=== PATIENT | female | born 1980 | race Hispanic/Latino ===

== ENCOUNTER 2018-10-07 22:45 | Emergency (ER) | payer SELFPAY ==
[2018-10-08 00:10] LABS: Urine Blood NEGATIVE (NEG); Urine Glucose NEGATIVE (NEG); Urine Protein NEGATIVE (NEG); Urine Specific Gravity 1.025 (1.005-1.030)
[2018-10-08 00:15] LABS: Urine Bacteria <20 /HPF (<20); Urine Culture Reflex Order NOT NEEDED; Urine RBC NONE SEEN /HPF (NONE SEEN)
[2018-10-08 01:29] LABS: Absolute Lymphocytes (CBC) 3.2 K/uL (0.7-4.9); Basophils % 0.8 % (0-1.3); Hematocrit 37.6 % (36.0-45.0); Lymphocytes % 32.9 % (15.3-44.8); MPV 8.9 fL (7.6-11.3); RBC Red Blood Cell Count 4.17 M/uL (3.86-4.86)
--- NOTE | 2018-10-08 04:03 | EDPHYS ---
Physician Documentation [facility] Name: Jenae Vazquez Age: 38 yrs Sex: Female : 1980 Arrival Date: 10/07/2018 Time: 22:50 Bed 18 Private MD: ED Physician Sean Lopez HPI: 10/08 03:56 This 38 yrs old Female presents to ER via Ambulatory with complaints of gs Abdominal Pain. 03:56 The patient presents with abdominal pain in the lower abdomen, in the left lower gs quadrant. Onset: The symptoms/episode began/occurred 4 day(s) ago. Associated signs and symptoms: Pertinent negatives: nausea and vomiting, chest pain. The symptoms are described as crampy, sharp. Modifying factors: The symptoms are alleviated by nothing, the symptoms are aggravated by nothing. Severity of pain: At its worst the pain was moderate in the emergency department the pain is unchanged. The patient has experienced a previous episode. 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 - Social history:: Smoking status: Patient/guardian denies using tobacco, never smoked. - Ebola Screening: : No symptoms or risks identified at this time. ROS: 10/08 03:56 All other systems are negative. gs Exam: 03:56 Head/Face: Normocephalic, atraumatic. Eyes: Pupils equal round and reactive to light, gs extra-ocular motions intact. Lids and lashes normal. Conjunctiva and sclera are non-icteric and not injected. Cornea within normal limits. Periorbital areas with no swelling, redness, or edema. ENT: Nares patent. No nasal discharge, no septal abnormalities noted. Tympanic membranes are normal and external auditory canals are clear. Oropharynx with no redness, swelling, or masses, exudates, or evidence of obstruction, uvula midline. Mucous membranes moist. Neck: Trachea midline, no thyromegaly or masses palpated, and no cervical lymphadenopathy. Supple, full range of motion without nuchal rigidity, or vertebral point tenderness. No Meningismus. Chest/axilla: Normal chest wall appearance and motion. Nontender with no deformity. No lesions are appreciated. Cardiovascular: Regular rate and rhythm with a normal S1 and S2. No gallops, murmurs, or rubs. Normal PMI, no JVD. No pulse deficits. Respiratory: Lungs have equal breath sounds bilaterally, clear to auscultation and percussion. No rales, rhonchi or wheezes noted. No increased work of breathing, no retractions or nasal flaring. Back: No spinal tenderness. No costovertebral tenderness. Full range of motion. Skin: Warm, dry with normal turgor. Normal color with no rashes, no lesions, and no evidence of cellulitis. MS/ Extremity: Pulses equal, no cyanosis. Neurovascular intact. Full, normal range of motion. Neuro: Awake and alert, GCS 15, oriented to person, place, time, and situation. Cranial nerves II-XII grossly intact. Motor strength 5/5 in all extremities. Sensory grossly intact. Cerebellar exam normal. Normal gait. 03:56 Constitutional: The patient appears alert, awake, uncomfortable. 03:56 Abdomen/GI: Palpation: moderate abdominal tenderness, in the left lower quadrant, rebound tenderness, is not appreciated. Vital Signs: 10/07 23:20 BP 138 / 95; Pulse 98; Resp 16; Temp 97.4; Pulse Ox 100% on R/A; Pain 4/10; aa1 10/08 01:30 BP 128 / 80; Pulse 88; Resp 12; Pulse Ox 100% on R/A; tr5 02:30 BP 131 / 76; Pulse 89; Resp 16; Pulse Ox 97% on R/A; aa1 03:45 BP 108 / 57; Pulse 88; Resp 16; Temp 97.8; Pulse Ox 95% on R/A; Pain 2/10; aa1 MDM: 10/07 23:27 Patient medically screened. gs 10/08 03:56 Differential diagnosis: bowel obstruction, diverticulitis, non-specific abd pain. Data gs reviewed: vital signs, nurses notes, lab test result(s), radiologic studies. Counseling: I had a detailed discussion with the patient and/or guardian regarding: the historical points, exam findings, and any diagnostic results supporting the discharge/admit diagnosis, lab results, radiology results, the need for outpatient follow up. Response to treatment: the patient's symptoms have mildly improved after treatment, and as a result, I will discharge patient. 10/07 23:27 Order name: Urine Microscopic Only; Complete Time: 00:59 10/07 23:50 Order name: Urine Dipstick--Ancillary (enter results); Complete Time: 00:59 id 08 00:59 Order name: CBC with Diff; Complete Time: 01:57 10/08 00:59 Order name: Basic Metabolic Panel; Complete Time: 01:57 10/08 00:59 Order name: CT Abd/Pelvis - IV Contrast Only 10/07 23:27 Order name: Urine Test (obtain specimen); Complete Time: 23:44 10/07 23:27 Order name: Urine Dipstick-Ancillary (obtain specimen); Complete Time: 23:44 Administered Medications: 04:10 Drug: cefOXitin 1 grams Route: IVPB; Infused Over: 30 mins; Site: right antecubital; tr5 Disposition: 10/08/18 04:02 Discharged to Home. Impression: Diverticulitis of large intestine without perforation or abscess without bleeding. - Condition is Stable. - Discharge Instructions: High-Fiber Diet, Diverticulitis. - Prescriptions for Flagyl 500 mg Oral Tablet - take 1 tablet by ORAL route every 6 hours for 7 days; 28 tablet. Keflex 500 mg Oral Capsule - take 2 capsule by ORAL route every 12 hours for 7 days; 28 capsule. - Medication Reconciliation Form, Thank You Letter, Antibiotic Education, Prescription Opioid Use form. - Follow up: Private Physician; When: 2 - 3 days; Reason: Re-evaluation by your physician. Signatures: Dispatcher [facility] Sean Lopez MD MD Viktor Fuentes RN RN tr5 Corrections: (The following items were deleted from the chart) 04:32 04:02 10/08/2018 04:02 Discharged to Home. Impression: Diverticulitis of large tr5 intestine without perforation or abscess without bleeding. Condition is Stable. Forms are Medication Reconciliation Form, Thank You Letter, Antibiotic Education, Prescription Opioid Use. Follow up: Private Physician; When: 2 - 3 days; Reason: Re-evaluation by your physician.
--- NOTE | 2018-10-08 04:03 | ER ---
Nurse's Notes [facility] Name: Jenae Vazquez Age: 38 yrs Sex: Female : 1980 Arrival Date: 10/07/2018 Time: 22:50 Bed 18 Private MD: Diagnosis: Diverticulitis of large intestine without perforation or abscess without bleeding Presentation: 10/07 23:17 Presenting complaint: Patient states: She has been having abdominal cramps that have tr5 been getting worse. She has been constipated and has pain while having a bowel movement. The last bm was about 2 hours ago. Transition of care: patient was not received from another setting of care. Onset of symptoms was October 07, 2018. Risk Assessment: Do you want to hurt yourself or someone else? Patient reports no desire to harm self or others. Initial Sepsis Screen: Does the patient meet any 2 criteria? No. Patient's initial sepsis screen is negative. Does the patient have a suspected source of infection? No. Patient's initial sepsis screen is negative. Care prior to arrival: None. 23:17 Method Of Arrival: Ambulatory tr5 23:17 Acuity: SEA 3 tr5 Triage Assessment: 23:20 General: Appears uncomfortable, Behavior is calm, cooperative. Pain: Complains of pain tr5 in abdomen. EENT: No deficits noted. 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 Cardiovascular: Heart tones present Bruits absent Capillary refill < 3 seconds. Respiratory: Airway is patent Trachea midline Respiratory effort is even, unlabored, Respiratory pattern is regular, symmetrical, Breath sounds are clear bilaterally. GI: Abdomen is round Bowel sounds present X 4 quads. Bruits are absent. Abd is soft X 4 quads Reports lower abdominal pain, constipation. : No signs and/or symptoms were reported regarding the genitourinary system. Derm: No signs and/or symptoms reported regarding the dermatologic system. Skin is intact, Skin is dry. Musculoskeletal: Capillary refill < 3 seconds. 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 - Social history:: Smoking status: Patient/guardian denies using tobacco, never smoked. - Ebola Screening: : No symptoms or risks identified at this time. Screenin:00 Abuse screen: Denies threats or abuse. Nutritional screening: No deficits noted. tr5 Tuberculosis screening: No symptoms or risk factors identified. Fall Risk None identified. Assessment: 10/08 00:30 Reassessment: No changes from previously documented assessment. Patient and/or family tr5 updated on plan of care and expected duration. Pain level reassessed. Patient is alert, oriented x 3, equal unlabored respirations, skin warm/dry/pink. 01:00 Reassessment: No changes from previously documented assessment. Patient and/or family tr5 updated on plan of care and expected duration. Pain level reassessed. Patient is alert, oriented x 3, equal unlabored respirations, skin warm/dry/pink. 01:01 Reassessment: See triage. tr5 02:00 Reassessment: Patient and/or family updated on plan of care and expected duration. Pain tr5 level reassessed. Patient is alert, oriented x 3, equal unlabored respirations, skin warm/dry/pink. 03:00 Reassessment: Patient and/or family updated on plan of care and expected duration. Pain tr5 level reassessed. Patient is alert, oriented x 3, equal unlabored respirations, skin warm/dry/pink. Vital Signs: 10/07 23:20 BP 138 / 95; Pulse 98; Resp 16; Temp 97.4; Pulse Ox 100% on R/A; Pain 4/10; aa1 10/08 01:30 BP 128 / 80; Pulse 88; Resp 12; Pulse Ox 100% on R/A; tr5 02:30 BP 131 / 76; Pulse 89; Resp 16; Pulse Ox 97% on R/A; aa1 03:45 BP 108 / 57; Pulse 88; Resp 16; Temp 97.8; Pulse Ox 95% on R/A; Pain 2/10; aa1 ED Course: 10/07 22:50 Patient arrived in ED. ds1 23:00 Sean Lopez MD is Attending Physician. gs 23:00 Placed in gown. Bed in low position. Call light in reach. tr5 23:01 Viktor Fuentes, RN is Primary Nurse. tr5 23:15 Urine collected:. tr5 23:20 Triage completed. tr5 23:20 Arm band placed on. tr5 23:40 Awaiting lab results. tr5 08 01:03 Awaiting re-evaluation by ER provider. tr5 01:10 Radiology exam delayed due to lab results not completed at this time. (HCG) (BUN/Creatinine). 01:13 Initial lab(s) drawn, by ms, sent to lab. Inserted saline lock: 20 gauge in right aa1 forearm, using aseptic technique. Blood collected. 02:26 CT Abd/Pelvis - IV Contrast Only In Process Unspecified. EDMS 04:31 No provider procedures requiring assistance completed. IV discontinued. tr5 Administered Medications: 04:10 Drug: cefOXitin 1 grams Route: IVPB; Infused Over: 30 mins; Site: right antecubital; tr5 Outcome: 04:02 Discharge ordered by . 04:31 Discharged to home ambulatory. tr5 04:31 Condition: stable 04:31 Discharge instructions given to patient. 04:32 Patient left the ED. tr5 Signatures: Dispatcher [employer] EDPR Carline Marinelli RN RN aa1 Subhash Doty Beata Coulter ds1 Sean Lopez MD MD Viktor Fuentes, RN RN tr5 Corrections: (The following items were deleted from the chart) 04:03 08/ 23:20 BP 138 / 95; Pulse 98bpm; Resp 16bpm; Pulse Ox 100% RA; tr5 aa1
[2018-10-08] MEDS ORDERED: CEFOXITIN/SWI 1gm 1 GM/10 ML SYR ONE (04:07)
[2018-10-08 04:43] VITALS: BP 108/57; TEMP 97.8; O2SAT 95
--- NOTE | 2018-10-08 10:22 | RAD REPORT ---
EXAM DESCRIPTION: CT Abdomen and Pelvis With Intravenous Contrast CLINICAL HISTORY: The patient is 38 years old and is Female; ABD PAIN TECHNIQUE: Axial computed tomography images of the abdomen and pelvis with intravenous contrast. S agittal and coronal reformatted images were created and reviewed. This CT exam was performed using one or more of the following dose reduction techniques: automated exposure control, adjustment of t he mA and/or kV according to patient size, and/or use of iterative reconstruction technique. COMPARISON: CT abdomen and pelvis with IV contrast dated 03/16/2016. FINDINGS: LUNG BASES: Unremarkable. No mass. No consolidation. ABDOMEN: LIVER: Unremarkable. No mass. GALLBLADDER AND BILE DUCTS: Innumerable gallstones in the gallbladder lumen. No pericholecystic fl uid. No ductal dilation. PANCREAS: Unremarkable. No mass. No ductal dilation. SPLEEN: Unremarkable. No splenomegaly. ADRENALS: Unremarkable. No mass. KIDNEYS AND URETERS: Heterogenous enhancing right renal mass measuring 3.5 x 2.8 x 4 cm (TR by AP by CC), relatively from prior exam. Finding demonstrates central scar. No hydronephrosis or hydroureter. STOMACH AND BOWEL: Sigmoid colon diverticulosis with circumferential wall thickening and peridiver ticular stranding. Small amount of fluid in the left paracolic gutter. No pneumoperitoneum or organiz ed fluid collection. No obstruction. PELVIS: APPENDIX: The appendix is seen and is within normal limits. BLADDER: Unremarkable. No mass. REPRODUCTIVE: 1.8 cm right corpus luteal cyst. ABDOMEN and PELVIS: INTRAPERITONEAL SPACE: See above. BONES/JOINTS: Mild multilevel degenerative changes. No acute fracture. No dislocation. SOFT TISSUES: Small fat-containing umbilical hernia. VASCULATURE: Unremarkable. No abdominal aortic aneurysm. LYMPH NODES: Unremarkable. No enlarged lymph nodes. IMPRESSION: 1. Findings suggestive of acute descending/sigmoid colon diverticulitis. No perforatio n or abscess formation at this time. 2. Relatively unchanged heterogenous enhancing right renal mass measuring up to 4 cm. Finding highl y concerning for renal cell carcinoma. 3. Advanced cholelithiasis without CT evidence of acute cholecystitis. 4. 1.8 cm right ovarian corpus luteal cyst. No follow-up imaging is recommended. Reference: US sue mmendations based on Radiology 2010 Sep;256(3):943-54; CT/MR recommendations based on J Am Tom Radio l 2013;10:675-681. Electronically signed by: Mario De Luna DO 10/08/2018 3:03 AM CDT Due to temporary technical issues with the PACS/Fluency reporting system, reports are being signed by the in house radiologist as a courtesy to ensure prompt reporting. The interpreting radiologist is f ully responsible for the content of the report.
== END 2018-10-08 04:32 | disposition home or self-care (01) ==
LOC: ER 22:45
DX: K57.32 Diverticulitis of large intestine without perforation or abscess without bleeding (principal)
CPT/HCPCS: 36415; 74177; 80048; 81003; 81015; 85025; 96374; 99284; Q9967

== ENCOUNTER 2019-09-30 20:14 | Emergency (ER) | payer SELFPAY ==
--- OUTSIDE RECORDS SUMMARY | 2019-09-30 20:17 | XMS REPORT | Continuity of Care Document ---
:1980 Author Organization [facility] t Address [address] [place] [address] Care Team Providers Name Role Phone Unavailable Unavailable Unavailable Problems This patient has no known problems. Allergies, Adverse Reactions, Alerts This patient has no known allergies or adverse reactions. Medications This patient has no known medications. Procedures This patient has no known procedures. Results This patient has no known results.
--- NOTE | 2019-09-30 21:51 | ER ---
Nurse's Notes [facility] Name: Jenae Vazquez Age: 39 yrs Sex: Female : 1980 Arrival Date: 09/30/2019 Time: 20:15 Bed 23 Private MD: Diagnosis: Dental caries Presentation: 09/29 20:54 Chief complaint: Chief complaint: Patient states: Toothache x 4 days R upper molars ca1 causing headaches and discomfort and inability to sleep. SP high at 170 at home. 20:55 Coronavirus screen: Client denies travel out of the [place] in the last 14 days. At this ca1 time, the client does not indicate any symptoms associated with coronavirus-19. Ebola Screen: Patient negative for fever greater than or equal to 101.5 degrees Fahrenheit, and additional compatible Ebola Virus Disease symptoms Patient denies exposure to infectious person. Patient denies travel to an Ebola-affected area in the 21 days before illness onset. No symptoms or risks identified at this time. Initial Sepsis Screen: Does the patient meet any 2 criteria? No. Patient's initial sepsis screen is negative. Does the patient have a suspected source of infection? No. Patient's initial sepsis screen is negative. Risk Assessment: Do you want to hurt yourself or someone else? Patient reports no desire to harm self or others. Onset of symptoms was September 30, 2019. 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 - Social history:: Smoking status: Patient denies any tobacco usage or history of. - Family history:: not pertinent. - Hospitalizations: : No recent hospitalization is reported. Screenin:39 Abuse screen: Denies threats or abuse. Nutritional screening: No deficits noted. jb4 Tuberculosis screening: No symptoms or risk factors identified. Fall Risk None identified. Assessment: 21:39 General: Appears in no apparent distress. uncomfortable, Behavior is calm, cooperative, jb4 appropriate for age. Pain: Complains of pain in mouth Pain does not radiate. Pain currently is 9 out of 10 on a pain scale. Quality of pain is described as throbbing. Neuro: Level of Consciousness is awake, alert, obeys commands, Oriented to person, place, time, situation. Cardiovascular: Patient's skin is warm and dry. Respiratory: Airway is patent Respiratory effort is even, unlabored, Respiratory pattern is regular, symmetrical. GI: No signs and/or symptoms were reported involving the gastrointestinal system. : No signs and/or symptoms were reported regarding the genitourinary system. EENT: Oral mucosa is moist. Throat is clear is pink. Derm: Skin is intact, Skin is pink, warm \T\ dry. Musculoskeletal: Circulation, motion, and sensation intact. Range of motion: intact in all extremities. 22:04 Reassessment: PT is on 15 minute shot time. jb4 22:25 Reassessment: Patient and/or family updated on plan of care and expected duration. Pain jb4 level reassessed. Patient is alert, oriented x 3, equal unlabored respirations, skin warm/dry/pink. PT reports pain has decreased to 4/10. verbalized understanding of D/c and follow up instructions. Denies questions or concerns. Ambulated out of ED with steady gait. Vital Signs: 20:55 BP 152 / 93; Pulse 66; Resp 15 S; Temp 98.5(O); Pulse Ox 100% on R/A; Weight 72.57 kg ca1 (R); Height 5 ft. 4 in. (162.56 cm) (R); 22:25 BP 155 / 95; Pulse 76; Resp 16; Pulse Ox 100% on R/A; Pain 4/10; jb4 20:55 Body Mass Index 27.46 (72.57 kg, 162.56 cm) ca1 ED Course: 20:15 Patient arrived in ED. cf2 20:57 Triage completed. ca1 20:57 Arm band placed on right wrist. ca1 21:39 Mahendra Beach, RN is Primary Nurse. jb4 21:39 Patient has correct armband on for positive identification. Bed in low position. Call jb4 light in reach. Side rails up X 1. Pulse ox on. NIBP on. 21:44 Reynold Pulido MD is Attending Physician. rn 22:25 No provider procedures requiring assistance completed. Patient did not have IV access jb4 during this emergency room visit. Administered Medications: 22:02 Drug: [place] 5 mg-325 mg 1 tabs Route: PO; jb4 22:27 Follow up: Response: No adverse reaction; Pain is decreased; RASS: Alert and Calm (0) jb4 22:03 Drug: TORadol 30 mg Route: IM; Site: left deltoid; jb4 22:26 Follow up: Response: No adverse reaction; Pain is decreased; RASS: Alert and Calm (0) [facility] Outcome: 21:50 Discharge ordered by . rn 22:25 Discharged to home ambulatory. jb4 22:25 Condition: stable 22:25 Discharge instructions given to patient, Instructed on discharge instructions, follow up and referral plans. medication usage, Demonstrated understanding of instructions, follow-up care, medications, Prescriptions given X 2. 22:27 Patient left the ED. [facility] Signatures: Reynold Pulido MD MD rn Bryson, James RN RN jb4 Marilyn Espinoza RN RN ca1 Gen Tabares cf2 Corrections: (The following items were deleted from the chart) 20:57 20:54 Chief complaint: ca1 ca1
--- NOTE | 2019-09-30 21:51 | EDPHYS ---
Physician Documentation [facility] Name: Jenae Vazquez Age: 39 yrs Sex: Female : 1980 Arrival Date: 09/30/2019 Time: 20:15 Bed 23 Private MD: ED Physician Reynold Pulido HPI: 09/29 21:47 This 39 yrs old Female presents to ER via Ambulatory with complaints of rn Toothache, High Blood Pressure. 21:47 The patient presents with pain, swelling. The problem is located in the left upper rn molars. Onset: The symptoms/episode began/occurred 3 day(s) ago. Modifying factors: The symptoms are alleviated by nothing, the symptoms are aggravated by chewing. Severity of symptoms: At their worst the symptoms were moderate, in the emergency department the symptoms are unchanged. The patient has experienced similar episodes in the past. Reports 3 days of dental pain, + mild swelling, not able to get into dentist yet, no fever. . 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 - Social history:: Smoking status: Patient denies any tobacco usage or history of. - Family history:: not pertinent. - Hospitalizations: : No recent hospitalization is reported. ROS: 21:47 Constitutional: Negative for fever, chills, and weight loss, ENT: + left upper dental rn pain Exam: 21:47 Constitutional: This is a well developed, well nourished patient who is awake, alert, rn and in no acute distress. ENT: + poor dentition with left upper molar cavities, + mild gingival erythema without fluctuance or abscess Vital Signs: 20:55 BP 152 / 93; Pulse 66; Resp 15 S; Temp 98.5(O); Pulse Ox 100% on R/A; Weight 72.57 kg ca1 (R); Height 5 ft. 4 in. (162.56 cm) (R); 22:25 BP 155 / 95; Pulse 76; Resp 16; Pulse Ox 100% on R/A; Pain 4/10; jb4 20:55 Body Mass Index 27.46 (72.57 kg, 162.56 cm) ca1 MDM: 21:44 Patient medically screened. rn 21:47 Differential diagnosis: dental caries, dental abscess. Data reviewed: vital signs, rn nurses notes, and as a result, I will discharge patient. Counseling: I had a detailed discussion with the patient and/or guardian regarding: the historical points, exam findings, and any diagnostic results supporting the discharge/admit diagnosis, the need for outpatient follow up, to return to the emergency department if symptoms worsen or persist or if there are any questions or concerns that arise at home. Special discussion: I discussed with the patient/guardian in detail that at this point there is no indication for admission to the hospital. It is understood, however, that if the symptoms persist or worsen the patient needs to return immediately for re-evaluation. Administered Medications: 22:02 Drug: [place] 5 mg-325 mg 1 tabs Route: PO; jb4 22:27 Follow up: Response: No adverse reaction; Pain is decreased; RASS: Alert and Calm (0) [facility] 22:03 Drug: TORadol 30 mg Route: IM; Site: left deltoid; jb4 22:26 Follow up: Response: No adverse reaction; Pain is decreased; RASS: Alert and Calm (0) jb4 Disposition: 09/30/19 21:50 Discharged to Home. Impression: Dental caries. - Condition is Stable. - Discharge Instructions: Dental Pain. - Prescriptions for Clindamycin HCl 300 mg Oral Capsule - take 1 capsule by ORAL route every 6 hours for 10 days; 40 capsule. Ultram 50 mg Oral Tablet - take 1 tablet by ORAL route every 6 hours As needed; 12 tablet. - Medication Reconciliation Form, Thank You Letter, Antibiotic Education, Prescription Opioid Use, Work release form form. - Follow up: Private Physician; When: As needed; Reason: Recheck today's complaints, Re-evaluation by your physician. - Problem is new. - Symptoms have improved. Signatures: Reynold Pulido MD MD rn Bryson, James, RN RN jb4 Marilyn Espinoza RN RN ca1 Corrections: (The following items were deleted from the chart) : 21:50 09/30/2019 21:50 Discharged to Home. Impression: Dental caries. Condition is jb4 Stable. Forms are Medication Reconciliation Form, Thank You Letter, Antibiotic Education, Prescription Opioid Use. Follow up: Private Physician; When: As needed; Reason: Recheck today's complaints, Re-evaluation by your physician. Problem is new. Symptoms have improved. rn
[2019-09-30] MEDS ORDERED: KETOROLAC 30 MG/ML INJ ONE (22:07)
[2019-09-30] MEDS ORDERED: HYDROCODONE/APAP 5/325 MG TAB ONE (22:07)
[2019-09-30 22:43] VITALS: BP 152/93; TEMP 98.5; O2SAT 100
== END 2019-09-30 22:27 | disposition home or self-care (01) ==
LOC: ER 20:14
DX: K02.9 Dental caries, unspecified (principal)
CPT/HCPCS: 96372; 99283

== ENCOUNTER 2020-01-19 19:02 | Emergency (ER) | payer SELFPAY ==
--- OUTSIDE RECORDS SUMMARY | 2020-01-19 19:04 | XMS REPORT | Continuity of Care Document ---
:1980 Author Organization [facility] t Address [address] [place] [address] Care Team Providers Name Role Phone Alvertomarissa ELINOR Nicolasa Lock Attending Clinician Doctor Unassigned, Name Attending Clinician Unavailable Problems This patient has no known problems. Allergies, Adverse Reactions, Alerts This patient has no known allergies or adverse reactions. Medications This patient has no known medications. Procedures This patient has no known procedures. Encounters Start End Encounter Admission Attending Care Care Encounter Source Date/Time Date/Time Type Type Clinicians Facility Department ID 2019-12-27 2019-12-27 Emergency AlvertoscarletttomasenocSARIAH [id number] 16:40:00 18:00:00 Nicolasa Jones [id number] [place] [id number] [place] [id number] 2019-12-27 2019-12-27 Orders Doctor ABERNATHY [id number] 00:00:00 00:00:00 Only UnassignedSISSY [id number] [place] [facility] [id number] Results This patient has no known results.
--- OUTSIDE RECORDS SUMMARY | 2020-01-19 19:04 | XMS REPORT | Summary of Care ---
:1980 Author Organization [facility] - Health Address [address] [place] [address] Care Team Providers Name Role Phone Pcp, Patient Does Not Have A Primary Care Provider +1-000-00 0-0000 Encounter Details Date Type Department Care Team Description 12/27/2019 Orders Only [facility] Doctor Unassigned, No [address] [facility] [place] [address] [address] [place] [address] Allergies No Known Allergiesdocumented as of this encounter (statuses as of 12/27/2019) Medications Medication Sig Dispensed Refills Start Date End Date Status proMETHazine Take 0.5 Tabs by 12 Tab 0 04/27/2015 Active (PHENERGAN) 25 mg mouth every 6 tablet (six) hours as needed for Nausea and Vomiting (N/V). cyclobenzaprine 5 mg Take 1 tablet by 30 tablet 0 07/31/2016 Active tablet mouth 3 (three) times daily. acetaminophen-codeine Take 1 tablet by 15 tablet 0 07/07/2018 Active (TYLENOL-CODEINE #3) mouth every 6 300-30 mg (six) hours as tabletIndications: needed for Pain Cutaneous abscess of (scale 4-6). neck, Cyst, dermoid, scalp and neck ondansetron (ZOFRAN Take 1 tablet by 6 tablet 0 09/14/2018 Active ODT) 4 mg mouth every 8 disintegrating (eight) hours as tabletIndications: needed for Nausea Plantar fasciitis of and Vomiting right foot, Fever, (N/V). unspecified fever cause, Generalized body aches, Nausea ranitidine (ZANTAC) 150 Take 1 tablet by 30 tablet 1 9 Active mg tabletIndications: mouth 2 (two) Plantar fasciitis of times daily. right foot, Fever, Follow up with unspecified fever your MD for cause, Generalized body further aches, Nausea evaluation and treatment. traMADol (ULTRAM) 50 mg Take 1 tablet by 9 tablet 0 9 Active tabletIndications: mouth every 8 Plantar fasciitis of (eight) hours as right foot, Fever, needed for Pain unspecified fever (scale 4-6). cause, Generalized body aches, Nausea documented as of this encounter (statuses as of 12/27/2019) Active Problems No known active problemsdocumented as of this encounter (statuses as of 12/27/2019) Social History Tobacco Use Types Packs/Day Years Used Date Never Assessed Alcohol Use Drinks/Week oz/Week Comments No Sex Assigned at Date Recorded Not on file documented as of this encounter Last Filed Vital Signs Not on filedocumented in this encounter Plan of Treatment Health Maintenance Due Date Last Done Comments VARICELLA VACCINES (1 of 2 - 1982 2-dose childhood series) Depression Screening 1993 DTaP,Tdap,and Td Vaccines (1 2000 - Tdap) PAP SMEAR 05/20/2011 05/19/2008, 03/22/2007, 12/15/2006 INFLUENZA VACCINE (#1) 2019 PNEUMOCOCCAL 0-64 YEARS Aged Out No longe r eligible based COMBINED SERIES on patient's age to complete this to [facility] documented as of this encounter Procedures Procedure Name Priority Date/Time Associated Diagnosis Comme nts CONSENT/REFUSAL FOR Routine 12/27/2019 4:30 PM CDT DIAGNOSIS AND TREATMENT documented in this encounter Results Not on filedocumented in this encounter
--- OUTSIDE RECORDS SUMMARY | 2020-01-19 19:04 | XMS REPORT | Summary of Care ---
:1980 Author Organization [facility] - [facility] Address [address] [place] [id number] Care Team Providers Name Role Phone Pcp, Patient Does Not Have A Primary Care Provider +[id number] 0-0000 Reason for Referral (JOSE DANIEL) Status Reason Specialty Diagnoses / Referred By Referred To Procedures Contact Contact New Request ORT-ORTHOPAEDIC Diagnoses Acute right ankle pain Strain of right ankle, initial encounter [place], SURGERY Procedures Discharge Follow-Up: Specialty Service ORT-ORTHOPAEDIC SURGERY; 3-5 Days [place] F, [employer]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 [address] [facility] [address] [place] [phone] Radiology Services (STAT) Status Reason Specialty Diagnoses / Referred By Referred To Procedures Contact Contact New Request Diagnostic Diagnoses Acute right ankle pain [place], Radiology Procedures XR ANKLE 3+ VW RIGHT [place] F, [employer]EL[employer] HELPER [address] [facility] [address] [place] [phone] Reason for Visit Reason Comments Ankle Pain right Auth/Cert Status Reason Specialty Diagnoses / Referred By Referred To Procedures Contact Contact Emergency Medicine Diagnoses ANKLE PAIN [facility] [address] [place] [address] Fax: Encounter Details Date Type Department Care Team Description 12/27/2019 Emergency [facility]-Emergency [place], [place] Acute rig ht ankle pain (Primary Dx); Department F, [employer] HEL[employer] Strain of right ankle, initial encounter [address] [facility] [address] [facility] [address] [place] [address] [place], [place] [phone] Allergies No Known Allergiesdocumented as of this [...] (scale 4-6). cause, Generalized body aches, Nausea traMADoL 50 mg Take 1 tablet by 10 tablet 0 12/27/2019 Active tabletIndications: mouth every 6 acute pain (six) hours as needed for Pain (scale 7-10). Indications: acute pain documented as of this encounter (statuses as of 12/27/2019) Active Problems No known active problemsdocumented as of this encounter (statuses as of 12/27/2019) Social History Tobacco Use Types Packs/Day Years Used Date Never Assessed Alcohol Use Drinks/Week oz/Week Comments No Sex Assigned at Date Recorded Not on file COVID-19 Exposure Response Date Recorded In the last month, have you been in contact with No / Unsure 12/27/2019 4:31 PM CDT someone who was confirmed or suspected to have Coronavirus / COVID-19? documented as of this encounter Last Filed Vital Signs Vital Sign Reading Time Taken Comments Blood Pressure 155/90 12/27/2019 4:37 PM CDT Pulse 84 12/27/2019 4:37 PM CDT Temperature 37.2 C (98.9 F) 12/27/2019 4:37 PM CDT Respiratory Rate 18 12/27/2019 4:37 PM CDT Oxygen Saturation 97% 12/27/2019 4:37 PM CDT Inhaled Oxygen Concentration - - Weight 122.5 kg (270 lb) 12/27/2019 4:37 PM CDT Height - - Body Mass Index 46.35 09/06/2018 3:32 PM CDT documented in this encounter Discharge Instructions Nicolasa Atkinson FNP - 12/27/2019 You were seen today for Chief Complaint Patient presents with Ankle Pain right Your ER diagnosis was ICD-10-CM ICD-9-CM 1. Acute right ankle pain M25.571 719.47 338.19 2. Strain of right ankle, initial encounter S96.911A 845.00 NO LIFE-THREATENING FINDINGS ON TODAY'S EXAM. YOUR PRESCRIPTIONS : Medication List CONTINUE taking these medications traMADoL 50 mg tablet Commonly known as: Ultram Take 1 tablet by mouth every 8 (eight) hours as needed for Pain (scale 4-6). ASK your doctor about these medications acetaminophen-codeine 300-30 mg tablet Commonly known as: Tylenol-Codeine #3 Take 1 tablet by mouth every 6 (six) hours as needed for Pain (scale 4-6). cyclobenzaprine 5 mg tablet Commonly known as: FLEXERIL Take 1 tablet by mouth 3 (three) times daily. ondansetron 4 mg disintegrating tablet Commonly known as: Zofran ODT Take 1 tablet by mouth every 8 (eight) hours as needed for Nausea and Vomiting (N/V). proMETHazine 25 mg tablet Commonly known as: PHENERGAN Take 0.5 Tabs by mouth every 6 (six) hours as needed for Nausea and Vomiting (N/V). ranitidine 150 mg tablet Commonly known as: Zantac Take 1 tablet by mouth 2 (two) times daily. Follow up with your MD for further evaluation and treatment. ER precautions and follow up : 1. Return to ER if your symptoms should worsen or fail to improve within 72 hours. 2. The care provided in the emergency room was for acute problems only. 3. You should follow up with Orthopedic provider within 72 hours. 4. Fill and take all your medications as prescribed. 5. Make sure you are staying adequately hydrated. Busque attencion immediatamente si usted tiene los sitomas sigue, vuelve peor o si hay sitomas nuevas o para cualquiera preoccupacion incluyendo dolor del pecho, falta aire, se siente debile, mas fievre, mas dolor, nausea, vomitando, sangrando que no es normal, confusion, baja or pierdas conciencia. FOLLOW-UP RECOMMENDATIONS: RECOMMEND FOLLOW-UP WITH A PRIMARY CARE PROVIDER OR SPECIALIST IN 2-5 DAYS, ESPECIALLY IF NO IMPROVEMENT IN SYMPTOMS. MAY FOLLOW-UP WITH A PROVIDER OF YOUR CHOICE, SUCH : 1. A PHYSICIAN OF YOUR CHOICE 2. [facility], . LOCATIONS IN [facility] 3. [facility], [address] [place] [address]; [phone] OR, IF YOU WISH TO FOLLOW-UP WITHIN THE [facility], MAY TRY THESE OPTIONS (CLINIC APPOINTMENTS AVAILABLE ON BLST-HV-CQOO BASIS): 1. SCHEDULE AN APPOINTMENT ONLINE AT WWW[facility] 2. OR CALL THE [facility] ACCESS CENTER AT OR 3. OR CALL YOUR [facility] PHYSICIAN'S OFFICE DIRECTLY IF YOU ARE ALREADY AN ESTABLISHED [facility] PATIENT. AttachmentsThe following attachments cannot be sent through Care Everywhere. Strains and Sprains, Treating (Tristanian)documented in this encounter ED Notes Kaley Ibarra RN - 12/27/2019 4:35 PM CDTPt reports that she headaches left ankle pain that started last night after rolling to the side ad feeling a popping sensation. Nicolasa Albarado FNP - 12/27/2019 4:31 PM CDT EMERGENCY DEPARTMENT ENCOUNTER [facility] Patient Name: Jenae Aguillon Date of : 1980 39 year old Exam Room:[address] Primary Care Physician: PATIENT DOES NOT HAVE A PCP Pre- Hospital Patient Escorted by: Family [5] Mode of Arrival: Personal means [1] EMS Treatment Prior to ED Arrival: n/a Chief Complaint Chief Complaint Patient presents with Ankle Pain right HPI Patient is a 39 year old female presents to ED for evaluation and treatment due to right ankle pain.Patient stated she fell back at work yesterday due to a dizzy spell and twisted her ankle. "I felt my ankle pop"". Ankle appears swollen and painful to touch. Patient states she has not taken any medication. She describes pain as burning pain, 9/10 when she bears weight. Denies previous injury to foot. 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 Ankle Pain Location: Ankle Time since incident: 1 day Injury: yes Mechanism of injury: fall Fall: Fall occurred: Standing Impact surface: Unable to specify Point of impact: Buttocks Entrapped after fall: no Ankle location: R ankle Pain details: Quality: Burning Radiates to: Does not radiate Severity: Severe Onset quality: Gradual Duration: 1 day Timing: Constant Progression: Worsening Chronicity: New Foreign body present: No foreign bodies Tetanus status: Unknown Prior injury to area: No Relieved by: None tried Worsened by: Bearing weight Ineffective treatments: None tried Associated symptoms: decreased ROM and swelling Associated symptoms: no fever and no numbness Risk factors: obesity Past Medical History / Immunizations History reviewed. No pertinent past medical history. Past Surgical History Past Surgical History: Procedure Laterality Date SECTION HYSTERECTOMY TUBAL LIGATION Allergies No Known Allergies Social History Alcohol Use No. Drug Use Yes. Review of Systems Review of Systems Constitutional: Negative for activity change, appetite change, chills and fever. HENT: Negative. Eyes: Negative. Respiratory: Negative. Gastrointestinal: Negative for abdominal distention, abdominal pain, anal bleeding, blood in stool, constipation, diarrhea, nausea, rectal pain and vomiting. Genitourinary: Negative for bladder incontinence, dysuria, frequency, hematuria, flank pain, decreased urine volume and difficulty urinating. Musculoskeletal: Positive for arthralgias, gait problem and joint swelling. Neurological: Negative for weakness. Physical Exam BP (!) 155/90 | Pulse 84 | Temp 37.2 C (98.9 F) (Oral) | Resp 18 | Wt 122.5 kg (270 lb) | SpO2 97% | BMI 46.35 kg/m Physical Exam Vitals signs and nursing note reviewed. Constitutional: Appearance: She is well-developed. Eyes: Pupils: Pupils are equal, round, and reactive to light. Neck: Musculoskeletal: Normal range of motion. Cardiovascular: Rate and Rhythm: Normal rate. Heart sounds: Normal heart sounds. Pulmonary: Effort: Pulmonary effort is normal. No respiratory distress. Breath sounds: No wheezing. Abdominal: General: There is no distension. Palpations: There is no mass. Tenderness: There is no abdominal tenderness. There is no guarding or rebound. Musculoskeletal: Right ankle: She exhibits decreased range of motion and swelling. Tenderness. Lateral malleolus tenderness found. Skin: General: Skin is warm and dry. Neurological: Mental Status: She is alert and oriented to person, place, and time. Labs No results found for this or any previous visit (from the past 24 hour(s)). Imaging Hospital Encounter on 12/27/19 XR ANKLE 3+ VW RIGHT Narrative EXAM: XR ANKLE 3+ VW RIGHT HISTORY: right ankle pain COMPARISON: None. FINDINGS: Radiographs of the right ankle demonstrate no acute fracture or dislocation. The ankle mortise is anatomic The joint spaces are maintained. Mild lateral ankle soft tissue swelling is noted. Impression No acute fracture or dislocation. Preliminary Report Dictated by Resident: Ruslan Almazan Orders and Treatments Orders Placed This Encounter Procedures XR ANKLE 3+ VW RIGHT Orders Placed This Encounter Medications ibuprofen (IBU) tablet 800 mg acetaminophen (TYLENOL) tablet 1,000 mg Procedures Procedures Notes ED Course as of Dec 27 1735MonDec 27, 20191730 Patient presents with ankle strain. Advise application of ice compress for 15 minutes 3 to 4 times a day. Elevate foot and avoid weight bearing. Ankle will be immobilized with an airsplint and patient will be discharged with pain medication. She will follow up with Orthopedic in 2 to 3 days. Discussed plan of care with patient. Patient verbalizes understanding and agrees with plan [FI] 1731 No acute fracture or dislocation XR ANKLE 3+ VW RIGHT [FI] ED Course User Index [FI] Nicolasa Muller FNP Diagnosis ICD-10-CM ICD-9-CM 1. Acute right ankle pain M25.571 719.47 338.19 2. Strain of right ankle, initial encounter S96.911A 845.00 Disposition & Follow Up ED Disposition ED Disposition Condition Comment Disch - Home Stable Patient's Medications START taking these medications No medications on file CONTINUE taking these medications which have NOT CHANGED ACETAMINOPHEN-CODEINE (TYLENOL-CODEINE #3) 300-30 MG TABLET Take 1 tablet by mouth every 6 (six)hours as needed for Pain (scale 4-6). CYCLOBENZAPRINE 5 MG TABLET Take 1 tablet by mouth 3 (three) times daily. ONDANSETRON (ZOFRAN ODT) 4 MG DISINTEGRATING TABLET Take 1 tablet by mouth every 8 (eight) hoursas needed for Nausea and Vomiting (N/V). PROMETHAZINE (PHENERGAN) 25 MG TABLET Take 0.5 Tabs by mouth every 6 (six) hours as needed for Nausea and Vomiting (N/V). RANITIDINE (ZANTAC) 150 MG TABLET Take 1 tablet by mouth 2 (two) times daily. Follow up with your MD for further evaluation and treatment. TRAMADOL (ULTRAM) 50 MG TABLET Take 1 tablet by mouth every 8 (eight) hours as needed for Pain (scale 4-6). START taking Modified Medications as Prescribed No medications on file STOP taking these medications No medications on file MDM Coding Associated attestation - Hannah Hinson DO - 12/27/2019 6:20 PM CDTI was personally available for consultation in the Emergency Department during this encounter and patient evaluation by Nicolasa Muller. documented in this encounter Miscellaneous Notes ED Nurse Note - Christine Miller RN - 12/27/2019 6:37 PM CDTPt given printed and verbal discharge instructions regarding acute right ankle pain and strain, encouraged hydration. Prescriptions provided. Discussed ibuprofen and to take with food to avoid GI distress. Discussed tramadol side affects and to avoid driving/operating machinery/or engaging in activities requiring alertness while taking. Pt verbalized understanding of instructions, pt awake alert oriented, resp reg unlabored, skin w/d, color appropriate for race, moves all ext well, pt encouraged to follow up with PCP. Advised to seek medical attention for new/prolonged/worsening of symptoms. Symptoms addressed. No adverse reaction to meds given in ER noted upon discharge. Pt leaving amb with steady gait, in no apparent distress. documented in this encounter Plan of Treatment Name Type Priority Associated Diagnoses Date/Ti me XR ANKLE 3+ VW RIGHT IMAGING STAT Acute right ankle pa in 12/27/2019 5:17 PM CDT Health Maintenance Due Date Last Done Comments VARICELLA VACCINES (1 of 2 - 1982 2-dose childhood series) Depression Screening 1993 DTaP,Tdap,and Td Vaccines (1 2000 - Tdap) PAP SMEAR 05/20/2011 05/19/2008, 03/22/2007, 12/15/2006 INFLUENZA VACCINE (#1) 2019 PNEUMOCOCCAL 0-64 YEARS Aged Out No longe r eligible based COMBINED SERIES on patient's age to complete this to pic documented as of this encounter Procedures Procedure Name Priority Date/Time Associated Diagnosis Comme nts XR ANKLE 3+ VW RIGHT STAT 12/27/2019 5:17 PM CDT Acute rig ht ankle pain Procedure Note - [facility], Radia nt Results Inft User - 12/27/2019 5:31 PM CDT EXAM: XR ANKLE 3+ VW RIGHT HISTORY: right ankle pain COMPARISON: None. FINDINGS: Radiographs of the right ank le demonstrate no acute fracture or dislocation. The ankle morti se is anatomic The joint spaces are maintained. Mild lateral ankle soft tiss ue swelling is noted. IMPRESSION No acute fracture or disloca tion. Preliminary Report Dictated by Resident: Ruslan Almazan NOTICE OF PRIVACY PRACTICES Routine 12/27/2019 4:31 PM CDT documented in this encounter Results Not on filedocumented in this encounter Visit Diagnoses Diagnosis Acute right ankle pain - Primary Strain of right ankle, initial encounter documented in this encounter Administered Medications Medication Order MAR Action Action Date Dose Rate Site acetaminophen (TYLENOL) tablet Given 12/27/2019 5:55 PM CDT 1,0 00 mg 1,000 mg 1,000 mg, Oral, ONCE, 1 dose, Mon12/27/19 at 1815, Routine ibuprofen (IBU) tablet 800 mg Given 12/27/2019 5:55 PM CDT 800 mg 800 mg, Oral, ONCE, 1 dose, Mon12/27/19 at 1815, JOSE DANIEL documented in this encounter
[2020-01-19 19:54] LABS: Urine Blood NEGATIVE (NEG); Urine Glucose NEGATIVE (NEG); Urine Protein NEGATIVE (NEG)
[2020-01-19] MEDS ORDERED: IBUPROFEN 400 MG TAB ONE (20:14)
[2020-01-19] MEDS ORDERED: HYDROCODONE/APAP 10/325 TAB ONE (20:14)
--- NOTE | 2020-01-19 20:28 | RAD REPORT ---
EXAM DESCRIPTION: US - Extremity Venous Uni Ltd - 01/19/2020 8:08 pm CLINICAL HISTORY: PAIN Leg swelling and edema. COMPARISON: <Comparisons> FINDINGS: Left lower extremity venous system was interrogated with Doppler technique. Normal flow, c ompressibility and augmentation was noted. There is no DVT present. IMPRESSION: No evidence of left lower extremity deep venous thrombosis.
--- NOTE | 2020-01-19 20:38 | EDPHYS ---
Physician Documentation [facility] Name: Jenae Vazquez Age: 39 yrs Sex: Female : 1980 Arrival Date: 01/19/2020 Time: 19:06 Bed 20 Private MD: ED Physician Tay Kerr HPI: 01/18 19:25 This 39 yrs old Female presents to ER via Ambulatory with complaints of Leg cp Pain. 19:25 The patient presents with pain, that is acute. The complaints affect the lateral aspect cp of left thigh, left hamstring and left calf. Context: resulted from an unknown cause, the patient can fully bear weight, the patient is able to ambulate, with mild difficulty. Onset: The symptoms/episode began/occurred 1 week(s) ago. Associated signs and symptoms: Pertinent positives: calf tenderness, Pertinent negatives fever, numbness, rash, warmth. Historical: - Allergies: 19:15 No Known Allergies; ll1 - PMHx: 19:15 None; ll1 - PSHx: 19:15 ; ll1 - Immunization history:: Flu vaccine is up to date. - Social history:: Smoking status: Patient denies any tobacco usage or history of. ROS: 19:30 MS/extremity: Positive for pain, tenderness, Negative for injury or acute deformity, cp decreased range of motion, paresthesias. 19:30 Eyes: Negative for injury, pain, redness, and discharge. cp 19:30 Constitutional: Negative for body aches, chills, fever. 19:30 Cardiovascular: Negative for chest pain, palpitations. 19:30 Respiratory: Positive for shortness of breath, Negative for cough, wheezing. 19:30 Skin: Negative for rash. 19:30 All other systems are negative. Exam: 19:35 Constitutional: The patient appears in no acute distress, alert, awake, cp non-diaphoretic, non-toxic, well developed, well nourished, uncomfortable. 19:35 Head/Face: Normocephalic, atraumatic. cp 19:35 Chest/axilla: Inspection: normal. 19:35 Cardiovascular: Rate: normal, Rhythm: regular, Edema: is not appreciated. 19:35 Respiratory: the patient does not display signs of respiratory distress, Respirations: normal, no use of accessory muscles, no retractions, labored breathing, is not present, Breath sounds: are clear throughout, no decreased breath sounds. 19:35 Back: pain, is absent, ROM is normal. 19:35 Musculoskeletal/extremity: Extremities: grossly normal except: noted in the left leg: pain, tenderness, ROM: full passive range of motion, in the left leg, Perfusion: the extremity is normally perfused throughout, the left leg Sensation intact. 19:35 Skin: cellulitis, is not appreciated, no rash present. Vital Signs: 19:14 BP 142 / 100; Pulse 97; Resp 19; Temp 98.5; Pulse Ox 100% ; Pain 10/10; ll1 20:30 BP 145 / 64; Pulse 58; Resp 16; Pulse Ox 100% on R/A; jb4 MDM: 19:15 Patient medically screened. cp 20:35 Data reviewed: vital signs, nurses notes, radiologic studies, ultrasound, and as a cp result, I will discharge patient. ED course: Review of [place] prescription monitor website negative for any active RXs for narcotic medications. 01/18 19:39 Order name: Urine Dipstick--Ancillary (enter results) [facility] 01/18 19:39 Order name: Urine --Ancillary (enter results) [facility] 01/18 19:17 Order name: Urine Dipstick-Ancillary (obtain specimen); Complete Time: 19:34 cp 01/18 19:17 Order name: US Extremity Venous Unilateral Ltd cp 01/18 19:17 Order name: Urine Test (obtain specimen); Complete Time: 19:34 cp 01/18 20:36 Order name: Crutches; Complete Time: 20:51 cp Administered Medications: 20:05 Drug: HYDROcodone-acetaminophen 10 mg-325 mg 1 tabs Route: PO; jb4 20:30 Follow up: Response: No adverse reaction; Pain is decreased jb4 20:05 Drug: Ibuprofen 800 mg Route: PO; jb4 20:30 Follow up: Response: No adverse reaction; Pain is decreased jb4 Point of Care Testing: Urine : 19:25 hCG Reading: Negative; Control Reading: Positive; jp3 Disposition: 01/19 06:03 Co-signature as Attending Physician, Tay Kerr MD. [email or web address] Disposition: 01/19/20 20:37 Discharged to Home. Impression: Pain in left leg. - Condition is Stable. - Discharge Instructions: Musculoskeletal Pain. - Prescriptions for Diclofenac Sodium 75 mg Oral Tablet Sustained Release - take 1 tablet by ORAL route 2 times per day; 30 tablet. Tramadol 50 mg Oral Tablet - take 1 tablet by ORAL route every 8 hours as needed; 12 tablet. - Medication Reconciliation Form, Thank You Letter, Antibiotic Education, Prescription Opioid Use form. - Follow up: Private Physician; When: 2 - 3 days; Reason: Worsening of condition. - Problem is new. - Symptoms have improved. Signatures: Dispatcher [employer] EDMS Niels Rodriguez PA PA cp Mahendra Beach RN RN jb4 Francisco Echavarria RN RN ll1 Tay Kerr MD MD mh7 Corrections: (The following items were deleted from the chart) 01/18 20:57 20:37 01/19/2020 20:37 Discharged to Home. Impression: Pain in left leg. Condition is jb4 Stable. Forms are Medication Reconciliation Form, Thank You Letter, Antibiotic Education, Prescription Opioid Use. Follow up: Private Physician; When: 2 - 3 days; Reason: Worsening of condition. Problem is new. Symptoms have improved. cp
--- NOTE | 2020-01-19 20:38 | ER ---
Nurse's Notes [facility] Name: Jenae Vazquez Age: 39 yrs Sex: Female : 1980 Arrival Date: 01/19/2020 Time: 19:06 Bed 20 Private MD: Diagnosis: Pain in left leg Presentation: 01/18 19:14 Chief complaint: Patient states: Pain from L outer thigh down entire leg to bottom of ll1 calf area for 1 week. No trauma or falls. No fever or cough. Coronavirus screen: Client denies travel out of the [place] in the last 14 days. At this time, the client does not indicate any symptoms associated with coronavirus-19. Ebola Screen: Patient denies travel to an Ebola-affected area in the 21 days before illness onset. Initial Sepsis Screen: Does the patient meet any 2 criteria? HR > 90 bpm. No. Patient's initial sepsis screen is negative. Does the patient have a suspected source of infection? Yes: Bone or joint infection. Risk Assessment: Do you want to hurt yourself or someone else? Patient reports no desire to harm self or others. Onset of symptoms was January 13, 2020. 19:14 Method Of Arrival: Ambulatory ll1 19:14 Acuity: SEA 3 ll1 Historical: - Allergies: 19:15 No Known Allergies; ll1 - PMHx: 19:15 None; ll1 - PSHx: 19:15 ; ll1 - Immunization history:: Flu vaccine is up to date. - Social history:: Smoking status: Patient denies any tobacco usage or history of. Screenin:10 Abuse screen: Denies threats or abuse. Nutritional screening: No deficits noted. jb4 Tuberculosis screening: No symptoms or risk factors identified. Fall Risk None identified. Assessment: 19:10 General: Appears in no apparent distress. comfortable, Behavior is calm, cooperative, jb4 appropriate for age. Pain: Complains of pain in left leg Pain does not radiate. Pain currently is 10 out of 10 on a pain scale. Neuro: Level of Consciousness is awake, alert, obeys commands, Oriented to person, place, time, situation. Cardiovascular: Patient's skin is warm and dry. Respiratory: Airway is patent Respiratory effort is even, unlabored, Respiratory pattern is regular, symmetrical. GI: No signs and/or symptoms were reported involving the gastrointestinal system. : No signs and/or symptoms were reported regarding the genitourinary system. EENT: No signs and/or symptoms were reported regarding the EENT system. Derm: Skin is intact, Skin is pink, warm \T\ dry. Musculoskeletal: Circulation, motion, and sensation intact. Range of motion: intact in all extremities. 20:07 Reassessment: Patient appears in no apparent distress at this time. Patient and/or jb4 family updated on plan of care and expected duration. Pain level reassessed. Patient is alert, oriented x 3, equal unlabored respirations, skin warm/dry/pink. Vital Signs: 19:14 BP 142 / 100; Pulse 97; Resp 19; Temp 98.5; Pulse Ox 100% ; Pain 10/10; ll1 20:30 BP 145 / 64; Pulse 58; Resp 16; Pulse Ox 100% on R/A; jb4 ED Course: 19:06 Patient arrived in ED. mr 19:09 Niels Rodriguez PA is PHCP. cp 19:09 Tay Kerr MD is Attending Physician. cp 19:10 Patient has correct armband on for positive identification. Bed in low position. Call jb4 light in reach. Side rails up X 1. Pulse ox on. NIBP on. 19:15 Triage completed. ll1 19:15 Arm band placed on Patient placed in an exam room, on a stretcher. ll1 19:25 Urine collected: clean catch specimen, clear, shyann colored. jp3 19:25 Patient maintains SpO2 saturation greater than 95% on room air. jp3 19:41 Mahendra Beach, RN is Primary Nurse. jb4 20:08 US Extremity Venous Unilateral Ltd In Process Unspecified. EDMS 20:57 No provider procedures requiring assistance completed. Patient did not have IV access jb4 during this emergency room visit. Administered Medications: 20:05 Drug: HYDROcodone-acetaminophen 10 mg-325 mg 1 tabs Route: PO; jb4 20:30 Follow up: Response: No adverse reaction; Pain is decreased jb4 20:05 Drug: Ibuprofen 800 mg Route: PO; jb4 20:30 Follow up: Response: No adverse reaction; Pain is decreased jb4 Point of Care Testing: Urine : 19:25 hCG Reading: Negative; Control Reading: Positive; jp3 Outcome: 20:37 Discharge ordered by . cp 20:57 Discharged to home via wheelchair, with family. jb4 20:57 Condition: stable 20:57 Discharge instructions given to patient, Instructed on discharge instructions, follow up and referral plans. medication usage, crutch walking, Demonstrated understanding of instructions, follow-up care, medications, crutch walking, Prescriptions given X 2. 20:57 Patient left the ED. jb4 Signatures: Dispatcher [employer] EDMS KentrellAllison mr Niels Rodriguez PA PA cp Bryson, James, RN RN jb4 Jose Guadalupe Barrios jp3 Francisco Echavarria, RN RN ll1
[2020-01-20 02:05] VITALS: TEMP 98.5; O2SAT 100
[2020-01-20 02:06] VITALS: BP 145/64
== END 2020-01-19 20:57 | disposition home or self-care (01) ==
LOC: ER 19:02
DX: M79.605 Pain in left leg (principal)
CPT/HCPCS: 81003; 81025; 93971; 99284

== ENCOUNTER 2020-02-04 02:00 | Emergency (ER) | payer SELFPAY ==
[2020-02-04] MEDS ORDERED: MORPHINE 2 MG/ML SYR ONE ×2 (02:49→04:07)
[2020-02-04] MEDS ORDERED: ONDANSETRON 4 MG/2 ML VIAL ONE (02:49)
[2020-02-04] MEDS ORDERED: KETOROLAC 30 MG/ML INJ ONE (02:49)
[2020-02-04] MEDS ORDERED: lisinopriL 10 MG TAB ONE (03:54)
--- OUTSIDE RECORDS SUMMARY | 2020-02-04 05:26 | XMS REPORT | Summary of Care ---
:1980 Author Organization [facility] Address [address] [place] [address] Care Team Providers Name Role Phone Pcp, Patient Does Not Have A Primary Care Provider +[id number] 0-0000 Reason for Referral (Routine) Status Reason Specialty Diagnoses / Referred By Contact Refe rred To Procedures Contact New Request Procedures Bon Padilla FNP UNILATERAL VENOUS [address] [place] [address]. EXTREMITY BY [place] [facility] [id number] Phone: Reason for Visit Reason Comments Leg Pain left lower leg Auth/Cert Status Reason Specialty Diagnoses / Referred By Referred To Procedures Contact Contact Emergency Medicine Diagnoses LEG PAIN [facility] Emergency Dept [address] [place] [id number] Fax: Encounter Details Date Type Department Care Team Description 01/24/2020 Emergency ADC-Emergency Bon Padilla F SKEIN WINDER Left leg pain (Primary Department [address] [place] [address]. Dx) [address] [facility] [id number] [place], [place] [id number] Allergies No Known Allergiesdocumented as of this encounter (statuses as of 01/24/2020) Medications Medication Sig Dispensed Refills Start Date [...] as of this encounter (statuses as of 01/24/2020) Active Problems No known active problemsdocumented as of this encounter (statuses as of 01/24/2020) Social History Tobacco Use Types Packs/Day Years Used Date Never Assessed Alcohol Use Drinks/Week oz/Week Comments No Sex Assigned at Date Recorded Not on file COVID-19 Exposure Response Date Recorded In the last month, have you been in contact Unable to assess 01/24/2020 5:27 PM [facility] with someone who was confirmed or suspected to have Coronavirus / COVID-19? documented as of this encounter Last Filed Vital Signs Vital Sign Reading Time Taken Comments Blood Pressure 157/103 01/24/2020 5:06 PM [facility] [employer] Pulse 84 01/24/2020 5:06 PM [facility] Temperature 36.7 C (98 F) 01/24/2020 5:06 PM WO[facility] PR[facility]ER Respiratory Rate 18 01/24/2020 5:06 PM [facility] PR[employer]ER Oxygen Saturation 98% 01/24/2020 5:06 PM WO[employer] PR[employer]ER Inhaled Oxygen Concentration - - Weight 122.5 kg (270 lb) 01/24/2020 5:06 PM WO[facility] PR[employer]ER Height - - Body Mass Index 46.35 09/06/2018 3:32 PM CDT documented in this encounter Discharge Instructions Bon Davalos FNP - 01/24/2020DIAGNOSIS 1. Left leg pain NO LIFE-THREATENING FINDINGS ON TODAY'S EXAM. PROCEDURES IN THE ER TODAY: Doppler, emergency medical evaluation MEDICATIONS ADMINISTERED IN THE ER TODAY: toradol YOUR PRESCRIPTIONS AND [id number] MEDICATION RECOMMENDATIONS: Tylenol/Ibuprofen for pain FOLLOW-UP RECOMMENDATIONS: RECOMMEND FOLLOW-UP WITH A PRIMARY CARE PROVIDER OR SPECIALIST IN 2-5 DAYS, ESPECIALLY IF NO IMPROVEMENT IN SYMPTOMS. MAY FOLLOW-UP WITH A PROVIDER OF YOUR CHOICE, SUCH : 1. A PHYSICIAN OF YOUR CHOICE 2. [facility], . LOCATIONS IN [facility] 3. [facility], [address] [place] [address]; [phone] OR, IF YOU WISH TO FOLLOW-UP WITHIN THE [facility], MAY TRY THESE OPTIONS (CLINIC APPOINTMENTS AVAILABLE ON DYUB-QL-AMCB BASIS): 1. SCHEDULE AN APPOINTMENT ONLINE AT [email or web address] 2. OR CALL THE [facility] AT OR 3. OR CALL YOUR [facility] PHYSICIAN'S OFFICE DIRECTLY IF YOU ARE ALREADY AN ESTABLISHED [facility] PATIENT. RETURN TO ER FOR WORSENING OF SYMPTOMS. AttachmentsThe following attachments cannot be sent through Care Everywhere.RICE (Bermudian)documented in this encounter ED Notes Brit Chew RN - 01/24/2020 5:04 PM CSTPatient c/o pain and swelling to her left lower leg. Patient states "it feels like a tight rubber band"; patient denies any history of DVT. documented in this encounter Miscellaneous Notes ED Nurse Note - Desmond Denson RN - 01/24/2020 6:26 PM CSTVerbalized understanding of discharge instructions. No signs of distress observed. RR even and unlabored. Encouraged to return to ER if symptoms worsen. PRESSER documented in this encounter Plan of Treatment Health Maintenance Due Date Last Done Comments VARICELLA VACCINES (1 of 2 - 1982 2-dose childhood series) Depression Screening 1993 DTaP,Tdap,and Td Vaccines (1 2000 - Tdap) PAP SMEAR 05/20/2011 05/19/2008, 03/22/2007, 12/15/2006 INFLUENZA VACCINE (#1) 2019 PNEUMOCOCCAL 0-64 YEARS Aged Out No longe r eligible based COMBINED SERIES on patient's age to complete this to [facility] documented as of this encounter Procedures Procedure Name Priority Date/Time Associated Diagnosis Comme nts UNILATERAL VENOUS DUPLEX Routine 01/24/2020 5:34 PM LOWER EXTREMITY BY [facility] NOTICE OF PRIVACY Routine 01/24/2020 4:57 PM PRACTICES WO[employer] PRESSER documented in this encounter Results Not on filedocumented in this encounter Visit Diagnoses Diagnosis Left leg pain - Primary Pain in limb documented in this encounter Administered Medications Medication Order MAR Action Action Date Dose Rate Site ketorolac (TORADOL) Given 01/24/2020 5:58 PM 60 mg Left injection 60 mg WOOL PR[employer]ER Dorsogluteal-IM 60 mg, Intramuscular, ONCE, 1 dose, Mon01/24/20 at 1830, JOSE DANIEL, membership administrator approving Restricted medication: EMERGENCY ROOM, documented in this encounter
--- OUTSIDE RECORDS SUMMARY | 2020-02-04 05:26 | XMS REPORT | Summary of Care ---
:1980 Author Organization [facility] [[email or web address]] - Health Address [address] [place] [address] Care Team Providers Name Role Phone Pcp, Patient Does Not Have A Primary Care Provider +1-000-00 0-0000 Encounter Details Date Type Department Care Team Description 01/24/2020 Orders Only [facility] [[email or web address]] Doctor Unassigned, No [address] [facility] [place] [address] [address] [place] [address] Allergies No Known Allergiesdocumented as of this [...] in contact with No / Unsure 12/27/2019 6:34 PM CDT someone who was confirmed or [...] on patient's age to complete this to [facility] documented as of this encounter Procedures Procedure Name Priority Date/Time Associated Diagnosis Comme nts CONSENT/REFUSAL FOR Routine 01/24/2020 4:57 PM SERVICE TECH DIAGNOSIS AND TREATMENT documented in this encounter Results Not on filedocumented in this encounter
--- OUTSIDE RECORDS SUMMARY | 2020-02-04 05:26 | XMS REPORT | Continuity of Care Document ---
:1980 Author Organization [facility] t Address [address] [place] [address] Care Team Providers Name Role Phone Valerie Bon ALDRICH Attending Clinician Doctor Unassigned, Name Attending Clinician Unavailable Ashvin Moses Attending Clinician Problems This patient has no known problems. Allergies, Adverse Reactions, Alerts This patient has no known allergies or adverse reactions. Medications This patient has no known medications. Procedures This patient has no known procedures. Encounters Start End Encounter Admission Attending Care Care Encounter Source Date/Time Date/Time Type Type Clinicians Facility Department ID 2020-01-24 2020-01-24 Emergency Bon Padilla [facility] [id number] 17:08:00 18:27:00 Ninfa Jones [id number] [place] [id number] [place] [id number] 2020-01-24 2020-01-24 Orders Doctor ABERNATHY [id number] 00:00:00 00:00:00 Only UnassignedSISSY [id number] [place] [id number] 2019-12-27 2019-12-27 Emergency Yohana [facility] [id number] 16:40:00 18:00:00 Nicolasa Jones [id number] [place] [id number] [place] [id number] 2019-12-27 2019-12-27 Orders Doctor MICHELA [id number] 00:00:00 00:00:00 Only Unassigned, SISSY [id number] [place] [facility] [id number] Results This patient has no known results.
[2020-02-04 05:59] LABS: ALT/SGPT 25 U/L (12-78); AST/SGOT 17 U/L (15-37); Albumin 3.8 g/dL (3.4-5.0); Alkaline Phosphatase 100 U/L (45-117); BUN Blood Urea Nitrogen 11 mg/dL (7-18); Bicarbonate 23 mmol/L (21-32); Bilirubin Total 0.6 mg/dL (0.2-1.0); Creatine Phosphokinase 102 U/L (26-192); Glucose Level 125 mg/dL (74-106); Potassium 3.6 mmol/L (3.5-5.1); Protein, Total 7.7 g/dL (6.4-8.2); Sodium Level 140 mmol/L (136-145)
[2020-02-04 06:03] LABS: Absolute Lymphocytes (CBC) 3.1 K/uL (0.7-4.9); Basophils % 1.1 % (0-1.3); Lymphocytes % 31.4 % (15.3-44.8); MPV 8.5 fL (7.6-11.3); RBC Red Blood Cell Count 4.64 M/uL (3.86-4.86)
--- NOTE | 2020-02-04 08:05 | EDPHYS ---
Physician Documentation [facility] Name: Jenae Vazquez Age: 39 yrs Sex: Female : 1980 Arrival Date: 02/04/2020 Time: 02:06 Bed 7 Private MD: ED Physician Niels Connors HPI: 02/03 02:32 This 39 yrs old Female presents to ER via EMS with complaints of left leg juarez pain, atraumatic. 02:32 The patient presents with decreased range of motion, pain, that is acute. The juarez complaints affect the lateral aspect of left thigh, lateral aspect of left calf, left quadriceps and left carlson. Context: The problem was sustained at an unknown site. Onset: The symptoms/episode began/occurred 2 week(s) ago. Modifying factors: The symptoms are alleviated by remaining still, the symptoms are aggravated by movement. Associated signs and symptoms: The patient has no apparent associated signs or symptoms. Severity of symptoms: At their worst the symptoms were mild, moderate, in the emergency department the symptoms are unchanged. The patient has experienced similar episodes in the past, multiple times. 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 - Social history:: Smoking status: Patient denies any tobacco usage or history of. Patient/guardian denies using alcohol, street drugs, IV drugs. - Family history:: not pertinent. ROS: 02:32 Constitutional: Negative for fever, chills, and weight loss, Eyes: Negative for injury, juarez pain, redness, and discharge, ENT: Negative for injury, pain, and discharge, Neck: Negative for injury, pain, and swelling, Cardiovascular: Negative for chest pain, palpitations, and edema, Respiratory: Negative for shortness of breath, cough, wheezing, and pleuritic chest pain, Abdomen/GI: Negative for abdominal pain, nausea, vomiting, diarrhea, and constipation, Back: Negative for injury and pain, : Negative for injury, bleeding, discharge, and swelling, Skin: Negative for injury, rash, and discoloration, Neuro: Negative for headache, weakness, numbness, tingling, and seizure, Psych: Negative for depression, anxiety, suicide ideation, homicidal ideation, and hallucinations, Allergy/Immunology: Negative for hives, rash, and allergies, Endocrine: Negative for neck swelling, polydipsia, polyuria, polyphagia, and marked weight changes, Hematologic/Lymphatic: Negative for swollen nodes, abnormal bleeding, and unusual bruising. 02:32 MS/extremity: Positive for decreased range of motion, pain, tenderness, of the left leg. Exam: 02:32 Constitutional: This is a well developed, well nourished patient who is awake, alert, juarez and in no acute distress. Head/Face: Normocephalic, atraumatic. Eyes: Pupils equal round and reactive to light, extra-ocular motions intact. Lids and lashes normal. Conjunctiva and sclera are non-icteric and not injected. Cornea within normal limits. Periorbital areas with no swelling, redness, or edema. ENT: Nares patent. No nasal discharge, no septal abnormalities noted. Tympanic membranes are normal and external auditory canals are clear. Oropharynx with no redness, swelling, or masses, exudates, or evidence of obstruction, uvula midline. Mucous membranes moist. Neck: Trachea midline, no thyromegaly or masses palpated, and no cervical lymphadenopathy. Supple, full range of motion without nuchal rigidity, or vertebral point tenderness. No Meningismus. Chest/axilla: Normal chest wall appearance and motion. Nontender with no deformity. No lesions are appreciated. Cardiovascular: Regular rate and rhythm with a normal S1 and S2. No gallops, murmurs, or rubs. Normal PMI, no JVD. No pulse deficits. Respiratory: Lungs have equal breath sounds bilaterally, clear to auscultation and percussion. No rales, rhonchi or wheezes noted. No increased work of breathing, no retractions or nasal flaring. Abdomen/GI: Soft, non-tender, with normal bowel sounds. No distension or tympany. No guarding or rebound. No evidence of tenderness throughout. Back: No spinal tenderness. No costovertebral tenderness. Full range of motion. Skin: Warm, dry with normal turgor. Normal color with no rashes, no lesions, and no evidence of cellulitis. Neuro: Awake and alert, GCS 15, oriented to person, place, time, and situation. Cranial nerves II-XII grossly intact. Motor strength 5/5 in all extremities. Sensory grossly intact. Cerebellar exam normal. Normal gait. Psych: Awake, alert, with orientation to person, place and time. Behavior, mood, and affect are within normal limits. 02:32 Back: pain, is absent, ROM is normal, normal spinal alignment noted, CVA tenderness, is absent, muscle spasm, is not present. 02:32 Musculoskeletal/extremity: Extremities: grossly normal except: noted in the left leg: decreased ROM, pain, ROM: full active range of motion, full passive range of motion, Circulation is intact in all extremities. Sensation intact. Compartment Syndrome exam of affected extremity: is normal. DVT Exam: no swelling, negative Homans' sign noted on exam, no appreciated bluish discoloration, no erythema, no increased warmth, pain, tenderness. Vital Signs: 02:07 BP 166 / 96; Pulse 83; Resp 18; Temp 97.8; Pulse Ox 100% on R/A; Weight 122.47 kg; mg2 Height 5 ft. 4 in. (162.56 cm); Pain 10/10; 02:18 BP 156 / 100; Pulse 68; Resp 18; Temp 97.8; Pulse Ox 97% on R/A; ll2 04:01 BP 137 / 82; Pulse 68; Resp 18; Pulse Ox 100% on R/A; mg2 02:07 Body Mass Index 46.34 (122.47 kg, 162.56 cm) mg2 MDM: 02:14 Patient medically screened. juarez 02:36 Differential diagnosis: closed fracture, contusion, tendonitis. Data reviewed: vital juarez signs, nurses notes, lab test result(s), radiologic studies, doppler, plain films. Data interpreted: monitoring manager: not applicable for this patient encounter. rate is 68 beats/min, rhythm is regular, Pulse oximetry: on room air is 97 %. Test interpretation: by ED physician or midlevel provider: plain radiologic studies. Counseling: I had a detailed discussion with the patient and/or guardian regarding: the historical points, exam findings, and any diagnostic results supporting the discharge/admit diagnosis, lab results, radiology results. 02/03 02:31 Order name: Urine Dipstick-Ancillary (obtain specimen); Complete Time: 04:23 juarez 02/03 02:31 Order name: Urine Test (obtain specimen); Complete Time: 04:23 [facility] 02/03 03:34 Order name: Knee Immobilizer; Complete Time: 04:00 [facility] Administered Medications: 02:46 Drug: Zofran (Ondansetron) 4 mg Route: IVP; Site: right forearm; mg2 03:31 Follow up: Response: No adverse reaction mg2 02:47 Drug: morphine 2 mg Route: IVP; Site: right forearm; mg2 03:31 Follow up: Response: No adverse reaction mg2 02:48 Drug: TORadol 30 mg Route: IVP; Site: right forearm; mg2 03:31 Follow up: Response: No adverse reaction mg2 04:00 Not Given (Physician Discretion): Lisinopril 10 mg PO once mg2 04:01 Drug: morphine 2 mg Route: IVP; Site: right forearm; mg2 04:23 Follow up: Response: No adverse reaction; Marked relief of symptoms mg2 Disposition: 02/04/20 03:32 Discharged to Home. Impression: Pain in left leg, Essential (primary) hypertension. - Condition is Stable. - Discharge Instructions: Hypertension, Musculoskeletal Pain, Cryotherapy, [id number], Hypertension, [id number], Cryotherapy, Managing Your Hypertension. - Prescriptions for Ibuprofen 600 mg Oral Tablet - take 1 tablet by ORAL route every 8 hours As needed take with food; 21 tablet. Tylenol- Codeine #3 300-30 mg Oral Tablet - take 2 tablets by ORAL route every 6 hours As needed; 24 tablet. Lisinopril 10 mg Oral Tablet - take 1 tablet by ORAL route once daily; 20 tablet. - Medication Reconciliation Form, Thank You Letter, Antibiotic Education, Prescription Opioid Use, Work release form form. - Follow up: Private Physician; When: 2 - 3 days; Reason: Recheck today's complaints, Continuance of care, Re-evaluation by your physician. Follow up: Dr. Diogenes Aguilar; When: 2 - 3 days; Reason: Recheck today's complaints, Re-evaluation by your physician. - Problem is new. - Symptoms have improved. Signatures: Niels Connors MD MD cha Gardose, Michele RN RN mg2 Corrections: (The following items were deleted from the chart) 04:01 03:34 Crutches ordered. [facility] mg2 04:23 03:32 02/04/2020 03:32 Discharged to Home. Impression: Pain in left leg; Essential mg2 (primary) hypertension. Condition is Stable. Discharge Instructions: Hypertension, Musculoskeletal Pain, Cryotherapy, [id number], Hypertension, Ixos-[id number]-Jhub, Cryotherapy, Managing Your Hypertension. Prescriptions for Ibuprofen 600 mg Oral Tablet - take 1 tablet by ORAL route every 8 hours As needed take with food; 21 tablet, Tylenol-Codeine #3 300-30 mg Oral Tablet - take 2 tablets by ORAL route every 6 hours As needed; 24 tablet. and Forms are Medication Reconciliation Form, Thank You Letter, Antibiotic Education, Prescription Opioid Use. Follow up: Private Physician; When: 2 - 3 days; Reason: Recheck today's complaints, Continuance of care, Re-evaluation by your physician. Follow up: Dr. Diogenes Aguilar; When: 2 - 3 days; Reason: Recheck today's complaints, Re-evaluation by your physician. Problem is new. Symptoms have improved. juarez
--- NOTE | 2020-02-04 08:05 | ER ---
Nurse's Notes [facility] Name: Jenae Vazquez Age: 39 yrs Sex: Female : 1980 Arrival Date: 02/04/2020 Time: 02:06 Bed 7 Private MD: Diagnosis: Pain in left leg;Essential (primary) hypertension Presentation: 02/03 02:07 Chief complaint: EMS states: she is here for left leg pain. was checked here 4.5 weeks mg2 ago and tone was done and negative for anything. she took tramadol \T\ 9 pm last night. denies trauma. Coronavirus screen: Client denies travel out of the [place] in the last 14 days. At this time, the client does not indicate any symptoms associated with coronavirus-19. Ebola Screen: No symptoms or risks identified at this time. Initial Sepsis Screen: Does the patient meet any 2 criteria? No. Patient's initial sepsis screen is negative. Does the patient have a suspected source of infection? No. Patient's initial sepsis screen is negative. Risk Assessment: Do you want to hurt yourself or someone else? Patient reports no desire to harm self or others. Onset of symptoms was February 04, 2020. 02:07 Method Of Arrival: EMS: [facility] 02:07 Acuity: SEA 3 mg2 Triage Assessment: 02:11 General: Appears uncomfortable, Behavior is crying. Pain: Complains of pain in left leg mg2 Pain currently is 10 out of 10 on a pain scale. Quality of pain is described as aching, Pain began gradually. EENT: No signs and/or symptoms were reported regarding the EENT system. Neuro: Level of Consciousness is awake, alert, obeys commands, Oriented to person, place, time, situation. Cardiovascular: Capillary refill < 3 seconds Patient's skin is warm and dry. Respiratory: Airway is patent Respiratory effort is even, unlabored, Respiratory pattern is regular, symmetrical. GI: No signs and/or symptoms were reported involving the gastrointestinal system. : No signs and/or symptoms were reported regarding the genitourinary system. Derm: Skin is intact, is healthy with good turgor, Skin is pink, warm \T\ dry. normal. Musculoskeletal: Reports numbness in left leg pain in left leg. TYRE FITTER: 02:19 LMP N/A - Hysterectomy ll2 Historical: - Allergies: 02:11 No Known Allergies; mg2 - Home Meds: 02:11 None [Active]; mg2 - PMHx: 02:11 None; mg2 - PSHx: 02:11 None; mg2 - Immunization history:: Flu vaccine status is unknown. - Social history:: Smoking status: Patient denies any tobacco usage or history of. Patient/guardian denies using alcohol, street drugs, IV drugs. - Family history:: not pertinent. Screenin:13 Abuse screen: Denies threats or abuse. Denies injuries from another. Nutritional mg2 screening: No deficits noted. Tuberculosis screening: No symptoms or risk factors identified. Fall Risk IV access (20 points). Gait- Weak (10 pts.). Assessment: 02:12 General: see triage assessment. mg2 Vital Signs: 02:07 BP 166 / 96; Pulse 83; Resp 18; Temp 97.8; Pulse Ox 100% on R/A; Weight 122.47 kg; mg2 Height 5 ft. 4 in. (162.56 cm); Pain 10/10; 02:18 BP 156 / 100; Pulse 68; Resp 18; Temp 97.8; Pulse Ox 97% on R/A; ll2 04:01 BP 137 / 82; Pulse 68; Resp 18; Pulse Ox 100% on R/A; mg2 02:07 Body Mass Index 46.34 (122.47 kg, 162.56 cm) mg2 ED Course: 02:06 Patient arrived in ED. mg2 02:11 Triage completed. mg2 02:11 Arm band placed on. mg2 02:13 Placido Juarez RN is Primary Nurse. mg2 02:13 Patient has correct armband on for positive identification. mg2 02:13 No provider procedures requiring assistance completed. Inserted saline lock: 20 gauge mg2 in right forearm, using aseptic technique. Blood collected. by FELICITY Rasmussen. 02:14 Niels Connors MD is Attending Physician. juarez 03:32 Diogenes Aguilar MD is Referral Physician. juarez 04:22 IV discontinued, intact, bleeding controlled, No redness/swelling at site. Pressure mg2 dressing applied. Administered Medications: 02:46 Drug: Zofran (Ondansetron) 4 mg Route: IVP; Site: right forearm; mg2 03:31 Follow up: Response: No adverse reaction mg2 02:47 Drug: morphine 2 mg Route: IVP; Site: right forearm; mg2 03:31 Follow up: Response: No adverse reaction mg2 02:48 Drug: TORadol 30 mg Route: IVP; Site: right forearm; mg2 03:31 Follow up: Response: No adverse reaction mg2 04:00 Not Given (Physician Discretion): Lisinopril 10 mg PO once mg2 04:01 Drug: morphine 2 mg Route: IVP; Site: right forearm; mg2 04:23 Follow up: Response: No adverse reaction; Marked relief of symptoms mg2 Outcome: 03:32 Discharge ordered by . juarez 04:22 Discharged to home via wheelchair. mg2 04:22 Condition: stable 04:22 Discharge instructions given to patient, Instructed on discharge instructions, follow up and referral plans. medication usage, Demonstrated understanding of instructions, follow-up care, medications, Prescriptions given X 3. 04:23 Patient left the ED. mg2 Signatures: Niels Connors MD MD cha Gardose, Michele, RN RN mg2 Valery Forbes RN RN ll2
--- NOTE | 2020-02-04 10:46 | RAD REPORT ---
EXAM DESCRIPTION: RADTib Cole Left02/04/2020 10:40 am CLINICAL HISTORY: Left leg pain FINDINGS: No fracture is seen. No bony lesion is visualized
--- NOTE | 2020-02-04 10:50 | RAD REPORT ---
EXAM DESCRIPTION: RAD - Femur Left - 02/04/2020 10:44 am CLINICAL HISTORY: Left leg pain FINDINGS: No fracture visualized. No bony lesion is displayed
--- NOTE | 2020-02-04 10:52 | RAD REPORT ---
EXAM DESCRIPTION: RAD - Lumbar Spine 3 Views - 02/04/2020 10:46 am CLINICAL HISTORY: Back pain FINDINGS: No fracture or dislocation Moderate spondylosis L5-S1 consisting disc space narrowing and osteophytes. Mild spondylosis remainde r lumbar spine
[2020-02-07 04:33] VITALS: TEMP 97.8
[2020-02-07 04:35] VITALS: BP 137/82; O2SAT 100
== END 2020-02-04 04:23 | disposition home or self-care (01) ==
LOC: ER 02:00
DX: M79.605 Pain in left leg (principal); I10 Essential (primary) hypertension
CPT/HCPCS: 36415; 72100; 80053; 82550; 85025; 96374; 96375; 99284; J2270; J2405

== ENCOUNTER 2020-07-26 00:32 | Inpatient (IN) | payer SELFPAY ==
--- OUTSIDE RECORDS SUMMARY | 2020-07-26 00:36 | XMS REPORT | Continuity of Care Document ---
:1980 Author Organization [facility] t Address [address] [place] [address] Care Team Providers Name Role Phone Pcp, Patient Does Not Have A Primary Care Physician [phone] Yohana ALDRICH, F Attending Clinician Moira SRIVASTAVA, G Attending Clinician Forrest MCCANN, Ignacio Ellis Attending Clinician Fredo MCCANN Attending Clinician Joe MCCANN Attending Clinician Jessica MCCANN Attending Clinician Doctor Unassigned, Name Attending Clinician Unavailable aZira EDWARDS R Attending Clinician Valerie OLMEDOP, T Attending Clinician Jessica MCCANN Admitting Clinician Payers Payer Name Policy Type Policy Effective Date Expiration Source Number Date MEDICAID PENDING 2020 [facility] PENDINGMEDICAID 00:00:00 [place] [facility] ical PENDINGPENDING19 [id number] [place] [id number] Problems Condition Condition Condition Status Onset Resolution Last Treating Co mments Source Name Details Category Date Date Treatment Clinician Date Morbid Morbid Disease Active Univers obesity obesity -05 [place] of [place] mass index 00 [place] dical of of Branch 40.0-49.9 40.0-49.9 Diverticul Diverticul Disease Active U nivers itis itis 07-01 ity of 00:00: [place] 00 [facility] Branch Allergies, Adverse Reactions, Alerts This patient has no known allergies or adverse reactions. Social History Social Habit Start Date Stop Date Quantity Comments Source Exposure to Not sure [facility] SARS-CoV-2 [facility] (event) Branch Tobacco use and 2020-07-01 2020-07-01 Never used Universit y of exposure 00:00:00 00:00:00 [facility] Alcohol intake 2020-07-01 2020-07-01 Current [facility] 00:00:00 00:00:00 non-drinker of [facility] alcohol [place] (finding) History SDOH 2020-07-01 2020-07-01 10 University o f Education 00:00:00 00:00:00 [facility] Sex Ass[birth year] At [birth year] Universit y of 00:00:00 00:00:00 [facility] Smoking Status Start Date Stop Date Source Current some day smoker 2020-07-01 00:00:00 [facility] [place] [facility] Medications Ordered Filled Start Stop Current Ordering Indication Dosage Frequency Signature Comments Components Source Medication Medication Date Date Medication? Clinician (SIG) Name Name metroNIDAZO 2020- Yes Acute 500mg Take 2 U nivers LE 250 mg 07-02 bilateral tablets by ity of tablet 00:00: 04:59 low back mouth [place] 00 :00 pain every 8 Medical without (eight) Branch sciatica hours for 14 days. ciprofloxac 2020- Yes Acute 500mg Take 1 U nivers in HCl 500 07-02 bilateral tablet by ity of mg tablet 00:00: 04:59 [place] :[place] pain every 12 Medical without (twelve) Branch sciatica hours for 14 days. docusate Yes 100mg 100 mg, Unive rs (COLACE) 07-01 Oral, ity of capsule 100 17:00: LUNCH[place] 00 First dose Medical on Mon07/01/20 at 1200, Until Discontinu ed, Routine enoxaparin Yes 40mg 40 mg, Unive rs (LOVENOX) 5-05 Subcutaneo ity of injection 14:00: [place] 40 mg 00 First dose Medical on Mon Branch 07/01/20 at 0900, Until Discontinu ed, Routine famotidine Yes 20mg 20 mg, Unive rs (PEPCID AC) -05 Oral, ity of tablet 20 12:30: BIDAC, [place] mg 00 First dose Medical on Mon Branch 07/01/20 at 0730, Until Discontinu ed, Routine metroNIDAZO Yes 500mg 500 mg, IV Univers LE in NaCl 05 Infusion, ity of (iso-os) 08:30: Q8H ABX, [place] (FLAGYL 00 First dose Medica l I.V.) RTU on Mon IV infusion 07/01/20 at 500 mg 0330, Until Discontinu ed, 100 mL
Reas on for Anti-Infec tive: Empiric Therapy for Suspected Infection< br>Empiric Therapy Site: Abdominal< br>Duratio n of therapy: 7 days ciprofloxac Yes 400mg 400 mg, IV Univers in in 5 % 05 Piggyback, ity of dextrose 08:30: Administer Ras as (CIPRO) 00 over 60 Medical piggyback Minutes, Branch 400 mg Q12H ABX, First dose on Mon07/01/20 at 0330, Until Discontinu ed, JOSE DANIEL
Re ason for Anti-Infec tive: Empiric Therapy for Suspected Infection< br>Empi rasheed Therapy Site: Abdominal< br>Duratio n of therapy: 7 days lactated 2020- No 1000mL at 75 Unive rs ringers IV 07-01 05-06 mL/hr, ity of infusion 07:45: 15:22 1,000 mL, [place] as 1,000 mL 00 :53 IV Medical Infusion, Branch CONTINUOUS , Starting Mon07/01/20 at 0245, Until Glenna 07/02/20 at 1022, Routine morpHINE No 4mg 4 mg, Slow Un bryn injection 4 5-05 05-06 IV Push, ity of mg 07:32: 07:31 Q4HPRN, [place] 58 :58 Starting Medical Mon07/01/20 Branch at 0232, Until Glenna 07/02/20 at 0231, Routine, Pain (scale 7-10) HYDROcodone 2021-0 2021- Yes 1{tbl} 1 tablet, Univers -acetaminop 5-05 05-07 Oral, ity of hen (NORCO 07:32: 07:31 Q6HPRN, [place] as 5) 5-325 mg 44 :44 Starting Medi tucker tablet 1 Mon07/01/20 Branc h tablet at 0232, Until Mon07/03/20 at 0231, Routine, Pain (scale 4-6) ipratropium 2020-0 Yes .5mg 0.5 mg, Uni vers (ATROVENT) 5-05 Inhalation ity of 0.02 % 07:29: , Q4HPRN, [place] nebulizer 43 Starting Medica l solution Mon07/01/20 Branc h 0.5 mg at 022, Until Discontinu ed, Routine, Wheezing, Shortness of Breath guaiFENesin 2020-0 Yes 200mg 200 mg, Un bryn (FENESIN 5-05 Oral, ity of IR) tablet 07:29: Q4HPRN, [place] 200 mg 43 Starting Medical Mon07/01/20 Branch at 0229, Until Discontinu ed, Routine, Cough nitroglycer 2020-0 Yes .4mg 0.4 mg, Uni vers in 05 Sublingual ity of (NITROSTAT) 07:29: , Q5MIN [place] as sublingual 42 PRN, Medical tablet 0.4 Starting Branc h mg Mon07/01/20 at 0229, Until Discontinu ed, Routine, Chest pain ondansetron 2020-0 Yes 4mg 4 mg, Slow Univers (ZOFRAN 5-05 IV Push, ity of (PF)) 07:29: Q6HPRN, [place] injection 4 42 Starting Medi tucker mg Mon07/01/20 Branch at 0229, Until Discontinu ed, Routine, Nausea and Vomiting (N/V) acetaminoph 2020-0 Yes 650mg 650 mg, Un bryn en 5-05 Oral, ity of (TYLENOL) 07:29: Q6HPRN, [place] tablet 650 42 Starting Medic al mg 07/01/20 Branch at 0229, Until Discontinu ed, Routine, Pain (scale 1-3) iopamidol 2020- No [id number] 100mL 100 mL, Univers (ISOVUE 5-05 05-05 Intravenou ity o f 370-500 mL) 07:00: 07:00 s, ONCE, 1 [place] injection 00 :00 dose, Wed Medic al 100 mL 07/01/20 at Branch 0200, Routine traMADoL 50 2019- Yes acute pain 50mg Take 1 Univers mg tablet 0-30 tablet by ity o f 00:00: mouth [place] 00 every 6 Medical (six) Branch hours as needed for Pain (scale 7-10). Indication s: acute pain ranitidine Yes Nausea 150mg Take 1 Un bryn (ZANTAC) 7-19 tablet by ity of 150 mg 00:00: mouth 2 [place] tablet 00 (two) Medical times Branch daily. Follow up with your MD for further evaluation and treatment. traMADol Yes Nausea 50mg Take 1 Unive rs (ULTRAM) 50 7-19 tablet by ity of mg tablet 00:00: mouth [place] 00 every 8 Medical (eight) Branch hours as needed for Pain (scale 4-6). ondansetron No Nausea 4mg Take 1 U nivers (ZOFRAN 7-19 05-05 tablet by ity of ODT) 4 mg 00:00: 00:00 mouth [place] disintegrat 00 :00 every 8 Medic al ing tablet (eight) Branch hours as needed for Nausea and Vomiting (N/V). acetaminoph Yes Cyst, 1{tbl} Take 1 U nivers en-codeine 5-11 dermoid, tablet by ity of (TYLENOL-CO 00:00: scalp and mouth [place] DEINE #3) 00 neck every 6 Medical 300-30 mg (six) Branch tablet hours as needed for Pain (scale 4-6). cyclobenzap Yes 5mg Take 1 Univ ers rine 5 mg 6-04 tablet by ity o f tablet 00:00: mouth 3 [place] 00 (three) Medical times Branch daily. proMETHazin Yes 12.5mg Take 0.5 Univers e 2-29 Tabs by itla of (PHENERGAN) 00:00: mouth [place] 25 mg 00 every 6 Medical tablet (six) Branch hours as needed for Nausea and Vomiting (N/V). Vital Signs Vital Name Observation Time Observation Value Comments Source Systolic blood 2020-07-02 21:22:00 117 mm[Hg] Univer sity of [facility] Diastolic blood 2020-07-02 21:22:00 77 mm[Hg] Unive rsity of [facility] Heart rate 2020-07-02 21:22:00 77 /min Universi ty of [facility] Branch Body temperature 2020-07-02 21:22:00 36.56 Lluvia Univ ersity of [facility] Branch Respiratory rate 2020-07-02 21:22:00 17 /min Univ ersity of [facility] Branch Oxygen saturation in 2020-07-02 21:22:00 93 /min University of Arterial blood by [facility] Pulse oximetry Branch Body height 2020-07-01 08:29:00 165 cm Universi ty of [facility] Branch Body weight 2020-07-01 08:29:00 133.584 kg Universi ty of [facility] Branch BMI 2020-07-01 08:29:00 49.07 kg/m2 Universi ty of [facility] Branch Systolic blood 2020-07-02 21:22:00 117 mm[Hg] Univer sity of [facility] Diastolic blood 2020-07-02 21:22:00 77 mm[Hg] [facility] Heart rate 2020-07-02 21:22:00 77 /min Universi ty of [facility] Branch Body temperature 2020-07-02 21:22:00 36.56 Lluvia Univ ersity of [facility] Branch Respiratory rate 2020-07-02 21:22:00 17 /min Univ ersity of [facility] Branch Oxygen saturation in 2020-07-02 21:22:00 93 /min University of Arterial blood by [facility] Pulse oximetry Branch Body height 2020-07-01 08:29:00 165 cm Universi ty of [facility] Body weight 2020-07-01 08:29:00 133.584 kg Universi ty of [facility] BMI 2020-07-01 08:29:00 49.07 kg/m2 Universi ty of [facility] Procedures Procedure Date / Time Performing Clinician Source Performed MAGNESIUM 2020-07-02 09:59:00 [facility]OLIC [facility] 2020-07-02 09:59:00 Achuo, Ivo [facility] (NA, K, CL, CO2, GLUCOSE, Medica l Branch BUN, CREATININE, CA) LIPID PANEL (09596)(TOTAL 2020-07-02 09:59:00 Achuo, Ivo [facility] CHOLESTEROL, Medical Branch TRIGLYCERIDES, HDL) CBC WITH DIFF 2020-07-02 09:59:00 Achuo, [facility] LOW-DENSITY LIPOPROTEIN, 2020-07-02 09:59:00 Achuo, Ivo [facility] DIRECT [facility] Branch XR CHEST 2 VW 2020-07-01 16:04:56 Gil Clayton tomas [facility] TROPONIN I 2020-07-01 13:38:00 Achuo, [facility] PHOSPHORUS 2020-07-01 09:10:00 Achuo, [facility] TROPONIN I 2020-07-01 09:10:00 Achuo, [facility] GLYCOSYLATED HEMOGLOBIN 2020-07-01 09:10:00 Achuo, [facility] (A1C) [facility] Branch CT ABDOMEN PELVIS W 2020-07-01 05:59:01 Jw Yoo [facility] CONTRAST Medical Branch AGREEMENTS AUTHORIZATIONS 2020-06-30 05:01:00 Doctor Unassigned, [facility] AND IRREVOCABLE [place] [facility] Branch ASSIGNMENTS (FORM 2000) Plan of Care Planned Activity Planned Date Details Comments Source Future Scheduled 2020-10-28 INFLUENZA VACCINE Univer sity of Test 00:00:00 (Season Ended) [place] [facility] [code = INFLUENZA Branch VACCINE (Season Ended)] Future Scheduled 2011-05-20 Screening for University of Test 00:00:00 malignant neoplasm [place] [facility] ical of cervix Branch (procedure) [code = 503817948] Future Scheduled 2000 DTaP,Tdap,and Td Univers ity of Test 00:00:00 Vaccines (1 - Tdap) [facility] dical [code = Branch DTaP,Tdap,and Td Vaccines (1 - Tdap)] Future Scheduled 1999 Hepatitis C University of Test 00:00:00 screening [place] [facility] (procedure) [code = Branch 475970072] Future Scheduled 1997 SARS-CoV-2 University of Test 00:00:00 (COVID-19) Vaccine [place] [facility] ical (1) [code = Branch SARS-CoV-2 (COVID-19) Vaccine (1)] Future Scheduled 1993 Depression University of Test 00:00:00 screening [place] [facility] (procedure) [code = Branch 826499986] Future Scheduled 1987 PNEUMOCOCCAL 0-64 Univer sity of Test 00:00:00 YEARS COMBINED [place] [facility] SERIES (1 of 1 - Branch PPSV23) [code = PNEUMOCOCCAL 0-64 YEARS COMBINED SERIES (1 of 1 - PPSV23)] Future Scheduled 1982 VARICELLA VACCINES Unive rsity of Test 00:00:00 (1 of 2 - 2-dose [place] Medic al childhood series) Branch [code = VARICELLA VACCINES (1 of 2 - 2-dose childhood series)] Future Scheduled Troponin I [code = EVERY 6 HOURS Univ ersity of Test 83926-7] (START TIME [place] [facility] ADJUSTABLE) START Branch TIME ADJUSTABLE for 3 Occurrences starting 07/01/2020 until 07/01/2020, 2 completed Encounters Start End Encounter Admission Attending Care Care Encounter Source Date/Time Date/Time Type Type Clinicians Facility Department ID 2020-07-19 2020-07-19 [facility] [id number] 17:18:00 19:18:00 Nicolasa Jones [id number] [place] 4.2.7.2.686 [place] [address] [id number] 2020-07-13 2020-07-13 [facility] [id number] 11:04:00 13:20:00 Eliana Jones [id number] [place] 4.2.7.2.686 [place] [address] [id number] 2020-07-03 2020-07-03 Gil Pérez [facility] 1.2.840.114 [id number] 00:00:00 00:00:00 [facility] [id number] Caleb Ahum[place] 4.2.7.2.686 [place] [id number] Medical [address] 2020-07-01 2020-07-02 [facility] Jw Yoo [facility] 1.2.840.1 [id number] 00:03:00 18:37:00 Encounter Sarah Diaz [facility] [id number] [place] 4.2.7.2.686 [place] [id number] [place] [address] ([facility]) 2020-07-01 2020-07-01 Orders Doctor ABERNATHY 1.2.840.114 [id number] 00:00:00 00:00:00 Only Unassigned, SISSY [id number] [place] [facility] 4.2.7.2.686 [id number] 2020-06-30 2020-06-30 Emergency [facility] [id number] 18:23:00 23:23:00 Mellissa Jones [id number] [place] 4.2.7.2.686 [place] [address] [id number] 2020-01-24 2020-01-24 Emergency Bon Padilla [facility] 1.2.840.114 [id number] 17:08:00 18:27:00 Ninfa Jones [id number] [place] 4.2.7.2.686 [place] [address] [id number] 2020-01-24 2020-01-24 Orders Doctor ABERNATHY 1.2.840.114 [id number] 00:00:00 00:00:00 Only UnassignedSISSY 350.1.13.10 [facility] 4.2.7.2.686 [id number] [id number] 2019-12-27 2019-12-27 Emergency Ibscarlettunenoc, [facility] 1.2.840.114 [id number] 16:40:00 18:00:00 Nicolasa Jones [id number] [place] 4.2.7.2.686 [place] [address] [id number] 2019-12-27 2019-12-27 Orders Doctor ABERNATHY 1.2.840.114 [id number] 00:00:00 00:00:00 Only UnassignedSISSY [id number] [place] [facility] 4.2.7.2.686 [id number] Results Test Description Test Time Test Comments Results Result Comments Source LOW-DENSITY LIPOPROTEIN, DIRECT 2020-07-02 16:45:30 Test Item Value Reference Range Interpretation Comme nts dLDL Chol (test code = 85756-3) 54 mg/dL <130 Lab Interpretation (test code = 33090-3) Normal [facility] (Total Cholesterol, Triglycerides, HDL) - [id number] 10:40:36 Test Item Value Reference Range Interpretation Comments CHOL (test code = 189 mg/dL 120-200 1259813716) HDL (test code = 32 mg/dL >50 L 4178882557) HDLC RATIO (test code = 5.9 See_Comment H [Au tomated message] 7193707805) The system [employer] generated this result transmitted ref erence range: <=4.5. T he reference range was not used to int erpret this result as normal/abnormal . TRIG (test code = 448 mg/dL 30-170 H 0245295200) LDL CHOL (test code = Unable to calculate 43352-3) LDL due to elev ated triglyceride le star greater than 40 0 mg/dL. VLDL (test code = 90 mg/dL 5-60 H 9640544349) Lab Interpretation Abnormal (test code = 53913-5) [facility] CenterMagnesium [id number] 10:38:09 Test Item Value Reference Range Interpretation Comments MAGNESIUM (test code = 8523379792) 2.0 mg/dL 1.7-2.4 Lab Interpretation (test code = Normal 54259-6) [facility] Metabolic Panel (NA, K, CL, CO2, GLUCOSE, BUN, CREATININE, CA)2020-07-02 10:38:09 Test Item Value Reference Range Interpretation Comments NA (test code = 136 mmol/L 135-145 8190824662) K (test code = 3.7 mmol/L 3.5-5.0 3207527183) CL (test code = 101 mmol/L 98-108 7745540542) CO2 TOTAL (test code = 28 mmol/L 23-31 0921296646) AGAP (test code = 7 2-16 8841534411) BUN (test code = 4 mg/dL 7-23 L 6134890594) GLUCOSE (test code = 166 mg/dL 70-110 H 0380769069) CREATININE (test code = 0.57 mg/dL 0.50-1.04 8489127544) CALCIUM (test code = 8.6 mg/dL 8.6-10.6 1691196532) eGFR (test code = 118.1 mL/min/1.73m2 7839620342) PRAVIN (test code = PRAVIN) Association of Glomerular Filtration Rate (GFR) and Staging of Kidney Disease* + --+ --+ ------+| GFR (mL/min/1.73 m2) | With Kidney Damage | Without Kidney Damage+ --------+ --------+ +| >90 | Stage one | Normal + --+ --+ ------+| 60-89 | Stage two | Decreased GFR + --+ --+ ------+| 30-59 | Stage three | Stage three + --+ --+ ------+| 15-29 | Stage four | Stage four + --+ --+ ------+| <15 (or dialysis) | Stage five | Stage five + --+ --+ ------+ *Each stage assumes the associated GFR level has been in effect for at least three months. Stages 1 to 5, with or without kidney disease, indicate chronic kidney disease. Notes: Determination of stages one and two (with eGFR >59mL/min/1.73 m2) requires estimation of kidney damage for at least three months as defined by structural or functional abnormalities of the kidney, manifested by either:Pathological abnormalities or Markers of kidney damage (including abnormalities in the composition of the blood or urine or abnormalities in imaging tests). Lab Interpretation Abnormal (test code = 57098-6) [facility] with [id number] 10:15:05 Test Item Value Reference Range Interpretation Comments WBC (test code = 16.29 See_Comment H [Automated 8412-2) message] The system which generated this result transmit ab reference range : 4.30 - 11.10 10*3/?L. The reference range was not used to interpret this result as normal/abnormal . RBC (test code = 3.95 See_Comment [Automated 765-0) message] The system which generated this result transmit ab reference range : 3.93 - 5.25 10*6/?L. The reference range was not used to interpret this result as normal/abnormal . HGB (test code = 12.1 g/dL 11.6-15.0 718-7) HCT (test code = 35.7 % 35.7-45.2 4544-3) MCV (test code = 90.4 fL 80.6-95.5 787-2) MCH (test code = 30.6 pg 25.9-32.8 785-6) MCHC (test code = 33.9 g/dL 31.6-35.1 786-4) RDW-SD (test code = 45.7 fL 39.0-49.9 47206-1) RDW-CV (test code = 13.6 % 12.0-15.5 788-0) PLT (test code = 264 See_Comment [Automated 777-3) message] The system which generated this result transmit ab reference range : 166 - 358 10*3/ ?L. The reference range was not u sed to interpret th is result as normal/abnormal . MPV (test code = 10.1 fL 9.5-12.9 01412-0) NRBC/100 WBC (test 0.0 See_Comment [Automat ed code = 8265997898) message] The system which generated this result transmit ab reference range : 0.0 - 10.0 /100 WBCs. The reference range was not used to interpret this result as normal/abnormal . NRBC x10^3 (test code <0.01 See_Comment [Auto mated = 2826564260) message] The system which generated this result transmit ab reference range : 10*3/?L. The reference range was not used to interpret this result as normal/abnormal . GRAN MAT (NEUT) % 79.1 % (test code = 770-8) IMM GRAN % (test code 0.40 % = 2433273013) LYMPH % (test code = 12.8 % 736-9) MONO % (test code = 7.1 % 5905-5) EOS % (test code = 0.4 % 713-8) BASO % (test code = 0.2 % 706-2) GRAN MAT x10^3(ANC) 12.88 10*3/uL 1.88-7.09 H (test code = 0574747533) IMM GRAN x10^3 (test 0.07 10*3/uL 0.00-0.06 H code = 6036395350) LYMPH x10^3 (test code 2.09 10*3/uL 1.32-3.29 = 731-0) MONO x10^3 (test code 1.16 10*3/uL 0.33-0.92 H = 742-7) EOS x10^3 (test code = 0.06 10*3/uL 0.03-0.39 711-2) BASO x10^3 (test code 0.03 10*3/uL 0.01-0.07 = 704-7) Lab Interpretation Abnormal (test code = 59608-9) [facility] Center[facility] CHEST 2 [id number] 17:21:33 No metastatic disease.Himb, Radiant Results Inft User - 07/01/2020 12:22 PM CDTPROCEDURE: XR CHEST 2 VW 07/01/2020 10:41 AMCLINICAL INDICATION: Renal mass, assess for metastasis COMPARISON: NoneTECHNIQUE: PA and lateral views of the chestFINDINGS:The lungs are clear. There is no pleural effusion. No pn eumothorax. The cardiac size is within normal limits. No aggressive osseous lesion.IMPRESSIONNo metastatic disease.[facility] Troponin [id number] 14:16:08 Test Item Value Reference Range Interpretation Comments TROPONIN I (test 0.000 ng/mL See_Comment [Automated code = 3821004311) message] The system which generated this result transmitted reference range : <=0.034. The reference range was not used to interpret this result as normal/abnormal . PRAVIN (test code = Equal or Less than PRAVIN) 0.034 ng/ml---Normal Note: Cardiac troponin begins to rise 3-4 hours after the onset of ischemia. Repeat in 4-6 hours if the sample was drawn within 3-4 hours of the onset of the symptom and found normal. Between 0.035 and 0.120 ng/mL--- Borderline. Questionable myocardial injury or necrosis Note: Serial measurement may be necessary to confirm or exclude the diagnosis of myocardial injury or necrosis; Clinical correlation (symptoms, EKGs, imaging studies, and others) required; Repeat in 4-6 hours if clinically indicated. Equal or Higher than 0.121 ng/mL---Abnormal. Myocardial Injury or Necrosis Likely Biotin has been reported to cause a negative bias, interpret results relative to patient's use of biotin. Lab Interpretation Normal (test code = 58728-0) [facility] CenterTroponin [id number] 09:40:59 Test Item Value Reference Range Interpretation Comments TROPONIN I (test 0.003 ng/mL See_Comment [Automated code = 8391749783) message] The system which generated this result transmitted reference range : <=0.034. The reference range was not used to interpret this result as normal/abnormal . PRAVIN (test code = Equal or Less than PRAVIN) 0.034 ng/ml---Normal Note: Cardiac troponin begins to rise 3-4 hours after the onset of ischemia. Repeat in 4-6 hours if the sample was drawn within 3-4 hours of the onset of the symptom and found normal. Between 0.035 and 0.120 ng/mL--- Borderline. Questionable myocardial injury or necrosis Note: Serial measurement may be necessary to confirm or exclude the diagnosis of myocardial injury or necrosis; Clinical correlation (symptoms, EKGs, imaging studies, and others) required; Repeat in 4-6 hours if clinically indicated. Equal or Higher than 0.121 ng/mL---Abnormal. Myocardial Injury or Necrosis Likely Biotin has been reported to cause a negative bias, interpret results relative to patient's use of biotin. Lab Interpretation Normal (test code = 42371-9) [facility] CenterGLYCOSYLATED HEMOGLOBIN (A1C)2020-07-01 09:34:51 Test Item Value Reference Range Interpretation Comments HGB A1C (test code = 7.3 % 4.0-5.7 H 4548-4) PRAVIN (test code = PRAVIN) Reference RangesNormal: <5.7%Prediabetes: 5.7 - 6.4%Diabetes: > 6.5% Lab Interpretation (test Abnormal code = 97412-4) [facility] CenterPhosphorus [id number] 09:29:18 Test Item Value Reference Range Interpretation Comments PHOSPHORUS (test code = 3160721660) 3.5 mg/dL 2.5-5.0 Lab Interpretation (test code = Normal 07753-7) [facility] CenterCT ABDOMEN PELVIS W [id number] 06:54:44 1. Findings are indicative of acute diverticulitis the junction betweenthe descending and sigmoid colon. No evidence of extraluminal air orabscess formation is seen at this time.2. Heterogenous enhancing mass in the right kidney concerning for RCC.Urology consult is recommended.3. Cholelithiasis without evidence of acute cholecystitis. RL: 135 [facility]: [id number] END OF REPORT Ut, Radiant Results Inft User - 07/01/2020 1:56 AM CDTORDERING PHYSICIAN:JW YOO CLINICAL INFORMATION: Diverticulitis suspected COMPARISON: NoneTechnique:CT of the abdomen and pelvis was performed after theadministration of IV contrast. No p.o. contrast was used. Multiplanarreformats were also obtained. This study was performed according to ALARAprinciple for radiation dose reduction.Findings:There is no evidence of obstructive uropathy. Exophytic heter ogenousenhancing solid mass measuring 3.5 x 4.6 cm is seen in the interpolarregion of the right kidney anteriorly. This is concerning for RCC.Multiple stones are seen in the gallbladder. No acute perich olecysticinflammatory changes are seen. Liver, spleen, adrenal glands, and pancreasshow no evidence of gross abnormalities. There is no bowel obstruction.There is no appendicitis. Multiple colonic diverticula are seen at thejunction between the descending and sigmoid colon. Moderate adjacentmesentericfat stranding is seen. No extraluminal air or fluid collectionsare seen. Lung bases remain clear. There are no suspicious focal osseouslesions.IMPRESSION1. Findings are indicative of acute diverticulitis the junction betweenthe descending and sigmoid colon. No evidence of extraluminal air orabscess formation is seen at this time.2. Heterogenous enhancing mass in the right kidney concerning for RCC.Urology consult is recommended.3. Cholelithiasis without evidence of acute cholecystitis.RL: 135[facility]: [id number] OF REPORT [facility]"
[2020-07-26 02:14] LABS: Absolute Lymphocytes (CBC) 3.3 K/uL (0.7-4.9); Basophils % 0.7 % (0-1.3); Hematocrit 41.6 % (36.0-45.0); Lymphocytes % 22.3 % (15.3-44.8); MPV 8.9 fL (7.6-11.3); RBC Red Blood Cell Count 4.61 M/uL (3.86-4.86)
[2020-07-26 02:50] LABS: ALT/SGPT 20 U/L (12-78); Albumin 3.5 g/dL (3.4-5.0); Alkaline Phosphatase 98 U/L (45-117); BUN Blood Urea Nitrogen 15 mg/dL (7-18); Bicarbonate 20 mmol/L (21-32); Bilirubin Direct < 0.1 mg/dL (0-0.2); Bilirubin Total 0.4 mg/dL (0.2-1.0); Glucose Level 184 mg/dL (74-106); Lipase 169 U/L (73-393); Protein, Total 7.5 g/dL (6.4-8.2); Sodium Level 139 mmol/L (136-145)
[2020-07-26] MEDS ORDERED: MORPHINE 4 MG/ML SYR ONE (02:53)
[2020-07-26] MEDS ORDERED: ONDANSETRON 4 MG/2 ML VIAL ONE (02:54)
[2020-07-26 02:59] LABS: AST/SGOT 11 U/L (15-37); Potassium 3.9 mmol/L (3.5-5.1)
[2020-07-26 03:14] LABS: Blood Morphology Comment NOT SEEN (NOT SEEN); Platelet Estimate ADEQ; White Blood Cell Scan OK (OK)
[2020-07-26 04:24] LABS: Urine Blood 2+ (Negative); Urine Glucose Negative (Negative); Urine Protein Trace (Negative); Urine Specific Gravity >=1.030 (1.005-1.030); Urine pH 5.5 (5.0-7.0)
[2020-07-26] MEDS ORDERED: NA CHLORIDE 0.9% 1,000 ML ONE (04:29)
--- NOTE | 2020-07-26 05:09 | ER ---
Nurse's Notes [facility] Name: Jenae Vazquez Age: 40 yrs Sex: Female : 1980 Arrival Date: 07/26/2020 Time: 01:03 Bed 8 Private MD: Diagnosis: Diverticulitis with Microperforation Presentation: 07/26 01:34 Chief complaint: Patient states: having pain and cramps in LLQ, started two days ago, iw denies n/v/d, denies urinary issues. Coronavirus screen: At this time, the client does not indicate any symptoms associated with coronavirus-19. Ebola Screen: Patient negative for fever greater than or equal to 101.5 degrees Fahrenheit, and additional compatible Ebola Virus Disease symptoms Patient denies exposure to infectious person. Patient denies travel to an Ebola-affected area in the 21 days before illness onset. No symptoms or risks identified at this time. Initial Sepsis Screen: Does the patient meet any 2 criteria? HR > 90 bpm. Does the patient have a suspected source of infection?. Risk Assessment: Do you want to hurt yourself or someone else? Patient reports no desire to harm self or others. Onset of symptoms was July 24, 2020. 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 - Social history:: Smoking status: Patient reports the use of cigarette tobacco products, denies chronic smoking, but will smoke occasionally. Screenin:53 Abuse screen: Denies threats or abuse. Nutritional screening: No deficits noted. ea Tuberculosis screening: No symptoms or risk factors identified. Fall Risk None identified. Assessment: 01:53 General: Appears in no apparent distress. Behavior is calm, cooperative, appropriate ea for age. Pain: Complains of pain in left lower quadrant. Neuro: Level of Consciousness is awake, alert, obeys commands, Oriented to person, place, time. Cardiovascular: Patient's skin is warm and dry. Respiratory: Airway is patent Respiratory effort is even, unlabored, Respiratory pattern is regular, symmetrical. GI: Abdomen is non-distended. Derm: Skin is pink, warm \T\ dry. 02:30 Reassessment: Patient and/or family updated on plan of care and expected duration. Pain ea level reassessed. Patient is alert, oriented x 3, equal unlabored respirations, skin warm/dry/pink. 03:30 Reassessment: Patient and/or family updated on plan of care and expected duration. Pain ea level reassessed. Patient is alert, oriented x 3, equal unlabored respirations, skin warm/dry/pink. 04:30 Reassessment: Patient and/or family updated on plan of care and expected duration. Pain ea level reassessed. Patient is alert, oriented x 3, equal unlabored respirations, skin warm/dry/pink. 05:50 Reassessment: Patient and/or family updated on plan of care and expected duration. Pain ea level reassessed. Patient is alert, oriented x 3, equal unlabored respirations, skin warm/dry/pink. 07:06 Reassessment: Patient and/or family updated on plan of care and expected duration. Pain ea level reassessed. Patient is alert, oriented x 3, equal unlabored respirations, skin warm/dry/pink. Vital Signs: 01:34 BP 147 / 105; Pulse 111; Resp 18 S; Temp 98.4; Pulse Ox 100% on R/A; Weight 127.01 kg; iw Height 5 ft. 4 in. (162.56 cm); Pain 10/10; 04:48 BP 138 / 80; Pulse 90; Resp 17; Pulse Ox 99% ; ea 05:50 BP 133 / 87; Pulse 89; Resp 18; Pulse Ox 100% on R/A; ea 01:34 Body Mass Index 48.06 (127.01 kg, 162.56 cm) iw ED Course: 01:03 Patient arrived in ED. es 01:39 Triage completed. iw 01:40 Arm band placed on. iw 01:41 Karen Crowell, RN is Primary Nurse. ea 01:53 Patient has correct armband on for positive identification. Bed in low position. Call ea light in reach. Side rails up X2. 01:53 Inserted saline lock: 20 gauge in right forearm, using aseptic technique. Blood ea collected. 02:20 Tay Kerr MD is Attending Physician. [facility] 04[facility] CT Abd/Pelvis - IV Contrast Only In Process Unspecified. EDPR 05:08 Jamarcus Caba DO is Hospitalizing Provider. [facility] 05:50 No provider procedures requiring assistance completed. Patient admitted, IV remains in ea place. 07:48 Primary Nurse role handed off by Karen Crowell RN bp 07:48 Jed Bowie, FELICITY is Primary Nurse. bp Administered Medications: 02:39 Drug: morphine 4 mg Route: IVP; Site: right forearm; ea 03:58 Follow up: Response: No adverse reaction ea 02:39 Drug: Zofran (Ondansetron) 4 mg Route: IVP; Site: right forearm; ea 03:58 Follow up: Response: No adverse reaction ea 04:22 Drug: NS 0.9% 1000 ml Route: IV; Rate: 1000 ml; Site: right antecubital; ea 05:49 Follow up: Response: No adverse reaction; IV Status: Completed infusion; IV Intake: ea 1000ml 05:40 Drug: Zosyn (piperacillin-tazobactam) 3.375 grams Route: IVPB; Infused Over: 60 mins; ea Site: right antecubital; 10:28 Follow up: IV Status: Completed infusion; IV Intake: 100ml bp 05:40 Drug: morphine 2 mg Route: IVP; Site: right antecubital; ea 10:28 Follow up: Response: No adverse reaction bp Intake: 05:49 IV: 1000ml; Total: 1000ml. ea 10:28 IV: 100ml; Total: 1100ml. bp Outcome: 05:09 Decision to Hospitalize by Provider. [facility] 05:50 Instructed on the need for admit, Demonstrated understanding of instructions. ea 07:00 Admitted to ER Hold. [facility]. bp 07:00 Condition: stable bp 11:19 Patient left the ED. ll1 Signatures: Dispatcher [employer] Alize Bro Irene, RN RN Karen Crowell RN RN ea Peltier, Brian, RN RN bp Lewis, Lynsay, RN RN [facility] Tay Kerr MD MD [facility]
--- NOTE | 2020-07-26 05:10 | EDPHYS ---
Physician Documentation [facility] Name: Jenae Vazquez Age: 40 yrs Sex: Female : 1980 Arrival Date: 07/26/2020 Time: 01:03 Bed 8 Private MD: ED Physician Tay Kerr HPI: 07/26 04:12 This 40 yrs old Female presents to ER via Wheelchair with complaints of mh7 Abdominal Pain. 04:12 The patient presents with abdominal pain in the left lower quadrant. Onset: The mh7 symptoms/episode began/occurred 2 day(s) ago. The symptoms do not radiate. 04:12 Associated signs and symptoms: Pertinent negatives: nausea, vomiting, and diarrhea, mh7 anorexia, blood in stools, chest pain, constipation, diarrhea, dysuria, fever, headache, hematuria, nausea, palpitations, shortness of breath, vaginal discharge, vomiting, vomiting blood. The symptoms are described as intermittent, vague, waxing/waning. Modifying factors: The symptoms are alleviated by nothing, the symptoms are aggravated by nothing. Severity of pain: At its worst the pain was moderate yesterday, in the emergency department the pain is unchanged. 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 - Social history:: Smoking status: Patient reports the use of cigarette tobacco products, denies chronic smoking, but will smoke occasionally. ROS: 04:12 Constitutional: Negative for fever, chills, and weight loss, Eyes: Negative for injury, mh7 pain, redness, and discharge, ENT: Negative for injury, pain, and discharge, Neck: Negative for injury, pain, and swelling, Cardiovascular: Negative for chest pain, palpitations, and edema, Respiratory: Negative for shortness of breath, cough, wheezing, and pleuritic chest pain, Back: Negative for injury and pain, : Negative for injury, bleeding, discharge, and swelling, MS/Extremity: Negative for injury and deformity, Skin: Negative for injury, rash, and discoloration, Neuro: Negative for headache, weakness, numbness, tingling, and seizure, Psych: Negative for depression, anxiety, suicide ideation, homicidal ideation, and hallucinations, Allergy/Immunology: Negative for hives, rash, and allergies, Endocrine: Negative for neck swelling, polydipsia, polyuria, polyphagia, and marked weight changes, Hematologic/Lymphatic: Negative for swollen nodes, abnormal bleeding, and unusual bruising. Exam: 04:12 Constitutional: This is a well developed, well nourished patient who is awake, alert, mh7 and in no acute distress. Head/Face: Normocephalic, atraumatic. Eyes: Pupils equal round and reactive to light, extra-ocular motions intact. Lids and lashes normal. Conjunctiva and sclera are non-icteric and not injected. Cornea within normal limits. Periorbital areas with no swelling, redness, or edema. Neck: Trachea midline, no thyromegaly or masses palpated, and no cervical lymphadenopathy. Supple, full range of motion without nuchal rigidity, or vertebral point tenderness. No Meningismus. Chest/axilla: Normal chest wall appearance and motion. Nontender with no deformity. No lesions are appreciated. Cardiovascular: Regular rate and rhythm with a normal S1 and S2. No gallops, murmurs, or rubs. Normal PMI, no JVD. No pulse deficits. Respiratory: Lungs have equal breath sounds bilaterally, clear to auscultation and percussion. No rales, rhonchi or wheezes noted. No increased work of breathing, no retractions or nasal flaring. Back: No spinal tenderness. No costovertebral tenderness. Full range of motion. 04:12 Skin: Warm, dry with normal turgor. Normal color with no rashes, no lesions, and no evidence of cellulitis. MS/ Extremity: Pulses equal, no cyanosis. Neurovascular intact. Full, normal range of motion. Neuro: Awake and alert, GCS 15, oriented to person, place, time, and situation. Cranial nerves II-XII grossly intact. Motor strength 5/5 in all extremities. Sensory grossly intact. Cerebellar exam normal. Normal gait. Psych: Awake, alert, with orientation to person, place and time. Behavior, mood, and affect are within normal limits. 04:12 Abdomen/GI: Inspection: obese Bowel sounds: normal, in all quadrants, Palpation: mild abdominal tenderness, in the left lower quadrant, mass, is not appreciated, rebound tenderness, is not appreciated, voluntary guarding, is not appreciated, involuntary guarding, is not appreciated, no appreciated organomegaly, Rectal exam: the exam is deferred, because of patient request, Indicators: McBurney's point is not tender, Burns's sign is negative, Rovsing's sign is negative, Obturator sign is negative, Psoas sign is negative, Liver: no appreciated palpable abnormalities, Hernia: not appreciated. Vital Signs: 01:34 BP 147 / 105; Pulse 111; Resp 18 S; Temp 98.4; Pulse Ox 100% on R/A; Weight 127.01 kg; iw Height 5 ft. 4 in. (162.56 cm); Pain 10/10; 04:48 BP 138 / 80; Pulse 90; Resp 17; Pulse Ox 99% ; ea 05:50 BP 133 / 87; Pulse 89; Resp 18; Pulse Ox 100% on R/A; ea 01:34 Body Mass Index 48.06 (127.01 kg, 162.56 cm) iw MDM: 05:07 Differential diagnosis: appendicitis, bowel obstruction, diverticulitis, non-specific mh7 abd pain, Pyelonephritis, Ureterolithiasis, urinary tract infection. Data reviewed: vital signs, nurses notes, lab test result(s), CBC, electrolytes, urinalysis, radiologic studies, CT scan. Data interpreted: Pulse oximetry: on room air is 99 %. Interpretation: normal. Counseling: I had a detailed discussion with the patient and/or guardian regarding: the historical points, exam findings, and any diagnostic results supporting the discharge/admit diagnosis, the presence of at least one elevated blood pressure reading (>120/80) during this emergency department visit, lab results, radiology results, the need for further work-up and treatment in the hospital. Response to treatment: the patient's symptoms have markedly improved after treatment. Physician consultation: Gabriel Anna MD was contacted at 05:05, regarding patient's condition, and will see patient in inpatient room, would like admission per Dr. Jamarcus Caba DO. 05:09 Patient medically screened. [facility] 07/26 01:42 Order name: Basic Metabolic Panel; Complete Time: 04:04 ea 07/26 01:42 Order name: CBC with Diff; Complete Time: 04:04 ea 07/26 01:42 Order name: Hepatic Function; Complete Time: 04:04 07/26 01:42 Order name: Lipase; Complete Time: 04:04 07/26 02:19 Order name: CBC Smear Scan; Complete Time: 04:04 EDAL 07/26 04:24 Order name: Urine Dipstick-Ancillary; Complete Time: 05:04 EDAL 07/26 04:05 Order name: CT Abd/Pelvis - IV Contrast Only 7 07/26 04:25 Order name: Urine --Ancillary (enter results) tt3 07/26 05:11 Order name: Blood Culture Adult (2) la1 07/26 05:12 Order name: Blood Culture EDAL 07/26 05:58 Order name: COVID-19 : Document "Date of Symptom Onset" if Symptomatic. 07/26 06:44 Order name: CORONAVIRUS EDAL 07/26 07:30 Order name: SARS-COV-2 RT PCR EDAL 07/26 08:00 Order name: Glucose, Ancillary Testing EDAL 07/26 01:42 Order name: IV Saline Lock; Complete Time: 01:56 07/26 01:42 Order name: Labs collected and sent; Complete Time: 01:56 07/26 01:43 Order name: Urine Dipstick-Ancillary (obtain specimen); Complete Time: 04:23 ea Administered Medications: 02:39 Drug: morphine 4 mg Route: IVP; Site: right forearm; ea 03:58 Follow up: Response: No adverse reaction ea 02:39 Drug: Zofran (Ondansetron) 4 mg Route: IVP; Site: right forearm; ea 03:58 Follow up: Response: No adverse reaction ea 04:22 Drug: NS 0.9% 1000 ml Route: IV; Rate: 1000 ml; Site: right antecubital; ea 05:49 Follow up: Response: No adverse reaction; IV Status: Completed infusion; IV Intake: ea 1000ml 05:40 Drug: Zosyn (piperacillin-tazobactam) 3.375 grams Route: IVPB; Infused Over: 60 mins; ea Site: right antecubital; 10:28 Follow up: IV Status: Completed infusion; IV Intake: 100ml bp 05:40 Drug: morphine 2 mg Route: IVP; Site: right antecubital; ea 10:28 Follow up: Response: No adverse reaction bp Disposition: 07/26/20 05:09 Hospitalization ordered by Jamarcus Caba for Inpatient Admission. Preliminary diagnosis is Diverticulitis with Microperforation. - Bed requested for Telemetry/MedSurg (Inpatient). - Status is Inpatient Admission. ll1 - Condition is Stable. - Problem is new. - Symptoms have improved. Signatures: Dispatcher [employer] EDMS Mounika Hinson, RN RN iw James Cuba, BENCH WORKER HELPER-C BENCH WORKER HELPER-Cla1 Linsey Rodriguez, RN FELICITY Karen Crowell, RN FELICITY Maday Bradshaw Lynsay, RN RN 1 Tay Kerr MD MD [facility] Jed Bowie RN bp Corrections: (The following items were deleted from the chart) 05:33 05:09 Hospitalization Ordered by Jamarcus Caba DO for Inpatient Admission. Preliminary cg diagnosis is Diverticulitis with Microperforation. Bed requested for Telemetry/MedSurg (Inpatient). Status is Inpatient Admission. Condition is Stable. Problem is new. Symptoms have improved. [facility] 08:34 05:33 07/26/2020 05:09 Hospitalization Ordered by Jamarcus Caba DO for Inpatient eb Admission. Preliminary diagnosis is Diverticulitis with Microperforation. Bed requested for [facility] ER HOLD. Status is Inpatient Admission. Condition is Stable. Problem is new. Symptoms have improved. 11:19 08:34 07/26/2020 05:09 Hospitalization Ordered by Jamarcus Caba DO for Inpatient ll1 Admission. Preliminary diagnosis is Diverticulitis with Microperforation. Bed requested for Telemetry/MedSurg (Inpatient). Status is Inpatient Admission. Condition is Stable. Problem is new. Symptoms have improved. eb
--- NOTE | 2020-07-26 05:18 | P.HP ---
Certification for Inpatient Patient admitted to: Inpatient With expected LOS: >2 Midnights Patient will require the following post-hospital care: None Practitioner: I am a practitioner with admitting privileges, knowledge of patient current condition, hospital course, and medical plan of care. Services: Services provided to patient in accordance with Admission requirements found in Title 42 Section 412.3 of the Code of Federal Regulations Patient History Date of Service: 07/26/20 Reason for admission: Diverticulitis with microperforation History of Present Illness: 40-year-old female with history of diabetes mellitus type 2, hypertension presents emergency department for abdominal pain over the course of the last 3 days. Patient evaluated in emergency department, labs significant for white blood cell count 14.7 GFR 89 glucose 184, CT abdomen pelvis demonstrates sigmoid diverticulitis with microperforation. General surgery surgery was consulted while patient in the emergency department, recommendations IV antibiotics, NPO, p.r.n. pain medications and admission under hospitalist service. When I saw the patient in the ER she is awake, alert, oriented x3, moderate pain left lower quadrant and tenderness. Patient is not appear septic at this time. Allergies No Known Drug Allergies Allergy (Verified 03/17/16 01:10) Unknown No Known Allergies Allergy (Uncoded 05/26/15 11:32) Unknown Home Medications: Hydrocodone Bit/Acetaminophen [Ryan 7.5-325 Tablet] 1 each PO Q6H PRN #10 tablet 03/17/16 levoFLOXacin [Levaquin] 500 mg PO DAILY #14 tab 03/17/16 - Past Medical/Surgical History Diabetic: No -: KIDNEY CANCER -: Diabetes mellitus type 2 -: Hypertension -: X 2 Psychosocial/ Personal History: Patient is unemployed, lives with the mother - Family History Mother -: Hypertension, Diabetes Brother -: Diabetes - Social History Smoking Status: Current every day smoker Counseled patient to stop smoking for: less than 10 minutes Smoking therapy provided: No (Patient declined) Alcohol use: No CD- Drugs: No Caffeine use: Yes Place of Residence: Home Review of Systems 10-point ROS is otherwise unremarkable Gastrointestinal: Nausea, Abdominal Pain, As per HPI Physical Examination - Physical Exam General: Alert, In no apparent distress HEENT: Atraumatic, PERRLA, Mucous membr. moist/pink Neck: Supple, 2+ carotid pulse no bruit, No LAD Respiratory: Clear to auscultation bilaterally, Normal air movement Cardiovascular: Regular rate/rhythm, Normal S1 S2 Capillary refill: <2 Seconds Gastrointestinal: Normal bowel sounds, No masses, No rebound, No guarding, Tenderness (Mild to moderate tenderness left lower quadrant and suprapubic) Musculoskeletal: No tenderness Integumentary: No rashes Neurological: Normal speech, Normal strength at 5/5 x4 extr, Normal tone, Normal affect - Studies Laboratory Data (last 24 hrs) 07/26/20 01:49: WBC 14.70 H, Hgb 14.0, Hct 41.6, Plt Count 258 07/26/20 01:49: Sodium 139, Potassium 3.9, BUN 15, Creatinine 0.73, Glucose 184 H, Total Bilirubin 0.4, AST 11 L, ALT 20, Alkaline Phosphatase 98, Lipase 169 Assessment and Plan - Plan Assessment Acute sigmoid diverticulitis with microperforation Diabetes mellitus type 2 Hypertension Plan Acute sigmoid diverticulitis with microperforation: General surgery consult in place, continue with IV Zosyn, NPO, p.r.n. anti emetics and pain medications. DVT prophylaxis with SCDs at this time in case surgical intervention is deemed necessary. Appreciate further input from general surgery. Diabetes mellitus type 2: Q.6h Accu-Chek, sliding scale insulin therapy. A1c with labs tomorrow. Hypertension: Patient not on any medications this time, will monitor blood pressure closely throughout this hospitalization, may need medication at discharge. Discharge Plan: Home Plan to discharge in: Greater than 2 days - Advance Directives Does patient have a Living Will: No Does patient have a Durable POA for Healthcare: No - Code Status/Comfort Care Code Status Assessed: Yes (Full code) Critical Care: No Time Spent Managing Pts Care (In Minutes): 55
[2020-07-26 05:22] LABS: Urine Specific Gravity/Preg >1.030 (1.005-1.030)
[2020-07-26] MEDS ORDERED: MORPHINE 2 MG/ML SYR ONE (05:38)
[2020-07-26] MEDS ORDERED: PIPER/TAZO/NS 3.375gm 3.375 GM/100 ML BAG ONE ×3 (05:38→19:01)
[2020-07-26] MEDS: INSULIN -REGULAR HUMAN 50 UNIT/0.5 ML ML SQ SCH ×3 (07:30→18:00)
[2020-07-26] MEDS: D5 0.45 NS 1,000 ML IV SCH ×3 (07:30→19:53)
[2020-07-26] MEDS ORDERED: GLUCAGON 1 MG/VIAL IM PRN (07:39)
[2020-07-26] MEDS ORDERED: D50W 25 GM/50 ML SYRINGE IV PRN (07:39)
[2020-07-26] MEDS ORDERED: ONDANSETRON 4 MG/2 ML VIAL IV PRN (07:39)
[2020-07-26] MEDS: PIPER/TAZO/NS 3.375gm 3.375 GM/100 ML BAG IVPB SCH ×2 (09:00→18:50)
[2020-07-26] MEDS ORDERED: D5 0.45 NS 1,000 ML IV ONE (09:03)
[2020-07-26] MEDS ORDERED: HYDRALAZINE HCL 20 MG/ML VIAL IV PRN (09:19)
--- NOTE | 2020-07-26 09:23 | P.PN ---
Subjective Date of Service: 07/26/20 Primary Care Provider: none Chief Complaint: Diverticulitis with microperforation Subjective: Improving Physical Examination - Studies Laboratory Data (last 24 hrs) 07/26/20 01:49: WBC 14.70 H, Hgb 14.0, Hct 41.6, Plt Count 258 07/26/20 01:49: Sodium 139, Potassium 3.9, BUN 15, Creatinine 0.73, Glucose 184 H, Total Bilirubin 0.4, AST 11 L, ALT 20, Alkaline Phosphatase 98, Lipase 169 Assessment & Plan Discharge Plan: Home Plan to discharge in: 72 Hours Physician Review Additional Text: Physical Exam: GENERAL: The patient is a well-developed, well-nourished, in no apparent distress. Alert and oriented x3. VITAL SIGNS: Reviewed HEENT: Head is normocephalic and atraumatic. Extraocular muscles are intact. Pupils are equal, round, and reactive to light and accommodation. Nares appeared normal. Mouth is well hydrated and without lesions. Mucous membranes are moist. NECK: Supple. No carotid bruits. No lymphadenopathy or thyromegaly. LUNGS: Clear to auscultation. No crackles or wheezes are heard. HEART: Regular rate and rhythm, no appreciable gallops, rubs, murmurs or extra heart sounds ABDOMEN: Pain to the left quadrant improved. Bowel sounds decreased. EXTREMITIES: Without any cyanosis, clubbing, rash, lesions or peripheral edema. NEUROLOGIC: The patient is oriented to person, place and time. Strength and sensation are grossly intact. Face is symmetric. SKIN: Normal color, turgor and temperature. No ulcerations or rashes noted. Impression: Acute sigmoid diverticulitis with microperforation Diabetes mellitus type 2 Hypertension Plan Acute sigmoid diverticulitis with microperforation: Patient reports episode of diverticulitis within the past month. She was seen at [facility] and sent home with antibiotics. She was not able to follow-up with GI. Currently the patient remains n.p.o. Continue IV antibiotic therapy and IV fluids. DVT prophylaxis in place. Encourage incentive spirometer. Encourage ambulation. Anticipate continued improvement. Surgery has been consulted. Await further recommendations. Repeat x-ray again tomorrow. If improved anticipate slow advancement of her diet. Patient will require colonoscopy as an outpatient. I will turn the service over to the hospitalist team tomorrow. I will go plan of care with him. Anticipate improvement over the next 72 hours. Diabetes mellitus type 2: We will check A1c. Continue Accu-Cheks and sliding scale. Hypertension: We will monitor this closely. IV medication provided if blood pressure elevated. Code Status: Full Code DVT prophylaxis: Lovenox Advanced Care Planning-30 minutes: Plan of care for the patient's discharge was discussed in detail with the patient and family. Patient plans to go home at discharge. Patient has no PCP. Will try to arrange for PCP at discharge. Time Spent Managing Pts Care (In Minutes): 55
[2020-07-26 11:30] VITALS: BMI 35.9
[2020-07-26] MEDS: MORPHINE 2 MG/ML SYR IV PRN ×3 (11:33→23:34)
[2020-07-26 11:48] LABS: Urine Appearance CLEAR (Clear); Urine Bilirubin NEGATIVE (Negative); Urine Blood 3+ (Negative); Urine Color YELLOW (Yellow); Urine Glucose NEGATIVE (Negative); Urine Protein NEGATIVE (Negative); Urine Specific Gravity >=1.030 (1.005-1.030); Urine Urobilinogen 0.2 mg/dL (0.2-1.0); Urine pH 5.5 (5.0-7.0)
[2020-07-26 12:08] LABS: Urine Microscopic Reflex ORDER UMIC
[2020-07-26 12:09] LABS: Urine Bacteria <20 /HPF (<20); Urine RBC <5 /HPF (NONE SEEN)
[2020-07-26] MEDS ORDERED: D50W 25 GM/50 ML VIAL IV PRN (15:00)
--- NOTE | 2020-07-26 18:47 | CON ---
Date of Consultation: 07/26/2020 Diagnosis: Diverticulitis with microperforation. History Of Present Illness: This is the case of a 40-year-old patient, comes to us with abdominal pa in since last night. Last time, she ate some mashed potatoes with some gravy and some chicken from [employer]. After that, she became sick, did not get better so she decided to come this morning to the ER, f ound to have diverticulitis with microperforation with no free air. Surgical consult was obtained. She denies any dysuria, hematuria, hematochezia, melena. Denies any previous colonoscopy. Denies an y recent traveling out of the country. Denies any family member sick at home. Allergies: NONE. Social History: She does not smoke. She does not drink alcohol. Family History: Noncontributory. Medications: Include hydrocodone and Levaquin. Past Medical History: Includes kidney cancer, diabetes, hypertension. Past Surgical History: Includes . Review of Systems: See H and P. Ten points otherwise unremarkable. Physical Examination: General: The patient is awake, alert. HEENT: Pupils are equal and reactive. Anicteric. Neck: Supple. Chest: Clear. Abdomen: Soft and depressible. Left lower quadrant tenderness with no rebound tenderness. Rectal: Deferred. Pelvic: Deferred. Breasts: Deferred. Extremities: Good capillary refill. Laboratory Data: WBC count is 14 with hemoglobin of 14. Potassium 3.9, 20. CAT scan of the abdomen and pelvis interpreted by radiologist as diverticulitis with a microperforation, no free air in the abdomen. Assessment: This is a 40-year-old patient with diverticulitis, microperforation. No free air in the abdomen. She understands her options. We discussed with her the options of emergent laparotomy, po ssible bowel resection, possible ostomy, and after discussing the benefits, alternatives, and risks, obviously she look for some other alternatives. We can do this give her antibiotics, keep her n.p.o., and bowel rest to see we can reverse this infection. There is a chance for an abscess, especially when somebody is diabetic, but I agree with her and x-rays does not show any fr ee air in the diaphragm. We can try to follow her clinically and see her improvement. If not, she u nderstand. Even if she improves and eventually goes home, we still have to do colonoscopy about a mo nth from now when the inflammation goes down and she still may qualify for elective colon resection a nd once again fully explained to her and obviously she preferred that route if she is able to go thro ugh this acute event. We will follow the patient with you and give more recommendations as the case develops. NANDINI/JOSE RAMON Voice ID: [id number] Report ID: [id number]
[2020-07-26] MEDS: FAMOTIDINE 20 MG/2 ML VIAL IV SCH (19:54)
[2020-07-27] MEDS: PIPER/TAZO/NS 3.375gm 3.375 GM/100 ML BAG IVPB SCH ×4 (00:33→23:58)
[2020-07-27] MEDS ORDERED: PIPERACIL/TAZO 3.375 GM VIAL IV ONE (00:41)
[2020-07-27] MEDS ORDERED: NA CHLORIDE 0.9% 100 ML ONE (00:41)
[2020-07-27] MEDS: MORPHINE 2 MG/ML SYR IV PRN ×5 (04:01→22:21)
[2020-07-27] MEDS: D5 0.45 NS 1,000 ML IV SCH ×3 (04:08→20:39)
[2020-07-27 04:28] LABS: Absolute Lymphocytes (CBC) 2.4 K/uL (0.7-4.9); Basophils % 0.8 % (0-1.3); Hematocrit 36.8 % (36.0-45.0); MPV 8.1 fL (7.6-11.3); RBC Red Blood Cell Count 4.13 M/uL (3.86-4.86)
[2020-07-27 05:10] LABS: ALT/SGPT 17 U/L (12-78); AST/SGOT 7 U/L (15-37); Alkaline Phosphatase 77 U/L (45-117); BUN Blood Urea Nitrogen 7 mg/dL (7-18); Bicarbonate 29 mmol/L (21-32); Bilirubin Total 0.8 mg/dL (0.2-1.0); Glucose Level 151 mg/dL (74-106); HDL Cholesterol 30 mg/dL (40-60); Protein, Total 6.5 g/dL (6.4-8.2); Sodium Level 140 mmol/L (136-145)
[2020-07-27] MEDS: INSULIN -REGULAR HUMAN 50 UNIT/0.5 ML ML SQ SCH ×4 (05:25→18:00)
[2020-07-27 05:26] LABS: LDL, Direct 86 mg/dL (100-129)
[2020-07-27] MEDS: FAMOTIDINE 20 MG/2 ML VIAL IV SCH ×2 (08:08→20:39)
--- NOTE | 2020-07-27 10:03 | RAD REPORT ---
EXAM DESCRIPTION: CT - Abdomen Pelvis W Contrast - 07/27/2020 5:07 am ADDENDUM #1 Urgent finding reported to Dr. Kerr at 07/26/2020 5:03 AM CDT Electronically signed by: Jordy Martines 07/27/2020 12:57 AM CDT End of Addendum CLINICAL HISTORY: ABD PAIN COMPARISON: 10/08/2018 TECHNIQUE: CT of the abdomen and pelvis performed following IV administration of iodinated contras t. This exam was performed according to our departmental dose-optimization program, which includes au tomated exposure control, adjustment of the mA and/or kV according to patient size and/or use of iter ative reconstruction technique. FINDINGS: Lung Bases: The visualized lung bases are clear. Bones: Minimal degenerative disc and, endplate spondylosis, facet arthropathy. Abdomen: Liver: Hepatomegaly and decreased density. No intrahepatic biliary dilatation. Gallbladder: Calcified gallstones. No pericholecystic inflammatory change. Spleen, Pancreas, and Adrenal Glands: The spleen, pancreas, and adrenal glands are unremarkable. Kidneys: 4.1 x 3.9 cm enhancing heterogeneous interpolar right adrenal mass. No hydronephrosis. Vasculature: The aorta and IVC have normal caliber and position. The portal vein is patent. The pro ximal visceral and renal arteries are patent. Stomach: The stomach and duodenum have normal course. Other: Trace free fluid. No definite lymphadenopathy. Pelvis: Bladder: Urinary bladder is unremarkable. Bowel: No dilated loops of large or small bowel. Scattered diverticula colon. Subsequent wall thick ening adjacent laboratory change of the proximal sigmoid colon. Contained foci of air adjacent to the area of inflammation of the sigmoid colon. No well-circumscribed pericolic fluid collection. Appendix: Identified. Pelvis: Uterus is not enlarged. IMPRESSION: 1. Findings compatible with acute diverticulitis of the proximal sigmoid colon. Contai chito foci of air adjacent to the area of inflammation of the sigmoid colon. Findings compatible with m icroperforation. 2. 4.1 cm enhancing heterogeneous interpolar right adrenal mass. This is concerning for renal cell carcinoma. Size remains stable. Continued follow-up recommended. 3. Cholelithiasis without evidence of acute cholecystitis. 4. Hepatomegaly and hepatic steatosis. Electronically signed by: Jordy Martines 07/26/2020 4:59 AM CDT Due to temporary technical issues with the PACS/Fluency reporting system, reports are being signed by the in house radiologists without review as a courtesy to insure prompt reporting. The interpreting radiologist is fully responsible for the content of the report.
--- NOTE | 2020-07-27 10:22 | RAD REPORT ---
EXAM DESCRIPTION: RAD - Abdomen 1 View (KUB) - 07/27/2020 6:09 am CLINICAL HISTORY: Abdomen pain. FINDINGS: The bowel gas pattern is unremarkable. A large collection of extraluminal air is not clearly visualized on this limited examination.
--- NOTE | 2020-07-27 12:12 | PN ---
Date of Progress Note: 07/27/2020 Diagnosis: Diverticulitis with microperforation. Subjective: The patient is doing better. No nausea, no vomiting. Still has some left lower quadran t tenderness, but better than yesterday. Review of Systems: Ten points otherwise unremarkable. Physical Examination: General: The patient is awake, alert. Eyes: Pupils anicteric. Abdomen: Soft and depressible. Less tender than yesterday. No rebound. Extremities: Good capillary refill. Laboratory Data: Blood work is improved. X-rays, no free air under the diaphragm per radiologist. Plan: Continue n.p.o. Tomorrow, we might try some clear liquids and out of bed ambulation. Continu e antibiotics. HM/MODL Voice ID: [id number] Report ID: [id number]
--- NOTE | 2020-07-27 14:50 | P.PN ---
Subjective Date of Service: 07/27/20 Patient still having abdominal pain. Symptoms are somewhat better. Keeping her NPO but may start a clear liquid in the morning. May need to repeat CT imaging prior to discharging. At this time, will continue with IV antibiotic therapy and monitor patient's abdominal pain. Review of Systems 10-point ROS is otherwise unremarkable Physical Examination - Vital Signs Temperature: 98.6 F Blood Pressure: 130/60 Pulse: 70 Respirations: 16 Pulse Ox (%): 98 - Physical Exam General: Alert, In no apparent distress, Oriented x3 Respiratory: Clear to auscultation bilaterally, Normal air movement Cardiovascular: Regular rate/rhythm, Normal S1 S2, No murmurs Gastrointestinal: Normal bowel sounds, Soft and benign, Non-distended, No guarding, Tenderness, Rebound Musculoskeletal: No clubbing, No swelling, No tenderness Neurological: Normal tone, Sensation intact, Cranial nerves 3-12 intact - Studies Medications List Reviewed: Yes Assessment & Plan - Problems (Diagnosis) (1) Diverticulitis of colon with perforation Current Visit: Yes Status: Acute (2) Morbid obesity Current Visit: Yes Status: Acute (3) History of renal cell cancer Current Visit: Yes Status: Acute (4) History of type 2 diabetes mellitus Current Visit: Yes Status: Acute (5) History of hypertension Current Visit: Yes Status: Acute - Plan 1. Continue with IV hydration 2. Continue with IV antibiotics 3. Continue with pain control 4. NPO 5. GI & general surgery consultation; outpatient colonoscopy in 6-12 weeks 6. Serial H&H, and we will monitor CBC, BMP, LFTs and lipase along with electrolytes. 7. GI and DVT prophylaxis Discharge Plan: Home Plan to discharge in: Greater than 2 days - Advance Directives Does patient have a Living Will: No Does patient have a Durable POA for Healthcare: No - Code Status/Comfort Care Code Status Assessed: Yes Code Status: Full Code Critical Care: No Time Spent Managing PTS Care (In Minutes): 35
[2020-07-27] MEDS ORDERED: MORPHINE 2 MG/ML SYR IV ONE (21:00)
[2020-07-28] MEDS: MORPHINE 4 MG/ML SYR IV PRN ×4 (01:19→20:48)
[2020-07-28] MEDS: INSULIN -REGULAR HUMAN 50 UNIT/0.5 ML ML SQ SCH ×5 (06:00→20:47)
[2020-07-28] MEDS: PIPER/TAZO/NS 3.375gm 3.375 GM/100 ML BAG IVPB SCH ×2 (08:57→16:16)
[2020-07-28] MEDS: FAMOTIDINE 20 MG/2 ML VIAL IV SCH ×2 (08:58→20:47)
[2020-07-28] MEDS: D5 0.45 NS 1,000 ML IV SCH ×2 (09:00→19:56)
[2020-07-28] MEDS ORDERED: GABAPENTIN 300 MG CAP PO ONE (10:43)
[2020-07-28] MEDS ORDERED: D50W 25 GM/50 ML SYRINGE IV PRN (16:09)
[2020-07-28] MEDS ORDERED: GLUCAGON 1 MG/VIAL IM PRN (16:09)
[2020-07-28] MEDS: GABAPENTIN 300 MG CAP PO SCH ×2 (16:17→20:47)
[2020-07-29] MEDS: PIPER/TAZO/NS 3.375gm 3.375 GM/100 ML BAG IVPB SCH ×3 (00:27→16:00)
[2020-07-29] MEDS: D5 0.45 NS 1,000 ML IV SCH ×4 (05:09→21:21)
[2020-07-29] MEDS: INSULIN -REGULAR HUMAN 50 UNIT/0.5 ML ML SQ SCH ×4 (07:30→20:49)
[2020-07-29] MEDS: MORPHINE 4 MG/ML SYR IV PRN ×2 (07:40→17:27)
[2020-07-29] MEDS: FAMOTIDINE 20 MG/2 ML VIAL IV SCH ×2 (07:41→20:13)
[2020-07-29] MEDS: GABAPENTIN 300 MG CAP PO SCH ×3 (10:40→20:13)
--- NOTE | 2020-07-29 10:56 | RAD REPORT ---
EXAM DESCRIPTION: CTAbdomen Pelvis W Contrast - 07/29/2020 10:32 am CLINICAL HISTORY: Abdominal pain. diverticulitis COMPARISON: Abdomen Pelvis W Contrast dated 07/26/2020; Abdomen Pelvis W Contrast dated 10/08/2018 ; Abdomen Pelvis W Contrast dated 03/16/2016; CT ABD PELVIS W CONTRAST dated 01/11/2015; Abdomen 1 V iew (KUB) dated 07/27/2020 TECHNIQUE: Biphasic CT imaging of the abdomen and pelvis was performed with 100 ml non-ionic IV cont rast. All CT scans are performed using dose optimization technique as appropriate and may include automated exposure control or mA/KV adjustment according to patient size. FINDINGS: The lung bases are clear.Cholelithiasis. The liver, spleen, pancreas, adrenal glands and left kidney are within normal limits. Solid right rodger al mass anterior midpole measuring 4.3 x 3.5 cm again noted highly suspicious for malignancy/renal ce ll carcinoma. No bowel obstruction, free air, free fluid or abscess. Moderate inflammatory changes surrounding the left lower quadrant sigmoid colon is again seen with small extraluminal air bubbles. No significant c hange is seen in this finding. Sigmoid diverticulosis coli is present. The appendix is normal. No ev idence of significant lymphadenopathy. Moderate lumbosacral changes. IMPRESSION: No appreciable change in left lower quadrant pericolonic inflammatory changes favored to represent diverticulitis. Given that malignancy can also have this appearance, recommend followup co lonoscopy after appropriate therapy. 4 cm right-sided renal mass remains present and highly concerning for malignancy/ renal cell carcinom a. Cholelithiasis.
[2020-07-29 12:26] LABS: Absolute Lymphocytes (CBC) 1.6 K/uL (0.7-4.9); Basophils % 0.6 % (0-1.3); Hematocrit 39.6 % (36.0-45.0); Lymphocytes % 16.1 % (15.3-44.8); MPV 8.1 fL (7.6-11.3); RBC Red Blood Cell Count 4.42 M/uL (3.86-4.86)
[2020-07-29 12:36] LABS: Magnesium 2.1 mg/dL (1.8-2.4); Phosphorus 3.9 mg/dL (2.5-4.9); Potassium 3.9 mmol/L (3.5-5.1)
[2020-07-29] MEDS ORDERED: POTASSIUM CL SA 10 MEQ TAB PO ONE (13:05)
[2020-07-30 00:17] VITALS: O2SAT 96
[2020-07-30] MEDS: PIPER/TAZO/NS 3.375gm 3.375 GM/100 ML BAG IVPB SCH ×3 (00:33→17:00)
[2020-07-30] MEDS: MORPHINE 4 MG/ML SYR IV PRN ×3 (00:37→15:14)
[2020-07-30 06:36] LABS: Potassium 3.9 mmol/L (3.5-5.1)
[2020-07-30] MEDS: INSULIN -REGULAR HUMAN 50 UNIT/0.5 ML ML SQ SCH ×3 (07:30→16:30)
[2020-07-30] MEDS: GABAPENTIN 300 MG CAP PO SCH ×2 (08:54→15:08)
[2020-07-30] MEDS: FAMOTIDINE 20 MG/2 ML VIAL IV SCH (08:54)
[2020-07-30] MEDS ORDERED: POTASSIUM CL SA 10 MEQ TAB PO ONE (09:00)
--- NOTE | 2020-07-30 11:08 | P.PN ---
Date of Service: 07/28/20 Subjective Will start patient on clear liquid diet and slowly advance if patient tolerates it. Appreciate General surgery's assistance in patient's care. Review of Systems 10-point ROS is otherwise unremarkable Physical Examination - Vital Signs Reviewed - Physical Exam General: Alert, In no apparent distress, Oriented x3 Respiratory: Clear to auscultation bilaterally, Normal air movement Cardiovascular: Regular rate/rhythm, Normal S1 S2, No murmurs Gastrointestinal: Normal bowel sounds, Soft and benign, Non-distended, No guarding, minimal tenderness Musculoskeletal: No clubbing, No swelling, tenderness in the left ankle Neurological: Normal tone, Sensation intact, Cranial nerves 3-12 intact - Studies Medications List Reviewed: Yes Assessment & Plan - Problems (Diagnosis) (1) Diverticulitis of colon with perforation Current Visit: Yes Status: Acute (2) Morbid obesity Current Visit: Yes Status: Acute (3) Renal cell cancer Current Visit: Yes Status: Acute (4) History of type 2 diabetes mellitus Current Visit: Yes Status: Acute (5) History of hypertension Current Visit: Yes Status: Acute - Plan 1. Continue with IV hydration 2. Continue with IV antibiotics 3. Continue with pain control 4. Start clear liquid diet in a.m. 5. Appreciate General surgery input. Repeat CT scan in a.m. 6. Continue monitoring labs 7. GI and DVT prophylaxis
--- NOTE | 2020-07-30 11:10 | P.PN ---
Date of Service: 07/29/20 Subjective Patient continues to improve and tolerating diet. Discuss with surgery about advancing diet as tolerated. Hopefully we can discharge over the next 24-48 hr. Discuss with patient regarding CT scan findings. If patient does need any surgery most likely after antibiotics are completed. No abscesses. Diverticulitis seems to be stable. No worsening any infectious process and patient's pain is stable. May advance to a full liquid diet which she will need continue for the next 5-7 days. Review of Systems 10-point ROS is otherwise unremarkable Physical Examination - Vital Signs Reviewed - Physical Exam General: Alert, In no apparent distress, Oriented x3 Respiratory: Clear to auscultation bilaterally, Normal air movement Cardiovascular: Regular rate/rhythm, Normal S1 S2, No murmurs Gastrointestinal: Normal bowel sounds, Soft and benign, Non-distended, No guarding, minimal tenderness Musculoskeletal: No clubbing, No swelling, tenderness in the left ankle Neurological: Normal tone, Sensation intact, Cranial nerves 3-12 intact - Studies Medications List Reviewed: Yes Assessment & Plan - Problems (Diagnosis) (1) Diverticulitis of colon with perforation Current Visit: Yes Status: Acute (2) Morbid obesity Current Visit: Yes Status: Acute (3) Renal cell cancer Current Visit: Yes Status: Acute (4) History of type 2 diabetes mellitus Current Visit: Yes Status: Acute (5) History of hypertension Current Visit: Yes Status: Acute - Plan Continue with plan of care as mentioned below 1. Continue with IV hydration 2. Continue with IV antibiotics 3. Continue with pain control 4. May advance diet in a.m. to full liquid diet 5. Appreciate General surgery input. CT scan reviewed with patient 6. Continue monitoring labs 7. GI and DVT prophylaxis
--- NOTE | 2020-07-30 13:27 | PN ---
Date of Progress Note: 07/30/2020 Diagnoses: Diverticulitis with microperforation, diabetes, morbid obesity, renal mass, cholelithiasi s. Subjective: The patient feels better. Pain is almost gone. She is tolerating diet. Objective: Chest: Clear. Abdomen: Soft and depressible. No guarding or rebound. Extremities: Good capillary refill. No calf tenderness. CAT scan that was done yesterday shows findings similar to the beginning, but no exacerbation or enla rging abscess. Found on the CAT scan also were the renal mass and also the cholelithiasis. All this was explained. She is going to follow with urologist for her kidney mass because we cannot rule out cancer and then she is going to follow with us for gallbladder and she is going to follow with [facility] for the diverticulitis episodes since may need elective resection. From the surgical standpoin t, we are going to advance diet slowly whenever she can tolerate diet and then we will be able to sen d her home with still on p.o. antibiotics. If the pain comes back, she has to return to the ER immed iately with the fear of abscess or perforation. Whenever this improves in the next few days, we wesly g to recommend her to be seen by Colorectal Surgery for the possibility of an elective resection once the inflammation is under control. She understand that if she does not take her antibiotics properl y or she does not control diabetes and control her diet, especially diverticulitis diet with low fat, this may recur and may be a life-threatening disease. She wants to go home, but we have to make bartolo e she tolerates diet first. NANDINI/JOSE RAMON Voice ID: [id number] Report ID: [id number]
[2020-07-30 17:50] VITALS: BP 122/72; TEMP 97.9
--- NOTE | 2020-08-03 05:07 | P.DS ---
Discharge Date: 07/30/20 Primary Care Provider: marlene Disposition: ROUTINE DISCHARGE Discharge Condition: GOOD Reason for Admission: Diverticulitis with microperforation - Problems (1) Diverticulitis of colon with perforation Status: Acute (2) Morbid obesity Status: Acute (3) History of renal cell cancer Status: Acute (4) History of type 2 diabetes mellitus Status: Acute (5) History of hypertension Status: Acute Brief History of Present Illness: Patient is a 40-year-old female with history of diabetes mellitus type 2, hypertension presents emergency department for abdominal pain over the course of the last 3 days. Patient evaluated in emergency department, labs significant for white blood cell count 14.7 GFR 89 glucose 184, CT abdomen pelvis demonstrates sigmoid diverticulitis with microperforation. General surgery surgery was consulted while patient in the emergency department, recommendations IV antibiotics, NPO, p.r.n. pain medications and admission under hospitalist service. When I saw the patient in the ER she is awake, alert, oriented x3, moderate pain left lower quadrant and tenderness. Patient is not appear septic at this time. Hospital Course: Patient did well during hospital stay. Patient's pain is improved. Patient also of the renal mass. This needs to be evaluated as well. Clinically, patient is doing well and is stable for discharge with outpatient follow-up. Patient will need to continue antibiotics for 10 more days. Patient needs to see General surgery as well as Urology as patient will need renal mass removed. Patient also would need to follow with General surgery for partial colectomy if symptoms do not improve. Vital Signs/Physical Exam: Temp Pulse Resp BP Pulse Ox 97.9 F 67 15 122/72 97 07/30/20 16:00 07/30/20 16:00 07/30/20 16:00 07/30/20 16:00 07/30/20 16:00 General: Alert, In no apparent distress, Oriented x3 Laboratory Data at Discharge: WBC 9.80 K/uL (4.3-10.9) D 07/29/20 12:05 Hgb 13.2 g/dL (12.0-15.0) 07/29/20 12:05 Hct 39.6 % (36.0-45.0) 07/29/20 12:05 Plt Count 272 K/uL (152-406) 07/29/20 12:05 Sodium 143 mmol/L (136-145) 07/30/20 05:44 Potassium 3.9 mmol/L (3.5-5.1) 07/30/20 05:44 BUN 4 mg/dL (7-18) L 07/30/20 05:44 Creatinine 0.77 mg/dL (0.55-1.3) 07/30/20 05:44 Glucose 149 mg/dL (74-106) H 07/30/20 05:44 Phosphorus 3.9 mg/dL (2.5-4.9) 07/29/20 12:05 Magnesium 2.1 mg/dL (1.8-2.4) 07/29/20 12:05 Total Bilirubin 0.8 mg/dL (0.2-1.0) 07/27/20 03:50 AST 7 U/L (15-37) L 07/27/20 03:50 ALT 17 U/L (12-78) 07/27/20 03:50 Alkaline Phosphatase 77 U/L (45-117) 07/27/20 03:50 Triglycerides 560 mg/dL (<150) H 07/27/20 03:50 Cholesterol 181 mg/dL (<200) 07/27/20 03:50 LDL Cholesterol Direct 86 mg/dL (100-129) L 07/27/20 03:50 HDL Cholesterol 30 mg/dL (40-60) L 07/27/20 03:50 Cholesterol/HDL Ratio 6.03 07/27/20 03:50 Lipase 169 U/L (73-393) 07/26/20 01:49 Home Medications: Gabapentin 300 mg PO TID #90 07/30/20 Gabapentin [Neurontin] 600 mg PO TID #90 tablet 07/30/20 Hydrocodone 10/APAP 325 [[place] 10/325] 1 tab PO Q6H PRN #30 tab 07/30/20 Levofloxacin [Levaquin] 500 mg PO DAILY #14 tablet 07/30/20 Metformin ER [Glucophage ER*] 500 mg PO BID #60 tab.sa 07/30/20 metroNIDAZOLE [Flagyl] 500 mg PO Q8H #42 tablet 07/30/20 Amox/Clavulanate [Augmentin 875-125 Tab] 1 each PO BID #14 tab 08/02/20 New Medications: Amox/Clavulanate [Augmentin 875-125 Tab] 1 each PO BID #14 tab metroNIDAZOLE [Flagyl] 500 mg PO Q8H #42 tablet Gabapentin 300 mg PO TID #90 Metformin ER [Glucophage ER*] 500 mg PO BID #60 tab.sa Levofloxacin [Levaquin] 500 mg PO DAILY #14 tablet Gabapentin [Neurontin] 600 mg PO TID #90 tablet Hydrocodone 10/APAP 325 [[place] 10/325] 1 tab PO Q6H PRN #30 tab PRN Reason: Pain Physician Discharge Instructions: OK TO DC IV AND DC HOME FOLLOW-UP WITH PRIMARY CARE PROVIDER IN 1-2 WEEKS FOLLOW-UP WITH General surgeon IN 1-2 WEEKS RETURN TO THE ER IF symptoms worsen CALL or TEXT DR. KING AT [phone] IF ANY QUESTIONS REGARDING HOSPITAL STAY. PLEASE CALL THE FLOOR AT [phone] IF ANY MEDICATION OR NURSING QUESTIONS. Diet: Regular (full liquid diet x 7 days, then soft diabetic diet) Activity: Fall precautions Followup: Gabriel Anna MD [ACTIVE - CAN ADMIT] - NONE,NONE [Primary Care Provider] - Abhijit Boyd [ACTIVE - CAN ADMIT] - Time spent managing pt's care (in minutes): 35
== END 2020-07-30 18:48 | disposition home or self-care (01) | DRG 392 ==
LOC: ER 00:32 → ERHOLD 05:22 → 2ND 10:34
PROVIDERS: ADMIT Family Medicine; ATTEND Family Medicine
DX: K57.20 Diverticulitis of large intestine with perforation and abscess without bleeding (principal); N28.89 Other specified disorders of kidney and ureter; K80.20 Calculus of gallbladder without cholecystitis without obstruction; E66.01 Morbid (severe) obesity due to excess calories; Z68.35 Body mass index [BMI] 35.0-35.9, adult; E11.9 Type 2 diabetes mellitus without complications; I10 Essential (primary) hypertension; F17.210 Nicotine dependence, cigarettes, uncomplicated; Z85.528 Personal history of other malignant neoplasm of kidney; Z20.822 Contact with and (suspected) exposure to COVID-19
CPT/HCPCS: 36415; 74018; 74177; 80048; 80053; 80061; 80076; 81003; 81015; 81025; 82947; 83036; 83690; 83735; 84100; 84439; 84443; 85025; 87040; 94010; 99285; J2270; J2405; J2543; J7030; J7799; Q9967; U0003

== ENCOUNTER 2022-08-27 16:26 | Inpatient (IN) | payer OTHER ==
--- OUTSIDE RECORDS SUMMARY | 2022-08-27 16:37 | XMS REPORT | Continuity of Care Document ---
:1980 Author Organization [facility] t Address [address] [facility] [address] [place] [address] Care Team Providers Name Role Phone ROSALIO TRAYLOR Primary Care Physician Unavailable VIRIDIANA PARKER Attending Clinician Unavailable DANDRE BUTT Attending Clinician Unavailable ROSALIO TRAYLOR Attending Clinician Unavailable Viridiana Parker MD Attending Clinician Rosalio Mercedes Attending Clinician Doctor Unassigned, Demarest Attending Clinician Unavailable Sandro Gabriel OD Attending Clinician SANDRO GABRIEL Attending Clinician Unavailable Lab, Ang - Db Attending Clinician Unavailable JUAN WATSON Attending Clinician Unavailable Kylie Payan MA Attending Clinician Unavailable Susana Huffman RN Attending Clinician Unavailable ALEJANDRINA LEMONS Attending Clinician Unavailable TIFFANIE MURGUIA Attending Clinician Unavailable Diogenes Rivera MD Attending Clinician Tiffanie Murguia MD Attending Clinician HARDIK ANTHONY Attending Clinician Unavailable Hardik Anthony MD Attending Clinician Juan Watson MD Attending Clinician Nurse, Johny Villa Attending Clinician Unavailable FE SANTOS Attending Clinician Unavailable Tom MCCANN Fe Morel Attending Clinician KATTY REBOLLEDO Attending Clinician Unavailable Amaury BRANCH COORDINATOR, Katty Attending Clinician Temo MCCANN, Juno Attending Clinician 2, [facility] Lab Attending Clinician Unavailable AMARIS BEY K.H. Attending Clinician Unavailable FIONA ELLER Attending Clinician Unavailable Alejandrina Lemons MD Attending Clinician Dandre Butt MD Attending Clinician [facility] Attending Clinician Unavailable Sotero MCCANN, Amaris K.H. Attending Clinician Only, [facility] Test Attending Clinician Unavailable Tank MCCANN, Sven Attending Clinician SVEN FU Attending Clinician Unavailable Fiona Eller MD Attending Clinician Aissatou Villar RN Attending Clinician Unavailable Alek ORTIZ Attending Clinician Unavailable Alek Calzada Attending Clinician RAFAELA SINGH Attending Clinician Unavailable Gabriela MCCANN, Tung Hernandez Attending Clinician Viridiana Sung A Attending Clinician VIRIDIANA HOLCOBM A Attending Clinician Unavailable Shreya Quiroz RN Attending Clinician Dominique Wagner DO Attending Clinician Chandrika Bowen MD Attending Clinician Clemente Tamayo MD Attending Clinician DOMINIQUE WAGNER Attending Clinician Unavailable Bernie Daley RN Attending Clinician Unavailable ANA WHITE Attending Clinician Unavailable Felipa Moses Attending Clinician FELIPA MCDANIELS Attending Clinician Unavailable ELIANA DEE Attending Clinician Unavailable Eliana Dee NP Attending Clinician Forrest MCCANN, Gil Ellis Attending Clinician SARAH DIAZ Attending Clinician Unavailable Fredo MCCANN, Eddie Attending Clinician Sarah Diaz MD Attending Clinician Sveta Patterson MD Attending Clinician EDDIE HERNÁNDEZ Attending Clinician Unavailable Mellissa Diaz Attending Clinician [place] Attending Clinician [place] Attending Clinician Unavailable VIRIDIANA PARKER Admitting Clinician Unavailable DANDRE BUTT Admitting Clinician Unavailable ROSALIO TRAYLOR Admitting Clinician Unavailable DIOGENES RIVERA Admitting Clinician Unavailable FE SANTOS Admitting Clinician Unavailable KATTY REBOLLEDO Admitting Clinician Unavailable Dandre Butt MD Admitting Clinician AMARIS BEY Admitting Clinician Unavailable Clemente Tamayo MD Admitting Clinician ELIANA DEE Admitting Clinician Unavailable SVETA PATTERSON Admitting Clinician Unavailable Sveta Patterson MD Admitting Clinician EDDIE HERNÁNDEZ Admitting Clinician Unavailable Payers Payer Name Policy Type Policy Number Effective Date Expiration Date [facility] [id number] 2020 CHOICE [place] STAR 00:00:00 Problems Condition Condition Condition Status Onset Resolution Last Treating Co mments Source Name Details Category Date Date Treatment Clinician Date Diabetes Diabetes Disease Active 2021-02 Unive rs mellitus mellitus 0-11 ity of without without 00:00: [place] complicati complicati 00 Me dical on on Branch Calculus Calculus Disease Active 2021-02 Unive rs of of 0-11 ity of gallbladde [place]adde [place] r with 00 Medical acute acute Branch cholecysti cholecysti tis tis without without obstructio obstructio n n 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 Added automatic ally from request for surgery [id number] Acute Acute Disease Active 2020-02 Univers diverticul diverticul 0-02 it y of itis itis 00:00: [place] 00 Medical Branch Morbid Morbid Disease Active Univers obesity obesity 5-05 it[place] of with [place] index mass index 00 Me dical of of Branch 40.0-49.9 40.0-49.9 Diverticul Diverticul Disease Active U nivers itis itis 5-05 ity of 00:00: 00 Medical Branch Allergies, Adverse Reactions, Alerts Allergy Allergy Status Severity Reaction(s) Onset Inactive Treating Comm ents Source Name Type Date Date Clinician NO KNOWN Drug Active Univers ALLERGIE Class ity of [facility] Social History Social Habit Start Date Stop Date Quantity Comments Source History of Cigarette Smoker Universi ty of tobacco use [facility] Tobacco use and 2022-08-04 2022-08-04 Smokeless tobacco Un iversity of exposure 00:00:00 00:00:[address] [facility] Alcohol intake 2022-08-04 2022-08-04 Current [facility] 00:00:00 00:00:00 non-drinker of [facility] alcohol (finding) Branch Exposure to 2022-07-04 2022-07-14 Not sure [facility] SARS-CoV-2 00:00:00 08:29:00 [facility] (event) Branch Education 2020-07-01 2020-07-01 10 [facility] 00:00:00 00:00:00 [facility] Sex [birth year] At [birth year] Universit y of 00:00:00 00:00:00 [facility] Smoking Status Start Date Stop Date Source Occasional tobacco 2022-08-04 00:00:00 [facility] [place] smoker Medical Branch Ex-smoker 2021-10-18 00:00:00 2021-10-18 [place] [facility] [place] 00:00:00 Medical Branch Medications Ordered Filled Start Stop Current Ordering Indication Dosage Frequency Signature Comments Components Source Medication Medication Date Date Medication? Clinician (SIG) Name Name amLODIPine- Yes [id number] 1{capsu Take 1 Univers benazepriL 6-05 le} capsule by ity of (LOTREL) 00:00: mouth in [place] 10-20 mg 00 the Medical per capsule morning. Bran ch amLODIPine- 2022-0 Yes [id number] 1{capsu Take 1 Univers benazepriL 6-05 le} capsule by ity of (LOTREL) 00:00: mouth in [place] 10-20 mg 00 the Medical per capsule morning. Bran ch semaglutide 2022-0 Yes [id number] .25mg inject Univers (OZEMPIC) 5-26 0.25 mg ity of 0.25 mg [place] 00:00: under the [place] 0.5 mg (2 00 skin Medical mg/3 mL) weekly. Branch PnIj semaglutide 2022-0 Yes [id number] .25mg inject Univers (OZEMPIC) 5-26 0.25 mg ity of 0.25 mg [place] 00:00: under the [place] 0.5 mg (2 00 skin Medical mg/3 mL) weekly. Branch PnIj semaglutide 2022-0 Yes [id number] .25mg inject Univers (OZEMPIC) 5-26 0.25 mg ity of 0.25 mg [place] 00:00: under the [place] 0.5 mg (2 00 skin Medical mg/3 mL) weekly. Branch PnIj semaglutide 2022-0 Yes [id number] .25mg inject Univers (OZEMPIC) 5-26 0.25 mg ity of 0.25 mg [place] 00:00: under the [place] 0.5 mg (2 00 skin Medical mg/3 mL) weekly. Branch PnIj semaglutide 2022-0 Yes [id number] .25mg inject Univers (OZEMPIC) 5-26 0.25 mg ity of 0.25 mg or 00:00: under the [place] 0.5 mg (2 00 skin Medical mg/3 mL) weekly. Branch PnIj semaglutide 2022-0 Yes [id number] .25mg inject Univers (OZEMPIC) 5-26 0.25 mg ity of 0.25 mg [place] 00:00: under the [place] 0.5 mg (2 00 skin Medical mg/3 mL) weekly. Branch PnIj triamcinolo 2022-0 Yes [id number] Apply to [facility] ne 5-15 area(s) 2 ity of acetonide 00:00: (two) [place] 0.1 % 00 times Medical ointment daily. Branch triamcinolo 2023-0 Yes [id number] Apply to Univers ne 5-15 area(s) 2 ity of acetonide 00:00: (two) [place] 0.1 % 00 times Medical ointment daily. Branch triamcinolo 2023-0 Yes [id number] Apply to Univers ne 5-15 area(s) 2 ity of acetonide 00:00: (two) [place] 0.1 % 00 times Medical ointment daily. Branch triamcinolo 2023-0 Yes [id number] Apply to Univers ne 5-15 area(s) 2 ity of acetonide 00:00: (two) [place] 0.1 % 00 times Medical ointment daily. Branch triamcinolo 2023-0 Yes [id number] Apply to Univers ne 5-15 area(s) 2 ity of acetonide 00:00: (two) [place] 0.1 % 00 times Medical ointment daily. Branch triamcinolo 2023-0 Yes [id number] Apply to Univers ne 5-15 area(s) 2 ity of acetonide 00:00: (two) [place] 0.1 % 00 times Medical ointment daily. Branch triamcinolo 2023-0 Yes [id number] Apply to Univers ne 5-15 area(s) 2 ity of acetonide 00:00: (two) [place] 0.1 % 00 times Medical ointment daily. Branch triamcinolo 2023-0 Yes [id number] Apply to Univers ne 5-15 area(s) 2 ity of acetonide 00:00: (two) [place] 0.1 % 00 times Medical ointment daily. Branch triamcinolo 2023-0 Yes [id number] Apply to Univers ne 5-15 area(s) 2 ity of acetonide 00:00: (two) [place] 0.1 % 00 times Medical ointment daily. Branch triamcinolo 2023-0 Yes [id number] Apply to Univers ne 5-15 area(s) 2 ity of acetonide 00:00: (two) [place] 0.1 % 00 times Medical ointment daily. Branch triamcinolo 2023-0 Yes [id number] Apply to Univers ne 5-15 area(s) 2 ity of acetonide 00:00: (two) [place] 0.1 % 00 times Medical ointment daily. Branch triamcinolo 2022-0 Yes [id number] Apply to Univers ne 5-15 area(s) 2 ity of acetonide 00:00: (two) [place] 0.1 % 00 times Medical ointment daily. Branch triamcinolo 2022-0 Yes [id number] Apply to Univers ne 5-15 area(s) 2 ity of acetonide 00:00: (two) [place] 0.1 % 00 times Medical ointment daily. Branch traMADoL 2022-0 Yes [id number] 50mg Take 1 Univers (ULTRAM) 50 5-04 tablet by ity of mg tablet 00:00: mouth [place] 00 every 6 Medical (six) Branch hours as needed for Pain (scale 7-10). Indication s: acute pain traMADoL 2022-0 Yes [id number] 50mg Take 1 Univers (ULTRAM) 50 5-04 tablet by ity of mg tablet 00:00: mouth [place] 00 every 6 Medical (six) Branch hours as needed for Pain (scale 7-10). Indication s: acute pain traMADoL 2022-0 Yes [id number] 50mg Take 1 Univers (ULTRAM) 50 5-04 tablet by ity of mg tablet 00:00: mouth [place] 00 every 6 Medical (six) Branch hours as needed for Pain (scale 7-10). Indication s: acute pain traMADoL 2022-0 Yes [id number] 50mg Take 1 Univers (ULTRAM) 50 5-04 tablet by ity of mg tablet 00:00: mouth [place] 00 every 6 Medical (six) Branch hours as needed for Pain (scale 7-10). Indication s: acute pain traMADoL 2022-0 Yes [id number] 50mg Take 1 Univers (ULTRAM) 50 5-04 tablet by ity of mg tablet 00:00: mouth [place] 00 every 6 Medical (six) Branch hours as needed for Pain (scale 7-10). Indication s: acute pain traMADoL 2022-0 Yes [id number] 50mg Take 1 Univers (ULTRAM) 50 5-04 tablet by ity of mg tablet 00:00: mouth [place] 00 every 6 Medical (six) Branch hours as needed for Pain (scale 7-10). Indication s: acute pain traMADoL 2022-0 Yes [id number] 50mg Take 1 Univers (ULTRAM) 50 5-04 tablet by ity of mg tablet 00:00: mouth [place] 00 every 6 Medical (six) Branch hours as needed for Pain (scale 7-10). Indication s: acute pain traMADoL 2022-0 Yes [id number] 50mg Take 1 Univers (ULTRAM) 50 5-04 tablet by ity of mg tablet 00:00: mouth [place] 00 every 6 Medical (six) Branch hours as needed for Pain (scale 7-10). Indication s: acute pain traMADoL 2022-0 Yes [id number] 50mg Take 1 Univers (ULTRAM) 50 5-04 tablet by ity of mg tablet 00:00: mouth [place] 00 every 6 Medical (six) Branch hours as needed for Pain (scale 7-10). Indication s: acute pain traMADoL 0 Yes [id number] 50mg Take 1 Univers (ULTRAM) 50 5-04 tablet by ity of mg tablet 00:00: mouth [place] 00 every 6 Medical (six) Branch hours as needed for Pain (scale 7-10). Indication s: acute pain traMADoL 0 Yes [id number] 50mg Take 1 Univers (ULTRAM) 50 5-04 tablet by ity of mg tablet 00:00: mouth [place] 00 every 6 Medical (six) Branch hours as needed for Pain (scale 7-10). Indication s: acute pain traMADoL 0 Yes [id number] 50mg Take 1 Univers (ULTRAM) 50 5-04 tablet by ity of mg tablet 00:00: mouth [place] 00 every 6 Medical (six) Branch hours as needed for Pain (scale 7-10). Indication s: acute pain traMADoL 0 Yes [id number] 50mg Take 1 Univers (ULTRAM) 50 5-04 tablet by ity of mg tablet 00:00: mouth [place] 00 every 6 Medical (six) Branch hours as needed for Pain (scale 7-10). Indication s: acute pain semaglutide 2022- Yes [id number] .25mg inject Univers (OZEMPIC) 06-30-04 0.25 mg ity of 0.25 mg or 00:00: 04:59 under the [place] 0.5 mg (2 00 :00 skin Medical mg/3 mL) weekly for Branc h PnIj 30 days. semaglutide 2022- Yes [id number] .25mg inject Univers (OZEMPIC) 06-30 0.25 mg ity of 0.25 mg or 00:00: 04:59 under the [place] 0.5 mg (2 00 :00 skin Medical mg/3 mL) weekly for Branc h PnIj 30 days. semaglutide 2022- Yes [id number] .25mg inject Univers (OZEMPIC) 06-30 0.25 mg ity of 0.25 mg or 00:00: 04:59 under the [place] 0.5 mg (2 00 :00 skin Medical mg/3 mL) weekly for Branc h PnIj 30 days. semaglutide 2022- Yes [id number] .25mg inject Univers (OZEMPIC) 06-30 0.25 mg ity of 0.25 mg or 00:00: 04:59 under the [place] 0.5 mg (2 00 :00 skin Medical mg/3 mL) weekly for Branc h PnIj 30 days. semaglutide 2022- Yes [id number] .25mg inject Univers (OZEMPIC) 06-30 0.25 mg ity of 0.25 mg or 00:00: 04:59 under the [place] 0.5 mg (2 00 :00 skin Medical mg/3 mL) weekly for Branc h PnIj 30 days. semaglutide 2022- Yes [id number] .25mg inject Univers (OZEMPIC) 06-30 0.25 mg ity of 0.25 mg or 00:00: 04:59 under the [place] 0.5 mg (2 00 :00 skin Medical mg/3 mL) weekly for Branc h PnIj 30 days. metroNIDAZO 2022- Yes [id number] 500mg Take 1 Univers LE (FLAGYL) 06-30 tablet by it y of 500 mg 00:00: 04:59 mouth [place] tablet 00 :00 every 12 Medical (twelve) Branch hours for 21 days. metroNIDAZO 2022- Yes [id number] 500mg Take 1 Univers LE (FLAGYL) 06-30- tablet by it y of 500 mg 00:00: 04:59 mouth [place] tablet 00 :00 every 12 Medical (twelve) Branch hours for 21 days. metroNIDAZO 2022- Yes [id number] 500mg Take 1 Univers LE (FLAGYL) -06 01- tablet by it y of 500 mg 00:00: 04:59 mouth [place] tablet 00 :00 every 12 Medical (twelve) Branch hours for 21 days. metroNIDAZO 2022- Yes [id number] 500mg Take 1 Univers LE (FLAGYL) - 05- tablet by it y of 500 mg 00:00: 04:59 mouth [place] tablet 00 :00 every 12 Medical (twelve) Branch hours for 21 days. metroNIDAZO 2022- Yes [id number] 500mg Take 1 Univers LE (FLAGYL) 06-30- tablet by it y of 500 mg 00:00: 04:59 mouth [place] tablet 00 :00 every 12 Medical (twelve) Branch hours for 21 days. metroNIDAZO 2022- Yes [id number] 500mg Take 1 Univers LE (FLAGYL) 06-30 tablet by it y of 500 mg 00:00: 04:59 mouth [place] tablet 00 :00 every 12 Medical (twelve) Branch hours for 21 days. metroNIDAZO 2022- No [id number] 500mg Take 1 Univers LE (FLAGYL) 06-30 tablet by it y of 500 mg 00:00: 04:59 mouth [place] tablet 00 :00 every 12 Medical (twelve) Branch hours for 21 days. semaglutide 2022- No [id number] .25mg inject Univers (OZEMPIC) 06-30 0.25 mg ity of 0.25 mg or 00:00: 00:00 under the [place] 0.5 mg (2 00 :00 skin Medical mg/3 mL) weekly for Branc h PnIj 30 days. metroNIDAZO 2022- No [id number] 500mg Take 1 Univers LE (FLAGYL) 06-30- tablet by it y of 500 mg 00:00: 04:59 mouth [place] tablet 00 :00 every 12 Medical (twelve) Branch hours for 21 days. semaglutide 2022- No [id number] .25mg inject Univers (OZEMPIC) 5-04 05-26 0.25 mg ity of 0.25 mg or 00:00: 00:00 under the [place] 0.5 mg (2 00 :00 skin Medical mg/3 mL) weekly for Bran h PnIj 30 days. metFORMIN 2023-0 Yes [id number] 1000mg Take 1 Univers 1,000 mg 3-21 tablet by ity of tablet 00:00: mouth in [address] morning [place] and 1 tablet in the evening. Take with meals. metFORMIN 2023-0 Yes [id number] 1000mg Take 1 Univers 1,000 mg 3-21 tablet by ity of tablet 00:00: mouth in [address] morning [place] and 1 tablet in the evening. Take with meals. metFORMIN 2023-0 Yes [id number] 1000mg Take 1 Univers 1,000 mg 3-21 tablet by ity of tablet 00:00: mouth in [address] and 1 tablet in the evening. Take with meals. metFORMIN 2023-0 Yes [id number] 1000mg Take 1 Univers 1,000 mg 3-21 tablet by ity of tablet 00:00: mouth in [address] and 1 tablet in the evening. Take with meals. metFORMIN 2023-0 Yes [id number] 1000mg Take 1 Univers 1,000 mg 3-21 tablet by ity of tablet 00:00: mouth in [address] and 1 tablet in the evening. Take with meals. metFORMIN 2023-0 Yes [id number] 1000mg Take 1 Univers 1,000 mg 3-21 tablet by ity of tablet 00:00: mouth in [address] and 1 tablet in the evening. Take with meals. metFORMIN 2023-0 Yes [id number] 1000mg Take 1 Univers 1,000 mg 3-21 tablet by ity of tablet 00:00: mouth in [address] and 1 tablet in the evening. Take with meals. metFORMIN 2023-0 Yes [id number] 1000mg Take 1 Univers 1,000 mg 3-21 tablet by ity of tablet 00:00: mouth in [address] and 1 tablet in the evening. Take with meals. metFORMIN 2023-0 Yes [id number] 1000mg Take 1 Univers 1,000 mg 3-21 tablet by ity of tablet 00:00: mouth in [address] and 1 tablet in the evening. Take with meals. metFORMIN 2023-0 Yes [id number] 1000mg Take 1 Univers 1,000 mg 3-21 tablet by ity of tablet 00:00: mouth in [address] and 1 tablet in the evening. Take with meals. metFORMIN 2023-0 Yes [id number] 1000mg Take 1 Univers 1,000 mg 3-21 tablet by ity of tablet 00:00: mouth in [address] and 1 tablet in the evening. Take with meals. metFORMIN 2023-0 Yes [id number] 1000mg Take 1 Univers 1,000 mg 3-21 tablet by ity of tablet 00:00: mouth in [address] and 1 tablet in the evening. Take with meals. metFORMIN 2023-0 Yes [id number] 1000mg Take 1 Univers 1,000 mg 3-21 tablet by ity of tablet 00:00: mouth in [address] and 1 tablet in the evening. Take with meals. metFORMIN 2023-0 Yes [id number] 1000mg Take 1 Univers 1,000 mg 3-21 tablet by ity of tablet 00:00: mouth in [address] and 1 tablet in the evening. Take with meals. metFORMIN 2023-0 Yes [id number] 1000mg Take 1 Univers 1,000 mg 3-21 tablet by ity of tablet 00:00: mouth in [address] and 1 tablet in the evening. Take with meals. metFORMIN 2023-0 Yes [id number] 1000mg Take 1 Univers 1,000 mg 3-21 tablet by ity of tablet 00:00: mouth in [address] and 1 tablet in the evening. Take with meals. metFORMIN 2023-0 Yes [id number] 1000mg Take 1 Univers 1,000 mg 3-21 tablet by ity of tablet 00:00: mouth in [address] and 1 tablet in the evening. Take with meals. amoxicillin 3-0 2023- No 1{tbl} 1 tablet, Univers -clavulanat 04-05 Oral, ity of e 08:15: 07:37 ONCE, 1 [place] (AUGMENTIN) 00 :00 dose, On Medi tucker 875-125 mg 04/05/22 [facility] per tablet at 0215, 1 tablet Routine
Reason for Anti-Infec tive: Documented Infection< br>Documen ab Infection Site: Abdominal< br>Duratio n of Therapy: Other (see Comments) iopamidol No [id number] 100mL 100 mL, Univers (ISOVUE 04-05 Intravenou ity o f 370-500 mL) 06:15: 06:15 s, ONCE, 1 [place] injection 00 :00 dose, On Medica l 100 mL 04/05/22 Branch at 0015, Routine dicyclomine No 20mg 20 mg, Uni vers (BENTYL) 04-05 Intramuscu ity of injection 05:15: 05:04 [place], ONCE, [place] 20 mg 00 :00 1 dose, On Medical [facility] 04/04/22 Branch at 2315, Routine ketorolac No 15mg 15 mg, Unive rs (TORADOL) 04-05 Slow IV ity of injection 05:15: 05:04 Push, [place] 15 mg 00 :00 ONCE, 1 Medical dose, On Branch Mon04/04/22 at 2315, Routine NaCl 0.9% 1000mL at 999 Uni vers (NS) bolus 04-05 mL/hr, ity of infusion 05:15: 06:31 1,000 mL, [place] 1,000 mL 00 :00 IV Medical Infusion, Branch ONCE, 1 dose, On Mon04/04/22 at 2315, JOSE DANIEL maalox:diph No 15mL 15 mL, Uni vers enhydrAMINE 04-05 Oral, ity of :lidocaine 04:30: 05:04 ONCE, 1 [place] 2 % viscous 00 :00 dose, On Medi tucker 1:1:1 Mon04/04/22 Branch ([facility] at 2230, [facility]) Routine oral suspension 15 mL pantoprazol No 40mg 40 mg, Uni vers e 04-05 Slow IV ity of (PROTONIX) 04:30: 05:13 Push, [place] injection 00 :00 ONCE, 1 Medical 40 mg dose, On Branch Mon04/04/22 at 2230 ondansetron 2023-0 2023- No 4mg 4 mg, Slow Univers (ZOFRAN 2-07 02-07 IV Push, ity of (PF)) 04:30: 05:04 ONCE, 1 [place] injection 4 00 :00 dose, On Medi tucker mg 04/04/22 Branch at 2230, JOSE DANIEL amoxicillin 2022-0 Yes [id number] 1{tbl} Take 1 Univers -clavulanat 2-07 tablet by ity of e 875-125 00:00: mouth [place] mg per 00 every 12 Medical tablet (twelve) Branch hours. traMADoL 2022-0 Yes [id number] 50mg Take 1 Univers (ULTRAM) 50 2-07 tablet by ity of mg tablet 00:00: mouth [place] 00 every 6 Medical (six) Branch hours as needed for Pain (scale 7-10). Indication s: acute pain amoxicillin 2022-0 Yes [id number] 1{tbl} Take 1 Univers -clavulanat 2-07 tablet by ity of e 875-125 00:00: mouth [place] mg per 00 every 12 Medical tablet (twelve) Branch hours. traMADoL 2022-0 Yes [id number] 50mg Take 1 Univers (ULTRAM) 50 2-07 tablet by ity of mg tablet 00:00: mouth [place] 00 every 6 Medical (six) Branch hours as needed for Pain (scale 7-10). Indication s: acute pain amoxicillin 2022-0 Yes [id number] 1{tbl} Take 1 Univers -clavulanat 2-07 tablet by ity of e 875-125 00:00: mouth [place] mg per 00 every 12 Medical tablet (twelve) Branch hours. traMADoL 2022-0 Yes [id number] 50mg Take 1 Univers (ULTRAM) 50 2-07 tablet by ity of mg tablet 00:00: mouth [place] 00 every 6 Medical (six) Branch hours as needed for Pain (scale 7-10). Indication s: acute pain amoxicillin 2022-0 Yes [id number] 1{tbl} Take 1 Univers -clavulanat 2-07 tablet by ity of e 875-125 00:00: mouth [place] mg per 00 every 12 Medical tablet (twelve) Branch hours. traMADoL 2022-0 Yes [id number] 50mg Take 1 Univers (ULTRAM) 50 2-07 tablet by ity of mg tablet 00:00: mouth [place] 00 every 6 Medical (six) Branch hours as needed for Pain (scale 7-10). Indication s: acute pain amoxicillin 2023-0 Yes [id number] 1{tbl} Take 1 Univers -clavulanat 2-07 tablet by ity of e 875-125 00:00: mouth [place] mg per 00 every 12 Medical tablet (twelve) Branch hours. traMADoL 3-0 Yes [id number] 50mg Take 1 Univers (ULTRAM) 50 2-07 tablet by ity of mg tablet 00:00: mouth [place] 00 every 6 Medical (six) Branch hours as needed for Pain (scale 7-10). Indication s: acute pain amoxicillin 2023-0 Yes [id number] 1{tbl} Take 1 Univers -clavulanat 2-07 tablet by ity of e 875-125 00:00: mouth [place] mg per 00 every 12 Medical tablet (twelve) Branch hours. amoxicillin 2023-0 Yes [id number] 1{tbl} Take 1 Univers -clavulanat 2-07 tablet by ity of e 875-125 00:00: mouth [place] mg per 00 every 12 Medical tablet (twelve) Branch hours. amoxicillin 2023-0 Yes [id number] 1{tbl} Take 1 Univers -clavulanat 2-07 tablet by ity of e 875-125 00:00: mouth [place] mg per 00 every 12 Medical tablet (twelve) Branch hours. amoxicillin 2023-0 Yes [id number] 1{tbl} Take 1 Univers -clavulanat 2-07 tablet by ity of e 875-125 00:00: mouth [place] mg per 00 every 12 Medical tablet (twelve) Branch hours. amoxicillin 2023-0 Yes [id number] 1{tbl} Take 1 Univers -clavulanat 2-07 tablet by ity of e 875-125 00:00: mouth [place] mg per 00 every 12 Medical tablet (twelve) Branch hours. amoxicillin 2023-0 Yes [id number] 1{tbl} Take 1 Univers -clavulanat 2-07 tablet by ity of e 875-125 00:00: mouth [place] mg per 00 every 12 Medical tablet (twelve) Branch hours. amoxicillin 2023-0 Yes [id number] 1{tbl} Take 1 Univers -clavulanat 2-07 tablet by ity of e 875-125 00:00: mouth [place] mg per 00 every 12 Medical tablet (twelve) Branch hours. amoxicillin 2023-0 Yes [id number] 1{tbl} Take 1 Univers -clavulanat 2-07 tablet by ity of e 875-125 00:00: mouth [place] mg per 00 every 12 Medical tablet (twelve) Branch hours. amoxicillin 2023-0 Yes [id number] 1{tbl} Take 1 Univers -clavulanat 2-07 tablet by ity of e 875-125 00:00: mouth [place] mg per 00 every 12 Medical tablet (twelve) Branch hours. amoxicillin 2023-0 Yes [id number] 1{tbl} Take 1 Univers -clavulanat 2-07 tablet by ity of e 875-125 00:00: mouth [place] mg per 00 every 12 Medical tablet (twelve) Branch hours. amoxicillin 2023-0 Yes [id number] 1{tbl} Take 1 [facility] -clavulanat 2-07 tablet by ity of e 875-125 00:00: mouth [place] mg per 00 every 12 Medical tablet (twelve) Branch hours. amoxicillin 3-0 Yes [id number] 1{tbl} Take 1 [facility] -clavulanat 2-07 tablet by ity of e 875-125 00:00: mouth [place] mg per 00 every 12 Medical tablet (twelve) Branch hours. amoxicillin 2023-0 Yes [id number] 1{tbl} Take 1 [facility] -clavulanat 2-07 tablet by ity of e 875-125 00:00: mouth [place] mg per 00 every 12 Medical tablet (twelve) Branch hours. icosapent 202-0 Yes [id number] 2g Take 2 [facility] ethyL 1-13 capsules ity of (VASCEPA) 1 00:00: by mouth [place] gram 00 in the Medical capsule morning Branch and 2 capsules in the evening. icosapent 2023-0 Yes [id number] 2g Take 2 [facility] n[facility] ethyL 1-13 capsules ity of (VASCEPA) 1 00:00: by mouth [place] gram 00 in the Medical capsule morning Branch and 2 capsules in the evening. icosapent 2023-0 Yes [id number] 2g Take 2 [facility] ethyL 1-13 capsules ity of (VASCEPA) 1 00:00: by mouth [place] gram 00 in the Medical capsule morning Branch and 2 capsules in the evening. icosapent 0 Yes [id number] 2g Take 2 [facility] ethyL 1-13 capsules ity of (VASCEPA) 1 00:00: by mouth [place] gram 00 in the Medical capsule morning Branch and 2 capsules in the evening. icosapent 0 Yes [id number] 2g Take 2 [facility] ethyL 1-13 capsules ity of (VASCEPA) 1 00:00: by mouth [place] gram 00 in the Medical capsule morning Branch and 2 capsules in the evening. icosapent Yes [id number] 2g Take 2 [facility] ethyL 1-13 capsules ity of (VASCEPA) 1 00:00: by mouth [place] gram 00 in the Medical capsule morning Branch and 2 capsules in the evening. icosapent 0 Yes [id number] 2g Take 2 [facility] ethyL 1-13 capsules ity of (VASCEPA) 1 00:00: by mouth [place] gram 00 in the Medical capsule morning Branch and 2 capsules in the evening. icosapent 0 Yes [id number] 2g Take 2 [facility] ethyL 1-13 capsules ity of (VASCEPA) 1 00:00: by mouth [place] gram 00 in the Medical capsule morning Branch and 2 capsules in the evening. icosapent 0 Yes [id number] 2g Take 2 [facility] ethyL 1-13 capsules ity of (VASCEPA) 1 00:00: by mouth [place] gram 00 in the Medical capsule morning Branch and 2 capsules in the evening. icosapent 0 Yes [id number] 2g Take 2 [facility] ethyL 1-13 capsules ity of (VASCEPA) 1 00:00: by mouth [place] gram 00 in the Medical capsule morning Branch and 2 capsules in the evening. icosapent 0 Yes [id number] 2g Take 2 [facility] ethyL 1-13 capsules ity of (VASCEPA) 1 00:00: by mouth [place] gram 00 in the Medical capsule morning Branch and 2 capsules in the evening. icosapent 0 Yes [id number] 2g Take 2 [facility] ethyL 1-13 capsules ity of (VASCEPA) 1 00:00: by mouth [place] gram 00 in the Medical capsule morning Branch and 2 capsules in the evening. icosapent Yes [id number] 2g Take 2 [facility] ethyL 1-13 capsules ity of (VASCEPA) 1 00:00: by mouth [place] gram 00 in the Medical capsule morning Branch and 2 capsules in the evening. icosapent Yes [id number] 2g Take 2 [facility] ethyL 1-13 capsules ity of (VASCEPA) 1 00:00: by mouth [place] gram 00 in the Medical capsule morning Branch and 2 capsules in the evening. icosapent Yes [id number] 2g Take 2 [facility] ethyL 1-13 capsules ity of (VASCEPA) 1 00:00: by mouth [place] gram 00 in the Medical capsule morning Branch and 2 capsules in the evening. icosapent Yes [id number] 2g Take 2 [facility] ethyL 1-13 capsules ity of (VASCEPA) 1 00:00: by mouth [place] gram 00 in the Medical capsule morning Branch and 2 capsules in the evening. icosapent Yes [id number] 2g Take 2 [facility] ethyL 1-13 capsules ity of (VASCEPA) 1 00:00: by mouth [place] gram 00 in the Medical capsule morning Branch and 2 capsules in the evening. icosapent 0 Yes [id number] 2g Take 2 [facility] ethyL 1-13 capsules ity of (VASCEPA) 1 00:00: by mouth [place] gram 00 in the Medical capsule morning Branch and 2 capsules in the evening. icosapent Yes [id number] 2g Take 2 [facility] ethyL 1-13 capsules ity of (VASCEPA) 1 00:00: by mouth [place] gram 00 in the Medical capsule morning Branch and 2 capsules in the evening. icosapent Yes [id number] 2g Take 2 [facility] ethyL 1-13 capsules ity of (VASCEPA) 1 00:00: by mouth [place] gram 00 in the Medical capsule morning Branch and 2 capsules in the evening. icosapent 0 Yes [id number] 2g Take 2 [facility] ethyL 1-13 capsules ity of (VASCEPA) 1 00:00: by mouth [place] gram 00 in the Medical capsule morning Branch and 2 capsules in the evening. acetaminoph 2021-02 Yes [id number] 650mg Take 2 [facility] en 2-23 tablets by ity of (TYLENOL) 00:00: mouth [place] 325 mg 00 every 6 Medical tablet (six) Branch hours as needed for Pain (scale 1-3). acetaminoph 2021-02 Yes [id number] 650mg Take 2 [facility] en 2-23 tablets by ity of (TYLENOL) 00:00: mouth [place] 325 mg 00 every 6 Medical tablet (six) Branch hours as needed for Pain (scale 1-3). acetaminoph 2021-02 Yes [id number] 650mg Take 2 [facility] en 2-23 tablets by ity of (TYLENOL) 00:00: mouth [place] 325 mg 00 every 6 Medical tablet (six) Branch hours as needed for Pain (scale 1-3). acetaminoph 2021-02 Yes [id number] 650mg Take 2 [facility] en 2-23 tablets by ity of (TYLENOL) 00:00: mouth [place] 325 mg 00 every 6 Medical tablet (six) Branch hours as needed for Pain (scale 1-3). acetaminoph 2021-02 Yes [id number] 650mg Take 2 [facility] en 2-23 tablets by ity of (TYLENOL) 00:00: mouth [place] 325 mg 00 every 6 Medical tablet (six) Branch hours as needed for Pain (scale 1-3). acetaminoph 2021-02 Yes [id number] 650mg Take 2 [facility] en 2-23 tablets by ity of (TYLENOL) 00:00: mouth [place] 325 mg 00 every 6 Medical tablet (six) Branch hours as needed for Pain (scale 1-3). acetaminoph 2021-02 Yes [id number] 650mg Take 2 [facility] en 2-23 tablets by ity of (TYLENOL) 00:00: mouth [place] 325 mg 00 every 6 Medical tablet (six) Branch hours as needed for Pain (scale 1-3). acetaminoph 2021-02 Yes [id number] 650mg Take 2 [facility] en 2-23 tablets by ity of (TYLENOL) 00:00: mouth [place] 325 mg 00 every 6 Medical tablet (six) Branch hours as needed for Pain (scale 1-3). acetaminoph 2021-02 Yes [id number] 650mg Take 2 [facility] en 2-23 tablets by ity of (TYLENOL) 00:00: mouth [place] 325 mg 00 every 6 Medical tablet (six) Branch hours as needed for Pain (scale 1-3). acetaminoph 2021-02 Yes [id number] 650mg Take 2 [facility] en 2-23 tablets by ity of (TYLENOL) 00:00: mouth [place] 325 mg 00 every 6 Medical tablet (six) Branch hours as needed for Pain (scale 1-3). acetaminoph 2021-02 Yes [id number] 650mg Take 2 [facility] en 2-23 tablets by ity of (TYLENOL) 00:00: mouth [place] 325 mg 00 every 6 Medical tablet (six) Branch hours as needed for Pain (scale 1-3). acetaminoph 2021-02 Yes [id number] 650mg Take 2 [facility] en 2-23 tablets by ity of (TYLENOL) 00:00: mouth [place] 325 mg 00 every 6 Medical tablet (six) Branch hours as needed for Pain (scale 1-3). acetaminoph 2021-02 Yes [id number] 650mg Take 2 [facility] en 2-23 tablets by ity of (TYLENOL) 00:00: mouth [place] 325 mg 00 every 6 Medical tablet (six) Branch hours as needed for Pain (scale 1-3). acetaminoph 2021-02 Yes [id number] 650mg Take 2 [facility] en 2-23 tablets by ity of (TYLENOL) 00:00: mouth [place] 325 mg 00 every 6 Medical tablet (six) Branch hours as needed for Pain (scale 1-3). acetaminoph 2021-02 Yes [id number] 650mg Take 2 [facility] en 2-23 tablets by ity of (TYLENOL) 00:00: mouth [place] 325 mg 00 every 6 Medical tablet (six) Branch hours as needed for Pain (scale 1-3). acetaminoph 2021-02 Yes [id number] 650mg Take 2 [facility] en 2-23 tablets by ity of (TYLENOL) 00:00: mouth [place] 325 mg 00 every 6 Medical tablet (six) Branch hours as needed for Pain (scale 1-3). acetaminoph 2021-02 Yes [id number] 650mg Take 2 [facility] en 2-23 tablets by ity of (TYLENOL) 00:00: mouth [place] 325 mg 00 every 6 Medical tablet (six) Branch hours as needed for Pain (scale 1-3). acetaminoph 2021-02 Yes [id number] 650mg Take 2 [facility] en 2-23 tablets by ity of (TYLENOL) 00:00: mouth [place] 325 mg 00 every 6 Medical tablet (six) Branch hours as needed for Pain (scale 1-3). acetaminoph 2021-02 Yes [id number] 650mg Take 2 [facility] en 2-23 tablets by ity of (TYLENOL) 00:00: mouth [place] 325 mg 00 every 6 Medical tablet (six) Branch hours as needed for Pain (scale 1-3). acetaminoph 2021-02 Yes [id number] 650mg Take 2 [facility] en 2-23 tablets by ity of (TYLENOL) 00:00: mouth [place] 325 mg 00 every 6 Medical tablet (six) Branch hours as needed for Pain (scale 1-3). acetaminoph 2021-02 Yes [id number] 650mg Take 2 [facility] en 2-23 tablets by ity of (TYLENOL) 00:00: mouth [place] 325 mg 00 every 6 Medical tablet (six) Branch hours as needed for Pain (scale 1-3). acetaminoph 2021-02 Yes [id number] 650mg Take 2 [facility] en 2-23 tablets by ity of (TYLENOL) 00:00: mouth [place] 325 mg 00 every 6 Medical tablet (six) Branch hours as needed for Pain (scale 1-3). acetaminoph 2021-02 Yes [id number] 650mg Take 2 [facility] en 2-23 tablets by ity of (TYLENOL) 00:00: mouth [place] 325 mg 00 every 6 Medical tablet (six) Branch hours as needed for Pain (scale 1-3). acetaminoph 2021-02 Yes [id number] 650mg Take 2 [facility] en 2-23 tablets by ity of (TYLENOL) 00:00: mouth [place] 325 mg 00 every 6 Medical tablet (six) Branch hours as needed for Pain (scale 1-3). amoxicillin 2021-02- No [id number] 1{tbl} [facility] -clavulanat 2-20 12-19 ity of e 02:00: 17:24 [place] (AUGMENTIN) 00 :43 Medical 875-125 mg Branch per tablet 1 tablet amoxicillin 2021-02- No [id number] 1{tbl} [facility] -clavulanat 2-20 12-19 ity of e 02:00: 17:24 [place] (AUGMENTIN) 00 :43 Medical 875-125 mg Branch per tablet 1 tablet amoxicillin 2021-02 Yes [id number] 1{tbl} Take 1 [facility] -clavulanat 2-19 tablet by ity of e 00:00: mouth in [place] (AUGMENTIN) 00 the Medical 875-125 mg morning Branch per tablet and 1 tablet in the evening. amoxicillin 2021-02 Yes [id number] 1{tbl} Take 1 [facility] -clavulanat 2-19 tablet by ity of e 00:00: mouth in [place] (AUGMENTIN) 00 the Medical 875-125 mg morning Branch per tablet and 1 tablet in the evening. amoxicillin 2021-02 Yes [id number] 1{tbl} Take 1 [facility] -clavulanat 2-19 tablet by ity of e 00:00: mouth in [place] (AUGMENTIN) 00 the Medical 875-125 mg morning Branch per tablet and 1 tablet in the evening. amoxicillin 2021-02 Yes [id number] 1{tbl} Take 1 [facility] -clavulanat 2-19 tablet by ity of e 00:00: mouth in [place] (AUGMENTIN) 00 the Medical 875-125 mg morning Branch per tablet and 1 tablet in the evening. amoxicillin 2021-02 Yes [id number] 1{tbl} Take 1 [facility] -clavulanat 2-19 tablet by ity of e 00:00: mouth in [place] (AUGMENTIN) 00 the Medical 875-125 mg morning Branch per tablet and 1 tablet in the evening. amoxicillin 2021-02 Yes [id number] 1{tbl} Take 1 [facility] -clavulanat 2-19 tablet by ity of e 00:00: mouth in [place] (AUGMENTIN) 00 the Medical 875-125 mg morning Branch per tablet and 1 tablet in the evening. amoxicillin 2021-02 Yes [id number] 1{tbl} Take 1 [facility] -clavulanat 2-19 tablet by ity of e 00:00: mouth in [place] (AUGMENTIN) 00 the Medical 875-125 mg morning Branch per tablet and 1 tablet in the evening. amoxicillin 2021-02 Yes [id number] 1{tbl} Take 1 [facility] -clavulanat 2-19 tablet by ity of e 00:00: mouth in [place] (AUGMENTIN) 00 the Medical 875-125 mg morning Branch per tablet and 1 tablet in the evening. amoxicillin 2021-02 Yes [id number] 1{tbl} Take 1 [facility] -clavulanat 2-19 tablet by ity of e 00:00: mouth in [place] (AUGMENTIN) 00 the Medical 875-125 mg morning Branch per tablet and 1 tablet in the evening. amoxicillin 2021-02 Yes [id number] 1{tbl} Take 1 [facility] -clavulanat 2-19 tablet by ity of e 00:00: mouth in [place] (AUGMENTIN) 00 the Medical 875-125 mg morning Branch per tablet and 1 tablet in the evening. amoxicillin 2021-02 Yes [id number] 1{tbl} Take 1 [facility] -clavulanat 2-19 tablet by ity of e 00:00: mouth in [place] (AUGMENTIN) 00 the Medical 875-125 mg morning Branch per tablet and 1 tablet in the evening. amoxicillin 2021-02 Yes [id number] 1{tbl} Take 1 [facility] -clavulanat 2-19 tablet by ity of e 00:00: mouth in [place] (AUGMENTIN) 00 the Medical 875-125 mg morning Branch per tablet and 1 tablet in the evening. amoxicillin 2021-02 Yes [id number] 1{tbl} Take 1 [facility] -clavulanat 2-19 tablet by ity of e 00:00: mouth in [place] (AUGMENTIN) 00 the Medical 875-125 mg morning Branch per tablet and 1 tablet in the evening. amoxicillin 2021-02 Yes [id number] 1{tbl} Take 1 [facility] -clavulanat 2-19 tablet by ity of e 00:00: mouth in [place] (AUGMENTIN) 00 the Medical 875-125 mg morning Branch per tablet and 1 tablet in the evening. amoxicillin 2021-02- No [id number] 1{tbl} Take 1 [facility] -clavulanat 2-19 05-15 tablet by it y of e 00:00: 00:00 mouth in [place] (AUGMENTIN) 00 :00 the Medical 875-125 mg morning Branch per tablet and 1 tablet in the evening. amoxicillin 2021-02- No [id number] 1{tbl} Take 1 [facility] -clavulanat 2-19 05-15 tablet by it y of e 00:00: 00:00 mouth in [place] (AUGMENTIN) 00 :00 the Medical 875-125 mg morning Branch per tablet and 1 tablet in the evening. FENTanyl PF 2021-02 50ug 50 mcg, [facility] (SUBLIMAZE 03-19 Slow IV ity o f (PF)) 21:45: 21:43 Push, [place] injection 00 :00 ONCE, 1 Medical 50 mcg dose, On Branch 01/17/22 at 1545, STAT ibuprofen 2021-02 Yes [id number] 600mg Take 1 [facility] n[facility] 600 mg 1-21 tablet by ity of tablet 00:00: mouth [place] 00 every 6 Medical (six) Branch hours as needed for Pain (scale 4-6). ibuprofen 2021-02 Yes [id number] 600mg Take 1 [facility] 600 mg 1-21 tablet by ity of tablet 00:00: mouth [place] 00 every 6 Medical (six) Branch hours as needed for Pain (scale 4-6). ibuprofen 2021-02 Yes [id number] 600mg Take 1 [facility] 600 mg 1-21 tablet by ity of tablet 00:00: mouth [place] 00 every 6 Medical (six) Branch hours as needed for Pain (scale 4-6). ibuprofen 2021-02 Yes [id number] 600mg Take 1 [facility] 600 mg 1-21 tablet by ity of tablet 00:00: mouth [place] 00 every 6 Medical (six) Branch hours as needed for Pain (scale 4-6). ibuprofen 2021-02 Yes [id number] 600mg Take 1 [facility] 600 mg 1-21 tablet by ity of tablet 00:00: mouth [place] 00 every 6 Medical (six) Branch hours as needed for Pain (scale 4-6). ibuprofen 2021-02 Yes [id number] 600mg Take 1 [facility] 600 mg 1-21 tablet by ity of tablet 00:00: mouth [place] 00 every 6 Medical (six) Branch hours as needed for Pain (scale 4-6). ibuprofen 2021-02 Yes [id number] 600mg Take 1 [facility] 600 mg 1-21 tablet by ity of tablet 00:00: mouth [place] 00 every 6 Medical (six) Branch hours as needed for Pain (scale 4-6). ibuprofen 2021-02 Yes [id number] 600mg Take 1 [facility] nivers 600 mg 1-21 tablet by ity of tablet 00:00: mouth [place] 00 every 6 Medical (six) Branch hours as needed for Pain (scale 4-6). ibuprofen 2021-02 Yes [id number] 600mg Take 1 [facility] n[facility] 600 mg 1-21 tablet by ity of tablet 00:00: mouth [place] 00 every 6 Medical (six) Branch hours as needed for Pain (scale 4-6). ibuprofen 2021-02 Yes [id number] 600mg Take 1 [facility] 600 mg 1-21 tablet by ity of tablet 00:00: mouth [place] 00 every 6 Medical (six) Branch hours as needed for Pain (scale 4-6). ibuprofen 2021-02 Yes [id number] 600mg Take 1 [facility] 600 mg 1-21 tablet by ity of tablet 00:00: mouth [place] 00 every 6 Medical (six) Branch hours as needed for Pain (scale 4-6). ibuprofen 2021-02 Yes [id number] 600mg Take 1 [facility] 600 mg 1-21 tablet by ity of tablet 00:00: mouth [place] 00 every 6 Medical (six) Branch hours as needed for Pain (scale 4-6). ibuprofen 2021-02 Yes [id number] 600mg Take 1 [facility] 600 mg 1-21 tablet by ity of tablet 00:00: mouth [place] 00 every 6 Medical (six) Branch hours as needed for Pain (scale 4-6). ibuprofen 2021-02 Yes [id number] 600mg Take 1 [facility] 600 mg 1-21 tablet by ity of tablet 00:00: mouth [place] 00 every 6 Medical (six) Branch hours as needed for Pain (scale 4-6). ibuprofen 2021-02 Yes [id number] 600mg Take 1 [facility] 600 mg 1-21 tablet by ity of tablet 00:00: mouth [place] 00 every 6 Medical (six) Branch hours as needed for Pain (scale 4-6). ibuprofen 2021-02 Yes [id number] 600mg Take 1 [facility] 600 mg 1-21 tablet by ity of tablet 00:00: mouth [place] 00 every 6 Medical (six) Branch hours as needed for Pain (scale 4-6). ibuprofen 2021-02 Yes [id number] 600mg Take 1 [facility] 600 mg 1-21 tablet by ity of tablet 00:00: mouth [place] 00 every 6 Medical (six) Branch hours as needed for Pain (scale 4-6). ibuprofen 2021-02 Yes [id number] 600mg Take 1 [facility] 600 mg 1-21 tablet by ity of tablet 00:00: mouth [place] 00 every 6 Medical (six) Branch hours as needed for Pain (scale 4-6). ibuprofen 2021-02 Yes [id number] 600mg Take 1 [facility] 600 mg 1-21 tablet by ity of tablet 00:00: mouth [place] 00 every 6 Medical (six) Branch hours as needed for Pain (scale 4-6). ibuprofen 2021-02 Yes [id number] 600mg Take 1 [facility] 600 mg 1-21 tablet by ity of tablet 00:00: mouth [place] 00 every 6 Medical (six) Branch hours as needed for Pain (scale 4-6). ibuprofen 2021-02 Yes [id number] 600mg Take 1 [facility] 600 mg 1-21 tablet by ity of tablet 00:00: mouth [place] 00 every 6 Medical (six) Branch hours as needed for Pain (scale 4-6). ibuprofen 2021-02 Yes [id number] 600mg Take 1 [facility] n[facility] 600 mg 1-21 tablet by ity of tablet 00:00: mouth [place] 00 every 6 Medical (six) Branch hours as needed for Pain (scale 4-6). ibuprofen 2021-02 Yes [id number] 600mg Take 1 [facility] 600 mg 1-21 tablet by ity of tablet 00:00: mouth [place] 00 every 6 Medical (six) Branch hours as needed for Pain (scale 4-6). ibuprofen 2021-02 Yes [id number] 600mg Take 1 [facility] 600 mg 1-21 tablet by ity of tablet 00:00: mouth [place] 00 every 6 Medical (six) Branch hours as needed for Pain (scale 4-6). ibuprofen 2021-02 Yes [id number] 600mg Take 1 [facility] 600 mg 1-21 tablet by ity of tablet 00:00: mouth [place] 00 every 6 Medical (six) Branch hours as needed for Pain (scale 4-6). ibuprofen 2021-02 Yes [id number] 600mg Take 1 [facility] 600 mg 1-21 tablet by ity of tablet 00:00: mouth [place] 00 every 6 Medical (six) Branch hours as needed for Pain (scale 4-6). ibuprofen 2021-02 Yes [id number] 600mg Take 1 [facility] 600 mg 1-21 tablet by ity of tablet 00:00: mouth [place] 00 every 6 Medical (six) Branch hours as needed for Pain (scale 4-6). ibuprofen 2021-02 Yes [id number] 600mg Take 1 [facility] 600 mg 1-21 tablet by ity of tablet 00:00: mouth [place] 00 every 6 Medical (six) Branch hours as needed for Pain (scale 4-6). ibuprofen 2021-02 Yes [id number] 600mg Take 1 [facility] 600 mg 1-21 tablet by ity of tablet 00:00: mouth [place] 00 every 6 Medical (six) Branch hours as needed for Pain (scale 4-6). ibuprofen 2021-02 Yes [id number] 600mg Take 1 [facility] 600 mg 1-21 tablet by ity of tablet 00:00: mouth [place] 00 every 6 Medical (six) Branch hours as needed for Pain (scale 4-6). ibuprofen 2021-02 Yes [id number] 600mg Take 1 [facility] 600 mg 1-21 tablet by ity of tablet 00:00: mouth [place] 00 every 6 Medical (six) Branch hours as needed for Pain (scale 4-6). amoxicillin 2021-02- No 1{tbl} 1 tablet, [facility] -clavulanat 03-15 Oral, ONCE i ty of e 00:15: 23:48 NOW, 1 [place] (AUGMENTIN) 00 :00 dose, On Medi tucker 875-125 mg Mon Branch per tablet 01/12/22 1 tablet at 1815, JOSE DANIEL
Re ason for Anti-Infec tive: Documented Infection< br>Documen ab Infection Site: Abdominal< br>Duratio n of Therapy: 7 days iopamidol 2021-02- No [id number] 64mL 64 mL, U nivers (ISOVUE 03-14 Intravenou ity o f 370-500 mL) 22:00: 22:00 s, ONCE, 1 [place] injection 00 :00 dose, On Medica l 64 mL Wed Branch 01/12/22 at 1600, Routine ondansetron 2021-02- No 4mg 4 mg, Slow [facility] (ZOFRAN 03-14 IV Push, ity of (PF)) 21:00: 21:12 ONCE, 1 [place] injection 4 00 :00 dose, On Medi tucker mg Wed Branch 01/12/22 at 1500, JOSE DANIEL morpHINE (4 2021-02 4mg 4 mg, Slow [facility] mg/mL) 03-14 IV [facility], ity of injection 4 21:00: 21:14 ONCE, 1 [place] mg 00 :00 dose, On Medical Wed Branch 01/12/22 at 1500, STAT dicyclomine 2021-02 Yes [id number] 20mg Take 1 [facility] 20 mg 1-16 tablet by ity of tablet 00:00: mouth 4 [place] 00 (four) Medical times Branch daily as needed for Abdominal pain. ondansetron 2021-02 Yes [id number] 4mg Take 1 [facility] 4 mg 1-16 tablet by ity of disintegrat 00:00: mouth [place] ing tablet 00 every 8 Medica l (eight) Branch hours as needed for Nausea and Vomiting (N/V). dicyclomine 2021-02 Yes [id number] 20mg Take 1 [facility] 20 mg 1-16 tablet by ity of tablet 00:00: mouth 4 [place] 00 (four) Medical times Branch daily as needed for Abdominal pain. ondansetron 2021-02 Yes [id number] 4mg Take 1 [facility] 4 mg 1-16 tablet by ity of disintegrat 00:00: mouth [place] ing tablet 00 every 8 Medica l (eight) Branch hours as needed for Nausea and Vomiting (N/V). dicyclomine 2021-02 Yes [id number] 20mg Take 1 [facility] 20 mg 1-16 tablet by ity of tablet 00:00: mouth 4 [place] 00 (four) Medical times Branch daily as needed for Abdominal pain. ondansetron 2021-02 Yes [id number] 4mg Take 1 [facility] 4 mg 1-16 tablet by ity of disintegrat 00:00: mouth [place] ing tablet 00 every 8 Medica l (eight) Branch hours as needed for Nausea and Vomiting (N/V). dicyclomine 2021-02 Yes [id number] 20mg Take 1 [facility] 20 mg 1-16 tablet by ity of tablet 00:00: mouth 4 [place] 00 (four) Medical times Branch daily as needed for Abdominal pain. ondansetron 2021-02 Yes [id number] 4mg Take 1 [facility] 4 mg 1-16 tablet by ity of disintegrat 00:00: mouth [place] ing tablet 00 every 8 Medica l (eight) Branch hours as needed for Nausea and Vomiting (N/V). dicyclomine 2021-02 Yes [id number] 20mg Take 1 [facility] 20 mg 1-16 tablet by ity of tablet 00:00: mouth 4 [place] 00 (four) Medical times Branch daily as needed for Abdominal pain. ondansetron 2021-02 Yes [id number] 4mg Take 1 [facility] 4 mg 1-16 tablet by ity of disintegrat 00:00: mouth [place] ing tablet 00 every 8 Medica l (eight) Branch hours as needed for Nausea and Vomiting (N/V). dicyclomine 2021-02 Yes [id number] 20mg Take 1 [facility] 20 mg 1-16 tablet by ity of tablet 00:00: mouth 4 [place] 00 (four) Medical times Branch daily as needed for Abdominal pain. ondansetron 2021-02 Yes [id number] 4mg Take 1 [facility] 4 mg 1-16 tablet by ity of disintegrat 00:00: mouth [place] ing tablet 00 every 8 Medica l (eight) Branch hours as needed for Nausea and Vomiting (N/V). dicyclomine 2021-02 Yes [id number] 20mg Take 1 [facility] 20 mg 1-16 tablet by ity of tablet 00:00: mouth 4 [place] 00 (four) Medical times Branch daily as needed for Abdominal pain. ondansetron 2021-02 Yes [id number] 4mg Take 1 [facility] 4 mg 1-16 tablet by ity of disintegrat 00:00: mouth [place] ing tablet 00 every 8 Medica l (eight) Branch hours as needed for Nausea and Vomiting (N/V). dicyclomine 2021-02 Yes [id number] 20mg Take 1 [facility] 20 mg 1-16 tablet by ity of tablet 00:00: mouth 4 [place] 00 (four) Medical times Branch daily as needed for Abdominal pain. ondansetron 2021-02 Yes [id number] 4mg Take 1 [facility] 4 mg 1-16 tablet by ity of disintegrat 00:00: mouth [place] ing tablet 00 every 8 Medica l (eight) Branch hours as needed for Nausea and Vomiting (N/V). dicyclomine 2021-02 Yes [id number] 20mg Take 1 [facility] 20 mg 1-16 tablet by ity of tablet 00:00: mouth 4 [place] (four) Medical times Branch daily as needed for Abdominal pain. ondansetron 2021-02 Yes [id number] 4mg Take 1 [facility] 4 mg 1-16 tablet by ity of disintegrat 00:00: mouth [place] ing tablet 00 every 8 Medica l (eight) Branch hours as needed for Nausea and Vomiting (N/V). dicyclomine 2021-02 Yes [id number] 20mg Take 1 [facility] 20 mg 1-16 tablet by ity of tablet 00:00: mouth 4 [place] 00 (four) Medical times Branch daily as needed for Abdominal pain. ondansetron 2021-02 Yes [id number] 4mg Take 1 [facility] 4 mg 1-16 tablet by ity of disintegrat 00:00: mouth [place] ing tablet 00 every 8 Medica l (eight) Branch hours as needed for Nausea and Vomiting (N/V). dicyclomine 2021-02 Yes [id number] 20mg Take 1 [facility] 20 mg 1-16 tablet by ity of tablet 00:00: mouth 4 (four) Medical times Branch daily as needed for Abdominal pain. ondansetron 2021-02 Yes [id number] 4mg Take 1 [facility] 4 mg 1-16 tablet by ity of disintegrat 00:00: mouth [place] ing tablet 00 every 8 Medica l (eight) Branch hours as needed for Nausea and Vomiting (N/V). dicyclomine 2021-02 Yes [id number] 20mg Take 1 [facility] 20 mg 1-16 tablet by ity of tablet 00:00: mouth 4 (four) Medical times Branch daily as needed for Abdominal pain. ondansetron 2021-02 Yes [id number] 4mg Take 1 [facility] 4 mg 1-16 tablet by ity of disintegrat 00:00: mouth [place] ing tablet 00 every 8 Medica l (eight) Branch hours as needed for Nausea and Vomiting (N/V). dicyclomine 2021-02 Yes [id number] 20mg Take 1 [facility] 20 mg 1-16 tablet by ity of tablet 00:00: mouth 4 [place] 00 (four) Medical times Branch daily as needed for Abdominal pain. ondansetron 2021-02 Yes [id number] 4mg Take 1 [facility] 4 mg 1-16 tablet by [facility] of disintegrat 00:00: mouth [place] ing tablet 00 every 8 Medica l (eight) Branch hours as needed for Nausea and Vomiting (N/V). dicyclomine 2021-02 Yes [id number] 20mg Take 1 [facility] 20 mg 1-16 tablet by [facility]y of tablet 00:00: mouth 4 [place] 00 (four) Medical times Branch daily as needed for Abdominal pain. ondansetron 2021-02 Yes [id number] 4mg Take 1 [facility] 4 mg 1-16 tablet by [facility] of disintegrat 00:00: mouth [place] ing tablet 00 every 8 Medica l (eight) Branch hours as needed for Nausea and Vomiting (N/V). dicyclomine 2021-02 Yes [id number] 20mg Take 1 [facility] 20 mg 1-16 tablet by ity of tablet 00:00: mouth 4 [place] 00 (four) Medical times Branch daily as needed for Abdominal pain. ondansetron 2021-02 Yes [id number] 4mg Take 1 [facility] 4 mg 1-16 tablet by [facility]y of disintegrat 00:00: mouth [place] ing tablet 00 every 8 Medica l (eight) Branch hours as needed for Nausea and Vomiting (N/V). dicyclomine 2021-02 Yes [id number] 20mg Take 1 [facility] 20 mg 1-16 tablet by ity of tablet 00:00: mouth 4 [place] 00 (four) Medical times Branch daily as needed for Abdominal pain. ondansetron 2021-02 Yes [id number] 4mg Take 1 [facility] 4 mg 1-16 tablet by [facility]y of disintegrat 00:00: mouth [place] ing tablet 00 every 8 Medica l (eight) Branch hours as needed for Nausea and Vomiting (N/V). dicyclomine 2021-02 Yes [id number] 20mg Take 1 [facility] 20 mg 1-16 tablet by ity of tablet 00:00: mouth 4 [place] 00 (four) Medical times Branch daily as needed for Abdominal pain. ondansetron 2021-02 Yes [id number] 4mg Take 1 [facility] 4 mg 1-16 tablet by ity of disintegrat 00:00: mouth [place] ing tablet 00 every 8 Medica l (eight) Branch hours as needed for Nausea and Vomiting (N/V). dicyclomine 2021-02 Yes [id number] 20mg Take 1 [facility] 20 mg 1-16 tablet by ity of tablet 00:00: mouth 4 [place] 00 (four) Medical times Branch daily as needed for Abdominal pain. ondansetron 2021-02 Yes [id number] 4mg Take 1 [facility] 4 mg 1-16 tablet by [facility]y of disintegrat 00:00: mouth [place] ing tablet 00 every 8 Medica l (eight) Branch hours as needed for Nausea and Vomiting (N/V). dicyclomine 2021-02 Yes [id number] 20mg Take 1 [facility] 20 mg 1-16 tablet by ity of tablet 00:00: mouth 4 [place] 00 (four) Medical times Branch daily as needed for Abdominal pain. ondansetron 2021-02 Yes [id number] 4mg Take 1 [facility] 4 mg 1-16 tablet by ity of disintegrat 00:00: mouth [place] ing tablet 00 every 8 Medica l (eight) Branch hours as needed for Nausea and Vomiting (N/V). ondansetron 2021-02 Yes [id number] 4mg Take 1 [facility] 4 mg 1-16 tablet by [facility]y of disintegrat 00:00: mouth [place] ing tablet 00 every 8 Medica l (eight) Branch hours as needed for Nausea and Vomiting (N/V). ondansetron 2021-02 Yes [id number] 4mg Take 1 [facility] 4 mg 1-16 tablet by ity of disintegrat 00:00: mouth [place] ing tablet 00 every 8 Medica l (eight) Branch hours as needed for Nausea and Vomiting (N/V). ondansetron 2021-02 Yes [id number] 4mg Take 1 [facility] 4 mg 1-16 tablet by ity of disintegrat 00:00: mouth [place] ing tablet 00 every 8 Medica l (eight) Branch hours as needed for Nausea and Vomiting (N/V). ondansetron 2021-02 Yes [id number] 4mg Take 1 [facility] 4 mg 1-16 tablet by ity of disintegrat 00:00: mouth [place] ing tablet 00 every 8 Medica l (eight) Branch hours as needed for Nausea and Vomiting (N/V). ondansetron 2021-02 Yes [id number] 4mg Take 1 [facility] 4 mg 1-16 tablet by ity of disintegrat 00:00: mouth [place] ing tablet 00 every 8 Medica l (eight) Branch hours as needed for Nausea and Vomiting (N/V). ondansetron 2021-02 Yes [id number] 4mg Take 1 [facility] 4 mg 1-16 tablet by ity of disintegrat 00:00: mouth [place] ing tablet 00 every 8 Medica l (eight) Branch hours as needed for Nausea and Vomiting (N/V). ondansetron 2021-02 Yes [id number] 4mg Take 1 [facility] 4 mg 1-16 tablet by ity of disintegrat 00:00: mouth [place] ing tablet 00 every 8 Medica l (eight) Branch hours as needed for Nausea and Vomiting (N/V). ondansetron 2021-02 Yes [id number] 4mg Take 1 [facility] 4 mg 1-16 tablet by ity of disintegrat 00:00: mouth [place] ing tablet 00 every 8 Medica l (eight) Branch hours as needed for Nausea and Vomiting (N/V). ondansetron 2021-02 Yes [id number] 4mg Take 1 [facility] 4 mg 1-16 tablet by ity of disintegrat 00:00: mouth [place] ing tablet 00 every 8 Medica l (eight) Branch hours as needed for Nausea and Vomiting (N/V). ondansetron 2021-02 Yes [id number] 4mg Take 1 [facility] 4 mg 1-16 tablet by ity of disintegrat 00:00: mouth [place] ing tablet 00 every 8 Medica l (eight) Branch hours as needed for Nausea and Vomiting (N/V). ondansetron 2021-02 Yes [id number] 4mg Take 1 [facility] 4 mg 1-16 tablet by ity of disintegrat 00:00: mouth [place] ing tablet 00 every 8 Medica l (eight) Branch hours as needed for Nausea and Vomiting (N/V). ondansetron 2021-02 Yes [id number] 4mg Take 1 [facility] 4 mg 1-16 tablet by ity of disintegrat 00:00: mouth [place] ing tablet 00 every 8 Medica l (eight) Branch hours as needed for Nausea and Vomiting (N/V). ondansetron 2021-02 Yes [id number] 4mg Take 1 [facility] 4 mg 1-16 tablet by ity of disintegrat 00:00: mouth [place] ing tablet 00 every 8 Medica l (eight) Branch hours as needed for Nausea and Vomiting (N/V). amoxicillin 2021-02- No [id number] 1{tbl} Take 1 [facility] -clavulanat 1-16 11-27 tablet by it y of e 875-125 00:00: 05:59 mouth [place] mg per 00 :00 every 12 Medical tablet (twelve) Branch hours for 10 days. amoxicillin 2021-02- No [id number] 1{tbl} Take 1 [facility] -clavulanat 1-16 11-27 tablet by it y of e 875-125 00:00: 05:59 mouth [place] mg per 00 :00 every 12 Medical tablet (twelve) Branch hours for 10 days. Lancets 2021-02 Yes [id number] Use as [facility] vers Misc 1-10 directed, ity of 00:00: once a day [place] 00 to monitor Medical blood Branch glucose for ICD code E11.9 Lancets 2021-02 Yes [id number] Use as [facility] vers Misc 1-10 directed, ity of 00:00: once a day [place] 00 to monitor Medical blood Branch glucose for ICD code E11.9 Lancets 2021-02 Yes [id number] Use as [facility] vers Misc 1-10 directed, ity of 00:00: once a day [place] 00 to monitor Medical blood Branch glucose for ICD code E11.9 Lancets 2021-02 Yes [id number] Use as [facility] vers Misc 1-10 directed, ity of 00:00: once a day [place] 00 to monitor Medical blood Branch glucose for ICD code E11.9 Lancets 2021-02 Yes [id number] Use as [facility] vers Misc 1-10 directed, ity of 00:00: once a day [place] 00 to monitor Medical blood Branch glucose for ICD code E11.9 Lancets 2021-02 Yes [id number] Use as [facility] vers Misc 1-10 directed, ity of 00:00: once a day [place] 00 to monitor Medical blood Branch glucose for ICD code E11.9 Lancets 2021-02 Yes [id number] Use as [facility] vers Misc 1-10 directed, ity of 00:00: once a day [place] 00 to monitor Medical blood Branch glucose for ICD code E11.9 Lancets 2021-02 Yes [id number] Use as [facility] vers Misc 1-10 directed, ity of 00:00: once a day [place] 00 to monitor Medical blood Branch glucose for ICD code E11.9 Lancets 2021-02 Yes [id number] Use as [facility] vers Misc 1-10 directed, ity of 00:00: once a day [place] 00 to monitor Medical blood Branch glucose for ICD code E11.9 Lancets 2021- Yes [id number] Use as [facility] vers Misc 1-10 directed, ity of 00:00: once a day [place] 00 to monitor Medical blood Branch glucose for ICD code E11.9 Lancets 2021- Yes [id number] Use as [facility] vers Misc 1-10 directed, ity of 00:00: once a day [place] 00 to monitor Medical blood Branch glucose for ICD code E11.9 Lancets 2021- Yes [id number] Use as [facility] vers Misc 1-10 directed, ity of 00:00: once a day [place] 00 to monitor Medical blood Branch glucose for ICD code E11.9 Lancets 2021- Yes [id number] Use as [facility] vers Misc 1-10 directed, ity of 00:00: once a day [place] 00 to monitor Medical blood Branch glucose for ICD code E11.9 Lancets 2021- Yes [id number] Use as [facility] vers Misc 1-10 directed, ity of 00:00: once a day [place] 00 to monitor Medical blood Branch glucose for ICD code E11.9 Lancets 2021- Yes [id number] Use as [facility] vers Misc 1-10 directed, ity of 00:00: once a day [place] 00 to monitor Medical blood Branch glucose for ICD code E11.9 Lancets 2021- Yes [id number] Use as [facility] vers Misc 1-10 directed, ity of 00:00: once a day [place] 00 to monitor Medical blood Branch glucose for ICD code E11.9 Lancets 2- Yes [id number] Use as [facility] vers Misc 1-10 directed, ity of 00:00: once a day [place] 00 to monitor Medical blood Branch glucose for ICD code E11.9 Lancets 2- Yes [id number] Use as [facility] vers Misc 1-10 directed, ity of 00:00: once a day [place] 00 to monitor Medical blood Branch glucose for ICD code E11.9 Lancets 2- Yes [id number] Use as [facility] vers Misc 1-10 directed, ity of 00:00: once a day [place] 00 to monitor Medical blood Branch glucose for ICD code E11.9 Lancets 2021- Yes [id number] Use as [facility] vers Misc 1-10 directed, ity of 00:00: once a day [place] 00 to monitor Medical blood Branch glucose for ICD code E11.9 Lancets 2- Yes [id number] Use as [facility] vers Misc 1-10 directed, ity of 00:00: once a day [place] 00 to monitor Medical blood Branch glucose for ICD code E11.9 Lancets 2021- Yes [id number] Use as [facility] vers Misc 1-10 directed, ity of 00:00: once a day [place] 00 to monitor Medical blood Branch glucose for ICD code E11.9 Lancets 2021- Yes [id number] Use as [facility] vers Misc 1-10 directed, ity of 00:00: once a day [place] 00 to monitor Medical blood Branch glucose for ICD code E11.9 Lancets 2- Yes [id number] Use as [facility] vers Misc 1-10 directed, ity of 00:00: once a day [place] 00 to monitor Medical blood Branch glucose for ICD code E11.9 Lancets 2021- Yes [id number] Use as [facility] vers Misc 1-10 directed, ity of 00:00: once a day [place] 00 to monitor Medical blood Branch glucose for ICD code E11.9 Lancets 2021- Yes [id number] Use as [facility] vers Misc 1-10 directed, ity of 00:00: once a day [place] 00 to monitor Medical blood Branch glucose for ICD code E11.9 Lancets 2- Yes [id number] Use as [facility] vers Misc 1-10 directed, ity of 00:00: once a day [place] 00 to monitor Medical blood Branch glucose for ICD code E11.9 Lancets 2- Yes [id number] Use as [facility] vers Misc 1-10 directed, ity of 00:00: once a day [place] 00 to monitor Medical blood Branch glucose for ICD code E11.9 Lancets 2- Yes [id number] Use as [facility] vers Misc 1-10 directed, ity of 00:00: once a day [place] 00 to monitor Medical blood Branch glucose for ICD code E11.9 Lancets 2- Yes [id number] Use as [facility] vers Misc 1-10 directed, ity of 00:00: once a day [place] 00 to monitor Medical blood Branch glucose for ICD code E11.9 Lancets 2- Yes [id number] Use as [facility] vers Misc 1-10 directed, ity of 00:00: once a day [place] 00 to monitor Medical blood Branch glucose for ICD code E11.9 Lancets 2021-02 Yes [id number] Use as [facility] vers Misc 1-10 directed, ity of 00:00: once a day [place] 00 to monitor Medical blood Branch glucose for ICD code E11.9 Lancets 2021-02 Yes [id number] Use as [facility] vers Misc 1-10 directed, ity of 00:00: once a day [place] 00 to monitor Medical blood Branch glucose for ICD code E11.9 fenofibrate 2021-02 Yes [id number] 145mg Take 1 [facility] (TRICOR) 1-03 tablet by ity of 145 mg 00:00: mouth in [place] tablet 00 the Medical morning. Branch atorvastati 2021-02 Yes [id number] 80mg Take 1 [facility] n 80 mg 1-03 tablet by ity of tablet 00:00: mouth at [place] 00 bedtime. Medical Branch icosapent 2021-02 Yes [id number] 2g Take 2 U nivers ethyL 1-03 capsules ity of (VASCEPA) 1 00:00: by mouth [place] gram 00 in the Medical capsule morning Branch and 2 capsules in the evening. fenofibrate 2021-02 Yes [id number] 145mg Take 1 [facility] (TRICOR) 1-03 tablet by ity of 145 mg 00:00: mouth in [place] tablet 00 the Medical morning. Branch atorvastati 2021-02 Yes [id number] 80mg Take 1 [facility] n 80 mg 1-03 tablet by ity of tablet 00:00: mouth at [place] 00 bedtime. Medical Branch icosapent 2021-02 Yes [id number] 2g Take 2 U nivers ethyL 1-03 capsules ity of (VASCEPA) 1 00:00: by mouth [place] gram 00 in the Medical capsule morning Branch and 2 capsules in the evening. fenofibrate 2021-02 Yes [id number] 145mg Take 1 [facility] (TRICOR) 1-03 tablet by ity of 145 mg 00:00: mouth in [place] tablet 00 the Medical morning. Branch atorvastati 2021-02 Yes [id number] 80mg Take 1 [facility] n 80 mg 1-03 tablet by ity of tablet 00:00: mouth at [place] 00 bedtime. Medical Branch icosapent 2021-02 Yes [id number] 2g Take 2 U nivers ethyL 1-03 capsules ity of (VASCEPA) 1 00:00: by mouth [place] gram 00 in the Medical capsule morning Branch and 2 capsules in the evening. fenofibrate 2021-02 Yes [id number] 145mg Take 1 [facility] (TRICOR) 1-03 tablet by ity of 145 mg 00:00: mouth in [place] tablet 00 the Medical morning. Branch atorvastati 2021-02 Yes [id number] 80mg Take 1 [facility] n 80 mg 1-03 tablet by ity of tablet 00:00: mouth at [place] 00 bedtime. Medical Branch icosapent 2021-02 Yes [id number] 2g Take 2 U nivers ethyL 1-03 capsules ity of (VASCEPA) 1 00:00: by mouth [place] gram 00 in the Medical capsule morning Branch and 2 capsules in the evening. fenofibrate 2021-02 Yes [id number] 145mg Take 1 [facility] (TRICOR) 1-03 tablet by ity of 145 mg 00:00: mouth in [place] tablet 00 the Medical morning. Branch atorvastati 2021-02 Yes [id number] 80mg Take 1 [facility] n 80 mg 1-03 tablet by ity of tablet 00:00: mouth at [place] 00 bedtime. [facility] Yes [id number] 2g Take 2 U nivers ethyL 1-03 capsules ity of (VASCEPA) 1 00:00: by mouth [place] gram 00 in the Medical capsule morning Branch and 2 capsules in the evening. fenofibrate 2021-02 Yes [id number] 145mg Take 1 [facility] (TRICOR) 1-03 tablet by ity of 145 mg 00:00: mouth in [place] tablet 00 the Medical morning. Branch atorvastati 2021-02 Yes [id number] 80mg Take 1 [facility] n 80 mg 1-03 tablet by ity of tablet 00:00: mouth at [place] 00 bedtime. [facility] Yes [id number] 2g Take 2 U nivers ethyL 1-03 capsules ity of (VASCEPA) 1 00:00: by mouth [place] gram 00 in the Medical capsule morning Branch and 2 capsules in the evening. fenofibrate 2021-02 Yes [id number] 145mg Take 1 [facility] (TRICOR) 1-03 tablet by ity of 145 mg 00:00: mouth in [place] tablet 00 the Medical morning. Branch atorvastati 2021-02 Yes [id number] 80mg Take 1 [facility] n 80 mg 1-03 tablet by ity of tablet 00:00: mouth at [place] 00 bedtime. Medical Branch icosapent 2021-02 Yes [id number] 2g Take 2 U nivers ethyL 1-03 capsules ity of (VASCEPA) 1 00:00: by mouth [place] gram 00 in the Medical capsule morning Branch and 2 capsules in the evening. fenofibrate 2021-02 Yes [id number] 145mg Take 1 [facility] (TRICOR) 1-03 tablet by ity of 145 mg 00:00: mouth in [place] tablet 00 the Medical morning. Branch atorvastati 2021-02 Yes [id number] 80mg Take 1 [facility] n 80 mg 1-03 tablet by ity of tablet 00:00: mouth at [place] 00 bedtime. [facility] Branch [facility] 2021-02 Yes [id number] 2g Take 2 U nivers ethyL 1-03 capsules ity of (VASCEPA) 1 00:00: by mouth [place] gram 00 in the Medical capsule morning Branch and 2 capsules in the evening. fenofibrate 2021-02 Yes [id number] 145mg Take 1 [facility] (TRICOR) 1-03 tablet by ity of 145 mg 00:00: mouth in [place] tablet 00 the Medical morning. Branch atorvastati 2021-02 Yes [id number] 80mg Take 1 [facility] n 80 mg 1-03 tablet by ity of tablet 00:00: mouth at [place] 00 bedtime. [facility] 2021-02 Yes [id number] 2g Take 2 U nivers ethyL 1-03 capsules ity of (VASCEPA) 1 00:00: by mouth [place] gram 00 in the Medical capsule morning Branch and 2 capsules in the evening. fenofibrate 2021-02 Yes [id number] 145mg Take 1 [facility] (TRICOR) 1-03 tablet by ity of 145 mg 00:00: mouth in [place] tablet 00 the Medical morning. Branch atorvastati 2021-02 Yes [id number] 80mg Take 1 [facility] n 80 mg 1-03 tablet by ity of tablet 00:00: mouth at [place] 00 bedtime. [facility] 2021-02 Yes [id number] 2g Take 2 U nivers ethyL 1-03 capsules ity of (VASCEPA) 1 00:00: by mouth [place] gram 00 in the Medical capsule morning Branch and 2 capsules in the evening. fenofibrate 2021-02 Yes [id number] 145mg Take 1 [facility] (TRICOR) 1-03 tablet by ity of 145 mg 00:00: mouth in [place] tablet 00 the Medical morning. Branch atorvastati 2021-02 Yes [id number] 80mg Take 1 [facility] n 80 mg 1-03 tablet by ity of tablet 00:00: mouth at [place] 00 bedtime. [facility] Yes [id number] 2g Take 2 U nivers ethyL 1-03 capsules ity of (VASCEPA) 1 00:00: by mouth [place] gram 00 in the Medical capsule morning Branch and 2 capsules in the evening. fenofibrate 2021-02 Yes [id number] 145mg Take 1 [facility] (TRICOR) 1-03 tablet by ity of 145 mg 00:00: mouth in [place] tablet 00 the Medical morning. Branch atorvastati 2021-02 Yes [id number] 80mg Take 1 [facility] n 80 mg 1-03 tablet by ity of tablet 00:00: mouth at [place] 00 bedtime. [facility] 2021-02 Yes [id number] 2g Take 2 U nivers ethyL 1-03 capsules ity of (VASCEPA) 1 00:00: by mouth [place] gram 00 in the Medical capsule morning Branch and 2 capsules in the evening. fenofibrate 2021-02 Yes [id number] 145mg Take 1 [facility] (TRICOR) 1-03 tablet by ity of 145 mg 00:00: mouth in [place] tablet 00 the Medical morning. Branch atorvastati 2021-02 Yes [id number] 80mg Take 1 [facility] n 80 mg 1-03 tablet by ity of tablet 00:00: mouth at [place] 00 bedtime. [facility] Branch [facility] 2021-02 Yes [id number] 2g Take 2 U nivers ethyL 1-03 capsules ity of (VASCEPA) 1 00:00: by mouth [place] gram 00 in the Medical capsule morning Branch and 2 capsules in the evening. fenofibrate 2021-02 Yes [id number] 145mg Take 1 [facility] (TRICOR) 1-03 tablet by ity of 145 mg 00:00: mouth in [place] tablet 00 the Medical morning. Branch atorvastati 2021-02 Yes [id number] 80mg Take 1 [facility] n 80 mg 1-03 tablet by ity of tablet 00:00: mouth at [place] 00 bedtime. Medical Branch icosapent 2021-02 Yes [id number] 2g Take 2 U nivers ethyL 1-03 capsules ity of (VASCEPA) 1 00:00: by mouth [place] gram 00 in the Medical capsule morning Branch and 2 capsules in the evening. fenofibrate 2021-02 Yes [id number] 145mg Take 1 [facility] (TRICOR) 1-03 tablet by ity of 145 mg 00:00: mouth in [place] tablet 00 the Medical morning. Branch atorvastati 2021-02 Yes [id number] 80mg Take 1 [facility] n 80 mg 1-03 tablet by ity of tablet 00:00: mouth at [place] 00 bedtime. Medical Branch icosapent 2021-02 Yes [id number] 2g Take 2 U nivers ethyL 1-03 capsules ity of (VASCEPA) 1 00:00: by mouth [place] gram 00 in the Medical capsule morning Branch and 2 capsules in the evening. fenofibrate 2021-02 Yes [id number] 145mg Take 1 [facility] (TRICOR) 1-03 tablet by ity of 145 mg 00:00: mouth in [place] tablet 00 the Medical morning. Branch atorvastati 2021-02 Yes [id number] 80mg Take 1 [facility] n 80 mg 1-03 tablet by ity of tablet 00:00: mouth at [place] 00 bedtime. Medical Branch fenofibrate 2021-02 Yes [id number] 145mg Take 1 [facility] (TRICOR) 1-03 tablet by ity of 145 mg 00:00: mouth in [place] tablet 00 the Medical morning. Branch atorvastati 2021-02 Yes [id number] 80mg Take 1 [facility] n 80 mg 1-03 tablet by ity of tablet 00:00: mouth at [place] 00 bedtime. Medical Branch fenofibrate 2021-02 Yes [id number] 145mg Take 1 [facility] (TRICOR) 1-03 tablet by ity of 145 mg 00:00: mouth in [place] tablet 00 the Medical morning. Branch atorvastati 2021-02 Yes [id number] 80mg Take 1 [facility] n 80 mg 1-03 tablet by ity of tablet 00:00: mouth at [place] 00 bedtime. Medical Branch fenofibrate 2021-02 Yes [id number] 145mg Take 1 [facility] (TRICOR) 1-03 tablet by ity of 145 mg 00:00: mouth in [place] tablet 00 the Medical morning. Branch atorvastati 2021-02 Yes [id number] 80mg Take 1 [facility] n 80 mg 1-03 tablet by ity of tablet 00:00: mouth at [place] 00 bedtime. Medical Branch fenofibrate 2021-02 Yes [id number] 145mg Take 1 [facility] (TRICOR) 1-03 tablet by ity of 145 mg 00:00: mouth in [place] tablet 00 the Medical morning. Branch atorvastati 2021-02 Yes [id number] 80mg Take 1 [facility] n 80 mg 1-03 tablet by ity of tablet 00:00: mouth at [place] 00 bedtime. Medical Branch fenofibrate 2021-02 Yes [id number] 145mg Take 1 [facility] (TRICOR) 1-03 tablet by ity of 145 mg 00:00: mouth in [place] tablet 00 the Medical morning. Branch atorvastati 2021-02 Yes [id number] 80mg Take 1 [facility] n 80 mg 1-03 tablet by ity of tablet 00:00: mouth at [place] 00 bedtime. Medical Branch fenofibrate 2021-02 Yes [id number] 145mg Take 1 [facility] (TRICOR) 1-03 tablet by ity of 145 mg 00:00: mouth in [place] tablet 00 the Medical morning. Branch atorvastati 2021-02 Yes [id number] 80mg Take 1 [facility] n 80 mg 1-03 tablet by ity of tablet 00:00: mouth at [place] 00 bedtime. Medical Branch fenofibrate 2021-02 Yes [id number] 145mg Take 1 [facility] (TRICOR) 1-03 tablet by ity of 145 mg 00:00: mouth in [place] tablet 00 the Medical morning. Branch atorvastati 2021-02 Yes [id number] 80mg Take 1 [facility] n 80 mg 1-03 tablet by ity of tablet 00:00: mouth at [place] 00 bedtime. Medical Branch fenofibrate 2021-02 Yes [id number] 145mg Take 1 [facility] (TRICOR) 1-03 tablet by ity of 145 mg 00:00: mouth in [place] tablet 00 the Medical morning. Branch atorvastati 2021-02 Yes [id number] 80mg Take 1 [facility] n 80 mg 1-03 tablet by ity of tablet 00:00: mouth at [place] 00 bedtime. Medical Branch fenofibrate 2021-02 Yes [id number] 145mg Take 1 [facility] (TRICOR) 1-03 tablet by ity of 145 mg 00:00: mouth in [place] tablet 00 the Medical morning. Branch atorvastati 2021-02 Yes [id number] 80mg Take 1 [facility] n 80 mg 1-03 tablet by ity of tablet 00:00: mouth at [place] 00 bedtime. Medical Branch fenofibrate 2021-02 Yes [id number] 145mg Take 1 [facility] (TRICOR) 1-03 tablet by ity of 145 mg 00:00: mouth in [place] tablet 00 the Medical morning. Branch atorvastati 2021-02 Yes [id number] 80mg Take 1 [facility] n 80 mg 1-03 tablet by ity of tablet 00:00: mouth at [place] 00 bedtime. Medical Branch fenofibrate 2021-02 Yes [id number] 145mg Take 1 [facility] (TRICOR) 1-03 tablet by ity of 145 mg 00:00: mouth in [place] tablet 00 the Medical morning. Branch atorvastati 2021-02 Yes [id number] 80mg Take 1 [facility] n 80 mg 1-03 tablet by ity of tablet 00:00: mouth at [place] 00 bedtime. Medical Branch fenofibrate 2021-02 Yes [id number] 145mg Take 1 [facility] (TRICOR) 1-03 tablet by ity of 145 mg 00:00: mouth in [place] tablet 00 the Medical morning. Branch atorvastati 2021-02 Yes [id number] 80mg Take 1 [facility] n 80 mg 1-03 tablet by ity of tablet 00:00: mouth at [place] 00 bedtime. Medical Branch fenofibrate 2021-02 Yes [id number] 145mg Take 1 [facility] (TRICOR) 1-03 tablet by ity of 145 mg 00:00: mouth in [place] tablet 00 the Medical morning. Branch atorvastati 2021-02 Yes [id number] 80mg Take 1 [facility] n 80 mg 1-03 tablet by ity of tablet 00:00: mouth at [place] 00 bedtime. Medical Branch fenofibrate 2021-02 Yes [id number] 145mg Take 1 [facility] (TRICOR) 1-03 tablet by ity of 145 mg 00:00: mouth in [place] tablet 00 the Medical morning. Branch atorvastati 2021-02 Yes [id number] 80mg Take 1 [facility] n 80 mg 1-03 tablet by ity of tablet 00:00: mouth at [place] 00 bedtime. Medical Branch fenofibrate 2021-02 Yes [id number] 145mg Take 1 [facility] (TRICOR) 1-03 tablet by ity of 145 mg 00:00: mouth in [place] tablet 00 the Medical morning. Branch atorvastati 2021-02 Yes [id number] 80mg Take 1 [facility] n 80 mg 1-03 tablet by ity of tablet 00:00: mouth at [place] 00 bedtime. Medical Branch fenofibrate 2021-02 Yes [id number] 145mg Take 1 [facility] (TRICOR) 1-03 tablet by ity of 145 mg 00:00: mouth in [place] tablet 00 the Medical morning. Branch atorvastati 2021-02 Yes [id number] 80mg Take 1 [facility] n 80 mg 1-03 tablet by ity of tablet 00:00: mouth at [place] 00 bedtime. Medical Branch fenofibrate 2021-02 Yes [id number] 145mg Take 1 [facility] (TRICOR) 1-03 tablet by ity of 145 mg 00:00: mouth in [place] tablet 00 the Medical morning. Branch atorvastati 2021-02 Yes [id number] 80mg Take 1 [facility] n 80 mg 1-03 tablet by ity of tablet 00:00: mouth at [place] 00 bedtime. Medical Branch fenofibrate 2021-02 Yes [id number] 145mg Take 1 [facility] (TRICOR) 1-03 tablet by ity of 145 mg 00:00: mouth in [place] tablet 00 the Medical morning. Branch atorvastati 2021-02 Yes [id number] 80mg Take 1 [facility] n 80 mg 1-03 tablet by ity of tablet 00:00: mouth at [place] 00 bedtime. Medical Branch fenofibrate 2021-02 Yes [id number] 145mg Take 1 [facility] (TRICOR) 1-03 tablet by ity of 145 mg 00:00: mouth in [place] tablet 00 the Medical morning. Branch atorvastati 2021-02 Yes [id number] 80mg Take 1 [facility] n 80 mg 1-03 tablet by ity of tablet 00:00: mouth at [place] [address] bedtime. Medical Branch fenofibrate 2021-02 Yes [id number] 145mg Take 1 [facility] (TRICOR) 1-03 tablet by ity of 145 mg 00:00: mouth in [place] tablet 00 the Medical morning. Branch atorvastati 2021-02 Yes [id number] 80mg Take 1 [facility] n 80 mg 1-03 tablet by ity of tablet 00:00: mouth at [place] 00 bedtime. Medical Branch icosapent 2021-02 2023- No [id number] 2g Take 2 [facility] ethyL 1-03 -13 capsules ity of (VASCEPA) 1 00:00: 00:00 by mouth [place] gram 00 :00 in the Medical capsule morning Branch and 2 capsules in the evening. metFORMIN 2021-02 Yes [id number] 1000mg Take 1 [facility] 1,000 mg 0-11 tablet by ity of tablet 00:00: mouth in [place] 00 the Medical morning Branch and 1 tablet in the evening. Take with meals. dicyclomine 2021-02 Yes [id number] 20mg Take 1 [facility] 20 mg 0-11 tablet by ity of tablet 00:00: mouth 4 [place] [address] ([facility]) Medical times [place] daily. metFORMIN 2021-02 Yes [id number] 1000mg Take 1 [facility] 1,000 mg 0-11 tablet by ity of tablet 00:00: mouth in [place] [address] the Medical morning Branch and 1 tablet in the evening. Take with meals. dicyclomine 2021-02 Yes [id number] 20mg Take 1 [facility] 20 mg 0-11 tablet by ity of tablet 00:00: mouth 4 [place] 00 ([facility]) Medical times [place] daily. metFORMIN 2021-02 Yes [id number] 1000mg Take 1 [facility] 1,000 mg 0-11 tablet by ity of tablet 00:00: mouth in [place] 00 the Medical morning Branch and 1 tablet in the evening. Take with meals. dicyclomine 2021-02 Yes [id number] 20mg Take 1 [facility] 20 mg 0-11 tablet by ity of tablet 00:00: mouth 4 [place] [address] ([facility]) Medical times [place] daily. metFORMIN 2021-02 Yes [id number] 1000mg Take 1 [facility] 1,000 mg 0-11 tablet by ity of tablet 00:00: mouth in [place] [address] the [facility] morning [place] and 1 tablet in the evening. Take with meals. dicyclomine 2021-02 Yes [id number] 20mg Take 1 [facility] 20 mg 0-11 tablet by ity of tablet 00:00: mouth [address] daily[address] metFORMIN 2021-02 Yes [id number] 1000mg Take 1 [facility] 1,000 mg 0-11 tablet by ity of tablet 00:00: mouth in [place] [address] the [facility] morning [place] and 1 tablet in the evening. Take with meals. dicyclomine 2021-02 Yes [id number] 20mg Take 1 [facility] 20 mg 0-11 tablet by ity of tablet 00:00: mouth [address] daily. metFORMIN 2021-02 Yes [id number] 1000mg Take 1 [facility] 1,000 mg 0-11 tablet by ity of tablet 00:00: mouth in [address] morning [place] and 1 tablet in the evening. Take with meals. dicyclomine 2021-02 Yes [id number] 20mg Take 1 [facility] 20 mg 0-11 tablet by ity of tablet 00:00: mouth [address] [place] [address] daily. metFORMIN 2021-02 Yes [id number] 1000mg Take 1 [facility] 1,000 mg 0-11 tablet by ity of tablet 00:00: mouth in [address] and 1 tablet in the evening. Take with meals. dicyclomine 2021-02 Yes [id number] 20mg Take 1 [facility] 20 mg 0-11 tablet by ity of tablet 00:00: mouth [address] [place] [address] daily. metFORMIN 2021-02 Yes [id number] 1000mg Take 1 [facility] 1,000 mg 0-11 tablet by ity of tablet 00:00: mouth in [address] and 1 tablet in the evening. Take with meals. dicyclomine 2021-02 Yes [id number] 20mg Take 1 [facility] 20 mg 0-11 tablet by ity of tablet 00:00: mouth [address] [place] [address] daily. metFORMIN 2021- Yes [id number] 1000mg Take 1 [facility] 1,000 mg 0-11 tablet by ity of tablet 00:00: mouth in [address] morning [place] and 1 tablet in the evening. Take with meals. dicyclomine 2021-02 Yes [id number] 20mg Take 1 [facility] 20 mg 0-11 tablet by ity of tablet 00:00: mouth 4 [place] [address] ([facility] daily. metFORMIN 2021-02 Yes [id number] 1000mg Take 1 [facility] 1,000 mg 0-11 tablet by ity of tablet 00:00: mouth in [place] [address] the [facility] and 1 tablet in the evening. Take with meals. dicyclomine 2021-02 Yes [id number] 20mg Take 1 [facility] 20 mg 0-11 tablet by ity of tablet 00:00: mouth 4 [place] [address] ([facility] daily. metFORMIN 2021-02 Yes [id number] 1000mg Take 1 [facility] 1,000 mg 0-11 tablet by ity of tablet 00:00: mouth in [address] and 1 tablet in the evening. Take with meals. dicyclomine 2021-02 Yes [id number] 20mg Take 1 [facility] 20 mg 0-11 tablet by ity of tablet 00:00: mouth [address] daily[address] metFORMIN 2021-02 Yes [id number] 1000mg Take 1 [facility] 1,000 mg 0-11 tablet by ity of tablet 00:00: mouth in [address] and 1 tablet in the evening. Take with meals. metFORMIN 2021-02 Yes [id number] 1000mg Take 1 [facility] 1,000 mg 0-11 tablet by ity of tablet 00:00: mouth in [address] morning [place] and 1 tablet in the evening. Take with meals. metFORMIN 2021-02 Yes [id number] 1000mg Take 1 [facility] 1,000 mg 0-11 tablet by ity of tablet 00:00: mouth in [address] morning [place] and 1 tablet in the evening. Take with meals. metFORMIN 2021-02 Yes [id number] 1000mg Take 1 [facility] 1,000 mg 0-11 tablet by ity of tablet 00:00: mouth in [address] and 1 tablet in the evening. Take with meals. metFORMIN 2021-02 Yes [id number] 1000mg Take 1 [facility] 1,000 mg 0-11 tablet by ity of tablet 00:00: mouth in [address] morning [place] and 1 tablet in the evening. Take with meals. metFORMIN 2022-1 Yes [id number] 1000mg Take 1 [facility] 1,000 mg 0-11 tablet by ity of tablet 00:00: mouth in [address] morning [place] and 1 tablet in the evening. Take with meals. metFORMIN 2021- Yes [id number] 1000mg Take 1 [facility] 1,000 mg 0-11 tablet by ity of tablet 00:00: mouth in [address] morning [place] and 1 tablet in the evening. Take with meals. metFORMIN 2021- Yes [id number] 1000mg Take 1 [facility] 1,000 mg 0-11 tablet by ity of tablet 00:00: mouth in [address] morning [place] and 1 tablet in the evening. Take with meals. metFORMIN 2021-02 Yes [id number] 1000mg Take 1 [facility] 1,000 mg 0-11 tablet by ity of tablet 00:00: mouth in [address] and 1 tablet in the evening. Take with meals. metFORMIN 2021-02 Yes [id number] 1000mg Take 1 [facility] 1,000 mg 0-11 tablet by ity of tablet 00:00: mouth in [address] and 1 tablet in the evening. Take with meals. metFORMIN 2021-02 Yes [id number] 1000mg Take 1 [facility] 1,000 mg 0-11 tablet by ity of tablet 00:00: mouth in [address] and 1 tablet in the evening. Take with meals. metFORMIN 1 Yes [id number] 1000mg Take 1 [facility] 1,000 mg 0-11 tablet by ity of tablet 00:00: mouth in [address] and 1 tablet in the evening. Take with meals. metFORMIN 2021-1 Yes [id number] 1000mg Take 1 [facility] 1,000 mg 0-11 tablet by ity of tablet 00:00: mouth in [address] and 1 tablet in the evening. Take with meals. metFORMIN 2021-1 Yes [id number] 1000mg Take 1 [facility] 1,000 mg 0-11 tablet by ity of tablet 00:00: mouth in [address] and 1 tablet in the evening. Take with meals. metFORMIN 2021-1 Yes [id number] 1000mg Take 1 [facility] 1,000 mg 0-11 tablet by ity of tablet 00:00: mouth in [address] and 1 tablet in the evening. Take with meals. metFORMIN 2021-02- No [id number] 1000mg Take 1 [facility] 1,000 mg 0-11 03-21 tablet by ity o f tablet 00:00: 00:00 mouth in [place] 00 :00 the Medical morning Branch and 1 tablet in the evening. Take with meals. dicyclomine 2021-02- No [id number] 20mg Take 1 [facility] 20 mg 0-11 11-16 tablet by ity of tablet 00:00: 00:00 mouth 4 [place] 00 :00 (four) Medical times Branch daily. cyclobenzap 2021-0 Yes [id number] 5mg Take 1 [facility] rine 5 mg 8-22 tablet by ity o f tablet 00:00: mouth 3 [place] 00 (three) Medical times Branch daily as needed for Muscle Spasms. amLODIPine- 2021-0 Yes [id number] 1{capsu Take 1 [facility] benazepriL 8-22 le} capsule by ity of (LOTREL) 00:00: mouth in [place] 10-20 mg 00 the Medical per capsule morning. Bran cyclobenzap 2021-0 Yes [id number] 5mg Take 1 [facility] rine 5 mg 8-22 tablet by ity o f tablet 00:00: mouth 3 [place] 00 (three) Medical times Branch daily as needed for Muscle Spasms. amLODIPine- 2021-0 Yes [id number] 1{capsu Take 1 [facility] benazepriL 8-22 le} capsule by ity of (LOTREL) 00:00: mouth in [place] 10-20 mg 00 the Medical per capsule morning. Bran cyclobenzap 2021-0 Yes [id number] 5mg Take 1 [facility] rine 5 mg 8-22 tablet by ity o f tablet 00:00: mouth 3 [place] 00 (three) Medical times Branch daily as needed for Muscle Spasms. amLODIPine- 2021-0 Yes [id number] 1{capsu Take 1 [facility] benazepriL 8-22 le} capsule by ity of (LOTREL) 00:00: mouth in [place] 10-20 mg 00 the Medical per capsule morning. Bran ch cyclobenzap 2021-0 Yes [id number] 5mg Take 1 [facility] rine 5 mg 8-22 tablet by ity o f tablet 00:00: mouth 3 [place] 00 (three) Medical times Branch daily as needed for Muscle Spasms. amLODIPine- 2022-0 Yes [id number] 1{capsu Take 1 [facility] benazepriL 8-22 le} capsule by ity of (LOTREL) 00:00: mouth in [place] 10-20 mg 00 the Medical per capsule morning. Bran ch cyclobenzap 2022-0 Yes [id number] 5mg Take 1 [facility] rine 5 mg 8-22 tablet by ity o f tablet 00:00: mouth 3 [place] 00 (three) Medical times Branch daily as needed for Muscle Spasms. amLODIPine- 2-0 Yes [id number] 1{capsu Take 1 [facility] benazepriL 8-22 le} capsule by ity of (LOTREL) 00:00: mouth in [place] 10-20 mg 00 the Medical per capsule morning. Bran ch cyclobenzap 2-0 Yes [id number] 5mg Take 1 [facility] rine 5 mg 8-22 tablet by ity o f tablet 00:00: mouth 3 [place] 00 (three) Medical times Branch daily as needed for Muscle Spasms. amLODIPine- 2-0 Yes [id number] 1{capsu Take 1 [facility] benazepriL 8-22 le} capsule by ity of (LOTREL) 00:00: mouth in [place] 10-20 mg 00 the Medical per capsule morning. Bran ch cyclobenzap 2-0 Yes [id number] 5mg Take 1 [facility] rine 5 mg 8-22 tablet by ity o f tablet 00:00: mouth 3 [place] 00 (three) Medical times Branch daily as needed for Muscle Spasms. amLODIPine- 2-0 Yes [id number] 1{capsu Take 1 [facility] benazepriL 8-22 le} capsule by ity of (LOTREL) 00:00: mouth in [place] 10-20 mg 00 the Medical per capsule morning. Bran ch cyclobenzap 2022-0 Yes [id number] 5mg Take 1 [facility] rine 5 mg 8-22 tablet by ity o f tablet 00:00: mouth 3 [place] 00 (three) Medical times Branch daily as needed for Muscle Spasms. amLODIPine- 2-0 Yes [id number] 1{capsu Take 1 [facility] benazepriL 8-22 le} capsule by ity of (LOTREL) 00:00: mouth in [place] 10-20 mg 00 the Medical per capsule morning. Bran ch cyclobenzap 2-0 Yes [id number] 5mg Take 1 [facility] rine 5 mg 8-22 tablet by ity o f tablet 00:00: mouth 3 [place] 00 (three) Medical times Branch daily as needed for Muscle Spasms. amLODIPine- 2-0 Yes [id number] 1{capsu Take 1 [facility] benazepriL 8-22 le} capsule by ity of (LOTREL) 00:00: mouth in [place] 10-20 mg 00 the Medical per capsule morning. Bran ch cyclobenzap 2-0 Yes [id number] 5mg Take 1 [facility] rine 5 mg 8-22 tablet by ity o f tablet 00:00: mouth 3 [place] 00 (three) Medical times Branch daily as needed for Muscle Spasms. amLODIPine- 2-0 Yes [id number] 1{capsu Take 1 [facility] benazepriL 8-22 le} capsule by ity of (LOTREL) 00:00: mouth in [place] 10-20 mg 00 the Medical per capsule morning. Bran cyclobenzap 2-0 Yes [id number] 5mg Take 1 [facility] rine 5 mg 8-22 tablet by ity o f tablet 00:00: mouth 3 [place] 00 (three) Medical times Branch daily as needed for Muscle Spasms. amLODIPine- 2-0 Yes [id number] 1{capsu Take 1 [facility] benazepriL 8-22 le} capsule by ity of (LOTREL) 00:00: mouth in [place] 10-20 mg 00 the Medical per capsule morning. Bran cyclobenzap 2-0 Yes [id number] 5mg Take 1 [facility] rine 5 mg 8-22 tablet by ity o f tablet 00:00: mouth 3 [place] 00 (three) Medical times Branch daily as needed for Muscle Spasms. amLODIPine- 2-0 Yes [id number] 1{capsu Take 1 [facility] benazepriL 8-22 le} capsule by ity of (LOTREL) 00:00: mouth in [place] 10-20 mg 00 the Medical per capsule morning. Bran ch cyclobenzap 2022-0 Yes [id number] 5mg Take 1 [facility] rine 5 mg 8-22 tablet by ity o f tablet 00:00: mouth 3 [place] 00 (three) Medical times Branch daily as needed for Muscle Spasms. amLODIPine- 2-0 Yes [id number] 1{capsu Take 1 [facility] benazepriL 8-22 le} capsule by ity of (LOTREL) 00:00: mouth in [place] 10-20 mg 00 the Medical per capsule morning. Bran ch cyclobenzap 2022-0 Yes [id number] 5mg Take 1 [facility] rine 5 mg 8-22 tablet by ity o f tablet 00:00: mouth 3 [place] 00 (three) Medical times Branch daily as needed for Muscle Spasms. amLODIPine- 2-0 Yes [id number] 1{capsu Take 1 [facility] benazepriL 8-22 le} capsule by ity of (LOTREL) 00:00: mouth in [place] 10-20 mg 00 the Medical per capsule morning. Bran ch cyclobenzap 2-0 Yes [id number] 5mg Take 1 [facility] rine 5 mg 8-22 tablet by ity o f tablet 00:00: mouth 3 [place] 00 (three) Medical times Branch daily as needed for Muscle Spasms. amLODIPine- 2-0 Yes [id number] 1{capsu Take 1 [facility] benazepriL 8-22 le} capsule by ity of (LOTREL) 00:00: mouth in [place] 10-20 mg 00 the Medical per capsule morning. Bran ch cyclobenzap 2-0 Yes [id number] 5mg Take 1 [facility] rine 5 mg 8-22 tablet by ity o f tablet 00:00: mouth 3 [place] 00 (three) Medical times Branch daily as needed for Muscle Spasms. amLODIPine- 2-0 Yes [id number] 1{capsu Take 1 [facility] benazepriL 8-22 le} capsule by ity of (LOTREL) 00:00: mouth in [place] 10-20 mg 00 the Medical per capsule morning. Bran ch cyclobenzap 2-0 Yes [id number] 5mg Take 1 [facility] rine 5 mg 8-22 tablet by ity o f tablet 00:00: mouth 3 [place] 00 (three) Medical times Branch daily as needed for Muscle Spasms. amLODIPine- 2-0 Yes [id number] 1{capsu Take 1 [facility] benazepriL 8-22 le} capsule by ity of (LOTREL) 00:00: mouth in [place] 10-20 mg 00 the Medical per capsule morning. Bran ch cyclobenzap 2022-0 Yes [id number] 5mg Take 1 [facility] rine 5 mg 8-22 tablet by ity o f tablet 00:00: mouth 3 [place] 00 (three) Medical times Branch daily as needed for Muscle Spasms. amLODIPine- 2022-0 Yes [id number] 1{capsu Take 1 [facility] benazepriL 8-22 le} capsule by ity of (LOTREL) 00:00: mouth in [place] 10-20 mg 00 the Medical per capsule morning. Bran ch cyclobenzap 2022-0 Yes [id number] 5mg Take 1 [facility] rine 5 mg 8-22 tablet by ity o f tablet 00:00: mouth 3 [place] 00 (three) Medical times Branch daily as needed for Muscle Spasms. amLODIPine- 2022-0 Yes [id number] 1{capsu Take 1 [facility] benazepriL 8-22 le} capsule by ity of (LOTREL) 00:00: mouth in [place] 10-20 mg 00 the Medical per capsule morning. Bran ch cyclobenzap 2022-0 Yes [id number] 5mg Take 1 [facility] rine 5 mg 8-22 tablet by ity o f tablet 00:00: mouth 3 [place] (three) Medical times Branch daily as needed for Muscle Spasms. amLODIPine- 2-0 Yes [id number] 1{capsu Take 1 [facility] benazepriL 8-22 le} capsule by ity of (LOTREL) 00:00: mouth in [place] 10-20 mg 00 the Medical per capsule morning. Bran ch cyclobenzap 2022-0 Yes [id number] 5mg Take 1 [facility] rine 5 mg 8-22 tablet by ity o f tablet 00:00: mouth 3 [place] 00 (three) Medical times Branch daily as needed for Muscle Spasms. amLODIPine- 2022-0 Yes [id number] 1{capsu Take 1 [facility] benazepriL 8-22 le} capsule by ity of (LOTREL) 00:00: mouth in [place] 10-20 mg 00 the Medical per capsule morning. Bran ch cyclobenzap 2022-0 Yes [id number] 5mg Take 1 [facility] rine 5 mg 8-22 tablet by ity o f tablet 00:00: mouth 3 [place] 00 (three) Medical times Branch daily as needed for Muscle Spasms. amLODIPine- 2022-0 Yes [id number] 1{capsu Take 1 [facility] benazepriL 8-22 le} capsule by ity of (LOTREL) 00:00: mouth in [place] 10-20 mg 00 the Medical per capsule morning. Bran cyclobenzap 2022-0 Yes [id number] 5mg Take 1 [facility] rine 5 mg 8-22 tablet by ity o f tablet 00:00: mouth 3 [place] 00 (three) Medical times Branch daily as needed for Muscle Spasms. amLODIPine- 2022-0 Yes [id number] 1{capsu Take 1 [facility] benazepriL 8-22 le} capsule by ity of (LOTREL) 00:00: mouth in [place] 10-20 mg 00 the Medical per capsule morning. Bran cyclobenzap 2022-0 Yes [id number] 5mg Take 1 [facility] rine 5 mg 8-22 tablet by ity o f tablet 00:00: mouth 3 00 (three) Medical times Branch daily as needed for Muscle Spasms. amLODIPine- 2022-0 Yes [id number] 1{capsu Take 1 [facility] benazepriL 8-22 le} capsule by ity of (LOTREL) 00:00: mouth in [place] 10-20 mg 00 the Medical per capsule morning. Bran cyclobenzap 2-0 Yes [id number] 5mg Take 1 [facility] rine 5 mg 8-22 tablet by ity o f tablet 00:00: mouth 3 00 (three) Medical times Branch daily as needed for Muscle Spasms. amLODIPine- 2022-0 Yes [id number] 1{capsu Take 1 [facility] benazepriL 8-22 le} capsule by ity of (LOTREL) 00:00: mouth in [place] 10-20 mg 00 the Medical per capsule morning. Bran cyclobenzap 2022-0 Yes [id number] 5mg Take 1 [facility] rine 5 mg 8-22 tablet by ity o f tablet 00:00: mouth 3 [place] 00 (three) Medical times Branch daily as needed for Muscle Spasms. cyclobenzap 2022-0 Yes [id number] 5mg Take 1 [facility] rine 5 mg 8-22 tablet by ity o f tablet 00:00: mouth 3 [place] 00 (three) Medical times Branch daily as needed for Muscle Spasms. cyclobenzap 2022-0 Yes [id number] 5mg Take 1 [facility] rine 5 mg 8-22 tablet by ity o f tablet 00:00: mouth 3 [place] 00 (three) Medical times Branch daily as needed for Muscle Spasms. metFORMIN 2022-0 Yes [id number] 1000mg Take 1 [facility] 1,000 mg 8-22 tablet by ity of tablet 00:00: mouth in [place] 00 the Medical morning Branch and 1 tablet in the evening. Take with meals. pravastatin 2022-0 Yes [id number] 20mg Take 1 [facility] 20 mg 8-22 tablet by ity of tablet 00:00: mouth at [place] 00 bedtime. Medical Branch amLODIPine- 2021-0 Yes [id number] 1{capsu Take 1 [facility] benazepriL 8-22 le} capsule by ity of (LOTREL) 00:00: mouth in [place] 10-20 mg 00 the Medical per capsule morning. Bran ch cyclobenzap 2021-0 Yes [id number] 5mg Take 1 [facility] rine 5 mg 8-22 tablet by ity o f tablet 00:00: mouth 3 [place] [address] (three) Medical times [place] daily as needed for Muscle Spasms. metFORMIN 2-0 Yes [id number] 1000mg Take 1 [facility] 1,000 mg 8-22 tablet by ity of tablet 00:00: mouth in [place] 00 the Medical morning Branch and 1 tablet in the evening. Take with meals. pravastatin 2-0 Yes [id number] 20mg Take 1 [facility] 20 mg 8-22 tablet by ity of tablet 00:00: mouth at [place] 00 bedtime. Medical Branch amLODIPine- 2021-0 Yes [id number] 1{capsu Take 1 [facility] benazepriL 8-22 le} capsule by ity of (LOTREL) 00:00: mouth in [place] 10-20 mg 00 the Medical per capsule morning. Bran ch cyclobenzap 2-0 Yes [id number] 5mg Take 1 [facility] rine 5 mg 8-22 tablet by ity o f tablet 00:00: mouth 3 [place] 00 (three) Medical times Branch daily as needed for Muscle Spasms. pravastatin 2022-0 Yes [id number] 20mg Take 1 [facility] 20 mg 8-22 tablet by ity of tablet 00:00: mouth at [place] 00 bedtime. Medical Branch amLODIPine- 2-0 Yes [id number] 1{capsu Take 1 [facility] benazepriL 8-22 le} capsule by ity of (LOTREL) 00:00: mouth in [place] 10-20 mg 00 the Medical per capsule morning. Bran ch cyclobenzap 2021-0 Yes [id number] 5mg Take 1 [facility] rine 5 mg 8-22 tablet by ity o f tablet 00:00: mouth 3 [place] 00 (three) Medical times Branch daily as needed for Muscle Spasms. pravastatin 2021-0 Yes [id number] 20mg Take 1 [facility] 20 mg 8-22 tablet by ity of tablet 00:00: mouth at [place] 00 bedtime. Medical Branch amLODIPine- 2021-0 Yes [id number] 1{capsu Take 1 [facility] benazepriL 8-22 le} capsule by ity of (LOTREL) 00:00: mouth in [place] 10-20 mg 00 the Medical per capsule morning. Bran ch cyclobenzap 2021-0 Yes [id number] 5mg Take 1 [facility] rine 5 mg 8-22 tablet by ity o f tablet 00:00: mouth 3 [place] 00 (three) Medical times Branch daily as needed for Muscle Spasms. pravastatin 2021-0 Yes [id number] 20mg Take 1 [facility] 20 mg 8-22 tablet by ity of tablet 00:00: mouth at [place] 00 bedtime. Medical Branch amLODIPine- 2021-0 Yes [id number] 1{capsu Take 1 [facility] benazepriL 8-22 le} capsule by ity of (LOTREL) 00:00: mouth in [place] 10-20 mg 00 the Medical per capsule morning. Bran ch cyclobenzap 2021-0 Yes [id number] 5mg Take 1 [facility] rine 5 mg 8-22 tablet by ity o f tablet 00:00: mouth 3 [place] 00 (three) Medical times Branch daily as needed for Muscle Spasms. pravastatin 2021-0 Yes [id number] 20mg Take 1 [facility] 20 mg 8-22 tablet by ity of tablet 00:00: mouth at [place] 00 bedtime. Medical Branch amLODIPine- 2021-0 Yes [id number] 1{capsu Take 1 [facility] benazepriL 8-22 le} capsule by ity of (LOTREL) 00:00: mouth in [place] 10-20 mg 00 the Medical per capsule morning. Bran ch cyclobenzap 2021-0 Yes [id number] 5mg Take 1 [facility] rine 5 mg 8-22 tablet by ity o f tablet 00:00: mouth 3 [place] 00 (three) Medical times Branch daily as needed for Muscle Spasms. pravastatin 2021-0 Yes [id number] 20mg Take 1 [facility] 20 mg 8-22 tablet by ity of tablet 00:00: mouth at [place] 00 bedtime. Medical Branch amLODIPine- 2021-0 Yes [id number] 1{capsu Take 1 [facility] benazepriL 8-22 le} capsule by ity of (LOTREL) 00:00: mouth in [place] 10-20 mg 00 the Medical per capsule morning. Bran ch cyclobenzap 2021-0 Yes [id number] 5mg Take 1 [facility] rine 5 mg 8-22 tablet by ity o f tablet 00:00: mouth 3 [place] 00 (three) Medical times Branch daily as needed for Muscle Spasms. pravastatin 2021-0 Yes [id number] 20mg Take 1 [facility] 20 mg 8-22 tablet by ity of tablet 00:00: mouth at [place] 00 bedtime. Medical Branch amLODIPine- 2021-0 Yes [id number] 1{capsu Take 1 [facility] benazepriL 8-22 le} capsule by ity of (LOTREL) 00:00: mouth in [place] 10-20 mg 00 the Medical per capsule morning. Bran ch cyclobenzap 2021-0 Yes [id number] 5mg Take 1 [facility] rine 5 mg 8-22 tablet by ity o f tablet 00:00: mouth 3 [place] 00 (three) Medical times Branch daily as needed for Muscle Spasms. pravastatin 2021-0 Yes [id number] 20mg Take 1 [facility] 20 mg 8-22 tablet by ity of tablet 00:00: mouth at [place] 00 bedtime. Medical Branch amLODIPine- 2021-0 Yes [id number] 1{capsu Take 1 [facility] benazepriL 8-22 le} capsule by ity of (LOTREL) 00:00: mouth in [place] 10-20 mg 00 the Medical per capsule morning. Bran ch cyclobenzap 2021-0 Yes [id number] 5mg Take 1 [facility] rine 5 mg 8-22 tablet by ity o f tablet 00:00: mouth 3 [place] 00 (three) Medical times Branch daily as needed for Muscle Spasms. amLODIPine- 2021-0 Yes [id number] 1{capsu Take 1 [facility] benazepriL 8-22 le} capsule by ity of (LOTREL) 00:00: mouth in [place] 10-20 mg 00 the Medical per capsule morning. Bran ch cyclobenzap 2022-0 Yes [id number] 5mg Take 1 [facility] rine 5 mg 8-22 tablet by ity o f tablet 00:00: mouth 3 [place] 00 (three) Medical times Branch daily as needed for Muscle Spasms. amLODIPine- 2022-0 Yes [id number] 1{capsu Take 1 [facility] benazepriL 8-22 le} capsule by ity of (LOTREL) 00:00: mouth in [place] 10-20 mg 00 the Medical per capsule morning. Bran ch cyclobenzap 2022-0 Yes [id number] 5mg Take 1 [facility] rine 5 mg 8-22 tablet by ity o f tablet 00:00: mouth 3 [place] 00 (three) Medical times Branch daily as needed for Muscle Spasms. amLODIPine- 2022-0 Yes [id number] 1{capsu Take 1 [facility] benazepriL 8-22 le} capsule by ity of (LOTREL) 00:00: mouth in [place] 10-20 mg 00 the Medical per capsule morning. Bran ch cyclobenzap 2022-0 Yes [id number] 5mg Take 1 [facility] rine 5 mg 8-22 tablet by ity o f tablet 00:00: mouth 3 [place] 00 (three) Medical times Branch daily as needed for Muscle Spasms. amLODIPine- 2-0 Yes [id number] 1{capsu Take 1 [facility] benazepriL 8-22 le} capsule by ity of (LOTREL) 00:00: mouth in [place] 10-20 mg 00 the Medical per capsule morning. Bran ch cyclobenzap 2022-0 Yes [id number] 5mg Take 1 [facility] rine 5 mg 8-22 tablet by ity o f tablet 00:00: mouth 3 [place] 00 (three) Medical times Branch daily as needed for Muscle Spasms. amLODIPine- 2022-0 Yes [id number] 1{capsu Take 1 [facility] benazepriL 8-22 le} capsule by ity of (LOTREL) 00:00: mouth in [place] 10-20 mg 00 the Medical per capsule morning. Bran ch cyclobenzap 2022-0 Yes [id number] 5mg Take 1 [facility] rine 5 mg 8-22 tablet by ity o f tablet 00:00: mouth 3 [place] 00 (three) Medical times Branch daily as needed for Muscle Spasms. amLODIPine- 2022-0 Yes [id number] 1{capsu Take 1 [facility] benazepriL 8-22 le} capsule by ity of (LOTREL) 00:00: mouth in [place] 10-20 mg 00 the Medical per capsule morning. Bran cyclobenzap 2021-0 Yes [id number] 5mg Take 1 [facility] rine 5 mg 8-22 tablet by ity o f tablet 00:00: mouth 3 [place] 00 (three) Medical times Branch daily as needed for Muscle Spasms. amLODIPine- 2021-0 Yes [id number] 1{capsu Take 1 [facility] benazepriL 8-22 le} capsule by ity of (LOTREL) 00:00: mouth in [place] 10-20 mg 00 the Medical per capsule morning. [facility] cyclobenzap 2021- Yes [id number] 5mg Take 1 [facility] 5 mg 8-22 tablet by it[facility] o f tablet 00:00: mouth 3 [place] 00 (three) Medical times Branch daily as needed for Muscle Spasms. amLODIPine- 2021-0 Yes [id number] 1{capsu Take 1 [facility] benazepriL 8-22 le} capsule by ity of (LOTREL) 00:00: mouth in [place] 10-20 mg 00 the Medical per capsule morning. [facility] cyclobenzap 2021-0 Yes [id number] 5mg Take 1 [facility] rine 5 mg 8-22 tablet by ity o f tablet 00:00: mouth 3 [place] 00 (three) Medical times Branch daily as needed for Muscle Spasms. amLODIPine- 2021-0 Yes [id number] 1{capsu Take 1 [facility] benazepriL 8-22 le} capsule by ity of (LOTREL) 00:00: mouth in [place] 10-20 mg 00 the Medical per capsule morning. [facility] amLODIPine- 2021-0 2022- No [id number] 1{capsu Take 1 [facility] benazepriL 8-22 06-05 le} capsule by it y of (LOTREL) 00:00: 00:00 [facility] [place] 10[facility] 00 :00 the Medical per capsule morning. [facility] pravastatin 2021-0 2021- No [id number] 20mg Take 1 [facility] 20 mg 8-22 11-03 tablet by ity of tablet 00:00: 00:00 mouth at [place] 00 :00 bedtime. Medical Branch pravastatin 2021- No [id number] 20mg Take 1 [facility] 20 mg 8-22 11-03 tablet by ity of tablet 00:00: 00:00 mouth at [place] 00 :00 bedtime. Medical Branch pravastatin 2021- No [id number] 20mg Take 1 [facility] 20 mg 8-22 11-03 tablet by ity of tablet 00:00: 00:00 mouth at [place] 00 :00 bedtime. Medical Branch metFORMIN 2021- No [id number] 1000mg Take 1 [facility] 1,000 mg 8-22 10-11 tablet by ity o f tablet 00:00: 00:00 mouth in [place] 00 :00 the Medical morning Branch and 1 tablet in the evening. Take with meals. metFORMIN 2021- No [id number] 1000mg Take 1 [facility] 1,000 mg 8-22 10-11 tablet by ity o f tablet 00:00: 00:00 mouth in [place] 00 :00 the Medical morning Branch and 1 tablet in the evening. Take with meals. metFORMIN 2021- No [id number] 1000mg Take 1 [facility] 1,000 mg 8-22 10-11 tablet by ity o f tablet 00:00: 00:00 mouth in [place] 00 :00 the Medical morning Branch and 1 tablet in the evening. Take with meals. icosapent Yes [id number] 2g Take 2 [facility] ethyL 5-25 capsules ity of (VASCEPA) 1 00:00: by mouth 2 [place] gram 00 (two) Medical capsule times Branch daily. icosapent Yes [id number] 2g Take 2 [facility] nivers ethyL 5-25 capsules ity of (VASCEPA) 1 00:00: by mouth 2 [place] gram 00 (two) Medical capsule times Branch daily. icosapent Yes [id number] 2g Take 2 [facility] nivers ethyL 5-25 capsules ity of (VASCEPA) 1 00:00: by mouth 2 [place] gram 00 (two) Medical capsule times Branch daily. icosapent Yes [id number] 2g Take 2 [facility] n[facility] ethyL 5-25 capsules ity of (VASCEPA) 1 00:00: by mouth 2 [place] gram 00 (two) Medical capsule times Branch daily. icosapent Yes [id number] 2g Take 2 [facility] nivers ethyL 5-25 capsules ity of (VASCEPA) 1 00:00: by mouth 2 [place] gram 00 (two) Medical capsule times Branch daily. icosapent Yes [id number] 2g Take 2 [facility] nivers ethyL 5-25 capsules ity of (VASCEPA) 1 00:00: by mouth 2 [place] gram 00 (two) Medical capsule times Branch daily. icosapent Yes [id number] 2g Take 2 [facility] nivers ethyL 5-25 capsules ity of (VASCEPA) 1 00:00: by mouth 2 [place] gram 00 (two) Medical capsule times Branch daily. icosapent Yes [id number] 2g Take 2 [facility] nivers ethyL 5-25 capsules ity of (VASCEPA) 1 00:00: by mouth 2 [place] gram 00 (two) Medical capsule times Branch daily. icosapent Yes [id number] 2g Take 2 [facility] nivers ethyL 5-25 capsules ity of (VASCEPA) 1 00:00: by mouth 2 [place] gram 00 (two) Medical capsule times Branch daily. icosapent 2021- No [id number] 2g Take 2 [facility] ethyL 5-25 11-03 capsules ity of (VASCEPA) 1 00:00: 00:00 by mouth 2 [place] gram 00 :00 (two) Medical capsule times Branch daily. icosapent 2021- No [id number] 2g Take 2 [facility] ethyL 5-25 11-03 capsules ity of (VASCEPA) 1 00:00: 00:00 by mouth 2 [place] gram 00 :00 (two) Medical capsule times Branch daily. icosapent 2021- No [id number] 2g Take 2 [facility] ethyL 5-25 11-03 capsules ity of (VASCEPA) 1 00:00: 00:00 by mouth 2 [place] gram 00 :00 (two) Medical capsule times Branch daily. busPIRone Yes [id number] 10mg Take 1 [facility] 10 mg 5-20 tablet by ity of tablet 00:00: mouth 2 [place] 00 (two) Medical times Branch daily. hydrOXYzine Yes [id number] 50mg Take 1 [facility] 50 mg 5-20 tablet by ity of tablet 00:00: mouth (three) Medical times Branch daily as needed for Anxiety. busPIRone 2022-0 Yes [id number] 10mg Take 1 [facility] 10 mg 5-20 tablet by ity of tablet 00:00: mouth (two) Medical times Branch daily. hydrOXYzine 2022-0 Yes [id number] 50mg Take 1 [facility] 50 mg 5-20 tablet by ity of tablet 00:00: mouth (three) Medical times Branch daily as needed for Anxiety. busPIRone 2022-0 Yes [id number] 10mg Take 1 [facility] 10 mg 5-20 tablet by ity of tablet 00:00: mouth (two) Medical times Branch daily. hydrOXYzine 2022-0 Yes [id number] 50mg Take 1 [facility] 50 mg 5-20 tablet by ity of tablet 00:00: mouth (three) Medical times Branch daily as needed for Anxiety. busPIRone 2022-0 Yes [id number] 10mg Take 1 [facility] 10 mg 5-20 tablet by ity of tablet 00:00: mouth (two) Medical times Branch daily. hydrOXYzine 2022-0 Yes [id number] 50mg Take 1 [facility] 50 mg 5-20 tablet by ity of tablet 00:00: mouth (three) Medical times Branch daily as needed for Anxiety. busPIRone 2022-0 Yes [id number] 10mg Take 1 [facility] 10 mg 5-20 tablet by ity of tablet 00:00: mouth (two) Medical times Branch daily. hydrOXYzine 2022-0 Yes [id number] 50mg Take 1 [facility] 50 mg 5-20 tablet by ity of tablet 00:00: mouth (three) Medical times Branch daily as needed for Anxiety. busPIRone 2022-0 Yes [id number] 10mg Take 1 [facility] 10 mg 5-20 tablet by ity of tablet 00:00: mouth (two) Medical times Branch daily. hydrOXYzine 2022-0 Yes [id number] 50mg Take 1 [facility] 50 mg 5-20 tablet by ity of tablet 00:00: mouth (three) Medical times Branch daily as needed for Anxiety. busPIRone 2022-0 Yes [id number] 10mg Take 1 [facility] 10 mg 5-20 tablet by ity of tablet 00:00: mouth (two) Medical times Branch daily. hydrOXYzine 2022-0 Yes [id number] 50mg Take 1 [facility] 50 mg 5-20 tablet by ity of tablet 00:00: mouth 3 (three) Medical times Branch daily as needed for Anxiety. busPIRone 2022-0 Yes [id number] 10mg Take 1 [facility] 10 mg 5-20 tablet by ity of tablet 00:00: mouth (two) Medical times Branch daily. hydrOXYzine 2022-0 Yes [id number] 50mg Take 1 [facility] 50 mg 5-20 tablet by ity of tablet 00:00: mouth (three) Medical times Branch daily as needed for Anxiety. busPIRone 2022-0 Yes [id number] 10mg Take 1 [facility] 10 mg 5-20 tablet by ity of tablet 00:00: mouth (two) Medical times Branch daily. hydrOXYzine 2022-0 Yes [id number] 50mg Take 1 [facility] 50 mg 5-20 tablet by ity of tablet 00:00: mouth (three) Medical times Branch daily as needed for Anxiety. busPIRone 2022-0 Yes [id number] 10mg Take 1 [facility] 10 mg 5-20 tablet by ity of tablet 00:00: mouth (two) Medical times Branch daily. hydrOXYzine 2022-0 Yes [id number] 50mg Take 1 [facility] 50 mg 5-20 tablet by ity of tablet 00:00: mouth (three) Medical times Branch daily as needed for Anxiety. busPIRone 2022-0 Yes [id number] 10mg Take 1 [facility] 10 mg 5-20 tablet by ity of tablet 00:00: mouth (two) Medical times Branch daily. hydrOXYzine 2022-0 Yes [id number] 50mg Take 1 [facility] 50 mg 5-20 tablet by ity of tablet 00:00: mouth (three) Medical times Branch daily as needed for Anxiety. busPIRone 2022-0 Yes [id number] 10mg Take 1 [facility] 10 mg 5-20 tablet by ity of tablet 00:00: mouth (two) Medical times Branch daily. hydrOXYzine 2022-0 Yes [id number] 50mg Take 1 [facility] 50 mg 5-20 tablet by ity of tablet 00:00: mouth 3 (three) Medical times Branch daily as needed for Anxiety. busPIRone 2022-0 Yes [id number] 10mg Take 1 [facility] 10 mg 5-20 tablet by ity of tablet 00:00: mouth 2 (two) Medical times Branch daily. hydrOXYzine 2022-0 Yes [id number] 50mg Take 1 [facility] 50 mg 5-20 tablet by ity of tablet 00:00: mouth 3 (three) Medical times Branch daily as needed for Anxiety. busPIRone 2022-0 Yes [id number] 10mg Take 1 [facility] 10 mg 5-20 tablet by ity of tablet 00:00: mouth (two) Medical times Branch daily. hydrOXYzine 2022-0 Yes [id number] 50mg Take 1 [facility] 50 mg 5-20 tablet by ity of tablet 00:00: mouth (three) Medical times Branch daily as needed for Anxiety. busPIRone 2022-0 Yes [id number] 10mg Take 1 [facility] 10 mg 5-20 tablet by ity of tablet 00:00: mouth (two) Medical times Branch daily. hydrOXYzine 2022-0 Yes [id number] 50mg Take 1 [facility] 50 mg 5-20 tablet by ity of tablet 00:00: mouth (three) Medical times Branch daily as needed for Anxiety. busPIRone 2022-0 Yes [id number] 10mg Take 1 [facility] 10 mg 5-20 tablet by ity of tablet 00:00: mouth (two) Medical times Branch daily. hydrOXYzine 2022-0 Yes [id number] 50mg Take 1 [facility] 50 mg 5-20 tablet by ity of tablet 00:00: mouth (three) Medical times Branch daily as needed for Anxiety. busPIRone 2022-0 Yes [id number] 10mg Take 1 [facility] 10 mg 5-20 tablet by ity of tablet 00:00: mouth 2 (two) Medical times Branch daily. hydrOXYzine 2022-0 Yes [id number] 50mg Take 1 [facility] 50 mg 5-20 tablet by ity of tablet 00:00: mouth (three) Medical times Branch daily as needed for Anxiety. busPIRone 2022-0 Yes [id number] 10mg Take 1 [facility] 10 mg 5-20 tablet by ity of tablet 00:00: mouth 2 (two) Medical times Branch daily. hydrOXYzine 2022-0 Yes [id number] 50mg Take 1 [facility] 50 mg 5-20 tablet by ity of tablet 00:00: mouth 3 (three) Medical times Branch daily as needed for Anxiety. busPIRone 2022-0 Yes [id number] 10mg Take 1 [facility] 10 mg 5-20 tablet by ity of tablet 00:00: mouth 2 (two) Medical times Branch daily. hydrOXYzine 2022-0 Yes [id number] 50mg Take 1 [facility] 50 mg 5-20 tablet by ity of tablet 00:00: mouth 3 (three) Medical times Branch daily as needed for Anxiety. busPIRone 2022-0 Yes [id number] 10mg Take 1 [facility] 10 mg 5-20 tablet by ity of tablet 00:00: mouth (two) Medical times Branch daily. hydrOXYzine 2022-0 Yes [id number] 50mg Take 1 [facility] 50 mg 5-20 tablet by ity of tablet 00:00: mouth (three) Medical times Branch daily as needed for Anxiety. busPIRone 2022-0 Yes [id number] 10mg Take 1 [facility] 10 mg 5-20 tablet by ity of tablet 00:00: mouth (two) Medical times Branch daily. hydrOXYzine 2022-0 Yes [id number] 50mg Take 1 [facility] 50 mg 5-20 tablet by ity of tablet 00:00: mouth (three) Medical times Branch daily as needed for Anxiety. busPIRone 2022-0 Yes [id number] 10mg Take 1 [facility] 10 mg 5-20 tablet by ity of tablet 00:00: mouth 2 (two) Medical times Branch daily. hydrOXYzine 2022-0 Yes [id number] 50mg Take 1 [facility] 50 mg 5-20 tablet by ity of tablet 00:00: mouth 3 (three) Medical times Branch daily as needed for Anxiety. busPIRone 2022-0 Yes [id number] 10mg Take 1 [facility] 10 mg 5-20 tablet by ity of tablet 00:00: mouth (two) Medical times Branch daily. hydrOXYzine 2022-0 Yes [id number] 50mg Take 1 [facility] 50 mg 5-20 tablet by ity of tablet 00:00: mouth 3 (three) Medical times Branch daily as needed for Anxiety. busPIRone 2022-0 Yes [id number] 10mg Take 1 [facility] 10 mg 5-20 tablet by ity of tablet 00:00: mouth (two) Medical times Branch daily. hydrOXYzine 2022-0 Yes [id number] 50mg Take 1 [facility] 50 mg 5-20 tablet by ity of tablet 00:00: mouth (three) Medical times Branch daily as needed for Anxiety. busPIRone 2022-0 Yes [id number] 10mg Take 1 [facility] 10 mg 5-20 tablet by ity of tablet 00:00: mouth (two) Medical times Branch daily. hydrOXYzine 2022-0 Yes [id number] 50mg Take 1 [facility] 50 mg 5-20 tablet by ity of tablet 00:00: mouth (three) Medical times Branch daily as needed for Anxiety. busPIRone 2022-0 Yes [id number] 10mg Take 1 [facility] 10 mg 5-20 tablet by ity of tablet 00:00: mouth (two) Medical times Branch daily. hydrOXYzine 2022-0 Yes [id number] 50mg Take 1 [facility] 50 mg 5-20 tablet by ity of tablet 00:00: mouth (three) Medical times Branch daily as needed for Anxiety. busPIRone 2022-0 Yes [id number] 10mg Take 1 [facility] 10 mg 5-20 tablet by ity of tablet 00:00: mouth (two) Medical times Branch daily. hydrOXYzine 2022-0 Yes [id number] 50mg Take 1 [facility] 50 mg 5-20 tablet by ity of tablet 00:00: mouth (three) Medical times Branch daily as needed for Anxiety. busPIRone 2022-0 Yes [id number] 10mg Take 1 [facility] 10 mg 5-20 tablet by ity of tablet 00:00: mouth (two) Medical times Branch daily. hydrOXYzine 2022-0 Yes [id number] 50mg Take 1 [facility] 50 mg 5-20 tablet by ity of tablet 00:00: mouth 3 (three) Medical times Branch daily as needed for Anxiety. busPIRone 2022-0 Yes [id number] 10mg Take 1 [facility] 10 mg 5-20 tablet by ity of tablet 00:00: mouth 2 (two) Medical times Branch daily. hydrOXYzine 2022-0 Yes [id number] 50mg Take 1 [facility] 50 mg 5-20 tablet by ity of tablet 00:00: mouth (three) Medical times Branch daily as needed for Anxiety. busPIRone 2022-0 Yes [id number] 10mg Take 1 [facility] 10 mg 5-20 tablet by ity of tablet 00:00: mouth (two) Medical times Branch daily. hydrOXYzine 2022-0 Yes [id number] 50mg Take 1 [facility] 50 mg 5-20 tablet by ity of tablet 00:00: mouth (three) Medical times Branch daily as needed for Anxiety. busPIRone 2-0 Yes [id number] 10mg Take 1 [facility] 10 mg 5-20 tablet by ity of tablet 00:00: mouth (two) Medical times Branch daily. hydrOXYzine 2022-0 Yes [id number] 50mg Take 1 [facility] 50 mg 5-20 tablet by ity of tablet 00:00: mouth (three) Medical times Branch daily as needed for Anxiety. busPIRone 2022-0 Yes [id number] 10mg Take 1 [facility] 10 mg 5-20 tablet by ity of tablet 00:00: mouth (two) Medical times Branch daily. hydrOXYzine 2022-0 Yes [id number] 50mg Take 1 [facility] 50 mg 5-20 tablet by ity of tablet 00:00: mouth (three) Medical times Branch daily as needed for Anxiety. busPIRone 2022-0 Yes [id number] 10mg Take 1 [facility] 10 mg 5-20 tablet by ity of tablet 00:00: mouth 2 (two) Medical times Branch daily. hydrOXYzine 2022-0 Yes [id number] 50mg Take 1 [facility] 50 mg 5-20 tablet by ity of tablet 00:00: mouth 3 (three) Medical times Branch daily as needed for Anxiety. busPIRone 2022-0 Yes [id number] 10mg Take 1 [facility] 10 mg 5-20 tablet by ity of tablet 00:00: mouth 2 (two) Medical times Branch daily. hydrOXYzine 2022-0 Yes [id number] 50mg Take 1 [facility] 50 mg 5-20 tablet by ity of tablet 00:00: mouth 3 (three) Medical times Branch daily as needed for Anxiety. busPIRone 2022-0 Yes [id number] 10mg Take 1 [facility] 10 mg 5-20 tablet by ity of tablet 00:00: mouth 2 (two) Medical times Branch daily. hydrOXYzine 2022-0 Yes [id number] 50mg Take 1 [facility] 50 mg 5-20 tablet by ity of tablet 00:00: mouth (three) Medical times Branch daily as needed for Anxiety. busPIRone 2022-0 Yes [id number] 10mg Take 1 [facility] 10 mg 5-20 tablet by ity of tablet 00:00: mouth (two) Medical times Branch daily. hydrOXYzine 2022-0 Yes [id number] 50mg Take 1 [facility] 50 mg 5-20 tablet by ity of tablet 00:00: mouth (three) Medical times Branch daily as needed for Anxiety. busPIRone 2022-0 Yes [id number] 10mg Take 1 [facility] 10 mg 5-20 tablet by ity of tablet 00:00: mouth (two) Medical times Branch daily. hydrOXYzine 2022-0 Yes [id number] 50mg Take 1 [facility] 50 mg 5-20 tablet by ity of tablet 00:00: mouth (three) Medical times Branch daily as needed for Anxiety. busPIRone 2022-0 Yes [id number] 10mg Take 1 [facility] 10 mg 5-20 tablet by ity of tablet 00:00: mouth (two) Medical times Branch daily. hydrOXYzine 2022-0 Yes [id number] 50mg Take 1 [facility] 50 mg 5-20 tablet by ity of tablet 00:00: mouth 3 (three) Medical times Branch daily as needed for Anxiety. busPIRone 2022-0 Yes [id number] 10mg Take 1 [facility] 10 mg 5-20 tablet by ity of tablet 00:00: mouth 2 (two) Medical times Branch daily. hydrOXYzine 2022-0 Yes [id number] 50mg Take 1 [facility] 50 mg 5-20 tablet by ity of tablet 00:00: mouth 3 (three) Medical times Branch daily as needed for Anxiety. busPIRone 2022-0 Yes [id number] 10mg Take 1 [facility] 10 mg 5-20 tablet by ity of tablet 00:00: mouth (two) Medical times Branch daily. hydrOXYzine 2022-0 Yes [id number] 50mg Take 1 [facility] 50 mg 5-20 tablet by ity of tablet 00:00: mouth 3 (three) Medical times Branch daily as needed for Anxiety. busPIRone 2022-0 Yes [id number] 10mg Take 1 [facility] 10 mg 5-20 tablet by ity of tablet 00:00: mouth (two) Medical times Branch daily. hydrOXYzine 2022-0 Yes [id number] 50mg Take 1 [facility] 50 mg 5-20 tablet by ity of tablet 00:00: mouth (three) Medical times Branch daily as needed for Anxiety. busPIRone 2022-0 Yes [id number] 10mg Take 1 [facility] 10 mg 5-20 tablet by ity of tablet 00:00: mouth (two) Medical times Branch daily. hydrOXYzine 2022-0 Yes [id number] 50mg Take 1 [facility] 50 mg 5-20 tablet by ity of tablet 00:00: mouth (three) Medical times Branch daily as needed for Anxiety. busPIRone 2022-0 Yes [id number] 10mg Take 1 [facility] 10 mg 5-20 tablet by ity of tablet 00:00: mouth (two) Medical times Branch daily. hydrOXYzine 2022-0 Yes [id number] 50mg Take 1 [facility] 50 mg 5-20 tablet by ity of tablet 00:00: mouth 3 (three) Medical times Branch daily as needed for Anxiety. busPIRone 2022-0 Yes [id number] 10mg Take 1 [facility] 10 mg 5-20 tablet by ity of tablet 00:00: mouth 2 (two) Medical times Branch daily. hydrOXYzine 2022-0 Yes [id number] 50mg Take 1 [facility] 50 mg 5-20 tablet by ity of tablet 00:00: mouth 3 (three) Medical times Branch daily as needed for Anxiety. busPIRone Yes [id number] 10mg Take 1 [facility] 10 mg 5-20 tablet by ity of tablet 00:00: mouth 2 00 (two) Medical times Branch daily. hydrOXYzine Yes [id number] 50mg Take 1 [facility] 50 mg 5-20 tablet by ity of tablet 00:00: mouth 3 (three) Medical times Branch daily as needed for Anxiety. pravastatin 2021- No [id number] 20mg Take 1 [facility] 20 mg 05-03- tablet by ity of tablet 00:00: 00:00 mouth at [place] 00 :00 bedtime. Medical Branch amLODIPine- 2021- No [id number] 1{capsu Take 1 [facility] benazepriL 05-03 le} capsule by it y of (LOTREL) 00:00: 00:00 mouth [place] 10-20 mg 00 :00 daily. Medical per capsule Branch pravastatin 2021- No [id number] 20mg Take 1 [facility] 20 mg 05-03- tablet by ity of tablet 00:00: 00:00 mouth at [place] 00 :00 bedtime. Medical Branch amLODIPine- 2021- No [id number] 1{capsu Take 1 [facility] benazepriL 05-03 le} capsule by it y of (LOTREL) 00:00: 00:00 mouth [place] 10-20 mg 00 :00 daily. Medical per capsule Branch cyclobenzap Yes [id number] 5mg Take 1 [facility] rine 5 mg 2-19 tablet by ity o f tablet 00:00: mouth 3 (three) Medical times Branch daily. cyclobenzap 2021-0 Yes [id number] 5mg Take 1 [facility] rine 5 mg 2-19 tablet by ity o f tablet 00:00: mouth 3 (three) Medical times Branch daily. cyclobenzap 0 Yes [id number] 5mg Take 1 [facility] rine 5 mg 2-19 tablet by ity o f tablet 00:00: mouth 3 00 (three) Medical times Branch daily. cyclobenzap Yes [id number] 5mg Take 1 [facility] rine 5 mg 2-19 tablet by ity o f tablet 00:00: mouth 3 00 (three) Medical times Branch daily. cyclobenzap 2-0 Yes [id number] 5mg Take 1 [facility] rine 5 mg 2-19 tablet by ity o f tablet 00:00: mouth 3 (three) Medical times Branch daily. cyclobenzap 2021-0 Yes [id number] 5mg Take 1 [facility] r[facility] 5 mg 2-19 tablet by ity o f tablet 00:00: mouth 3 (three) Medical times Branch daily. cyclobenzap 2021-0 Yes [id number] 5mg Take 1 [facility] rine 5 mg 2-19 tablet by ity o f tablet 00:00: mouth 3 (three) Medical times Branch daily. cyclobenzap 2021-0 Yes [id number] 5mg Take 1 [facility] rine 5 mg 2-19 tablet by ity o f tablet 00:00: mouth 3 (three) Medical times Branch daily. cyclobenzap 2021-0 Yes [id number] 5mg Take 1 [facility] rine 5 mg 2-19 tablet by ity o f tablet 00:00: mouth 3 (three) Medical times Branch daily. cyclobenzap 2021-0 Yes [id number] 5mg Take 1 [facility] rine 5 mg 2-19 tablet by ity o f tablet 00:00: mouth 3 (three) Medical times Branch daily. cyclobenzap 2021-0 Yes [id number] 5mg Take 1 [facility] rine 5 mg 2-19 tablet by ity o f tablet 00:00: mouth 3 (three) Medical times Branch daily. cyclobenzap 2-0 Yes [id number] 5mg Take 1 [facility] rine 5 mg 2-19 tablet by ity o f tablet 00:00: mouth 3 00 (three) Medical times Branch daily. cyclobenzap 2-0 Yes [id number] 5mg Take 1 [facility] rine 5 mg 2-19 tablet by ity o f tablet 00:00: mouth 3 (three) Medical times Branch daily. cyclobenzap 2-0 Yes [id number] 5mg Take 1 [facility] rine 5 mg 2-19 tablet by ity o f tablet 00:00: mouth 3 (three) Medical times Branch daily. cyclobenzap 2022-0 Yes [id number] 5mg Take 1 [facility] rine 5 mg 2-19 tablet by ity o f tablet 00:00: mouth 3 00 (three) Medical times Branch daily. cyclobenzap 2-0 Yes [id number] 5mg Take 1 [facility] r[facility] 5 mg 2-19 tablet by ity o f tablet 00:00: mouth 3 00 (three) Medical times Branch daily. cyclobenzap 2-0 Yes [id number] 5mg Take 1 [facility] rine 5 mg 2-19 tablet by ity o f tablet 00:00: mouth 3 00 (three) Medical times Branch daily. cyclobenzap 2-0 Yes [id number] 5mg Take 1 [facility] rine 5 mg 2-19 tablet by ity o f tablet 00:00: mouth 3 (three) Medical times Branch daily. cyclobenzap 2021-0 Yes [id number] 5mg Take 1 [facility] r[facility] 5 mg 2-19 tablet by ity o f tablet 00:00: mouth 3 (three) Medical times Branch daily. cyclobenzap 2021-0 Yes [id number] 5mg Take 1 [facility] r[facility] 5 mg 2-19 tablet by ity o f tablet 00:00: mouth 3 (three) Medical times Branch daily. cyclobenzap 2-0 Yes [id number] 5mg Take 1 [facility] rine 5 mg 2-19 tablet by ity o f tablet 00:00: mouth 3 (three) Medical times Branch daily. cyclobenzap 2-0 Yes [id number] 5mg Take 1 [facility] rine 5 mg 2-19 tablet by ity o f tablet 00:00: mouth 3 (three) Medical times Branch daily. cyclobenzap 2-0 Yes [id number] 5mg Take 1 [facility] r[facility] 5 mg 2-19 tablet by ity o f tablet 00:00: mouth 3 00 (three) Medical times Branch daily. cyclobenzap 2022-0 Yes [id number] 5mg Take 1 [facility] r[facility] 5 mg 2-19 tablet by ity o f tablet 00:00: mouth 3 00 (three) Medical times Branch daily. cyclobenzap 2-0 Yes [id number] 5mg Take 1 [facility] r[facility] 5 mg 2-19 tablet by ity o f tablet 00:00: mouth 3 (three) Medical times Branch daily. cyclobenzap 2-0 Yes [id number] 5mg Take 1 [facility] r[facility] 5 mg 2-19 tablet by ity o f tablet 00:00: mouth 3 (three) Medical times Branch daily. cyclobenzap 2-0 Yes [id number] 5mg Take 1 [facility] r[facility] 5 mg 2-19 tablet by ity o f tablet 00:00: mouth 3 (three) Medical times Branch daily. cyclobenzap 2-0 Yes [id number] 5mg Take 1 [facility] r[facility] 5 mg 2-19 tablet by ity o f tablet 00:00: mouth 3 (three) Medical times Branch daily. cyclobenzap 2021-0 Yes [id number] 5mg Take 1 [facility] r[facility] 5 mg 2-19 tablet by ity o f tablet 00:00: mouth 3 (three) Medical times Branch daily. cyclobenzap 2021-0 Yes [id number] 5mg Take 1 [facility] r[facility] 5 mg 2-19 tablet by ity o f tablet 00:00: mouth 3 (three) Medical times Branch daily. cyclobenzap 2-0 Yes [id number] 5mg Take 1 [facility] r[facility] 5 mg 2-19 tablet by ity o f tablet 00:00: mouth (three) Medical times Branch daily. cyclobenzap 2-0 Yes [id number] 5mg Take 1 [facility] r[facility] 5 mg 2-19 tablet by ity o f tablet 00:00: mouth 3 (three) Medical times Branch daily. cyclobenzap 2-0 Yes [id number] 5mg Take 1 [facility] r[facility] 5 mg 2-19 tablet by ity o f tablet 00:00: mouth 3 (three) Medical times Branch daily. cyclobenzap 2-0 Yes [id number] 5mg Take 1 [facility] r[facility] 5 mg 2-19 tablet by ity o f tablet 00:00: mouth 3 (three) Medical times Branch daily. cyclobenzap 2022-0 Yes [id number] 5mg Take 1 [facility] r[facility] 5 mg 2-19 tablet by ity o f tablet 00:00: mouth 3 (three) Medical times Branch daily. cyclobenzap 2022-0 Yes [id number] 5mg Take 1 [facility] r[facility] 5 mg 2-19 tablet by ity o f tablet 00:00: mouth 3 00 (three) Medical times Branch daily. cyclobenzap 2021-0 Yes [id number] 5mg Take 1 [facility] r[facility] 5 mg 2-19 tablet by ity o f tablet 00:00: mouth 3 00 (three) Medical times Branch daily. cyclobenzap 2021-0 Yes [id number] 5mg Take 1 [facility] r[facility] 5 mg 2-19 tablet by ity o f tablet 00:00: mouth 3 00 (three) Medical times Branch daily. cyclobenzap 2021-0 Yes [id number] 5mg Take 1 [facility] r[facility] 5 mg 2-19 tablet by ity o f tablet 00:00: mouth 3 00 (three) Medical times Branch daily. cyclobenzap 2021-0 Yes [id number] 5mg Take 1 [facility] 5 mg 2-19 tablet by ity o f tablet 00:00: mouth 3 00 (three) Medical times Branch daily. cyclobenzap 2021-0 Yes [id number] 5mg Take 1 [facility] r[facility] 5 mg 2-19 tablet by ity o f tablet 00:00: mouth 3 00 (three) Medical times Branch daily. cyclobenzap 2021-0 Yes [id number] 5mg Take 1 [facility] r[facility] 5 mg 2-19 tablet by ity o f tablet 00:00: mouth 3 00 (three) Medical times Branch daily. cyclobenzap 2021-0 Yes [id number] 5mg Take 1 [facility] r[facility] 5 mg 2-19 tablet by ity o f tablet 00:00: mouth 3 00 (three) Medical times Branch daily. cyclobenzap 2021-0 Yes [id number] 5mg Take 1 [facility] r[facility] 5 mg 2-19 tablet by ity o f tablet 00:00: mouth 3 00 (three) Medical times Branch daily. cyclobenzap 2021-0 Yes [id number] 5mg Take 1 [facility] rine 5 mg 2-19 tablet by [facility] o f tablet 00:00: mouth 3 00 (three) Medical times Branch daily. acetaminoph 2-0 2023- No [id number] 650mg Take 2 [facility] en 2-19 02-20 tablets by ity of (TYLENOL) 00:00: 05:59 mouth [place] 325 mg 00 :00 every 6 Medical tablet (six) Branch hours as needed for Pain (scale 1-3). acetaminoph 2021-2022- No [id number] 650mg Take 2 [facility] en 2-19 02-20 tablets by ity of (TYLENOL) 00:00: 05:59 mouth [place] 325 mg 00 :00 every 6 Medical tablet (six) Branch hours as needed for Pain (scale 1-3). acetaminoph 2021-2022- No [id number] 650mg Take 2 [facility] en 2-19 02-20 tablets by ity of (TYLENOL) 00:00: 05:59 mouth [place] 325 mg 00 :00 every 6 Medical tablet (six) Branch hours as needed for Pain (scale 1-3). acetaminoph 2021-2022- No [id number] 650mg Take 2 [facility] en 2-19 02-20 tablets by ity of (TYLENOL) 00:00: 05:59 mouth [place] 325 mg 00 :00 every 6 Medical tablet (six) Branch hours as needed for Pain (scale 1-3). acetaminoph 2022- No [id number] 650mg Take 2 [facility] en 2-19 02-20 tablets by ity of (TYLENOL) 00:00: 05:59 mouth [place] 325 mg 00 :00 every 6 Medical tablet (six) Branch hours as needed for Pain (scale 1-3). acetaminoph 2021-2022- No [id number] 650mg Take 2 [facility] en 2-19 02-20 tablets by ity of (TYLENOL) 00:00: 05:59 mouth [place] 325 mg 00 :00 every 6 Medical tablet (six) Branch hours as needed for Pain (scale 1-3). acetaminoph 2021-0 2022- No [id number] 650mg Take 2 [facility] en 2-19 02-20 tablets by ity of (TYLENOL) 00:00: 05:59 mouth [place] 325 mg 00 :00 every 6 Medical tablet (six) Branch hours as needed for Pain (scale 1-3). acetaminoph 2021-2022- No [id number] 650mg Take 2 [facility] en 2-19 02-20 tablets by ity of (TYLENOL) 00:00: 05:59 mouth [place] 325 mg 00 :00 every 6 Medical tablet (six) Branch hours as needed for Pain (scale 1-3). acetaminoph 2022- No [id number] 650mg Take 2 [facility] en 2-19 02-20 tablets by ity of (TYLENOL) 00:00: 05:59 mouth [place] 325 mg 00 :00 every 6 Medical tablet (six) Branch hours as needed for Pain (scale 1-3). acetaminoph 2022- No [id number] 650mg Take 2 [facility] en 2-19 02-20 tablets by ity of (TYLENOL) 00:00: 05:59 mouth [place] 325 mg 00 :00 every 6 Medical tablet (six) Branch hours as needed for Pain (scale 1-3). acetaminoph 2022- No [id number] 650mg Take 2 [facility] en 2-19 02-20 tablets by ity of (TYLENOL) 00:00: 05:59 mouth [place] 325 mg 00 :00 every 6 Medical tablet (six) Branch hours as needed for Pain (scale 1-3). acetaminoph 2022- No [id number] 650mg Take 2 [facility] en 2-19 02-20 tablets by ity of (TYLENOL) 00:00: 05:59 mouth [place] 325 mg 00 :00 every 6 Medical tablet (six) Branch hours as needed for Pain (scale 1-3). acetaminoph 2022- No [id number] 650mg Take 2 [facility] en 2-19 02-20 tablets by ity of (TYLENOL) 00:00: 05:59 mouth [place] 325 mg 00 :00 every 6 Medical tablet (six) Branch hours as needed for Pain (scale 1-3). acetaminoph 2022- No [id number] 650mg Take 2 [facility] en 2-19 02-20 tablets by ity of (TYLENOL) 00:00: 05:59 mouth [place] 325 mg 00 :00 every 6 Medical tablet (six) Branch hours as needed for Pain (scale 1-3). acetaminoph 2022- No [id number] 650mg Take 2 [facility] en 2-19 02-20 tablets by ity of (TYLENOL) 00:00: 05:59 mouth [place] 325 mg 00 :00 every 6 Medical tablet (six) Branch hours as needed for Pain (scale 1-3). acetaminoph 2022- No [id number] 650mg Take 2 [facility] en 2-19 02-20 tablets by ity of (TYLENOL) 00:00: 05:59 mouth [place] 325 mg 00 :00 every 6 Medical tablet (six) Branch hours as needed for Pain (scale 1-3). acetaminoph 2022- No [id number] 650mg Take 2 [facility] en 2-19 02-20 tablets by ity of (TYLENOL) 00:00: 05:59 mouth [place] 325 mg 00 :00 every 6 Medical tablet (six) Branch hours as needed for Pain (scale 1-3). acetaminoph 2021-2022- No [id number] 650mg Take 2 [facility] en 2-19 02-20 tablets by ity of (TYLENOL) 00:00: 05:59 mouth [place] 325 mg 00 :00 every 6 Medical tablet (six) Branch hours as needed for Pain (scale 1-3). acetaminoph 2022- No [id number] 650mg Take 2 [facility] en 2-19 02-20 tablets by ity of (TYLENOL) 00:00: 05:59 mouth [place] 325 mg 00 :00 every 6 Medical tablet (six) Branch hours as needed for Pain (scale 1-3). acetaminoph 2022- No [id number] 650mg Take 2 [facility] en 2-19 02-20 tablets by ity of (TYLENOL) 00:00: 05:59 mouth [place] 325 mg 00 :00 every 6 Medical tablet (six) Branch hours as needed for Pain (scale 1-3). acetaminoph 2021- No [id number] 650mg Take 2 [facility] en 2-19 12-23 tablets by ity of (TYLENOL) 00:00: 00:00 mouth [place] 325 mg 00 :00 every 6 Medical tablet (six) Branch hours as needed for Pain (scale 1-3). metFORMIN 2021-2021- No [id number] 1000mg Take 1 [facility] 1,000 mg 2-06 04- tablet by ity o f tablet 00:00: 00:00 mouth 2 [place] 00 :00 (two) Medical times Branch daily with meals. metFORMIN 2021-0 2021- No [id number] 1000mg Take 1 [facility] 1,000 mg 2-04 -22 tablet by ity o f tablet 00:00: 00:00 mouth 2 [place] 00 :00 (two) Medical times Branch daily with meals. amoxicillin 2020-02 Yes [id number] 1{tbl} Take 1 [facility] -clavulanat 2-14 [id number] tablet by it y of e 00:00: mouth 2 [place] (AUGMENTIN) 00 (two) Medical 875-125 mg times Branch per tablet daily. amoxicillin 2020-02 Yes [id number] 1{tbl} Take 1 [facility] -clavulanat 2-14 [id number] tablet by it y of e 00:00: mouth 2 [place] (AUGMENTIN) 00 (two) Medical 875-125 mg times Branch per tablet daily. amoxicillin 2020-02 Yes [id number] 1{tbl} Take 1 [facility] -clavulanat 2-14 [id number] tablet by it y of e 00:00: mouth 2 [place] (AUGMENTIN) 00 (two) Medical 875-125 mg times Branch per tablet daily. amoxicillin 2020-02 Yes [id number] 1{tbl} Take 1 [facility] -clavulanat 2-14 [id number] tablet by it y of e 00:00: mouth 2 [place] (AUGMENTIN) 00 (two) Medical 875-125 mg times Branch per tablet daily. amoxicillin 2020-02 Yes [id number] 1{tbl} Take 1 [facility] -clavulanat 2-14 [id number] tablet by it y of e 00:00: mouth 2 [place] (AUGMENTIN) 00 (two) Medical 875-125 mg times Branch per tablet daily. amoxicillin 2020-02 Yes [id number] 1{tbl} Take 1 [facility] -clavulanat 2-14 [id number] tablet by it y of e 00:00: mouth 2 [place] (AUGMENTIN) 00 (two) Medical 875-125 mg times Branch per tablet daily. amoxicillin 2020-02 Yes [id number] 1{tbl} Take 1 [facility] -clavulanat 2-14 [id number] tablet by it y of e 00:00: mouth 2 [place] (AUGMENTIN) 00 (two) Medical 875-125 mg times Branch per tablet daily. amoxicillin 2020-02 Yes [id number] 1{tbl} Take 1 [facility] -clavulanat 2-14 [id number] tablet by it y of e 00:00: mouth 2 [place] (AUGMENTIN) 00 (two) Medical 875-125 mg times Branch per tablet daily. amoxicillin 2020-02 Yes [id number] 1{tbl} Take 1 [facility] -clavulanat 2-14 [id number] tablet by it y of e 00:00: mouth 2 [place] (AUGMENTIN) 00 (two) Medical 875-125 mg times Branch per tablet daily. amoxicillin 2020-02 Yes [id number] 1{tbl} Take 1 [facility] -clavulanat 2-14 [id number] tablet by it y of e 00:00: mouth 2 [place] (AUGMENTIN) 00 (two) Medical 875-125 mg times Branch per tablet daily. amoxicillin 2020-02 Yes [id number] 1{tbl} Take 1 [facility] -clavulanat 2-14 [id number] tablet by it y of e 00:00: mouth 2 [place] (AUGMENTIN) 00 (two) Medical 875-125 mg times Branch per tablet daily. amoxicillin 2020-02 Yes [id number] 1{tbl} Take 1 [facility] -clavulanat 2-14 [id number] tablet by it y of e 00:00: mouth 2 [place] (AUGMENTIN) 00 (two) Medical 875-125 mg times Branch per tablet daily. amoxicillin 2020-02 Yes [id number] 1{tbl} Take 1 [facility] -clavulanat 2-14 [id number] tablet by it y of e 00:00: mouth 2 [place] (AUGMENTIN) 00 (two) Medical 875-125 mg times Branch per tablet daily. amoxicillin 2020-02- No [id number] 1{tbl} Take 1 [facility] -clavulanat 2-14 11-16 [id number] tablet by i ty of e 00:00: 00:00 mouth 2 [place] (AUGMENTIN) 00 :00 (two) Medical 875-125 mg times Branch per tablet daily. ibuprofen 2020-02 Yes [id number] 600mg Take 1 [facility] 600 mg 1-17 tablet by ity of tablet 00:00: mouth [place] 00 every 6 Medical (six) Branch hours as needed for Pain (scale 4-6). ondansetron 2020-02 Yes [id number] 4mg Take 1 [facility] (ZOFRAN 1-17 tablet by ity of ODT) 4 mg 00:00: mouth [place] disintegrat 00 every 8 Medic al ing tablet (eight) Branch hours as needed for Nausea and Vomiting (N/V). benzonatate 2020-02 Yes [id number] 100mg Take 1 [facility] 100 mg 1-17 capsule by ity of capsule 00:00: mouth 3 [place] 00 (three) Medical times Branch daily as needed for Cough. ibuprofen 2020-02 Yes [id number] 600mg Take 1 [facility] 600 mg 1-17 tablet by ity of tablet 00:00: mouth [place] 00 every 6 Medical (six) Branch hours as needed for Pain (scale 4-6). ondansetron 2020-02 Yes [id number] 4mg Take 1 [facility] (ZOFRAN 1-17 tablet by ity of ODT) 4 mg 00:00: mouth [place] disintegrat 00 every 8 Medic al ing tablet (eight) Branch hours as needed for Nausea and Vomiting (N/V). benzonatate 2020-02 Yes [id number] 100mg Take 1 [facility] 100 mg 1-17 capsule by ity of capsule 00:00: mouth 3 [place] 00 (three) Medical times Branch daily as needed for Cough. ibuprofen 2020-02 Yes [id number] 600mg Take 1 [facility] 600 mg 1-17 tablet by ity of tablet 00:00: mouth [place] 00 every 6 Medical (six) Branch hours as needed for Pain (scale 4-6). ondansetron 2020-02 Yes [id number] 4mg Take 1 [facility] (ZOFRAN 1-17 tablet by ity of ODT) 4 mg 00:00: mouth [place] disintegrat 00 every 8 Medic al ing tablet (eight) Branch hours as needed for Nausea and Vomiting (N/V). benzonatate 2020-02 Yes [id number] 100mg Take 1 [facility] 100 mg 1-17 capsule by ity of capsule 00:00: mouth 3 [place] 00 (three) Medical times Branch daily as needed for Cough. ibuprofen 2020-02 Yes [id number] 600mg Take 1 [facility] 600 mg 1-17 tablet by ity of tablet 00:00: mouth [place] 00 every 6 Medical (six) Branch hours as needed for Pain (scale 4-6). ondansetron 2020-02 Yes [id number] 4mg Take 1 [facility] (ZOFRAN 1-17 tablet by ity of ODT) 4 mg 00:00: mouth [place] disintegrat 00 every 8 Medic al ing tablet (eight) Branch hours as needed for Nausea and Vomiting (N/V). benzonatate 2020-02 Yes [id number] 100mg Take 1 [facility] 100 mg 1-17 capsule by ity of capsule 00:00: mouth 3 [place] 00 (three) Medical times Branch daily as needed for Cough. ibuprofen 2020-02 Yes [id number] 600mg Take 1 [facility] 600 mg 1-17 tablet by ity of tablet 00:00: mouth [place] 00 every 6 Medical (six) Branch hours as needed for Pain (scale 4-6). ondansetron 2020-02 Yes [id number] 4mg Take 1 [facility] (ZOFRAN 1-17 tablet by ity of ODT) 4 mg 00:00: mouth [place] disintegrat 00 every 8 Medic al ing tablet (eight) Branch hours as needed for Nausea and Vomiting (N/V). benzonatate 2020-02 Yes [id number] 100mg Take 1 [facility] 100 mg 1-17 capsule by ity of capsule 00:00: mouth 3 [place] 00 (three) Medical times Branch daily as needed for Cough. ibuprofen 2020-02 Yes [id number] 600mg Take 1 [facility] 600 mg 1-17 tablet by ity of tablet 00:00: mouth [place] 00 every 6 Medical (six) Branch hours as needed for Pain (scale 4-6). ondansetron 2020-02 Yes [id number] 4mg Take 1 [facility] (ZOFRAN 1-17 tablet by ity of ODT) 4 mg 00:00: mouth [place] disintegrat 00 every 8 Medic al ing tablet (eight) Branch hours as needed for Nausea and Vomiting (N/V). benzonatate 2020-02 Yes [id number] 100mg Take 1 [facility] 100 mg 1-17 capsule by ity of capsule 00:00: mouth 3 [place] 00 (three) Medical times Branch daily as needed for Cough. ibuprofen 2020-02 Yes [id number] 600mg Take 1 [facility] 600 mg 1-17 tablet by ity of tablet 00:00: mouth [place] 00 every 6 Medical (six) Branch hours as needed for Pain (scale 4-6). ondansetron 2020-02 Yes [id number] 4mg Take 1 [facility] (ZOFRAN 1-17 tablet by ity of ODT) 4 mg 00:00: mouth [place] disintegrat 00 every 8 Medic al ing tablet (eight) Branch hours as needed for Nausea and Vomiting (N/V). benzonatate 2020-02 Yes [id number] 100mg Take 1 [facility] 100 mg 1-17 capsule by ity of capsule 00:00: mouth 3 [place] 00 (three) Medical times Branch daily as needed for Cough. ibuprofen 2020-02 Yes [id number] 600mg Take 1 [facility] 600 mg 1-17 tablet by ity of tablet 00:00: mouth [place] 00 every 6 Medical (six) Branch hours as needed for Pain (scale 4-6). ondansetron 2020-02 Yes [id number] 4mg Take 1 [facility] (ZOFRAN 1-17 tablet by ity of ODT) 4 mg 00:00: mouth [place] disintegrat 00 every 8 Medic al ing tablet (eight) Branch hours as needed for Nausea and Vomiting (N/V). benzonatate 2020-02 Yes [id number] 100mg Take 1 [facility] 100 mg 1-17 capsule by ity of capsule 00:00: mouth 3 [place] 00 (three) Medical times Branch daily as needed for Cough. ibuprofen 2020-02 Yes [id number] 600mg Take 1 [facility] 600 mg 1-17 tablet by ity of tablet 00:00: mouth [place] 00 every 6 Medical (six) Branch hours as needed for Pain (scale 4-6). ondansetron 2020-02 Yes [id number] 4mg Take 1 [facility] (ZOFRAN 1-17 tablet by ity of ODT) 4 mg 00:00: mouth [place] disintegrat 00 every 8 Medic al ing tablet (eight) Branch hours as needed for Nausea and Vomiting (N/V). benzonatate 2020-02 Yes [id number] 100mg Take 1 [facility] 100 mg 1-17 capsule by ity of capsule 00:00: mouth 3 [place] 00 (three) Medical times Branch daily as needed for Cough. ibuprofen 2020-02 Yes [id number] 600mg Take 1 [facility] 600 mg 1-17 tablet by ity of tablet 00:00: mouth [place] 00 every 6 Medical (six) Branch hours as needed for Pain (scale 4-6). ondansetron 2020-02 Yes [id number] 4mg Take 1 [facility] (ZOFRAN 1-17 tablet by ity of ODT) 4 mg 00:00: mouth [place] disintegrat 00 every 8 Medic al ing tablet (eight) Branch hours as needed for Nausea and Vomiting (N/V). benzonatate 2020-02 Yes [id number] 100mg Take 1 [facility] 100 mg 1-17 capsule by ity of capsule 00:00: mouth 3 [place] 00 (three) Medical times Branch daily as needed for Cough. ibuprofen 2020-02 Yes [id number] 600mg Take 1 [facility] 600 mg 1-17 tablet by ity of tablet 00:00: mouth [place] 00 every 6 Medical (six) Branch hours as needed for Pain (scale 4-6). ondansetron 2020-02 Yes [id number] 4mg Take 1 [facility] (ZOFRAN 1-17 tablet by ity of ODT) 4 mg 00:00: mouth [place] disintegrat 00 every 8 Medic al ing tablet (eight) Branch hours as needed for Nausea and Vomiting (N/V). benzonatate 2020-02 Yes [id number] 100mg Take 1 [facility] 100 mg 1-17 capsule by ity of capsule 00:00: mouth 3 [place] 00 (three) Medical times Branch daily as needed for Cough. ibuprofen 2020-02 Yes [id number] 600mg Take 1 [facility] 600 mg 1-17 tablet by ity of tablet 00:00: mouth [place] 00 every 6 Medical (six) Branch hours as needed for Pain (scale 4-6). ondansetron 2020-02 Yes [id number] 4mg Take 1 [facility] (ZOFRAN 1-17 tablet by ity of ODT) 4 mg 00:00: mouth [place] disintegrat 00 every 8 Medic al ing tablet (eight) Branch hours as needed for Nausea and Vomiting (N/V). benzonatate 2020-02 Yes [id number] 100mg Take 1 [facility] 100 mg 1-17 capsule by ity of capsule 00:00: mouth 3 [place] 00 (three) Medical times Branch daily as needed for Cough. ibuprofen 2020-02 Yes [id number] 600mg Take 1 [facility] 600 mg 1-17 tablet by ity of tablet 00:00: mouth [place] 00 every 6 Medical (six) Branch hours as needed for Pain (scale 4-6). ondansetron 2020-02 Yes [id number] 4mg Take 1 [facility] (ZOFRAN 1-17 tablet by ity of ODT) 4 mg 00:00: mouth [place] disintegrat 00 every 8 Medic al ing tablet (eight) Branch hours as needed for Nausea and Vomiting (N/V). benzonatate 2020-02 Yes [id number] 100mg Take 1 [facility] 100 mg 1-17 capsule by ity of capsule 00:00: mouth 3 (three) Medical times Branch daily as needed for Cough. ibuprofen 2020-02 Yes [id number] 600mg Take 1 [facility] 600 mg 1-17 tablet by ity of tablet 00:00: mouth [place] 00 every 6 Medical (six) Branch hours as needed for Pain (scale 4-6). benzonatate 2020-02 Yes [id number] 100mg Take 1 [facility] 100 mg 1-17 capsule by ity of capsule 00:00: mouth (three) Medical times Branch daily as needed for Cough. benzonatate 2020-02 Yes [id number] 100mg Take 1 [facility] 100 mg 1-17 capsule by ity of capsule 00:00: mouth (three) Medical times Branch daily as needed for Cough. benzonatate 2020-02 Yes [id number] 100mg Take 1 [facility] 100 mg 1-17 capsule by ity of capsule 00:00: mouth (three) Medical times Branch daily as needed for Cough. benzonatate 2020-02 Yes [id number] 100mg Take 1 [facility] 100 mg 1-17 capsule by ity of capsule 00:00: mouth (three) Medical times Branch daily as needed for Cough. benzonatate 2020-02 Yes [id number] 100mg Take 1 [facility] 100 mg 1-17 capsule by ity of capsule 00:00: mouth (three) Medical times Branch daily as needed for Cough. benzonatate 2020-02 Yes [id number] 100mg Take 1 [facility] 100 mg 1-17 capsule by ity of capsule 00:00: mouth (three) Medical times Branch daily as needed for Cough. benzonatate 2020-02 Yes [id number] 100mg Take 1 [facility] 100 mg 1-17 capsule by ity of capsule 00:00: mouth (three) Medical times Branch daily as needed for Cough. benzonatate 2020-02 Yes [id number] 100mg Take 1 [facility] 100 mg 1-17 capsule by ity of capsule 00:00: mouth (three) Medical times Branch daily as needed for Cough. benzonatate 2020-02 Yes [id number] 100mg Take 1 [facility] 100 mg 1-17 capsule by ity of capsule 00:00: mouth (three) Medical times Branch daily as needed for Cough. benzonatate 2020-02 Yes [id number] 100mg Take 1 [facility] 100 mg 1-17 capsule by ity of capsule 00:00: mouth (three) Medical times Branch daily as needed for Cough. benzonatate 2020-02 Yes [id number] 100mg Take 1 [facility] 100 mg 1-17 capsule by ity of capsule 00:00: mouth (three) Medical times Branch daily as needed for Cough. benzonatate 2020-02 Yes [id number] 100mg Take 1 [facility] 100 mg 1-17 capsule by ity of capsule 00:00: mouth (three) Medical times Branch daily as needed for Cough. benzonatate 2020-02 Yes [id number] 100mg Take 1 [facility] 100 mg 1-17 capsule by ity of capsule 00:00: mouth (three) Medical times Branch daily as needed for Cough. benzonatate 2020-02 Yes [id number] 100mg Take 1 [facility] 100 mg 1-17 capsule by ity of capsule 00:00: mouth (three) Medical times Branch daily as needed for Cough. benzonatate 2020-02 Yes [id number] 100mg Take 1 [facility] 100 mg 1-17 capsule by ity of capsule 00:00: mouth (three) Medical times Branch daily as needed for Cough. benzonatate 2020-02 Yes [id number] 100mg Take 1 [facility] 100 mg 1-17 capsule by ity of capsule 00:00: mouth (three) Medical times Branch daily as needed for Cough. benzonatate 2020-02 Yes [id number] 100mg Take 1 [facility] 100 mg 1-17 capsule by ity of capsule 00:00: mouth (three) Medical times Branch daily as needed for Cough. benzonatate 2020-02 Yes [id number] 100mg Take 1 [facility] 100 mg 1-17 capsule by ity of capsule 00:00: mouth (three) Medical times Branch daily as needed for Cough. benzonatate 2020-02 Yes [id number] 100mg Take 1 [facility] 100 mg 1-17 capsule by ity of capsule 00:00: mouth 3 (three) Medical times Branch daily as needed for Cough. benzonatate 2020-02 Yes [id number] 100mg Take 1 [facility] 100 mg 1-17 capsule by ity of capsule 00:00: mouth 3 (three) Medical times Branch daily as needed for Cough. benzonatate 2020-02 Yes [id number] 100mg Take 1 [facility] 100 mg 1-17 capsule by ity of capsule 00:00: mouth 3 (three) Medical times Branch daily as needed for Cough. benzonatate 2020-02 Yes [id number] 100mg Take 1 [facility] 100 mg 1-17 capsule by ity of capsule 00:00: mouth (three) Medical times Branch daily as needed for Cough. benzonatate 2020-02 Yes [id number] 100mg Take 1 [facility] 100 mg 1-17 capsule by ity of capsule 00:00: mouth (three) Medical times Branch daily as needed for Cough. benzonatate 2020-02 Yes [id number] 100mg Take 1 [facility] 100 mg 1-17 capsule by ity of capsule 00:00: mouth (three) Medical times Branch daily as needed for Cough. benzonatate 2020-02 Yes [id number] 100mg Take 1 [facility] 100 mg 1-17 capsule by ity of capsule 00:00: mouth (three) Medical times Branch daily as needed for Cough. benzonatate 2020-02 Yes [id number] 100mg Take 1 [facility] 100 mg 1-17 capsule by ity of capsule 00:00: mouth (three) Medical times Branch daily as needed for Cough. benzonatate 2020-02 Yes [id number] 100mg Take 1 [facility] 100 mg 1-17 capsule by ity of capsule 00:00: mouth 3 (three) Medical times Branch daily as needed for Cough. benzonatate 2020-02 Yes [id number] 100mg Take 1 [facility] 100 mg 1-17 capsule by ity of capsule 00:00: mouth 3 (three) Medical times Branch daily as needed for Cough. benzonatate 2020-02 Yes [id number] 100mg Take 1 [facility] 100 mg 1-17 capsule by ity of capsule 00:00: mouth 3 [place] 00 (three) Medical times Branch daily as needed for Cough. benzonatate 2020-02 Yes [id number] 100mg Take 1 [facility] 100 mg 1-17 capsule by ity of capsule 00:00: mouth 3 [place] 00 (three) Medical times Branch daily as needed for Cough. benzonatate 2020-02 Yes [id number] 100mg Take 1 [facility] 100 mg 1-17 capsule by ity of capsule 00:00: mouth 3 [place] 00 (three) Medical times Branch daily as needed for Cough. benzonatate 2020-02 Yes [id number] 100mg Take 1 [facility] 100 mg 1-17 capsule by ity of capsule 00:00: mouth 3 00 (three) Medical times Branch daily as needed for Cough. ibuprofen 2020-02- No [id number] 600mg Take 1 [facility] 600 mg 1-17 11-21 tablet by ity of tablet 00:00: 00:00 mouth [place] 00 :00 every 6 Medical (six) Branch hours as needed for Pain (scale 4-6). ondansetron 2020-02- No [id number] 4mg Take 1 [facility] (ZOFRAN 1-17 11-16 tablet by ity of ODT) 4 mg 00:00: 00:00 mouth [place] disintegrat 00 :00 every 8 Medic al ing tablet (eight) Branch hours as needed for Nausea and Vomiting (N/V). Blood-Gluco 2020-02 Yes [id number] Use as [facility] se Meter -16 directed, ity of Kit 00:00: once a day [place] 00 to monitor Medical blood Branch glucose for ICD code E11.9 blood sugar 2020-02 Yes [id number] Use as [facility] diagnostic -16 directed, ity of (BLOOD 00:00: once a day [place] GLUCOSE 00 to monitor Medica l TEST) strip blood Branch glucose for ICD code E11.9 Lancets 2020-02 Yes [id number] Use as [facility] vers Misc -16 directed, ity of 00:00: once a day [place] 00 to monitor Medical blood Branch glucose for ICD code E11.9 Blood-Gluco 2020-02 Yes [id number] Use as [facility] se Meter -16 directed, ity of Kit 00:00: once a day [place] 00 to monitor Medical blood Branch glucose for ICD code E11.9 blood sugar 2020-02 Yes [id number] Use as [facility] diagnostic 1-16 directed, ity of (BLOOD 00:00: once a day [place] GLUCOSE 00 to monitor Medica l TEST) strip blood Branch glucose for ICD code E11.9 Lancets 2020- Yes [id number] Use as [facility] vers Misc 1-16 directed, ity of 00:00: once a day [place] 00 to monitor Medical blood Branch glucose for ICD code E11.9 Blood-Gluco 2020-02 Yes [id number] Use as [facility] se Meter 1-16 directed, ity of Kit 00:00: once a day [place] 00 to monitor Medical blood Branch glucose for ICD code E11.9 blood sugar 2020-02 Yes [id number] Use as [facility] diagnostic -16 directed, ity of (BLOOD 00:00: once a day [place] GLUCOSE 00 to monitor Medica l TEST) strip blood Branch glucose for ICD code E11.9 Lancets 2020-02 Yes [id number] Use as [facility] vers Misc -16 directed, ity of 00:00: once a day [place] 00 to monitor Medical blood Branch glucose for ICD code E11.9 Blood-Gluco 2020- Yes [id number] Use as [facility] se Meter -16 directed, ity of Kit 00:00: once a day [place] 00 to monitor Medical blood Branch glucose for ICD code E11.9 blood sugar 2020-02 Yes [id number] Use as [facility] diagnostic -16 directed, ity of (BLOOD 00:00: once a day [place] GLUCOSE 00 to monitor Medica l TEST) strip blood Branch glucose for ICD code E11.9 Lancets 2020-02 Yes [id number] Use as [facility] vers Misc -16 directed, ity of 00:00: once a day [place] 00 to monitor Medical blood Branch glucose for ICD code E11.9 Blood-Gluco 2020- Yes [id number] Use as [facility] se Meter -16 directed, ity of Kit 00:00: once a day [place] 00 to monitor Medical blood Branch glucose for ICD code E11.9 blood sugar 2020-02 Yes [id number] Use as [facility] diagnostic 1-16 directed, ity of (BLOOD 00:00: once a day [place] GLUCOSE 00 to monitor Medica l TEST) strip blood Branch glucose for ICD code E11.9 Lancets 2020-02 Yes [id number] Use as [facility] vers Misc 1-16 directed, ity of 00:00: once a day [place] 00 to monitor Medical blood Branch glucose for ICD code E11.9 Blood-Gluco 2020- Yes [id number] Use as [facility] se Meter 1-16 directed, ity of Kit 00:00: once a day [place] 00 to monitor Medical blood Branch glucose for ICD code E11.9 blood sugar 2020-02 Yes [id number] Use as [facility] diagnostic 1-16 directed, ity of (BLOOD 00:00: once a day [place] GLUCOSE 00 to monitor Medica l TEST) strip blood Branch glucose for ICD code E11.9 Lancets 2020-02 Yes [id number] Use as [facility] vers Misc -16 directed, ity of 00:00: once a day [place] 00 to monitor Medical blood Branch glucose for ICD code E11.9 Blood-Gluco 2020- Yes [id number] Use as [facility] se Meter -16 directed, [facility] of Kit 00:00: once a day [place] 00 to monitor Medical blood Branch glucose for ICD code E11.9 blood sugar 2020-02 Yes [id number] Use as [facility] diagnostic -16 directed, ity of (BLOOD 00:00: once a day [place] GLUCOSE 00 to monitor Medica l TEST) strip blood Branch glucose for ICD code E11.9 Lancets 2020- Yes [id number] Use as Uni vers Misc -16 directed, ity of 00:00: once a day [place] 00 to monitor Medical blood Branch glucose for ICD code E11.9 Blood-Gluco 2020- Yes [id number] Use as [facility] se Meter -16 directed, ity of Kit 00:00: once a day [place] 00 to monitor Medical blood Branch glucose for ICD code E11.9 blood sugar 2020- Yes [id number] Use as [facility] diagnostic -16 directed, ity of (BLOOD 00:00: once a day [place] GLUCOSE 00 to monitor Medica l TEST) strip blood Branch glucose for ICD code E11.9 Lancets 2020- Yes [id number] Use as [facility] vers Misc -16 directed, ity of 00:00: once a day [place] 00 to monitor Medical blood Branch glucose for ICD code E11.9 Blood-Gluco 2020- Yes [id number] Use as [facility] se Meter 1-16 directed, ity of Kit 00:00: once a day [place] 00 to monitor Medical blood Branch glucose for ICD code E11.9 blood sugar 2020- Yes [id number] Use as [facility] diagnostic 1-16 directed, ity of (BLOOD 00:00: once a day [place] GLUCOSE 00 to monitor Medica l TEST) strip blood Branch glucose for ICD code E11.9 Lancets 2020- Yes [id number] Use as [facility] vers Misc -16 directed, ity of 00:00: once a day [place] 00 to monitor Medical blood Branch glucose for ICD code E11.9 Blood-Gluco 2020- Yes [id number] Use as [facility] se Meter -16 directed, ity of Kit 00:00: once a day [place] 00 to monitor Medical blood Branch glucose for ICD code E11.9 blood sugar 2020-02 Yes [id number] Use as [facility] diagnostic -16 directed, ity of (BLOOD 00:00: once a day [place] GLUCOSE 00 to monitor Medica l TEST) strip blood Branch glucose for ICD code E11.9 Lancets 2020- Yes [id number] Use as [facility] vers Misc -16 directed, ity of 00:00: once a day [place] 00 to monitor Medical blood Branch glucose for ICD code E11.9 Blood-Gluco 2020- Yes [id number] Use as [facility] se Meter -16 directed, ity of Kit 00:00: once a day [place] 00 to monitor Medical blood Branch glucose for ICD code E11.9 blood sugar 2020- Yes [id number] Use as [facility] diagnostic -16 directed, ity of (BLOOD 00:00: once a day [place] GLUCOSE 00 to monitor Medica l TEST) strip blood Branch glucose for ICD code E11.9 Lancets 2020- Yes [id number] Use as [facility] vers Misc -16 directed, ity of 00:00: once a day [place] 00 to monitor Medical blood Branch glucose for ICD code E11.9 Blood-Gluco 2020- Yes [id number] Use as [facility] se Meter -16 directed, ity of Kit 00:00: once a day [place] 00 to monitor Medical blood Branch glucose for ICD code E11.9 blood sugar 2020- Yes [id number] Use as [facility] diagnostic -16 directed, ity of (BLOOD 00:00: once a day [place] GLUCOSE 00 to monitor Medica l TEST) strip blood Branch glucose for ICD code E11.9 Lancets 2020- Yes [id number] Use as [facility] vers Misc 1-16 directed, ity of 00:00: once a day [place] 00 to monitor Medical blood Branch glucose for ICD code E11.9 Blood-Gluco 2020-1 Yes [id number] Use as [facility] se Meter 1-16 directed, ity of Kit 00:00: once a day [place] 00 to monitor Medical blood Branch glucose for ICD code E11.9 blood sugar 2020- Yes [id number] Use as [facility] diagnostic 1-16 directed, ity of (BLOOD 00:00: once a day [place] GLUCOSE 00 to monitor Medica l TEST) strip blood Branch glucose for ICD code E11.9 Blood-Gluco 2020- Yes [id number] Use as [facility] se Meter 1-16 directed, ity of Kit 00:00: once a day [place] 00 to monitor Medical blood Branch glucose for ICD code E11.9 blood sugar 2020- Yes [id number] Use as [facility] diagnostic 1-16 directed, ity of (BLOOD 00:00: once a day [place] GLUCOSE 00 to monitor Medica l TEST) strip blood Branch glucose for ICD code E11.9 Blood-Gluco 2020- Yes [id number] Use as [facility] se Meter 1-16 directed, ity of Kit 00:00: once a day [place] 00 to monitor Medical blood Branch glucose for ICD code E11.9 blood sugar 2020- Yes [id number] Use as [facility] diagnostic 1-16 directed, ity of (BLOOD 00:00: once a day [place] GLUCOSE 00 to monitor Medica l TEST) strip blood Branch glucose for ICD code E11.9 Blood-Gluco 2020- Yes [id number] Use as [facility] se Meter 1-16 directed, ity of Kit 00:00: once a day [place] 00 to monitor Medical blood Branch glucose for ICD code E11.9 blood sugar 2020- Yes [id number] Use as [facility] diagnostic 1-16 directed, ity of (BLOOD 00:00: once a day [place] GLUCOSE 00 to monitor Medica l TEST) strip blood Branch glucose for ICD code E11.9 Blood-Gluco 2020- Yes [id number] Use as [facility] se Meter 1-16 directed, ity of Kit 00:00: once a day [place] 00 to monitor Medical blood Branch glucose for ICD code E11.9 blood sugar 2020- Yes [id number] Use as [facility] diagnostic 1-16 directed, ity of (BLOOD 00:00: once a day [place] GLUCOSE 00 to monitor Medica l TEST) strip blood Branch glucose for ICD code E11.9 Blood-Gluco 2020- Yes [id number] Use as [facility] se Meter 1-16 directed, ity of Kit 00:00: once a day [place] 00 to monitor Medical blood Branch glucose for ICD code E11.9 blood sugar 2020- Yes [id number] Use as [facility] diagnostic 1-16 directed, ity of (BLOOD 00:00: once a day [place] GLUCOSE 00 to monitor Medica l TEST) strip blood Branch glucose for ICD code E11.9 Blood-Gluco 2020- Yes [id number] Use as [facility] se Meter 1-16 directed, ity of Kit 00:00: once a day [place] 00 to monitor Medical blood Branch glucose for ICD code E11.9 blood sugar 2020- Yes [id number] Use as [facility] diagnostic 1-16 directed, ity of (BLOOD 00:00: once a day [place] GLUCOSE 00 to monitor Medica l TEST) strip blood Branch glucose for ICD code E11.9 Blood-Gluco 2020- Yes [id number] Use as [facility] se Meter 1-16 directed, ity of Kit 00:00: once a day [place] 00 to monitor Medical blood Branch glucose for ICD code E11.9 blood sugar 2020- Yes [id number] Use as [facility] diagnostic 1-16 directed, ity of (BLOOD 00:00: once a day [place] GLUCOSE 00 to monitor Medica l TEST) strip blood Branch glucose for ICD code E11.9 Blood-Gluco 2020- Yes [id number] Use as [facility] se Meter 1-16 directed, ity of Kit 00:00: once a day [place] 00 to monitor Medical blood Branch glucose for ICD code E11.9 blood sugar 2020- Yes [id number] Use as [facility] diagnostic 1-16 directed, ity of (BLOOD 00:00: once a day [place] GLUCOSE 00 to monitor Medica l TEST) strip blood Branch glucose for ICD code E11.9 Blood-Gluco 2020- Yes [id number] Use as [facility] se Meter 1-16 directed, ity of Kit 00:00: once a day [place] 00 to monitor Medical blood Branch glucose for ICD code E11.9 blood sugar 2020- Yes [id number] Use as [facility] diagnostic 1-16 directed, ity of (BLOOD 00:00: once a day [place] GLUCOSE 00 to monitor Medica l TEST) strip blood Branch glucose for ICD code E11.9 Blood-Gluco 2020- Yes [id number] Use as [facility] se Meter 1-16 directed, ity of Kit 00:00: once a day [place] 00 to monitor Medical blood Branch glucose for ICD code E11.9 blood sugar 2020- Yes [id number] Use as [facility] diagnostic 1-16 directed, ity of (BLOOD 00:00: once a day [place] GLUCOSE 00 to monitor Medica l TEST) strip blood Branch glucose for ICD code E11.9 Blood-Gluco 2020- Yes [id number] Use as [facility] se Meter 1-16 directed, ity of Kit 00:00: once a day [place] 00 to monitor Medical blood Branch glucose for ICD code E11.9 blood sugar 2020- Yes [id number] Use as [facility] diagnostic 1-16 directed, ity of (BLOOD 00:00: once a day [place] GLUCOSE 00 to monitor Medica l TEST) strip blood Branch glucose for ICD code E11.9 Blood-Gluco 2020- Yes [id number] Use as [facility] se Meter 1-16 directed, ity of Kit 00:00: once a day [place] 00 to monitor Medical blood Branch glucose for ICD code E11.9 blood sugar 2020- Yes [id number] Use as [facility] diagnostic 1-16 directed, ity of (BLOOD 00:00: once a day [place] GLUCOSE 00 to monitor Medica l TEST) strip blood Branch glucose for ICD code E11.9 Blood-Gluco 2020- Yes [id number] Use as [facility] se Meter 1-16 directed, ity of Kit 00:00: once a day [place] 00 to monitor Medical blood Branch glucose for ICD code E11.9 blood sugar 2020- Yes [id number] Use as [facility] diagnostic 1-16 directed, ity of (BLOOD 00:00: once a day [place] GLUCOSE 00 to monitor Medica l TEST) strip blood Branch glucose for ICD code E11.9 Blood-Gluco 2020- Yes [id number] Use as [facility] se Meter 1-16 directed, ity of Kit 00:00: once a day [place] 00 to monitor Medical blood Branch glucose for ICD code E11.9 blood sugar 2020- Yes [id number] Use as [facility] diagnostic 1-16 directed, ity of (BLOOD 00:00: once a day [place] GLUCOSE 00 to monitor Medica l TEST) strip blood Branch glucose for ICD code E11.9 Blood-Gluco 2020- Yes [id number] Use as [facility] se Meter 1-16 directed, ity of Kit 00:00: once a day [place] 00 to monitor Medical blood Branch glucose for ICD code E11.9 blood sugar 2020- Yes [id number] Use as [facility] diagnostic 1-16 directed, ity of (BLOOD 00:00: once a day [place] GLUCOSE 00 to monitor Medica l TEST) strip blood Branch glucose for ICD code E11.9 Blood-Gluco 2020- Yes [id number] Use as [facility] se Meter 1-16 directed, ity of Kit 00:00: once a day [place] 00 to monitor Medical blood Branch glucose for ICD code E11.9 blood sugar 2020- Yes [id number] Use as [facility] diagnostic 1-16 directed, ity of (BLOOD 00:00: once a day [place] GLUCOSE 00 to monitor Medica l TEST) strip blood Branch glucose for ICD code E11.9 Blood-Gluco 2020- Yes [id number] Use as [facility] se Meter 1-16 directed, ity of Kit 00:00: once a day [place] 00 to monitor Medical blood Branch glucose for ICD code E11.9 blood sugar 2020- Yes [id number] Use as [facility] diagnostic 1-16 directed, ity of (BLOOD 00:00: once a day [place] GLUCOSE 00 to monitor Medica l TEST) strip blood Branch glucose for ICD code E11.9 Blood-Gluco 2020- Yes [id number] Use as [facility] se Meter 1-16 directed, ity of Kit 00:00: once a day [place] 00 to monitor Medical blood Branch glucose for ICD code E11.9 blood sugar 2020- Yes [id number] Use as [facility] diagnostic 1-16 directed, ity of (BLOOD 00:00: once a day [place] GLUCOSE 00 to monitor Medica l TEST) strip blood Branch glucose for ICD code E11.9 Blood-Gluco 2020- Yes [id number] Use as [facility] se Meter 1-16 directed, ity of Kit 00:00: once a day [place] 00 to monitor Medical blood Branch glucose for ICD code E11.9 blood sugar 2020- Yes [id number] Use as [facility] diagnostic 1-16 directed, ity of (BLOOD 00:00: once a day [place] GLUCOSE 00 to monitor Medica l TEST) strip blood Branch glucose for ICD code E11.9 Blood-Gluco 2020- Yes [id number] Use as [facility] se Meter 1-16 directed, ity of Kit 00:00: once a day [place] 00 to monitor Medical blood Branch glucose for ICD code E11.9 blood sugar 2020- Yes [id number] Use as [facility] diagnostic 1-16 directed, ity of (BLOOD 00:00: once a day [place] GLUCOSE 00 to monitor Medica l TEST) strip blood Branch glucose for ICD code E11.9 Blood-Gluco 2020- Yes [id number] Use as [facility] se Meter 1-16 directed, ity of Kit 00:00: once a day [place] 00 to monitor Medical blood Branch glucose for ICD code E11.9 blood sugar 2020- Yes [id number] Use as [facility] diagnostic 1-16 directed, ity of (BLOOD 00:00: once a day [place] GLUCOSE 00 to monitor Medica l TEST) strip blood Branch glucose for ICD code E11.9 Blood-Gluco 2020- Yes [id number] Use as [facility] se Meter 1-16 directed, ity of Kit 00:00: once a day [place] 00 to monitor Medical blood Branch glucose for ICD code E11.9 blood sugar 2020- Yes [id number] Use as [facility] diagnostic 1-16 directed, ity of (BLOOD 00:00: once a day [place] GLUCOSE 00 to monitor Medica l TEST) strip blood Branch glucose for ICD code E11.9 Blood-Gluco 2020- Yes [id number] Use as [facility] se Meter 1-16 directed, ity of Kit 00:00: once a day [place] 00 to monitor Medical blood Branch glucose for ICD code E11.9 blood sugar 2020- Yes [id number] Use as [facility] diagnostic 1-16 directed, ity of (BLOOD 00:00: once a day [place] GLUCOSE 00 to monitor Medica l TEST) strip blood Branch glucose for ICD code E11.9 Blood-Gluco 2020- Yes [id number] Use as [facility] se Meter 1-16 directed, ity of Kit 00:00: once a day [place] 00 to monitor Medical blood Branch glucose for ICD code E11.9 blood sugar 2020- Yes [id number] Use as [facility] diagnostic 1-16 directed, ity of (BLOOD 00:00: once a day [place] GLUCOSE 00 to monitor Medica l TEST) strip blood Branch glucose for ICD code E11.9 Blood-Gluco 2020- Yes [id number] Use as [facility] se Meter 1-16 directed, ity of Kit 00:00: once a day [place] 00 to monitor Medical blood Branch glucose for ICD code E11.9 blood sugar 2020- Yes [id number] Use as [facility] diagnostic 1-16 directed, ity of (BLOOD 00:00: once a day [place] GLUCOSE 00 to monitor Medica l TEST) strip blood Branch glucose for ICD code E11.9 Blood-Gluco 2020- Yes [id number] Use as [facility] se Meter 1-16 directed, ity of Kit 00:00: once a day [place] 00 to monitor Medical blood Branch glucose for ICD code E11.9 blood sugar 2020- Yes [id number] Use as [facility] diagnostic 1-16 directed, ity of (BLOOD 00:00: once a day [place] GLUCOSE 00 to monitor Medica l TEST) strip blood Branch glucose for ICD code E11.9 Blood-Gluco 2020- Yes [id number] Use as [facility] se Meter 1-16 directed, ity of Kit 00:00: once a day [place] 00 to monitor Medical blood Branch glucose for ICD code E11.9 blood sugar 2020- Yes [id number] Use as [facility] diagnostic 1-16 directed, ity of (BLOOD 00:00: once a day [place] GLUCOSE 00 to monitor Medica l TEST) strip blood Branch glucose for ICD code E11.9 Blood-Gluco 2020- Yes [id number] Use as [facility] se Meter 1-16 directed, ity of Kit 00:00: once a day [place] 00 to monitor Medical blood Branch glucose for ICD code E11.9 blood sugar 2020- Yes [id number] Use as [facility] diagnostic 1-16 directed, ity of (BLOOD 00:00: once a day [place] GLUCOSE 00 to monitor Medica l TEST) strip blood Branch glucose for ICD code E11.9 Blood-Gluco 2020- Yes [id number] Use as [facility] se Meter 1-16 directed, ity of Kit 00:00: once a day [place] 00 to monitor Medical blood Branch glucose for ICD code E11.9 blood sugar 2020-02 Yes [id number] Use as Univers diagnostic 1-16 directed, ity of (BLOOD 00:00: once a day [place] GLUCOSE 00 to monitor Medica l TEST) strip blood Branch glucose for ICD code E11.9 Blood-Gluco 2020-02 Yes [id number] Use as Univers se Meter 1-16 directed, ity of Kit 00:00: once a day [place] 00 to monitor Medical blood Branch glucose for ICD code E11.9 blood sugar 2020-02 Yes [id number] Use as Univers diagnostic 1-16 directed, ity of (BLOOD 00:00: once a day [place] GLUCOSE 00 to monitor Medica l TEST) strip blood Branch glucose for ICD code E11.9 Blood-Gluco 2020-02 Yes [id number] Use as Univers se Meter -16 directed, ity of Kit 00:00: once a day [place] 00 to monitor Medical blood Branch glucose for ICD code E11.9 blood sugar 2020-02 Yes [id number] Use as Univers diagnostic 1-16 directed, ity of (BLOOD 00:00: once a day [place] GLUCOSE 00 to monitor Medica l TEST) strip blood Branch glucose for ICD code E11.9 Blood-Gluco 2020-02 Yes [id number] Use as Univers se Meter 1-16 directed, ity of Kit 00:00: once a day [place] 00 to monitor Medical blood Branch glucose for ICD code E11.9 blood sugar 2020-02 Yes [id number] Use as Univers diagnostic -16 directed, ity of (BLOOD 00:00: once a day [place] GLUCOSE 00 to monitor Medica l TEST) strip blood Branch glucose for ICD code E11.9 Lancets 2020-02- No [id number] Use as [facility] Misc 1-16 -10 directed, ity of 00:00: 00:00 once a day [place] 00 :00 to monitor Medical blood Branch glucose for ICD code E11.9 Immunizations Ordered Filled Immunization Date Status Comments Sour e Immunization Name Name Influenza Virus 2020-12-17 Completed [facility] Vaccine [facility], 00:00:00 [place] [facility] Preserv and ABX Branch Free 6 MO-64 YRS Pneumococcal 13 2020-12-17 Completed [facility] of Conjugate, PCV13 00:00:00 [place] [facility] (Prevnar 13) Branch Influenza Virus 2020-12-17 Completed [facility] Vaccine [facility] IM, 00:00:00 [place] [facility] Preserv and ABX Branch Free 6 MO-64 YRS Pneumococcal 13 2020-12-17 Completed [facility] of Conjugate, PCV13 00:00:00 [facility] dical (Prevnar 13) Branch Influenza Virus 2020-12-17 Completed [facility] of Vaccine Quad IM, 00:00:00 [facility] dical Preserv and ABX Branch Free 6 MO-64 YRS Pneumococcal 13 2020-12-17 Completed [facility] of Conjugate, PCV13 00:00:00 [facility] dical (Prevnar 13) Branch Influenza Virus 2020-12-17 Completed [facility] of Vaccine Quad IM, 00:00:00 [facility] dical Preserv and ABX Branch Free 6 MO-64 YRS Pneumococcal 13 2020-12-17 Completed [facility] of Conjugate, PCV13 00:00:00 [facility] dical (Prevnar 13) Branch Influenza Virus 2020-12-17 Completed [facility] of Vaccine Quad IM, 00:00:00 [facility] dical Preserv and ABX Branch Free 6 MO-64 YRS Pneumococcal 13 2020-12-17 Completed [facility] of Conjugate, PCV13 00:00:00 [facility] dical (Prevnar 13) Branch Influenza Virus 2020-12-17 Completed [facility] of Vaccine Quad IM, 00:00:00 [facility] dical Preserv and ABX Branch Free 6 MO-64 YRS Pneumococcal 13 2020-12-17 Completed [facility]it [facility] of Conjugate, PCV13 00:00:00 [facility] dical (Prevnar 13) Branch Influenza Virus 2020-12-17 Completed [facility] of Vaccine Quad IM, 00:00:00 [facility] dical Preserv and ABX Branch Free 6 MO-64 YRS Pneumococcal 13 2020-12-17 Completed [facility] of Conjugate, PCV13 00:00:00 [facility] dical (Prevnar 13) Branch Influenza Virus 2020-12-17 Completed [facility] of Vaccine Quad IM, 00:00:00 [facility] dical Preserv and ABX Branch Free 6 MO-64 YRS Pneumococcal 13 2020-12-17 Completed [facility] of Conjugate, PCV13 00:00:00 [facility] dical (Prevnar 13) Branch Influenza Virus 2020-12-17 Completed [facility] of Vaccine Quad IM, 00:00:00 [place] [facility] Preserv and ABX Branch Free 6 MO-64 YRS Pneumococcal 13 2020-12-17 Completed [facility] of Conjugate, PCV13 00:00:00 [place] [facility] (Prevnar 13) Branch Influenza Virus 2020-12-17 Completed [facility] of Vaccine Quad IM, 00:00:00 [place] [facility] Preserv and ABX Branch Free 6 MO-64 YRS Pneumococcal 13 2020-12-17 Completed [facility] of Conjugate, PCV13 00:00:00 [place] [facility] (Prevnar 13) Branch Influenza Virus 2020-12-17 Completed [facility] of Vaccine Quad IM, 00:00:00 [place] [facility] Preserv and ABX Branch Free 6 MO-64 YRS Pneumococcal 13 2020-12-17 Completed [facility] of Conjugate, PCV13 00:00:00 [place] [facility] (Prevnar 13) Branch Influenza Virus 2020-12-17 Completed [facility] of Vaccine Quad IM, 00:00:00 [facility] dical Preserv and ABX Branch Free 6 MO-64 YRS Pneumococcal 13 2020-12-17 Completed [facility] of Conjugate, PCV13 00:00:00 [place] [facility] (Prevnar 13) Branch Influenza Virus 2020-12-17 Completed [facility] of Vaccine Quad IM, 00:00:00 [facility] dical Preserv and ABX Branch Free 6 MO-64 YRS Pneumococcal 13 2020-12-17 Completed [facility] of Conjugate, PCV13 00:00:00 [place] [facility] (Prevnar 13) Branch Influenza Virus 2020-12-17 Completed [facility] of Vaccine Quad IM, 00:00:00 [place] [facility] Preserv and ABX Branch Free 6 MO-64 YRS Pneumococcal 13 2020-12-17 Completed [facility] of Conjugate, PCV13 00:00:00 [place] [facility] (Prevnar 13) Branch Influenza Virus 2020-12-17 Completed [facility] of Vaccine Quad IM, 00:00:00 [place] [facility] Preserv and ABX Branch Free 6 MO-64 YRS Pneumococcal 13 2020-12-17 Completed [facility] of Conjugate, PCV13 00:00:00 [place] [facility] (Prevnar 13) Branch Influenza Virus 2020-12-17 Completed [facility] of Vaccine Quad IM, 00:00:00 [place] [facility] Preserv and ABX Branch Free 6 MO-64 YRS Pneumococcal 13 2020-12-17 Completed [facility] of Conjugate, PCV13 00:00:00 [place] [facility] (Prevnar 13) Branch Influenza Virus 2020-12-17 Completed [facility] of Vaccine Quad IM, 00:00:00 [place] [facility] Preserv and ABX Branch Free 6 MO-64 YRS Pneumococcal 13 2020-12-17 Completed [facility] of Conjugate, PCV13 00:00:00 [place] [facility] (Prevnar 13) Branch Influenza Virus 2020-12-17 Completed [facility] of Vaccine Quad IM, 00:00:00 [place] [facility] Preserv and ABX Branch Free 6 MO-64 YRS Pneumococcal 13 2020-12-17 Completed [facility] of Conjugate, PCV13 00:00:00 [place] [facility] (Prevnar 13) Branch Influenza Virus 2020-12-17 Completed [facility] of Vaccine Quad IM, 00:00:00 [facility] dical Preserv and ABX Branch Free 6 MO-64 YRS Pneumococcal 13 2020-12-17 Completed [facility]it y of Conjugate, PCV13 00:00:00 [place] [facility] (Prevnar 13) Branch Influenza Virus 2020-12-17 Completed [facility] of Vaccine Quad IM, 00:00:00 [place] [facility] Preserv and ABX Branch Free 6 MO-64 YRS Pneumococcal 13 2020-12-17 Completed [facility] of Conjugate, PCV13 00:00:00 [place] [facility] (Prevnar 13) Branch Influenza Virus 2020-12-17 Completed [facility] of Vaccine Quad IM, 00:00:00 [place] [facility] Preserv and ABX Branch Free 6 MO-64 YRS Pneumococcal 13 2020-12-17 Completed [facility] of Conjugate, PCV13 00:00:00 [place] [facility] (Prevnar 13) Branch Influenza Virus 2020-12-17 Completed [facility] of Vaccine Quad IM, 00:00:00 [place] [facility] Preserv and ABX Branch Free 6 MO-64 YRS Pneumococcal 13 2020-12-17 Completed [facility] of Conjugate, PCV13 00:00:00 [place] [facility] (Prevnar 13) Branch Influenza Virus 2020-12-17 Completed [facility] of Vaccine Quad IM, 00:00:00 [place] [facility] Preserv and ABX Branch Free 6 MO-64 YRS Pneumococcal 13 2020-12-17 Completed [facility] of Conjugate, PCV13 00:00:00 [place] [facility] (Prevnar 13) Branch Influenza Virus 2020-12-17 Completed [facility] of Vaccine Quad IM, 00:00:00 [place] [facility] Preserv and ABX Branch Free 6 MO-64 YRS Pneumococcal 13 2020-12-17 Completed [facility] of Conjugate, PCV13 00:00:00 [place] [facility] (Prevnar 13) Branch Influenza Virus 2020-12-17 Completed [facility] of Vaccine Quad IM, 00:00:00 [place] [facility] Preserv and ABX Branch Free 6 MO-64 YRS Pneumococcal 13 2020-12-17 Completed [facility] of Conjugate, PCV13 00:00:00 [place] [facility] (Prevnar 13) Branch Influenza Virus 2020-12-17 Completed [facility] y of Vaccine Quad IM, 00:00:00 [facility] dical Preserv and ABX Branch Free 6 MO-64 YRS Pneumococcal 13 2020-12-17 Completed [facility] y of Conjugate, PCV13 00:00:00 [facility] dical (Prevnar 13) Branch Influenza Virus 2020-12-17 Completed [facility] of Vaccine Quad IM, 00:00:00 [place] [facility] Preserv and ABX Branch Free 6 MO-64 YRS Pneumococcal 13 2020-12-17 Completed [facility] y of Conjugate, PCV13 00:00:00 [facility] dical (Prevnar 13) Branch Influenza Virus 2020-12-17 Completed [facility] y of Vaccine Quad IM, 00:00:00 [facility] dical Preserv and ABX Branch Free 6 MO-64 YRS Pneumococcal 13 2020-12-17 Completed [facility] of Conjugate, PCV13 00:00:00 [place] [facility] (Prevnar 13) Branch Influenza Virus 2020-12-17 Completed [facility] of Vaccine Quad IM, 00:00:00 [place] [facility] Preserv and ABX Branch Free 6 MO-64 YRS Pneumococcal 13 2020-12-17 Completed [facility] of Conjugate, PCV13 00:00:00 [place] [facility] (Prevnar 13) Branch Influenza Virus 2020-12-17 Completed [facility] of Vaccine Quad IM, 00:00:00 [place] [facility] Preserv and ABX Branch Free 6 MO-64 YRS Pneumococcal 13 2020-12-17 Completed [facility] of Conjugate, PCV13 00:00:00 [place] [facility] (Prevnar 13) Branch Influenza Virus 2020-12-17 Completed [facility] of Vaccine Quad IM, 00:00:00 [place] [facility] Preserv and ABX Branch Free 6 MO-64 YRS Pneumococcal 13 2020-12-17 Completed [facility] of Conjugate, PCV13 00:00:00 [place] [facility] (Prevnar 13) Branch Influenza Virus 2020-12-17 Completed [facility] of Vaccine Quad IM, 00:00:00 [place] [facility] Preserv and ABX Branch Free 6 MO-64 YRS Pneumococcal 13 2020-12-17 Completed [facility] of Conjugate, PCV13 00:00:00 [place] [facility] (Prevnar 13) Branch Influenza Virus 2020-12-17 Completed [facility] of Vaccine Quad IM, 00:00:00 [place] Me dical Preserv and ABX Branch Free 6 MO-64 YRS Pneumococcal 13 2020-12-17 Completed Universit y of Conjugate, PCV13 00:00:00 [facility] dical (Prevnar 13) Branch Influenza Virus 2020-12-17 Completed Universit y of Vaccine Quad IM, 00:00:00 [place] [facility] Preserv and ABX Branch Free 6 MO-64 YRS Pneumococcal 13 2020-12-17 Completed Universit y of Conjugate, PCV13 00:00:00 [place] [facility] (Prevnar 13) Branch Influenza Virus 2020-12-17 Completed Universit y of Vaccine Quad IM, 00:00:00 [place] [facility] Preserv and ABX Branch Free 6 MO-64 YRS Pneumococcal 13 2020-12-17 Completed Universit y of Conjugate, PCV13 00:00:00 [place] [facility] dical (Prevnar 13) Branch Influenza Virus 2020-12-17 Completed Universit y of Vaccine Quad IM, 00:00:00 [place] [facility] Preserv and ABX Branch Free 6 MO-64 YRS Pneumococcal 13 2020-12-17 Completed Universit y of Conjugate, PCV13 00:00:00 [place] [facility] d[facility] (Prevnar 13) Branch Influenza Virus 2020-12-17 Completed Universit y of Vaccine Quad IM, 00:00:00 [place] [facility] d[facility] Preserv and ABX Branch Free 6 MO-64 YRS Pneumococcal 13 2020-12-17 Completed Universit y of Conjugate, PCV13 00:00:00 [facility] dical (Prevnar 13) Branch Influenza Virus 2020-12-17 Completed Universit y of Vaccine Quad IM, 00:00:00 [place] Me dical Preserv and ABX Branch Free 6 MO-64 YRS Pneumococcal 13 2020-12-17 Completed Universit y of Conjugate, PCV13 00:00:00 [facility] dical (Prevnar 13) Branch Influenza Virus 2020-12-17 Completed Universit y of Vaccine Quad IM, 00:00:00 [facility] dical Preserv and ABX Branch Free 6 MO-64 YRS Pneumococcal 13 2020-12-17 Completed Universit y of Conjugate, PCV13 00:00:00 [facility] dical (Prevnar 13) Branch Influenza Virus 2020-12-17 Completed Universit y of Vaccine Quad IM, 00:00:00 [facility] dical Preserv and ABX Branch Free 6 MO-64 YRS Pneumococcal 13 2020-12-17 Completed Universit y of Conjugate, PCV13 00:00:00 [facility] dical (Prevnar 13) Branch Influenza Virus 2020-12-17 Completed Universit y of Vaccine Quad IM, 00:00:00 [facility] dical Preserv and ABX Branch Free 6 MO-64 YRS Pneumococcal 13 2020-12-17 Completed Universit y of Conjugate, PCV13 00:00:00 [facility] dical (Prevnar 13) Branch Influenza Virus 2020-12-17 Completed Universit y of Vaccine Quad IM, 00:00:00 [facility] dical Preserv and ABX Branch Free 6 MO-64 YRS Pneumococcal 13 2020-12-17 Completed Universit y of Conjugate, PCV13 00:00:00 [facility] dical (Prevnar 13) Branch Influenza Virus 2020-12-17 Completed Universit y of Vaccine Quad IM, 00:00:00 [facility] dical Preserv and ABX Branch Free 6 MO-64 YRS Pneumococcal 13 2020-12-17 Completed Universit y of Conjugate, PCV13 00:00:00 [facility] dical (Prevnar 13) Branch Influenza Virus 2020-12-17 Completed Universit y of Vaccine Quad IM, 00:00:00 [facility] dical Preserv and ABX Branch Free 6 MO-64 YRS Pneumococcal 13 2020-12-17 Completed Universit y of Conjugate, PCV13 00:00:00 [place] Me dical (Prevnar 13) Branch Influenza Virus 2020-12-17 Completed Universit y of Vaccine Quad IM, 00:00:00 [place] [facility] dical Preserv and ABX Branch Free 6 MO-64 YRS Pneumococcal 13 2020-12-17 Completed Universit y of Conjugate, PCV13 00:00:00 [place] Me dical (Prevnar 13) Branch DTAP 2018-12-05 Completed University of 00:00:00 [facility] Branch DTAP 2018-12-05 Completed University of 00:00:00 [facility] Branch DTAP 2018-12-05 Completed University of 00:00:00 [facility] DTAP 2018-12-05 Completed University of 00:00:00 [facility] DTAP 2018-12-05 Completed University of 00:00:00 [facility] DTAP 2018-12-05 Completed University of 00:00:00 [facility] DTAP 2018-12-05 Completed University of 00:00:00 [facility] DTAP 2018-12-05 Completed University of 00:00:00 [facility] DTAP 2018-12-05 Completed University of 00:00:00 [facility] DTAP 2018-12-05 Completed University of 00:00:00 [facility] DTAP 2018-12-05 Completed University of 00:00:00 [facility] DTAP 2018-12-05 Completed University of 00:00:00 [facility] DTAP 2018-12-05 Completed University of 00:00:00 [facility] DTAP 2018-12-05 Completed University of 00:00:00 [facility] DTAP 2018-12-05 Completed University of 00:00:00 [facility] Branch DTAP 2018-12-05 Completed University of 00:00:00 [facility] DTAP 2018-12-05 Completed University of 00:00:00 [facility] DTAP 2018-12-05 Completed University of 00:00:00 [facility] DTAP 2018-12-05 Completed University of 00:00:00 [facility] DTAP 2018-12-05 Completed University of 00:00:00 [facility] DTAP 2018-12-05 Completed University of 00:00:00 [facility] DTAP 2018-12-05 Completed University of 00:00:00 [facility] DTAP 2018-12-05 Completed University of 00:00:00 [facility] DTAP 2018-12-05 Completed University of 00:00:00 [facility] DTAP 2018-12-05 Completed University of 00:00:00 [facility] DTAP 2018-12-05 Completed University of 00:00:00 [facility] DTAP 2018-12-05 Completed University of 00:00:00 [facility] DTAP 2018-12-05 Completed University of 00:00:00 [facility] Branch DTAP 2018-12-05 Completed University of 00:00:00 [facility] DTAP 2018-12-05 Completed University of 00:00:00 [facility] DTAP 2018-12-05 Completed University of 00:00:00 [facility] DTAP 2018-12-05 Completed University of 00:00:00 [facility] Branch DTAP 2018-12-05 Completed University of 00:00:00 [facility] DTAP 2018-12-05 Completed University of 00:00:00 [facility] DTAP 2018-12-05 Completed University of 00:00:00 [facility] DTAP 2018-12-05 Completed University of 00:00:00 [facility] DTAP 2018-12-05 Completed University of 00:00:00 [facility] DTAP 2018-12-05 Completed University of 00:00:00 [facility] DTAP 2018-12-05 Completed University of 00:00:00 [facility] DTAP 2018-12-05 Completed University of 00:00:00 [facility] DTAP 2018-12-05 Completed University of 00:00:00 [facility] DTAP 2018-12-05 Completed University of 00:00:00 [facility] DTAP 2018-12-05 Completed University of 00:00:00 [facility] DTAP 2018-12-05 Completed University of 00:00:00 [facility] DTAP 2018-12-05 Completed University of 00:00:00 [facility] Vital Signs Vital Name Observation Time Observation Value Comments Source Body weight 2022-07-14 13:37:00 118.389 kg [facility] BMI 2022-07-14 13:37:00 43.70 kg/m2 [facility] Systolic blood 2022-07-11 19:26:00 109 mm[Hg] Univer sity of pressure [facility] Diastolic blood 2022-07-11 19:26:00 89 mm[Hg] Unive rsity of pressure [place] [facility] Heart rate 2022-07-11 19:26:00 90 /min [facility]i ty [facility] [place] [facility] Respiratory rate 2022-07-11 19:26:00 20 /min Univ ersity of [place] [facility] Body height 2022-07-11 19:26:00 164.6 cm [facility]i [facility] [place] [facility] Body weight 2022-07-11 19:26:00 118.661 kg [facility] [place] [facility] BMI 2022-07-11 19:26:00 43.80 kg/m2 [facility] [place] [facility] Oxygen saturation in 2022-07-11 19:26:00 100 /min University of Arterial blood by [place] [employer] Pulse oximetry Branch Systolic blood 2022-04-05 07:00:00 118 mm[Hg] Univer sity of pressure [place] [facility] Diastolic blood 2022-04-05 07:00:00 81 mm[Hg] Unive rsity of pressure [facility] Heart rate 2022-04-05 07:00:00 65 /min [facility]i ty [facility] [place] [facility] Respiratory rate 2022-04-05 07:00:00 19 /min Univ ersity of [place] [facility] Oxygen saturation in 2022-04-05 07:00:00 93 /min University of Arterial blood by [place] [employer] Pulse oximetry Branch Body temperature 2022-04-05 04:01:00 36.89 Lluvia Univ ersity of [place] [facility] Body height 2022-04-05 04:01:00 162.6 cm Universi ty [facility] [place] [facility] Body weight 2022-04-05 04:01:00 120.203 kg [facility] [place] [facility] BMI 2022-04-05 04:01:00 45.49 kg/m2 [facility] [place] [facility] Systolic blood 2022-04-04 14:54:00 130 mm[Hg] Univer sity of pressure [place] [facility] Diastolic blood 2022-04-04 14:54:00 87 mm[Hg] Unive rsity of pressure [place] [facility] Heart rate 2022-04-04 14:54:00 86 /min [facility]i ty [facility] [place] [facility] Oxygen saturation in 2022-04-04 14:54:00 96 /min University of Arterial blood by [place] [employer] Pulse oximetry Branch Body temperature 2022-04-04 14:53:00 36.72 Lluvia Univ ersity of [place] [facility] Respiratory rate 2022-04-04 14:53:00 18 /min Univ ersity of [place] [facility] Body height 2022-04-04 14:53:00 162.6 cm Universi ty of [place] [facility] Body weight 2022-04-04 14:53:00 120.203 kg [facility]i [facility] [place] [facility] BMI 2022-04-04 14:53:00 45.49 kg/m2 [facility] [place] [facility] Systolic blood 2022-02-14 15:16:00 137 mm[Hg] Univer sity of pressure [facility] Diastolic blood 2022-02-14 15:16:00 94 mm[Hg] Unive rsity of pressure [facility] Heart rate 2022-02-14 15:16:00 71 /min Universi ty [facility] [place] [facility] Body temperature 2022-02-14 15:15:00 36.56 Lluvia Univ ersity of [place] [facility] Respiratory rate 2022-02-14 15:15:00 18 /min Univ ersity of [place] [facility] Body height 2022-02-14 15:15:00 162.6 cm Universi ty [facility] [place] [facility] Body weight 2022-02-14 15:15:00 123.378 kg [facility]i [facility] [place] [facility] BMI 2022-02-14 15:15:00 46.69 kg/m2 Universi ty [facility] [place] [facility] Oxygen saturation in 2022-02-14 15:15:00 98 /min University of Arterial blood by [place] [employer] Pulse oximetry Branch Systolic blood 2022-01-17 23:00:00 117 mm[Hg] Univer sity of pressure [facility] Diastolic blood 2022-01-17 23:00:00 84 mm[Hg] Unive rsity of pressure [facility] Heart rate 2022-01-17 23:00:00 70 /min Universi ty [facility] [place] [facility] Respiratory rate 2022-01-17 23:00:00 19 /min Univ ersity of [place] [facility] Oxygen saturation in 2022-01-17 23:00:00 95 /min University of Arterial blood by [place] [employer] Pulse oximetry Branch Body temperature 2022-01-17 20:47:00 36.72 Lluvia Univ ersity of [place] [facility] Body height 2022-01-17 20:47:00 162.6 cm Universi ty [facility] [place] [facility] Body weight 2022-01-17 20:47:00 127.007 kg [facility]i ty [facility] [place] [facility] BMI 2022-01-17 20:47:00 48.06 kg/m2 [facility] [place] [facility] Systolic blood 2022-01-12 23:00:00 126 mm[Hg] Univer sity of pressure [facility] Diastolic blood 2022-01-12 23:00:00 62 mm[Hg] Unive rsity of pressure [facility] Heart rate 2022-01-12 23:00:00 66 /min Universi ty of [place] [facility] Respiratory rate 2022-01-12 23:00:00 17 /min Univ ersity of [facility] Oxygen saturation in 2022-01-12 23:00:00 98 /min University of Arterial blood by [facility] Pulse oximetry Branch Body temperature 2022-01-12 20:31:00 36.67 Lluvia Univ ersity of [place] [facility] [place] Body height 2022-01-12 20:31:00 162.6 cm Universi ty of [place] [facility] [place] Body weight 2022-01-12 20:31:00 127.007 kg Universi ty [facility] [place] [facility] BMI 2022-01-12 20:31:00 48.06 kg/m2 [facility]i ty [facility] [place] [facility] Systolic blood 2021-12-30 18:50:00 118 mm[Hg] Univer sity of pressure [facility] Diastolic blood 2021-12-30 18:50:00 71 mm[Hg] Unive rsity of pressure [place] [facility] [place] Heart rate 2021-12-30 18:50:00 94 /min Universi ty of [place] [facility] [place] Body temperature 2021-12-30 18:50:00 36.44 Lluvia Univ ersity of [place] [facility] Respiratory rate 2021-12-30 18:50:00 18 /min Univ ersity of [facility] Body height 2021-12-30 18:50:00 162.6 cm Universi ty of [place] [facility] Body weight 2021-12-30 18:50:00 125.737 kg [facility]i ty [facility] [place] [facility] BMI 2021-12-30 18:50:00 47.58 kg/m2 Universi ty of [facility] Oxygen saturation in 2021-12-30 18:50:00 98 /min University of Arterial blood by [facility] Pulse oximetry Branch Systolic blood 2021-12-20 15:33:00 130 mm[Hg] Univer sity of pressure [facility] Diastolic blood 2021-12-20 15:33:00 85 mm[Hg] Unive rsity of pressure [facility] Heart rate 2021-12-20 15:33:00 80 /min Universi ty of [place] [facility] Body temperature 2021-12-20 15:33:00 36.28 Lluvia Univ ersity of [place] [facility] Body height 2021-12-20 15:33:00 162.6 cm Universi ty [facility] [place] [facility] Body weight 2021-12-20 15:33:00 125.102 kg [facility]i ty [facility] [place] [facility] BMI 2021-12-20 15:33:00 47.34 kg/m2 [facility] [place] [facility] Systolic blood 2021-12-07 20:34:00 131 mm[Hg] Univer sity of pressure [facility] Diastolic blood 2021-12-07 20:34:00 86 mm[Hg] Unive rsity of pressure [facility] Heart rate 2021-12-07 20:34:00 82 /min Universi ty of [place] [facility] Body height 2021-12-07 20:34:00 162.6 cm [facility] [place] [facility] Body weight 2021-12-07 20:34:00 123.832 kg [facility]i ty [facility] [place] [facility] BMI 2021-12-07 20:34:00 46.86 kg/m2 [facility] [place] [facility] Oxygen saturation in 2021-12-07 20:34:00 99 /min University of Arterial blood by [facility] Pulse oximetry Branch Systolic blood 2021-10-18 18:40:00 169 mm[Hg] Univer sity of pressure [facility] Diastolic blood 2021-10-18 18:40:00 94 mm[Hg] Unive rsity of pressure [facility] Heart rate 2021-10-18 18:39:00 82 /min Universi ty of [place] [facility] Body temperature 2021-10-18 18:39:00 36.5 Lluvia Univ ersity of [place] [facility] Body height 2021-10-18 18:39:00 162.6 cm [facility]i ty [facility] [place] [facility] Body weight 2021-10-18 18:39:00 128.731 kg [facility] BMI 2021-10-18 18:39:00 48.71 kg/m2 [facility] Oxygen saturation in 2021-10-18 18:39:00 99 /min [facility] Arterial blood by [facility] Pulse oximetry Branch Procedures Procedure Date / Time Performing Clinician Source Performed MEDICATION CORRESPONDENCE 2022-07-20 05:01:00 Doctor Camacho, [facility] PATIENT FINANCIAL 2022-07-11 05:01:00 Doctor Doug [facility] RESPONSIBILITY - ALL [facility] [facility] FORMS CONSENT/REFUSAL FOR 2022-06-24 18:59:56 [facility] DIAGNOSIS AND TREATMENT [facility] [place] ASSIGNMENT OF BENEFITS 2022-06-24 18:59:41 Doctor Doug, [facility] [place] ABDOMEN PELVIS W 2022-04-05 05:38:03 Diogenes Rivera [facility] CONTRAST [facility] POCT TEST 2022-04-05 05:10:00 Diogenes Rivera [facility] Medical [place] LIPASE 2022-04-05 04:38:00 [facility] MAGNESIUM 2022-04-05 04:38:00 [facility] TEST, SERUM 2022-04-05 04:38:00 Diogenes Rivera [facility] COMP. METABOLIC PANEL 2022-04-05 04:38:00 Diogenes Rivera [facility] ([id number]) [facility] CBC WITH DIFF 2022-04-05 04:38:00 [facility] URINALYSIS 2022-04-05 04:38:00 [facility] CONSENT/REFUSAL FOR 2022-04-05 03:57:41 [facility] DIAGNOSIS AND TREATMENT [facility] ASSIGNMENT OF BENEFITS 2022-02-04 15:28:34 Doctor Cassiessigned, [facility] US GALL BLADDER 2022-01-17 22:28:56 Fe Santos [place] [facility] [place] [facility] [place] LIPASE 2022-01-17 21:49:00 Fe Santos [facility] HEPATIC FUNCTION PANEL 2022-01-17 21:49:00 Fe Santos [facility] ([id number]) (ALB,T.PRO,BILI Medical Branch T,BU/BC,ALT,AST,ALK PHOS) XR CHEST 1 VW 2022-01-17 21:07:16 Fe Santos [facility] HB ECG ROUTINE & RHYTHM 2022-01-17 21:06:[address] [facility] TROPONIN I 2022-01-17 21:06:00 Fe Santos [facility] BASIC METABOLIC PANEL 2022-01-17 21:06:[address] [facility] (NA, K, CL, CO2, GLUCOSE, Medica l Branch BUN, CREATININE, CA) CBC WITH DIFF 2022-01-17 21:06:00 Fe Santos [facility] CONSENT/REFUSAL FOR 2022-01-17 20:27:42 Doctor Unassigned, [facility] DIAGNOSIS AND TREATMENT [facility] [place] EKG-12 LEAD 2022-01-12 23:46:19 [facility] PELVIS W 2022-01-12 21:05:00 Katty Rebolledo [facility] CONTRAST [facility] POCT TEST 2022-01-12 20:50:00 Katty Rebolledo [facility] LIPASE 2022-01-12 20:48:00 [facility] TROPONIN I 2022-01-12 20:48:00 [facility]. METABOLIC PANEL 2022-01-12 20:48:00 Katty Rebolledo [facility] ([id number]) [facility] CBC WITH DIFF 2022-01-12 20:48:00 [facility] PROTHROMBIN TIME / INR 2022-01-12 20:48:00 Katty Rebolledo [facility] URINALYSIS 2022-01-12 20:48:00 Katty Rebolledo [facility] N-TERMINAL PRO-BNP 2022-01-12 20:48:00 Katty Rebolledo [facility] CONSENT/REFUSAL FOR 2022-01-12 20:28:43 Doctor Doug, [facility] DIAGNOSIS AND TREATMENT [place] [facility] NOTICE OF PRIVACY 2022-01-12 20:27:36 Doctor Doug, [facility] PRACTICES [place] [facility] EXTERNAL PROVIDER RECORDS 2021-12-15 05:01:00 Doctor Doug, [facility] Name [facility] Encounters Start End Encounter Admission Attending Care Care Encounter Source Date/Time Date/Time Type Type Clinicians Facility Department ID 2022-08-17 Outpatient Elo PARKER [facility] DONNIE [id number] Univers 14:52:37 VIRIDIANA [facility] 2022-07-12 Outpatient Elo PARKER [facility] DONNIE [id number] Univers 12:01:16 VIRIDIANA [facility] 2021 [id number] Univers 11:06:35 [facility] 2021-02-10 [facility] [id number] Univers 11:15:01 [facility] 2021-02-09 [facility] [id number] Univers 13:16:09 [facility] 2021-02-05 [facility] [id number] Univers 10:18:19 DANDRE [facility] 2023-01-12 2023-01-12 Outpatient Elo TRAYLOR [facility] [id number] Univers 13:30:00 13:30:00 ROSALIO lee [facility] 2022-08-26 2022-08-26 Outpatient Elo TRAYLOR [facility] [id number] Univers 13:30:00 13:30:00 ROSALIO la [facility] 2022-08-25 2022-08-25 Outpatient Elo PARKER [facility] [id number] Univers 08:00:00 08:00:00 VIRIDIANA lee [facility] 2022-08-19 2022-08-19 Eli Parker [facility] [id number] Univers 00:00:00 00:00:00 Viridiana BERRIOS [id number] i ty [id number] [id number] [place] margarita PENDLETON [address] [facility] 2022-08-01 2022-08-01 [facility]phone [facility] [id number] Univers 00:00:00 00:00:00 Rosalio HEALTH [id number] it y [facility] [id number] Ras as MAXIMO?BLEA [phone] [facility] 0[address] [facility] OFFICE [facility] 2022-07-27 2022-07-27 Telephone [facility] [id number] Univers 00:00:00 00:00:00 Viridiana BERRIOS [id number] i ty [id number] [id number] [place] [facility] 188 [facility] 2022-07-22 2022-07-22 [facility]phone [facility] [id number] Univers 00:00:00 00:00:00 Viridiana HEALTH [id number] it y [place].2.[place] [facility] [id number] [facility] [address] Branch 2022-07-20 2022-07-20 Orders Doctor MICHELA [id number] Univers 00:00:00 00:00:00 Only Unassigned, SISSY 350.1.13.10 ity of [place] [facility] [id number] Ras as [phone] [facility] 009 Branch 2022-07-14 2022-07-14 Office [facility] [id number] Univers 08:15:00 08:30:00 Visit Sandro SYED 350.1.13.10 [place] [facility] [phone] [facility] PRIMARY & 136 Branch SPECIALTY CARE 2022-07-14 2022-07-14 Outpatient R HARVEY, [facility] [id number] Univers 08:15:00 08:15:00 SANDRO lee [facility] 2022-07-11 2022-07-11 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 Lab, Ang - Db [facility] [id number] Univers 15:15:00 15:30:00 Visit Rosalio Traylor 350.1.13.10 ity of [place] [id number] Ras as MAXIMO?BLEA [id number] [facility] [address] [place] MEDICAL OFFICE [facility] 2022-07-11 2022-07-11 Outpatient R LAYTON [facility] [id number] Univers 14:00:00 14:58:15 ROSALIOANDREINA lee [facility] 2022-07-11 2022-07-11 Office [facility] [id number] Univers 14:00:00 14:58:15 Visit Rosalio KUNAL 350.1.13.10 it y of [place] 4.2.7.2.686 Ras as MAXIMO?BLEA [id number] [facility] 044 [facility] OFFICE [facility] 2022-07-11 2022-07-11 Telephone Layton [facility] [id number] Univers 00:00:00 00:00:00 Rosalio HEALTH 350.1.13.10 it y of [place] 4.2.7.2.686 Ras as MAXIMO?BLEA [phone] [facility] 044 [facility] OFFICE [facility] 2022-07-11 2022-07-11 Orders Doctor MICHELA [id number] Univers 00:00:00 00:00:00 Only Unassigned, SISSY 350.1.13.10 ity of [place] [facility] 4.2.7.2.686 Ras as [id number] [address] 2022-06-30 2022-06-30 Outpatient R ELENA [facility] [id number] Univers 08:30:00 10:12:03 VIRIDIANA lee [facility] 2022-06-24 2022-06-24 Out[facility] [id number] Univers 14:00:30 23:59:00 ROSALIO lee [facility] 2022-06-24 2022-06-24 [facility] [id number] Univers 14:00:00 23:59:00 Encounter Rosalio DONALDSONLUIS FERNANDO 350.1.13.10 [place]2.[place] [facility] [id number] [facility] [facility] [address] [place] 2022-06-24 2022-06-24 Telephone Payan DEVANTE 1.2.239.912 [id number] Univers 00:00:00 00:00:00 Kyliemary GONZALES 350.1.13.10 i ty of [place] [id number] [place] 7[address] [place] 2022-06-20 2022-06-20 Telephone Armida MERCEDESJames 1.2.840.114 [id number] Univers 00:00:00 00:00:00 , Susana Earl CHRISTIAN 350.1.13.10 [place] [id number] [address] 2022-06-09 2022-06-09 Outpatient Elo PARKER [facility] [id number] Univers 10:30:00 10:30:00 VIRIDIANA billyla [facility] 2022-05-17 2022-05-17 [facility] 1.2.840.114 [id number] Univers 00:00:00 00:00:00 Rosalio [facility] 350.1.13.10 it y of [place] 4.2.7.2.686 Ras as MAXIMO?BLEA [id number] [place] limabecki [address] MEDICAL OFFICE BUILDING 2022-05-06 2022-05-06 Outpatient Elo LEMONS [facility] [id number] Univers 15:00:00 15:00:00 ALEJANDRINA lee [facility] 2022-05-06 2022-05-06 Outpatient Elo LEMONS [facility] [id number] Univers 15:00:00 15:00:00 ALEJANDRINA lee [facility] 2022-04-14 2022-04-14 Outpatient Elo PARKER [facility] [id number] Univers 09:00:00 09:00:00 VIRIDIANA lee [facility] 2022-04-08 2022-04-08 Outpatient Elo LEMONS [facility] [id number] Univers 00:00:00 00:00:00 ALEJANDRINA lee [facility] 2022-04-04 2022-04-05 Emergency X TENA [facility] ERT [id number] Univers 22:04:00 02:20:00 TIFFANIE jesus [facility] 2022-04-04 2022-04-05 Emergency Diogenes Rivera [facility] 1.2.840 .114 [id number] Univers 22:04:00 02:20:00 Tiffanie MurguiaLUIS FERNANDO 350.1.13.10 ity of [facility] 4.2.7.2.[place] [id number] [facility] [address] 2022-04-04 2022-04-04 Office [facility] 1.2.840.114 [id number] Univers 09:15:00 09:15:00 Visit Hardik BERRIOS 350.1.13.10 i ty of Jarred [facility] 4.2.7.2.[place] [id number] [place] dical [facility] 419 [facility] 2022-04-04 2022-04-04 Outpatient Elo ANTHONY [facility] [id number] Univers 09:15:00 09:14:40 HARDIK cervantesla [facility] 2022-03-21 2022-03-21 Outpatient Elo [facility] [id number] Univers 09:00:00 09:00:00 HARDIK lee [facility] 2022-03-07 2022-03-07 Telephone Juan Watson 1.2.840.114 [id number] Univers 00:00:00 00:00:00 T PEDIATRIC 350.1.13.10 it[place] of [place] [id number] [facility] PRIMARY 059 [facility] CLINIC 2022-03-02 2022-03-02 Telephone Layton [facility] 1.2.656.323 [id number] Univers 00:00:00 00:00:00 Rosalio HEALTH 350.1.13.10 it y of [place] 4.2.7.2.686 Ras as MAXIMO?BLEA [id number] [address] OFFICE [facility] 2022-02-17 2022-02-17 Refill [facility] 1.2.840.114 [id number] Univers 00:00:00 00:00:00 Rosalio HEALTH 350.1.13.10 it y of [place] 4.2.7.2.686 Ras as MAXIMO?BLEA [id number] [address] OFFICE [facility] 2022-02-17 2022-02-17 Telephone [facility] 1.2.083.160 [id number] Univers 00:00:00 00:00:00 Rosalio HEALTH 350.1.13.10 it y of [place] 4.2.7.2.686 Ras as MAXIMO?BLEA [id number] [address] 2022-02-14 2022-02-14 Outpatient R RAJ [facility] [id number] [facility] 08:30:00 09:41:32 HARDIK lee [facility] 2022-02-14 2022-02-14 Office [facility] 1.2.840.114 [id number] Univers 08:30:00 09:41:32 Visit Hardik YASH 350.1.13.10 i ty of [place].2.7.2.686 [place] E[place] [id number] [address] 2022-02-09 2022-02-09 Telephone [facility] 1.2.931.581 [id number] Univers 00:00:00 00:00:00 Rosalio HEALTH 350.1.13.10 it y of [place] 4.2.7.2.686 Ras as MAXIMO?BLEA [id number] [address] OFFICE [facility] 2022-02-04 2022-02-04 Nurse Nurse, Johny ROSARIO 1.2.84 0.114 [id number] Univers 09:40:00 10:00:00 Visit Rosalio Traylor PEDIATRIC 350.1.13.10 ity of [place] [id number] [facility] PRIMARY [address] CARE CLINIC 2022-02-04 2022-02-04 Outpatient R LAYTON [facility] [id number] Univers 09:40:00 09:40:00 ROSALIO lee [facility] 2022-02-04 2022-02-04 Orders Doctor MICHELA 1.2.840.114 [id number] Univers 00:00:00 00:00:00 Only Unassigned, SISSY 350.1.13.10 ity of [place] [facility] 4.2.7.2.686 Ras as [id number] [address] 2022-01-31 2022-01-31 Outpatient R [facility] [id number] Univers 09:00:00 09:00:00 ROSALIO lee [facility] 2022-01-17 2022-01-17 Emergency X OTM [facility] ERT [id number] Univers 14:48:00 18:01:00 FE billyla [facility] 2022-01-17 2022-01-17 Emergency [facility] 1.2.265.929 [id number] Univers 14:48:00 18:01:00 Fe BERRIOS 350.1.13.10 i ty of [place]2.[place].2.[place] [id number] [address] 2022-01-12 2022-01-12 Emergency X [facility]UN[facility] ERT [id number] Univers 14:39:00 17:54:00 KATTY jesus [facility] 2022-01-12 2022-01-12 Emergency [facility]UN[facility] 1.2.840.114 [id number] Univers 14:39:00 17:54:00 Katty MENDOZALUIS FERNANDO 350.1.13.10 i ty of [place] 4.2.7.2.[place] [id number] [place] [address] [place] 2021-12-31 2021-12-31 Ilana Plascencia [facility] 1.2.840.114 [id number] Univers 00:00:00 00:00:00 [facility] 350.1.13.10 it y of [place] 4.2.7.2.686 Ras as MAXIMO?BLEA [id number] Nc dical KNEY [address] [facility] 2021-12-30 2021-12-30 Outpatient R LUIS FERNANDO [facility] [id number] Univers 14:00:00 14:38:[address] [facility] 2021-12-30 2021-12-30 Office Juan Watson ABRAHAM 1.2.840.114 [id number] Univers 14:00:00 14:38:05 Visit T PEDIATRIC 350.1.13.10 ity of [place] [phone] [place] 726359 [facility] 2021-12-29 2021-12-29 Outpatient R [facility] [id number] Univers 13:30:00 13:30:00 HARDIK lee [facility] 2021-12-20 2021-12-20 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 2, Adc Lab [facility] 1.2.840.114 [id number] Univers 11:30:00 11:42:14 Visit Hardik Anthony 350.1.13 .10 ity [place] [id number] Nc [facility] 353 [facility] 2021-12-20 2021-12-20 Outpatient R RAJ [facility] [id number] Univers 10:30:00 11:11:12 HARDIK lee [facility] 2021-12-20 2021-12-20 Office [facility] 1.2.840.114 [id number] Univers 10:30:00 11:11:12 Visit Hardik BERRIOS 350.1.13.10 i ty of [place].2.[place] [id number] [place] dical NAL 419 [facility] 2021-12-15 2021-12-15 Orders Doctor ABERNATHY 1.2.840.114 [id number] Univers 00:00:00 00:00:00 Only Unassigned, SISSY 350.1.13.10 ity of [facility] 4.2.7.2.686 Ras as [phone] [address] 2021-12-07 2021-12-07 Outpatient R [facility] [id number] Univers 15:30:00 16:04:50 ROSALIO itla [facility] 2021-12-07 2021-12-07 Office [facility] 1.2.840.114 [id number] Univers 15:30:00 16:04:50 Visit Rosalio HEALTH 350.1.13.10 it y [facility] 4.2.7.2.686 Ras as MAXIMO?BLEA [id number] [address] OFFICE [facility] 2021-11-09 2021-11-09 Outpatient R SOTERO [facility] [id number] Univers 13:00:00 13:00:00 SENDIL jesus [facility] 2021-10-18 2021-10-18 Outpatient R [facility] [id number] Univers 14:19:51 23:59:00 ROSALIOANDREINA lee [facility] 2021-10-18 2021-10-18 Outpatient R LAYTON [facility] [id number] Univers 13:30:00 14:20:09 ROSALIO itla [facility] 2021-10-18 2021-10-18 Office [facility] 1.2.840.114 [id number] Univers 13:30:00 14:20:09 Visit Rosalio HEALTH 350.1.13.10 it y of [place] 4.2.7.2.686 Ras as MAXIMO?BLEA [id number] [address] MEDICAL OFFICE [facility] 2021-08-19 2021-08-19 Telephone [facility] 1.2.300.498 [id number] Univers 00:00:00 00:00:00 Rosalio HEALTH 350.1.13.10 it y of [place] 4.2.7.2.686 Ras as MAXIMO?BLEA [id number] [address] MEDICAL OFFICE [facility] 2021-08-03 2021-08-03 Telephone [facility] 1.2.882.699 [id number] Univers 00:00:00 00:00:00 Rosalio HEALTH 350.1.13.10 it y of [place] 4.2.7.2.686 Ras as MAXIMO?BLEA [id number] [address] OFFICE [facility] 2021-07-22 2021-07-22 Telephone Marisolmadisyn [facility] 1.2.554.435 [id number] Univers 00:00:00 00:00:00 Rosalio HEALTH 350.1.13.10 it y of [place] 4.2.7.2.686 Ras as MAXIMO?BLEA [id number] [address] OFFICE [facility] 2021-07-20 2021-07-20 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 Lab, Ang - Db [facility] 1.2.840.1 14 [id number] Univers 08:30:00 08:45:00 Visit Rosalio Traylor 350.1.13.10 ity of [place] 4.2.7.2.686 Ras as MAXIMO?BLEA [id number] [address] OFFICE [facility] 2021-07-20 2021-07-20 Outpatient R LAYTON [facility] [id number] Univers 08:30:00 08:30:00 ROSALIOANDREINA lee [facility] 2021-07-20 2021-07-20 Outpatient R MARISOLMADISYN [facility] [id number] Univers 08:30:00 08:30:00 ROSALIO lee [facility] 2021-07-16 2021-07-16 Outpatient R LAYTON [facility] [id number] Univers 16:27:22 23:59:00 ROSALIOANDREINA lee [facility] 2021-07-16 2021-07-16 Office [facility] 1.2.840.114 [id number] Univers 15:30:00 16:29:09 Visit Rosalio HEALTH 350.1.13.10 it y of [place] 4.2.7.2.686 Ras as MAXIMO?BLEA [id number] [address] OFFICE [facility] 2021-07-16 2021-07-16 Outpatient R [facility] [id number] Univers 15:30:00 16:29:09 ROSALIO lee [facility] 2021-07-16 2021-07-16 Outpatient Elo TRAYLOR [facility] [id number] Univers 15:30:00 15:30:00 ROSALIO lee [facility] 2021-05-10 2021-05-10 Outpatient R RAFITA [facility] [id number] Univers 10:00:00 10:00:00 FIONA lee [facility] 2021-05-10 2021-05-10 Outpatient R RAFITA, [facility] [id number] Univers 10:00:00 10:00:00 FIONA lee [facility] 2021-05-06 2021-05-06 Outpatient Elo TEREZA [facility] [id number] Univers 14:30:00 15:17:29 ALEJANDRINA lee [facility] 2021-05-06 2021-05-06 [facility] 1.2.840.114 [id number] Univers 14:30:00 15:17:29 Visit Alejandrina Elliott YASH 350.1.13.10 itla [facility] 4.2.7.2.686 Chandra DAVENPORT [id number] [address] 2021-05-06 2021-05-06 Outpatient R ANTRUY [facility] [id number] Univers 14:30:00 15:17:29 ALEJANDRINA lee [facility] 2021-05-04 2021-05-04 Outpatient R TEREZA [facility] [id number] Univers 08:30:00 08:30:00 ALEJANDRINA lee [facility] 2021-05-04 2021-05-04 Outpatient R TEREZA [facility] [id number] Univers 08:30:00 08:30:00 ALEJANDRINA lee [facility] 2021-05-03 2021-05-03 Outpatient Elo TRAYLOR [facility] [id number] Univers 09:30:00 11:17:42 ROSALIO lee [facility] 2021-04-28 2021-04-28 Telephone [facility] 1.2.840.114 [id number] Univers 00:00:00 00:00:00 Dandre [facility] 350.1.13.10 it [facility] 4.2.7.2.[place] [facility] [phone] [facility] PRIMARY & [address] SPECIALTY CARE 2021-04-27 2021-04-27 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 [facility]ERSIT 1.2.840.114 [id number] Univers 16:00:00 16:11:00 Visit Dandre Butt [facility] 350.1.13.10 ity of [facility] 4.2.7.2.[place] [id number] [facility] [address] 2021-04-27 2021-04-27 Outpatient R HELEN DEVOS [facility] [id number] Univers 16:00:00 16:00:[address] [facility] 2021-04-27 2021-04-27 Office [facility] 1.2.840.114 [id number] Univers 15:15:00 15:30:[address] [facility] 350.1.13.10 i ty of [facility] 4.2.7.2.686 [facility] [phone] [facility] [address] 2021-04-27 2021-04-27 Outpatient R [facility] [id number] Univers 15:15:00 15:15:00 DANDRE lee [facility] 2021-04-27 2021-04-27 Telephone [facility] 1.2.963.715 [id number] Univers 00:00:00 00:00:00 Amaris BERRIOS 350.1.13.10 [facility] 4.2.7.2.686 [place] [facility] [id number] [place] [address] Branch [facility] 2021-04-15 2021-04-17 Outpatient R [facility] SUU [id number] Univers 05:55:00 17:30:00 DANDRE lee [facility] 2021-04-15 2021-04-17 [facility] 1.2.840.114 [id number] Univers 05:55:00 17:30:00 Encounter Dandre SHEEHAN 350.1.13.10 ity [facility] 4.2.7.2.686 Ras as [id number] [facility] [address] 2021-04-15 2021-04-15 [facility] 1.2.438.822 [id number] Univers 07:45:00 13:52:00 Dandre SHEEHAN 350.1.13.10 it y of [facility] 4.2.7.2.686 Ras as [id number] [facility] [address] 2021-04-15 2021-04-15 Orders Doctor MICHELA 1.2.840.114 [id number] Univers 00:00:00 00:00:00 Only Unassigned, SISSY 350.1.13.10 ity of [place] [facility] 4.2.7.2.686 Ras as [id number] [facility] [address] 2021-04-14 2021-04-14 Laboratory Only, Adc Test [facility] 1.2.840. 114 [id number] Univers 16:15:00 16:30:00 Only Sven Fu 350.1.13.10 ity of [place] 4.2.7.2.686 [place] [id number] [facility] [address] 2021-04-14 2021-04-14 Outpatient R [facility]SELECT [facility] [id number] Univers 16:15:00 16:15:00 SVEN lee [facility] 2021-04-13 2021-04-13 Outpatient R S[facility]EROSELECT [facility] [id number] Univers 13:37:14 23:59:00 MAARIS lee [facility] 2021-04-13 2021-04-13 [facility] 1.2.840.114 [id number] Univers 13:37:14 23:59:00 Encounter Amaris BERRIOS 350.1.13.10 ity of [place] 4.2.7.2.686 [place] [facility] [phone] Nc [facility] 843 [facility] 2021-04-13 2021-04-13 [facility] 1.2.840.114 [id number] Univers 00:00:00 00:00:00 (Out) Amaris BERRIOS 350.1.13.10 ity of [place] 4.2.7.2.686 [place] PROFESS[place] [id number] Nc dical NAL 059 [facility] 2021-04-02 2021-04-02 Ilana Traylor SCLETY 1.2.840.114 [id number] Univers 00:00:00 00:00:00 Rosalio SYED 350.1.13.10 it y of [place] 4.2.7.2.686 Ras as MAXIMO?BLEA [id number] Nc dical KNEY [address] [place] MEDICAL OFFICE BUILDING 2021-03-22 2021-03-22 Outpatient Elo [facility] [id number] Univers 15:00:00 15:00:00 ROSALIO lee [facility] 2021-03-18 2021-03-18 Outpatient Elo TRAYL[facility]SELECT [facility] [id number] Univers 11:30:00 11:30:00 ROSALIO lee [facility] 2021-03-10 2021-03-10 Outpatient Elo BEY [facility] [id number] Univers 11:30:00 11:30:00 SENDIAIN lee [facility] 2021-03-02 2021-03-02 Outpatient Elo BEYSELECT [facility] [id number] Univers 13:00:00 13:00:00 SENDIAIN la [facility] 2021-03-01 2021-03-01 Outpatient Elo TRAYLORSELECT [facility] [id number] Univers 13:30:00 13:30:00 ROSALIO la [facility] 2021-03-01 2021-03-01 Outpatient Elo TRAYLOR [facility] [id number] Univers 13:30:00 13:30:00 ROSALIO lee [facility] 2021-02-23 2021-02-23 Outpatient Elo TRAYLOR [facility] [id number] Univers 08:30:00 08:30:00 ROSALIO la [facility] 2021-02-12 2021-02-12 Outpatient Elo T[facility]SELECT [facility] [id number] Univers 10:30:00 10:30:00 [facility] 2021-02-12 2021-02-12 Orders Doctor ABERNATHY 1.2.840.114 [id number] Univers 00:00:00 00:00:00 Only Unassigned, SISSY 350.1.13.10 ity of [place] [facility] 4.2.7.2.686 Ras as [id number] [facility] [address] [place] 2021-02-09 2021-02-09 Office [facility] 1.2.645.170 [id number] Univers 13:15:25 14:05:11 Visit Fiona BERRIOS 350.1.13.10 i ty of [place] 4.2.7.2.[place]ESS[place] [id number] Nc dic[address] 2021-02-09 2021-02-09 Outpatient R RAFITASELECT [facility] [id number] Univers 13:00:00 14:05:11 FIONA la [facility] 2021-02-09 2021-02-09 [facility] [id number] Univers 13:00:00 13:00:00 FIONA lee [facility] 2021-02-05 2021-02-05 Office [facility] 1.2.840.114 [id number] Univers 08:30:00 09:00:00 Visit [facility] 350.1.13.10 i ty of CL[place]2.7.2.[place] [id number] [address] 2021-02-05 2021-02-05 Office [facility] 1.2.840.114 [id number] Univers 08:20:14 08:50:14 Visit [facility] 350.1.13.10 i ty of CL[place]ICS 4[place]2.7.2.[place] [id number] [address] 2021-02-05 2021-02-05 Outpatient R [facility] [id number] Univers 08:30:00 08:30:00 [facility] 2021-02-05 2021-02-05 Outpatient [facility] [id number] Univers 08:30:00 08:30:00 [facility] 2021-02-03 2021-02-03 Telephone [facility] 1.2.587.415 [id number] Univers 00:00:00 00:00:00 Rosalio HEALTH 350.1.13.10 it y of [place] 4.2.7.2.686 Ras as MAXIMO?BLEA [id number] [facility] [address] [place] MEDICAL OFFICE [facility] 2021-01-27 2021-01-27 Outpatient R BEY [facility] [id number] Univers 15:30:00 16:18:02 SENDIL ity [facility] 2021-01-27 2021-01-27 Outpatient R [facility] [id number] Univers 15:30:00 16:18:02 SENDIL ity [facility] 2021-01-27 2021-01-27 [facility] 1.2.840.114 [id number] Univers 15:23:01 16:18:02 Visit Sendil Adi BERRIOS 350.1.13.10 ity of [place] 4.2.7.2.[place] ESSIO [id number] [facility] 059 [facility] 2021-01-20 2021-01-20 Telephone Layton [facility] 1.2.263.023 [id number] Univers 00:00:00 00:00:00 Rosalio HEALTH 350.1.13.10 it y of [place] 4.2.7.2.686 Ras as AMXIMO?BLEA [id number] [address] MEDICAL OFFICE [facility] 2021-01-14 2021-01-14 Letter MICHELA Villar 1.2.840.114 [id number] Univers 00:00:00 00:00:00 (Out) Aissatou SHEEHAN 350.1.13.10 it y of [facility] 4.2.7.2.686 Ras as [id number] [address] 2021-01-13 2021-01-13 Emergency X Alek ORTIZ [facility] ERT [id number] Univers 16:42:00 18:50:[address] [facility] 2021-01-13 2021-01-13 Emergency Alek Ortiz [facility] 1.2.840.114 [id number] Univers 16:42:00 18:50:00 Shira BERRIOS 350.1.13.10 i ty of [place] 4.2.7.2.686 [place] [id number] [address] 2021-01-11 2021-01-11 Outpatient R LAYTON [facility] [id number] Univers 14:30:00 15:00:06 ROSALIO lee [facility] 2021-01-11 2021-01-11 Outpatient R [facility] [id number] Univers 14:30:00 15:00:06 ROSALIO lee [facility] 2021-01-11 2021-01-11 Office [facility] 1.2.840.114 [id number] Univers 13:57:44 15:00:06 Visit Rosalio HEALTH 350.1.13.10 it y of [place] 4.2.7.2.686 Ras as MAXIMO?BLEA [id number] [address] OFFICE [facility] 2021-01-11 2021-01-11 Telephone [facility] 1..262.612 [id number] Univers 00:00:00 00:00:00 Rosalio HEALTH 350.1.13.10 it y of [place] 4.2.7.2.686 Ras as MAXIMO?BLEA [id number] [address] OFFICE [facility] 2021-01-05 2021-01-05 Outpatient Elo [facility] [id number] Univers 13:30:00 13:30:00 ROSALIO ity [facility] 2021-01-05 2021-01-05 Outpatient R [facility] [id number] Univers 13:30:00 13:30:00 ROSALIO ity [facility] 2021-01-01 2021-01-01 Outpatient Elo [facility] [id number] Univers 09:20:00 09:20:00 RAFAELA jesus [facility] 2021-01-01 2021-01-01 [facility] [id number] Univers 00:00:00 00:00:00 Rosalio HEALTH 350.1.13.10 it y of [place] 4.2.7.2.686 Ras as MAXIMO?BLEA [phone] [place] margarita S[place] [address] [place] MEDICAL OFFICE [facility] 2020-12-31 2020-12-31 Office Rafita [facility] [id number] Univers 08:01:12 09:42:56 Visit Fiona YASH 350.1.13.10 i ty [place] [phone] [place] margarita PENDLETON 188 [facility] 2020-12-31 2020-12-31 Outpatient R RAF[facility] [id number] Univers 08:00:00 09:42:56 FIONA lee [facility] 2020-12-31 2020-12-31 Outpatient R RAFITA [facility] [id number] Univers 08:00:00 08:00:00 FIONA lee [facility] 2020-12-23 2020-12-23 Orders Doctor MICHELA [id number] Univers 00:00:00 00:00:00 Only Unassigned, SISSY 350.1.13.10 ity of [place] [facility] 4.2.7.2.686 Ras as [phone] [address] 2020-12-17 2020-12-17 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 Lab, [facility] [id number] Univers 14:27:17 14:42:17 Visit Rosalio Traylor 350.1.13.10 ity of [place] 4.2.7.2.686 Ras as Maximo?Blea [phone] Nc margarita singleton [address] [place] Medical Office [facility] 2020-12-17 2020-12-17 Office Layton [facility] 1.2.840.114 [id number] Univers 12:43:41 14:24:52 Visit Rosalio Health 350.1.13.10 it y of [place] 4.2.7.2.686 Ras as Maximo?Blea [phone] Nc dicbecki singleton 044 [facility] Office [facility] 2020-12-17 2020-12-17 Outpatient R [facility] [id number] Univers 13:00:00 13:00:[address] [facility] 2020-12-17 2020-12-17 Telephone Gabriela [facility] [id number] Univers 00:00:00 00:00:00 Wondiful A Health 350.1.13.10 ity of [place] 4.2.7.2.686 Ras as Maximo?Blea [phone] N[place] dical samy 044 [facility] Office [facility] 2020-12-09 2020-12-09 [facility] 1.2.840.114 [id number] Univers 14:58:13 15:27:07 Visit Viridiana Hernandez Yash 350.1.13.10 [place].2.[place] Profess[place] [phone] [place] dical nal 204 [facility] 2020-12-09 2020-12-09 Outpatient R [facility] [id number] Univers 14:30:00 14:30:[address] [facility] 2020-[facility] 2020-12-09 Orders Doctor MICHELA 1.2.840.114 [id number] Univers 00:00:00 00:00:00 Only Unassigned, SISSY 350.1.13.10 ity of [place] [facility] 4.2.7.2.686 Ras as [phone] [facility] [address] 2020-12-01 2020-12-01 Transition Devante Quiroz 1.2.840.114 [id number] Univers 00:00:00 00:00:00 of Care Shreya Gonzales 350.1.13.10 i ty [place]2.[place] [phone] [facility] [address] 2020-11-27 2020-11-30 Hospital Dominique Wagner [facility] 1.2.84 0.114 [id number] Univers 22:02:00 14:10:00 Encounter Chandrika Bowenton 350.1.13.10 ity of [place] Tam[place] 4.2.7.2.686 [facility] [phone] [facility] [address] 2020-11-27 2020-11-27 Emergency [facility] [id number] Univers 22:02:00 22:02:00 DOMINIQUE [facility] 2020-11-09 2020-11-09 Letter MICHELA Villar 1.2.840.114 [id number] Univers 00:00:00 00:00:00 (Out) Aissatou Ocasio SISSY 350.1.13.10 it y [facility] 4.2.7.2.686 [place] as [phone] [address] 2020-11-09 2020-11-09 Telephone MICHELA Daley 1.2.067.359 [id number] Univers 00:00:00 00:00:00 Bernie SISSY 350.1.13.10 ity [facility] 4.2..2.686 Ras as [phone] [address] 2020-11-07 2020-11-07 Emergency [facility] 1.2.840.114 [id number] Univers 19:53:00 20:22:00 Katty Berrios 350.1.13.10 [place] [phone] [address] 2020-11-07 2020-11-07 Emergency X [facility] ERT [id number] Univers 19:40:00 19:40:00 [facility] 2020-11-06 2020-11-06 Outpatient [facility] [id number] Univers 15:55:00 15:55:00 ANA [facility] 2020-07-19 2020-07-19 Emergency scarlettFormerly [facility] 1.2.840.114 [id number] 17:18:00 19:18:00 Felipa Berrios 350.1.13.10 [place] 4.2.7.2.686 [place] [phone] [facility] 2020-07-19 2020-07-19 Emergency [facility] [id number] Univers 17:18:00 19:18:00 FELIPA [facility] 2020-07-19 2020-07-19 Emergency CheryFormerly [facility] 1.2.840.114 [id number] Univers 17:18:00 19:18:00 Felipa Berrios 350.1.13.10 ity of [place] 4.2.7.2.686 [facility] [phone] [place] 749244 [place] 2020-07-19 2020-07-19 Emergency X [facility] ERT [id number] Univers 17:05:00 17:05:[address] [facility] 2020-07-17 2020-07-17 Orders Doctor MICHELA 1.2.840.114 [id number] Univers 00:00:00 00:00:00 Only Unassigned, SISSY 350.1.13.10 ity [place] [address] [place] [phone] 2020-07-13 2020-07-13 Emergency X [facility] ERT [id number] Univers 11:04:00 13:20:00 ELIANA ity [facility] 2020-07-13 2020-07-[address] [facility] ERT [id number] Univers 11:04:00 13:20:00 ELIANA ity [facility] 2020-07-13 2020-07-13 [facility] 1.2.831.733 [id number] Univers 11:04:00 13:20:00 Eliana Pink Yash 350.1.13.10 ity of [place] 4.2.7.2.686 [facility] [id number] [address] 2020-07-13 2020-07-13 Emergency Drever, [facility] 1.2.092.792 [id number] 11:04:00 13:20:00 Eliana Donaldsonton 350.1.13.10 [place] 4.2.7.2.686 [place] [id number] [facility] 2020-07-13 2020-07-13 Emergency X [facility] ERT [id number] Univers 10:52:00 10:52:[address] [facility] 2020-07-03 2020-07-03 Gil Pérez [facility] 1.2.840.114 [id number] Univers 00:00:00 00:00:00 [facility] 350.1.13.10 it y of [place] 4.2.7.2.686 [place] [phone] [facility] [address] 2020-07-03 2020-07-03 Telephone Gil Clayton [facility] 1.2.840.114 [id number] 00:00:00 00:00:00 [facility] 350.1.13.10 [place] 4.2.7.2.686 [place] [phone] [place] [address] Office Building 2020-07-01 2020-07-02 Inpatient X SARAH DIAZ [facility] JOSIAS [id number] Univers 00:03:00 18:37:[address] [facility] 2020-07-01 2020-07-02 Inpatient X SARAH DIAZ [facility] JOSIAS [id number] Univers 00:03:00 18:37:00 ity [facility] 2020-07-01 2020-07-02 [facility] 1.2.840.1 14 [id number] Univers 00:03:00 18:37:00 Encounter Sarah Diaz 350.1.13.10 ity of Sveta [place] 4.2.7.2.686 [place] [phone] [place] [address] [address] ([facility]) 2020-07-01 2020-07-02 [facility] 1.2.840.1 14 [id number] 00:03:00 18:37:00 Encounter Sarah Diaz 350.1.13.10 [place] 4.2.7.2.686 [place] [id number] [place] [address] ([facility]) 2020-07-01 2020-07-01 Emergency [facility] [id number] Univers 00:03:00 00:03:00 [facility] 2020-07-01 2020-07-01 Orders Doctor ABERNATHY 1.2.840.114 [id number] Univers 00:00:00 00:00:00 Only Unassigned, SISSY 350.1.13.10 [facility] 4.2.7.2.686 Ras [place] [phone] [place] [address] [address] 2020-07-01 2020-07-01 Orders Doctor MICHELA 1.2.840.114 [id number] 00:00:00 00:00:00 Only Unassigned, SISSY 350.1.13.10 [place] [facility] 4.2.7.2.686 [id number] 009 2020-06-30 2020-06-30 Emergency [facility] 1.2.974.466 [id number] Univers 18:23:00 23:23:00 Mellissa R Herreid 350.1.13.10 i ty of [place] 4.2.7.2.686 [facility] [phone] [address] 2020-06-30 2020-06-30 Emergency [facility] 1.2.460.645 [id number] 18:23:00 23:23:00 Mellissa R Herreid 350.1.13.10 [place] 4.2.7.2.686 [place] [id number] 082020-06-30 2020-06-30 Emergency X [facility] ERT [id number] Univers 17:56:00 17:56:[address] [facility] 2020-01-24 2020-01-24 Emergency Bon Padilla [facility] 1.2.840.114 [id number] Univers 17:08:00 18:27:00 T Herreid 350.1.13.10 i ty of [place] 4.2.7.2.686 [facility] [id number] [address] 2020-01-24 2020-01-24 Emergency Bon Padilla [facility] 1.2.840.114 [id number] 17:08:00 18:27:00 T Herreid 350.1.13.[address] [place] [address] [place] [address] [phone] 2020-01-24 2020-01-24 Emergency X BON PADILLA [facility] ERT [id number] Univers 17:08:00 17:08:00 ity [facility] 2020-01-24 2020-01-24 Orders Doctor ABERNATHY 1.2.840.114 [id number] Univers 00:00:00 00:00:00 Only Unassigned, SISSY 350.1.13.10 ity of [place] [facility] 4.2.7.2.686 Ras as [phone] [address] 2020-01-24 2020-01-24 Orders Doctor MICHELA 1.2.840.114 [id number] 00:00:00 00:00:00 Only Unassigned, SISSY 350.1.13.10 [place] [facility] 4.2.7.2.686 [phone] [facility] 2019-12-27 2019-12-27 Emergency [facility] 1.2.840.114 [id number] 16:40:00 18:00:00 [facility] Ashvin DonaldsonHerreid 350.1.13.10 [place] 4.2.7.2.686 [place] [id number] [facility] 2019-12-27 2019-12-27 Emergency [facility] 1.2.840.114 [id number] [facility] 16:40:00 18:00:00 [facility] Ashvin Herreid 350.1.13.10 ity of [place] 4.2.7.2.686 [facility] [phone] [address] 2019-12-27 2019-12-27 Emergency X [facility] ERT [id number] [facility] 16:40:00 16:40:00 KVNGO ity [facility] 2019-12-27 2019-12-27 Orders Doctor MICHELA 1.2.840.114 [id number] 00:00:00 00:00:00 Only Unassigned, SISSY [facility].1.13.10 [facility] 4.2.7.2.686 [id number] 009 2019-12-27 2019-12-27 Orders Doctor ABERNATHY 1.2.840.114 [id number] Univers 00:00:00 00:00:00 Only Unassigned, SISSY 350.1.13.10 ity of [place] [facility] 4.2.7.2.686 Ras as [phone] [address] Results Test Description Test Time Test Comments Results Result Comments Source TEST, SERUM 2022-04-05 05:29:14 Test Item Value Reference Range Interpretation Comme nts PREG SERUM (test code = 0323951226) Negative PRAVIN (test code = PRAVIN) Less than 10 IU/L. ?If low titer or ectopic is suspected, resubmit specimen in 48-72 hours. [facility] 05:12:48 Test Item Value Reference Range Interpretation Comments MAGNESIUM (test code = 0708008541) 1.6 mg/dL 1.7-2.4 L Lab Interpretation (test code = Abnormal 55629-1) [facility]. METABOLIC PANEL (48080)2022-04-05 05:12:28 Test Item Value Reference Range Interpretation Comments NA (test code = 135 mmol/L 135-145 1510747470) K (test code = 4.2 mmol/L 3.5-5.0 6169969458) CL (test code = 103 mmol/L 98-108 4019296066) CO2 TOTAL (test code 25 mmol/L 23-31 = 8422380758) AGAP (test code = 7 2-16 1385330883) BUN (test code = 13 mg/dL 7-23 3162009729) GLUCOSE (test code = 108 mg/dL 70-110 7955343641) CREATININE (test code 0.87 mg/dL 0.50-1.04 = 0086588171) TOTAL BILI (test code 0.4 mg/dL 0.1-1.1 = 3048612347) CALCIUM (test code = 9.6 mg/dL 8.6-10.6 2728133473) T PROTEIN (test code 7.1 g/dL 6.3-8.2 = 5658795254) ALBUMIN (test code = 4.4 g/dL 3.5-5.0 3936460898) ALK PHOS (test code = 67 U/L 34-122 5448503291) ALTv (test code = 19 U/L 5-35 1742-6) AST(SGOT) (test code 18 U/L 13-40 = 3518919435) eGFR (test code = 72.1 mL/min/1.73m2 4455733928) PRAVIN (test code = PRAVIN) Association of Glomerular Filtration Rate (GFR) and Staging of Kidney Disease* + + +- +| GFR (mL/min/1.73 m2) ?| With Kidney Damage ?| ?Without Kidney Damage+ ------+ ----+ ------+| ?>90 ?| ?Stage one ?| ? Normal ?+ -+ + -+| ?60-89 ?| ?Stage two ?| ? Decreased GFR ? + + +- +| ?30-59 ?| ?Stage three ?| ? Stage three ? + + +- +| ?15-29 ?| ?Stage four ? | ? Stage four ?+ -+ + -+| ?<15 (or dialysis) ? ?| ?Stage five ? | ? Stage five ?+ -+ + -+ *Each stage assumes the associated GFR level has been in effect for at least three months. ?Stages 1 to 5, with or without kidney [...] or urine or abnormalities in imaging tests). [facility] 05:12:08 Test Item Value Reference Range Interpretation Comments LIPASE (test code = 4346018640) 196 U/L 0-220 Lab Interpretation (test code = Normal 09949-4) [facility] [id number] 05:10:00 Test Item Value Reference Range Interpretation Comments POCT PREG (test code = 1605) Negative On board controls acceptable with Positive C Line (test code = 3574) POCT PREG LOT # (test code = 3575) [id number] POCT PREG TEST DATE (test 05/28/2023 code = 3576) Lab Interpretation (test code = Normal 93498-5) [facility] WITH [id number] 05:02:26 Test Item Value Reference Range Interpretation Comments WBC (test code = 9.20 See_Comment [Automated 9001-2) message] The sy stem which generated this result transmitted reference range : 4.30 - 11.10 10*3/?L. The reference range was not used to interpret this result as normal/abnormal . RBC (test code = 4.29 See_Comment [Automated 789-8) message] The sy stem which generated this result transmitted reference range : 3.93 - 5.25 10*6/?L. The reference range was not used to interpret this result as normal/abnormal . HGB (test code = 12.6 g/dL 11.6-15.0 718-7) HCT (test code = 37.9 % 35.7-45.2 4544-3) MCV (test code = 88.3 fL 80.6-95.5 787-2) MCH (test code = 29.4 pg 25.9-32.8 785-6) MCHC (test code = 33.2 g/dL 31.6-35.1 786-4) RDW-SD (test code = 43.5 fL 39.0-49.9 92086-9) RDW-CV (test code = 13.3 % 12.0-15.5 788-0) PLT (test code = 420 See_Comment H [Automated 777-3) message] The sy stem which generated this result transmitted reference range : 166 - 358 10*3/ ?L. The reference r tosin was not used to interpret this result as normal/abnormal . MPV (test code = 9.7 fL 9.5-12.9 93952-3) NRBC/100 WBC (test 0.0 See_Comment [Automat ed code = 5045944458) message] The system which generated this result transmitted reference range : 0.0 - 10.0 /100 WBCs. The refer ence range was not u sed to interpret th is result as normal/abnormal . NRBC x10^3 (test code See_Comment [Auto mated = 6443671091) message] The s ystem which generated this result transmitted reference range : 10*3/?L. The reference range was not used to interpret this result as normal/abnormal . GRAN MAT (NEUT) % 54.6 % (test code = 770-8) IMM GRAN % (test code 0.40 % = 5968595989) LYMPH % (test code = 34.0 % 736-9) MONO % (test code = 8.8 % 5905-5) EOS % (test code = 1.7 % 713-8) BASO % (test code = 0.5 % 706-2) GRAN MAT x10^3(ANC) 5.01 10*3/uL 1.88-7.09 (test code = 4308111371) IMM GRAN x10^3 (test 0.04 10*3/uL 0.00-0.06 code = 5202953505) LYMPH x10^3 (test code 3.13 10*3/uL 1.32-3.29 = 731-0) MONO x10^3 (test code 0.81 10*3/uL 0.33-0.92 = 742-7) EOS x10^3 (test code = 0.16 10*3/uL 0.03-0.39 711-2) BASO x10^3 (test code 0.05 10*3/uL 0.01-0.07 = 704-7) Lab Interpretation Abnormal (test code = 58758-3) [facility] [id number] 22:34:53 Test Item Value Reference Interpretation Comments Range TROPONIN I (test 0.003 ng/mL See_Comment [Automated code = 9753914534) message] The system which generated this result transmitted reference range : <=0.034. The reference range was not used to interpret this result as normal/abnormal . PRAVIN (test code = Reference (Normal) PRAVIN) Range (defined by the 99th percentile reference limit): <= 0.034 ng/mL Note: Cardiac troponin begins to rise 3-4 hours after the onset of ischemia. Repeat in 4-6 hours if the sample was drawn within 3-4 hours of the onset of the symptom and found normal. Diagnosis of myocardial injury is made with acute changes in cTn concentrations with at least one serial sample above the 99th percentile upper reference limit (URL), taken together with the patient's clinical presentation. Biotin has been reported to cause a negative bias, interpret results relative to patient's use of biotin. Lab Interpretation Normal (test code = 74656-8) [facility] METABOLIC PANEL (NA, K, CL, CO2, GLUCOSE, BUN, CREATININE, CA)2022-01-17 22:23:31 Test Item Value Reference Range Interpretation Comments NA (test code = 137 mmol/L 135-145 3178289671) K (test code = 4.3 mmol/L 3.5-5.0 3074239742) CL (test code = 104 mmol/L 98-108 3337880959) CO2 TOTAL (test code = 21 mmol/L 23-31 L 3898656931) AGAP (test code = 2-16 5232166004) BUN (test code = 12 mg/dL 7-23 2058705749) GLUCOSE (test code = 234 mg/dL 70-110 H 7047606162) CREATININE (test code = 0.86 mg/dL 0.50-1.04 5732308804) CALCIUM (test code = 9.2 mg/dL 8.6-10.6 4001419404) eGFR (test code = mL/min/1.73m2 0500527331) PRAVIN (test code = PRAVIN) Association of Glomerular Filtration Rate (GFR) and Staging of Kidney Disease* + --+ --+ ------+| GFR (mL/min/1.73 m2) ?| With Kidney Damage ?| ?Without Kidney Damage+ --------+ --------+ +| ?>90 ?| ?Stage one ?| ? Normal ?+ ---+ ---+ -------+| ?60-89 ?| ?Stage two ?| ? Decreased GFR ? + --+ --+ ------+| ?30-59 ?| ?Stage three ?| ? Stage three ? + --+ --+ ------+| ?15-29 ?| ?Stage four ? | ? Stage four ?+ ---+ ---+ -------+| ?<15 (or dialysis) ? ?| ?Stage five ? | ? Stage five ?+ ---+ ---+ -------+ *Each stage assumes the associated GFR level has been in effect for at least three months. ?Stages 1 to 5, with or without kidney [...] tests). Lab Interpretation Abnormal (test code = 81531-5) [facility] (42932) (ALB,T.PRO,BILI T,BU/BC,ALT,AST,ALK PHOS)2022-01-17 22:10:49 Test Item Value Reference Range Interpretation Comments TOTAL BILI (test code = 2047172632) 0.5 mg/dL 0.1-1.1 BILI UNCON (test code = 8080453813) 0.3 mg/dL 0.1-1.1 BILI CONJ (test code = 3881501966) 0.0 mg/dL 0.0-0.3 T PROTEIN (test code = 8332793471) 6.7 g/dL 6.3-8.2 ALBUMIN (test code = 8578625926) 4.4 g/dL 3.5-5.0 ALK PHOS (test code = 2531472773) 59 U/L 34-122 ALTv (test code = 1742-6) 19 U/L 5-35 AST(SGOT) (test code = 1440609288) 16 U/L 13-40 Lab Interpretation (test code = Normal 39270-2) [facility]2022-[facility]-21 22:10:29 Test Item Value Reference Range Interpretation Comments LIPASE (test code = 1229574782) 224 U/L 0-220 H Lab Interpretation (test code = Abnormal 57398-5) [facility] WITH [id number] 21:14:19 Test Item Value Reference Range Interpretation Comments WBC (test code = See_Comment [Automated 1406-2) message] The sy stem which generated this result transmitted reference range : 4.30 - 11.10 10*3/?L. The reference range was not used to interpret this result as normal/abnormal . RBC (test code = See_Comment [Automated 771-8) message] The sy stem which generated this result transmitted reference range : 3.93 - 5.25 10*6/?L. The reference range was not used to interpret this result as normal/abnormal . HGB (test code = 13.4 g/dL 11.6-15.0 718-7) HCT (test code = 39.5 % 35.7-45.2 4544-3) MCV (test code = 88.0 fL 80.6-95.5 787-2) MCH (test code = 29.8 pg 25.9-32.8 785-6) MCHC (test code = 33.9 g/dL 31.6-35.1 786-4) RDW-SD (test code = 44.2 fL 39.0-49.9 76157-3) RDW-CV (test code = 13.8 % 12.0-15.5 788-0) PLT (test code = See_Comment H [Automated 777-3) message] The sy stem which generated this result transmitted reference range : 166 - 358 10*3/ ?L. The reference r tosin was not used to interpret this result as normal/abnormal . MPV (test code = 9.6 fL 9.5-12.9 96331-5) NRBC/100 WBC (test See_Comment [Automat ed code = 4399044016) message] The system which generated this result transmitted reference range : 0.0 - 10.0 /100 WBCs. The refer ence range was not u sed to interpret th is result as normal/abnormal . NRBC x10^3 (test code See_Comment [Auto mated = 4082302084) message] The s ystem which generated this result transmitted reference range : 10*3/?L. The reference range was not used to interpret this result as normal/abnormal . GRAN MAT (NEUT) % 64.2 % (test code = 770-8) IMM GRAN % (test code 0.40 % = 8517274271) LYMPH % (test code = 28.1 % 736-9) MONO % (test code = 5.5 % 5905-5) EOS % (test code = 1.4 % 713-8) BASO % (test code = 0.4 % 706-2) GRAN MAT x10^3(ANC) 5.89 10*3/uL 1.88-7.09 (test code = 2104154628) IMM GRAN x10^3 (test 0.04 10*3/uL 0.00-0.06 code = 3542267318) LYMPH x10^3 (test code 2.58 10*3/uL 1.32-3.29 = 731-0) MONO x10^3 (test code 0.51 10*3/uL 0.33-0.92 = 742-7) EOS x10^3 (test code = 0.13 10*3/uL 0.03-0.39 711-2) BASO x10^3 (test code 0.04 10*3/uL 0.01-0.07 = 704-7) Lab Interpretation Abnormal (test code = 09505-4) [facility] [id number] 21:38:39 Test Item Value Reference Interpretation Comments Range TROPONIN I (test 0.004 ng/mL See_Comment [Automated code = 1908657932) message] The system which generated this result transmitted reference range : <=0.034. The reference range was not used to interpret this result as normal/abnormal . PRAVIN (test code = Reference (Normal) PRAVIN) Range (defined by the 99th percentile reference limit): <= 0.034 ng/mL Note: Cardiac troponin begins to rise 3-4 hours after the onset of ischemia. Repeat in 4-6 hours if the sample was drawn within 3-4 hours of the onset of the symptom and found normal. Diagnosis of myocardial injury is made with acute changes in cTn concentrations with at least one serial sample above the 99th percentile upper reference limit (URL), taken together with the patient's clinical presentation. Biotin has been reported to cause a negative bias, interpret results relative to patient's use of biotin. Lab Interpretation Normal (test code = 97138-3) [facility] / [id number] 21:35:37 Test Item Value Reference Range Interpretation Comments PROTIME PATIENT (test See_Comment [Auto mated message] code = 5964-2) The system wh ich generated this result transmitted ref erence range: 12.0 - 1 4.7 Seconds. The re ference range was not u sed to interpret this result as normal/abnor mal. INR (test code = 6301-6) Nor mal INR <1.1; Warfarin Therap eutic range 2.0 to 3. 0 or 2.5 to 3.5, dep ending upon the indica tions. Lab Interpretation (test Normal code = 59566-0) [facility] [id number] 21:35:17 Test Item Value Reference Range Interpretation Comments NT-proBNP (test code 28 pg/mL See_Comment [Autom ated = 8049639541) message] The system which generated this result transmitted reference range : <=125. The reference range was not used to interpret this result as normal/abnormal . PRAVIN (test code = PRAVIN) Biotin has been reported to cause a negative bias, interpret results relative to patient's use of biotin. Lab Interpretation Normal (test code = 73321-2) [facility]. METABOLIC PANEL (19688)2022-01-12 21:27:15 Test Item Value Reference Range Interpretation Comments NA (test code = 138 mmol/L 135-145 0929143130) K (test code = 4.2 mmol/L 3.5-5.0 7610355025) CL (test code = 104 mmol/L 98-108 8281928583) CO2 TOTAL (test code = 24 mmol/L 23-31 4433321872) AGAP (test code = 2-16 1584155024) BUN (test code = 11 mg/dL 7-23 9173789818) GLUCOSE (test code = 180 mg/dL 70-110 H 1870215189) CREATININE (test code = 0.90 mg/dL 0.50-1.04 3946391501) TOTAL BILI (test code = 0.5 mg/dL 0.1-1.1 3115223508) CALCIUM (test code = 9.3 mg/dL 8.6-10.6 7596471991) T PROTEIN (test code = 7.3 g/dL 6.3-8.2 2194643562) ALBUMIN (test code = 4.6 g/dL 3.5-5.0 4133416682) ALK PHOS (test code = 76 U/L 34-122 7430896310) ALTv (test code = 23 U/L 5-35 1742-6) AST(SGOT) (test code = 21 U/L 13-40 9529176924) eGFR (test code = mL/min/1.73m2 8429733727) PRAVIN (test code = PRAVIN) Association of Glomerular Filtration Rate (GFR) and Staging of Kidney Disease* + --+ --+ ------+| GFR (mL/min/1.73 m2) ?| With Kidney Damage ?| ?Without Kidney Damage+ --------+ --------+ +| ?>90 ?| ?Stage one ?| ? Normal ?+ ---+ ---+ -------+| ?60-89 ?| ?Stage two ?| ? Decreased GFR ? + --+ --+ ------+| ?30-59 ?| ?Stage three ?| ? Stage three ? + --+ --+ ------+| ?15-29 ?| ?Stage four ? | ? Stage four ?+ ---+ ---+ -------+| ?<15 (or dialysis) ? ?| ?Stage five ? | ? Stage five ?+ ---+ ---+ -------+ *Each stage assumes the associated GFR level has been in effect for at least three months. ?Stages 1 to 5, with or without kidney [...] tests). Lab Interpretation Abnormal (test code = 60232-5) [facility]2022-[facility]-16 21:26:33 Test Item Value Reference Range Interpretation Comments LIPASE (test code = 1576943264) 202 U/L 0-220 Lab Interpretation (test code = Normal 79659-4) [facility] WITH [id number] 21:11:52 Test Item Value Reference Range Interpretation Comments WBC (test code = See_Comment [Automated 3144-2) message] The sy stem which generated this result transmitted reference range : 4.30 - 11.10 10*3/?L. The reference range was not used to interpret this result as normal/abnormal . RBC (test code = See_Comment [Automated 312-3) message] The sy stem which generated this result transmitted reference range : 3.93 - 5.25 10*6/?L. The reference range was not used to interpret this result as normal/abnormal . HGB (test code = 13.5 g/dL 11.6-15.0 718-7) HCT (test code = 38.4 % 35.7-45.2 4544-3) MCV (test code = 86.1 fL 80.6-95.5 787-2) MCH (test code = 30.3 pg 25.9-32.8 785-6) MCHC (test code = 35.2 g/dL 31.6-35.1 H 786-4) RDW-SD (test code = 42.3 fL 39.0-49.9 97100-4) RDW-CV (test code = 13.6 % 12.0-15.5 788-0) PLT (test code = See_Comment [Automated 777-3) message] The sy stem which generated this result transmitted reference range : 166 - 358 10*3/ ?L. The reference r tosin was not used to interpret this result as normal/abnormal . MPV (test code = 9.8 fL 9.5-12.9 04457-9) NRBC/100 WBC (test See_Comment [Automat ed code = [id number]) message] The system which generated this result transmitted reference range : 0.0 - 10.0 /100 WBCs. The refer ence range was not u sed to interpret th is result as normal/abnormal . NRBC x10^3 (test code See_Comment [Auto mated = [id number]) message] The s ystem which generated this result transmitted reference range : 10*3/?L. The reference range was not used to interpret this result as normal/abnormal . GRAN MAT (NEUT) % 65.0 % (test code = 770-8) IMM GRAN % (test code 0.60 % = 0063292793) LYMPH % (test code = 26.3 % 736-9) MONO % (test code = 6.2 % 5905-5) EOS % (test code = 1.5 % 713-8) BASO % (test code = 0.4 % 706-2) GRAN MAT x10^3(ANC) 5.48 10*3/uL 1.88-7.09 (test code = 9194296031) IMM GRAN x10^3 (test 0.05 10*3/uL 0.00-0.06 code = [id number]) LYMPH x10^3 (test code 2.22 10*3/uL 1.32-3.29 = 731-0) MONO x10^3 (test code 0.52 10*3/uL 0.33-0.92 = 742-7) EOS x10^3 (test code = 0.13 10*3/uL 0.03-0.39 711-2) BASO x10^3 (test code 0.03 10*3/uL 0.01-0.07 = 704-7) Lab Interpretation Abnormal (test code = 60032-2) [id number]:00 Test Item Value Reference Range Interpretation Comments POCT PREG (test code = 1605) negative On board controls acceptable with present C Line (test code = 3574) POCT PREG LOT # (test code = 3575) [id number] POCT PREG TEST DATE (test 05/28/2023 code = 3576) Lab Interpretation (test code = Normal 33881-0) [facility] [place] [facility]"
[2022-08-27] MEDS ORDERED: HYDROCODONE/APAP 5/325 MG TAB ONE (17:07)
[2022-08-27] MEDS ORDERED: TETANUS & DIPHTHERIA TOX,ADULT 0.5 ML VIAL ONE (17:07)
[2022-08-27] MEDS ORDERED: KETOROLAC 30 MG/ML INJ ONE (17:07)
--- NOTE | 2022-08-27 17:58 | ER ---
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 Laceration noted to L hand and two ss puncture wounds noted to R AC. Oozing noted to wounds at this time. Coronavirus screen: Client denies travel out of the [place] in the last 14 days. Ebola Screen: Patient denies exposure to infectious person. Patient denies travel to an Ebola-affected area in the 21 days before illness onset. Initial Sepsis Screen: Does the patient meet any 2 criteria? No. Patient's initial sepsis screen is negative. Does the patient have a suspected source of infection? No. Patient's initial sepsis screen is negative. Risk Assessment: Do you want to hurt yourself or someone else? Patient reports no desire to harm self or others. Onset of symptoms was August 27, 2022. 16:46 Method Of Arrival: Ambulatory ss 16:46 Acuity: SEA 3 ss Historical: - Allergies: 16:48 No Known Allergies; ss - Home Meds: 16:48 Ozempic subcutaneous [Active]; ss - PMHx: 16:48 Hypertensive disorder; Diabetes mellitus; high cholesterol; ss Screenin:55 [facility] ED Fall Risk Assessment (Adult) History of falling in the last 3 months, kc6 including since admission No falls in past 3 months (0 pts) Confusion or Disorientation No (0 pts) Intoxicated or Sedated No (0 pts) Impaired Gait No (0 pts) Mobility Assist Device Used No (0 pt) Altered Elimination No (0 pt) Score/Fall Risk Level 0 - 2 = Low Risk Oriented to surroundings, Maintained a safe environment, Educated pt \T\ family on fall prevention, incl call for assistance when getting out of bed, Assessed \T\ reinforced patient's understanding of fall precautions, Hourly rounding (assess needs \T\ fall precautionary measures) done. Abuse screen: Denies threats or abuse. Denies injuries from another. Nutritional screening: No deficits noted. Tuberculosis screening: No symptoms or risk factors identified. Assessment: 16:53 General: Appears in no apparent distress. uncomfortable, Behavior is cooperative, kc6 appropriate for age, crying. Pain: Complains of pain in left hand and right arm. Neuro: Level of Consciousness is awake, alert, obeys commands, Oriented to person, place, time, situation, Appropriate for age. Cardiovascular: Capillary refill < 3 seconds. Respiratory: Airway is patent Trachea midline Respiratory effort is even, unlabored, Respiratory pattern is regular, symmetrical. GI: No signs and/or symptoms were reported involving the gastrointestinal system. : No signs and/or symptoms were reported regarding the genitourinary system. EENT: No signs and/or symptoms were reported regarding the EENT system. Derm: Skin lacerations noted to the left pink area, and right AC Skin is pink, warm \T\ dry. Musculoskeletal: No signs and/or symptoms reported regarding the musculoskeletal system. Circulation, motion, and sensation intact. Capillary refill < 3 seconds, Range of motion: intact in all extremities. 17:43 Reassessment: Patient appears in no apparent distress at this time. No changes from kc6 previously documented assessment. Patient and/or family updated on plan of care and expected duration. Pain level reassessed. Patient is alert, oriented x 3, equal unlabored respirations, skin warm/dry/pink. 18:49 Reassessment: Patient appears in no apparent distress at this time. No changes from kc6 previously documented assessment. Patient and/or family updated on plan of care and expected duration. Pain level reassessed. Patient is alert, oriented x 3, equal unlabored respirations, skin warm/dry/pink. Vital Signs: 16:46 BP 134 / 88; Pulse 56; Resp 16; Temp 98(TE); Pulse Ox 98% on R/A; Weight 113.4 kg; ss Height 5 ft. 4 in. ; Pain 10/10; 17:43 BP 114 / 59; Pulse 56; Resp 19 S; Pulse Ox 100% on R/A; kc6 18:49 BP 133 / 103; Pulse 75; Resp 19 S; Pulse Ox 100% on R/A; kc6 16:46 Body Mass Index 42.91 (113.40 kg, 162.56 cm) ss 16:46 Pain Scale: Adult ss ED Course: 16:27 Patient arrived in ED. rg4 16:28 [facility]-C [facility] snw 16:28 Reynold Pulido MD is Attending Physician. snw 16:48 Triage completed. ss 16:48 Arm band placed on right wrist. ss 16:53 Anisha Garcia, FELICITY is Primary Nurse. kc6 16:55 Patient has correct armband on for positive identification. Bed in low position. Call kc6 light in reach. Side rails up X 1. 17:57 Lai Amin MD is Hospitalizing Provider. snw 18:51 No provider procedures requiring assistance completed. Inserted saline lock: 20 gauge kc6 in left antecubital area, using aseptic technique. Blood collected. 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 Exp: kc6 08/07/2023. Lot #: [id number]. } Route: IM; Site: left deltoid; 18:50 Follow up: Response: No adverse reaction kc6 17:07 Drug: [place] PO 5 mg-325 mg 1 tabs Route: PO; kc6 18:50 Follow up: Response: No adverse reaction; Pain is unchanged, physician notified; RASS: kc6 Alert and Calm (0) 18:18 Drug: Ampicillin-Sulbactam Sodium IVPB 1.5 grams Route: IVPB; Infused Over: 30 mins; kc6 Site: left antecubital; 18:50 Follow up: Response: No adverse reaction; IV Status: Completed infusion; IV Intake: kc6 100ml 18:18 Drug: fentaNYL (PF) IVP 25 mcg Route: IVP; Site: left antecubital; kc6 18:50 Follow up: Response: No adverse reaction; Pain is decreased; RASS: Alert and Calm (0) kc6 Medication: 18:52 VIS not applicable for this client. kc6 Intake: 18:50 IV: 100ml; Total: 100ml. kc6 Outcome: 17:58 Decision to Hospitalize by Provider. snw 18:51 Admitted to OR accompanied by nurse, via stretcher, with chart, Report called to bri Bradley RN 18:51 Condition: stable 18:51 Instructed on the need for admit. 18:52 Patient left the ED. bri Signatures: Diana Aparicio, TALENT ENGINEER-C TALENT ENGINEER-Csnw Ayana Walker, RN RN Radha Lubin4 Anisha Garcia RN RN bri
--- NOTE | 2022-08-27 17:59 | EDPHYS ---
Physician Documentation [facility] Name: Jenae Vazquez Age: 42 yrs Sex: Female : 1980 Arrival Date: 08/27/2022 Time: 16:26 Bed 15 Private MD: ED Physician Reynold Pulido HPI: 08/27 17:49 This 42 yrs old Female presents to ER via Ambulatory with complaints of Dog snw Bite. 17:49 The patient was bitten on the right arm and left hand, by a dog, in an unprovoked snw manner, at home, Pt's dog (pit bull). Onset: The symptoms/episode began/occurred suddenly, just prior to arrival. Secondary to the bite the patient reports multiple lacerations, multiple puncture wounds. Severity of symptoms: At their worst the symptoms were moderate, severe. The patient has not experienced similar symptoms in the past. It is unknown whether or not the patient has recently seen a physician. Historical: - Allergies: 16:48 No Known Allergies; ss - Home Meds: 16:48 Ozempic subcutaneous [Active]; ss - PMHx: 16:48 Hypertensive disorder; Diabetes mellitus; high cholesterol; ss ROS: 17:47 Constitutional: Negative for fever, chills, and weight loss, Eyes: Negative for injury, snw pain, redness, and discharge, ENT: Negative for injury, pain, and discharge, Neck: Negative for injury, pain, and swelling, Cardiovascular: Negative for chest pain, palpitations, and edema, Respiratory: Negative for shortness of breath, cough, wheezing, and pleuritic chest pain, Abdomen/GI: Negative for abdominal pain, nausea, vomiting, diarrhea, and constipation, Back: Negative for injury and pain, : Negative for injury, bleeding, discharge, and swelling, MS/Extremity: Negative for injury and deformity, Neuro: Negative for headache, weakness, numbness, tingling, and seizure, Psych: Negative for depression, anxiety, suicide ideation, homicidal ideation, and hallucinations. 17:47 Skin: Positive for laceration(s), puncture, of the left hand over 4th extensor tendon. Exam: 17:48 Constitutional: This is a well developed, well nourished patient who is awake, alert, snw and in no acute distress. Head/Face: Normocephalic, atraumatic. Eyes: Pupils equal round and reactive to light, extra-ocular motions intact. Lids and lashes normal. Conjunctiva and sclera are non-icteric and not injected. Cornea within normal limits. Periorbital areas with no swelling, redness, or edema. ENT: Nares patent. No nasal discharge, no septal abnormalities noted. Tympanic membranes are normal and external auditory canals are clear. Oropharynx with no redness, swelling, or masses, exudates, or evidence of obstruction, uvula midline. Mucous membranes moist. Neck: Trachea midline, no thyromegaly or masses palpated, and no cervical lymphadenopathy. Supple, full range of motion without nuchal rigidity, or vertebral point tenderness. No Meningismus. Chest/axilla: Normal chest wall appearance and motion. Nontender with no deformity. No lesions are appreciated. Cardiovascular: Regular rate and rhythm with a normal S1 and S2. No gallops, murmurs, or rubs. Normal PMI, no JVD. No pulse deficits. Respiratory: Lungs have equal breath sounds bilaterally, clear to auscultation and percussion. No rales, rhonchi or wheezes noted. No increased work of breathing, no retractions or nasal flaring. Abdomen/GI: Soft, non-tender, with normal bowel sounds. No distension or tympany. No guarding or rebound. No evidence of tenderness throughout. Back: No spinal tenderness. No costovertebral tenderness. Full range of motion. MS/ Extremity: Pulses equal, no cyanosis. Neurovascular intact. Full, normal range of motion. Neuro: Awake and alert, GCS 15, oriented to person, place, time, and situation. Cranial nerves II-XII grossly intact. Motor strength 5/5 in all extremities. Sensory grossly intact. Cerebellar exam normal. Normal gait. Psych: Awake, alert, with orientation to person, place and time. Behavior, mood, and affect are within normal limits. 17:48 Skin: Appearance: normal except for affected area, injury, laceration(s), the wound is approximately 4 cm(s), with a depth of 2 cm(s), of the left hand over extensor tendon, puncture(s), that are deep, of the right arm x 2. Vital Signs: 16:46 BP 134 / 88; Pulse 56; Resp 16; Temp 98(TE); Pulse Ox 98% on R/A; Weight 113.4 kg; ss Height 5 ft. 4 in. ; Pain 10/10; 17:43 BP 114 / 59; Pulse 56; Resp 19 S; Pulse Ox 100% on R/A; kc6 18:49 BP 133 / 103; Pulse 75; Resp 19 S; Pulse Ox 100% on R/A; kc6 16:46 Body Mass Index 42.91 (113.40 kg, 162.56 cm) ss 16:46 Pain Scale: Adult ss MDM: 16:28 Patient medically screened. snw 17:46 Differential diagnosis: tendon injury. Data reviewed: vital signs, nurses notes. snw Management of patient was discussed with the following: Therapeutic Riding Instructor: Dr. Austin. Care significantly affected by the following chronic conditions: Diabetes. Counseling: I had a detailed discussion with the patient and/or guardian regarding: the historical points, exam findings, and any diagnostic results supporting the discharge/admit diagnosis, lab results, the need for further work-up and treatment in the hospital. 08/27 17:45 Order name: CBC with Diff; Complete Time: 18:36 hb 08/27 17:45 Order name: CMP; Complete Time: 18:46 hb 08/27 17:55 Order name: ETOH Level snw 08/27 17:45 Order name: EKG; Complete Time: 17:45 hb 08/27 17:45 Order name: NPO; Complete Time: 18:18 hb 08/27 17:45 Order name: EKG - Nurse/Tech; Complete Time: 18:18 hb 08/27 17:45 Order name: Dressing - Wound: moist to dry to both areas of injury; Complete Time: 18:34hb EC:03 Rate is 67 beats/min. Rhythm is regular. OR interval is normal. QT interval is normal. snw Clinical impression: NSR w/ Non-specific ST/T Changes. Administered Medications: 17:06 Drug: Ketorolac IM 30 mg Route: IM; Site: right deltoid; kc6 18:50 Follow up: Response: No adverse reaction; Pain is unchanged, physician notified [facility] 17:06 Drug: Tetanus-Diphtheria Toxoid IM Adult 0.5 ml {Revenue Manager: [employer]. Exp: kc6 08/07/2023. Lot #: [id number]. } Route: IM; Site: left deltoid; 18:50 Follow up: Response: No adverse reaction kc6 17:07 Drug: [place] PO 5 mg-325 mg 1 tabs Route: PO; kc6 18:50 Follow up: Response: No adverse reaction; Pain is unchanged, physician notified; RASS: kc6 Alert and Calm (0) 18:18 Drug: Ampicillin-Sulbactam Sodium IVPB 1.5 grams Route: IVPB; Infused Over: 30 mins; kc6 Site: left antecubital; 18:50 Follow up: Response: No adverse reaction; IV Status: Completed infusion; IV Intake: kc6 100ml 18:18 Drug: fentaNYL (PF) IVP 25 mcg Route: IVP; Site: left antecubital; kc6 18:50 Follow up: Response: No adverse reaction; Pain is decreased; RASS: Alert and Calm (0) kc6 Disposition: 18:52 Co-signature as Attending Physician, Reynold Pulido MD I reviewed the patient's care rn provided by the Advanced Practice Provider and agree with the diagnosis and treatment plan. Disposition Summary: 08/27/22 17:58 Hospitalization Ordered Hospitalization Status: Observation snw Provider: Lai Amin snw Location: Telemetry/MedSurg (observation) snw Condition: Stable snw Problem: new snw Symptoms: are unchanged snw Bed/Room Type: Standard snw Room Assignment: snw Diagnosis - Bitten by dog snw - Puncture wound without foreign body of right upper arm, initial encounter snw - Laceration without foreign body of left hand, initial encounter snw Forms: - Medication Reconciliation Form snw - SBAR form snw Signatures: Dispatcher [employer] EDMS Diana Aparicio, CRAPS MANAGER-C CRAPS MANAGER-Csnw Reynold Pulido MD MD rn Blanchard, Shelby, RN RN ss Baxter, Heather, Anisha Piña RN RN RN kc6
[2022-08-27] MEDS ORDERED: AMPICILLIN/SULBACT 1.5GM VIAL ONE (18:03)
[2022-08-27] MEDS ORDERED: NA CHLORIDE 0.9% 100 ML ONE (18:04)
[2022-08-27] MEDS ORDERED: FENTANYL CITR 100 MCG/2 ML ONE (18:06)
[2022-08-27 18:25] LABS: Absolute Lymphocytes (CBC) 1.7 K/uL (0.7-4.9); Hematocrit 42.1 % (36.0-45.0); MCV 88.3 fL (80-100); RBC Red Blood Cell Count 4.77 M/uL (3.86-4.86)
[2022-08-27 18:43] LABS: Bilirubin Total 0.4 mg/dL (0.2-1.0); Protein, Total 7.7 g/dL (6.4-8.2)
[2022-08-27] MEDS ORDERED: NA CHLORIDE 0.9% 1,000 ML ONE (19:03)
[2022-08-27] MEDS ORDERED: SILVER SULFADIAZINE 1% 25 GM TOP ONE (19:46)
[2022-08-27] MEDS ORDERED: ACETAMINOPHEN 500 MG TAB PO PRN (20:00)
[2022-08-27] MEDS: HYDROMORPHONE HCL 1 MG/ML INJ ONE ×3 (20:50→20:59)
--- NOTE | 2022-08-27 21:04 | P.HP ---
Certification for Inpatient With expected LOS: <2 Midnights Patient will require the following post-hospital care: None Practitioner: I am a practitioner with admitting privileges, knowledge of patient current condition, hospital course, and medical plan of care. Services: Services provided to patient in accordance with Admission requirements found in Title 42 Section 412.3 of the Code of Federal Regulations <Leeanne Gates - Last Filed: 08/28/22 06:46> Patient History Date of Service: 08/28/22 Reason for admission: Dog bite History of Present Illness: 42 yrs old Female with past medical history of HTN, diabetes, HLD presents to emergency room for a dog bite. She reports her "own dog," pit bull, bit her on right arm and left hand that occurred today, prior to arrival. She reports 1 prior attack. She reports bites, left hand, right arm puncture wounds, lacerations on both upper extremities. She reports the dog has had shots. She reports associated pain Left hand. No reported numbness or tingling bilateral upper extremities, no fever, drainage, wounds covered with dry dressing post surgical wash by surgeon. Police were notified by Emergency room. Plan is to have the dog removed from home and put down. - Past Medical/Surgical History Diabetic: No -: KIDNEY CANCER -: Diabetes mellitus type 2 -: Hypertension -: X 2 Psychosocial/ Personal History: Patient is unemployed, lives with the mother - Family History Mother -: Hypertension, Diabetes Brother -: Diabetes - Social History Alcohol use: No CD- Drugs: No Caffeine use: Yes <YajairaLeeanne - Last Filed: 08/28/22 06:46> Date of Service: 08/29/22 <Cristiana Gant - Last Filed: 08/29/22 02:25> Allergies No Known Drug Allergies Allergy (Verified 08/27/22 21:26) Unknown No Known Allergies Allergy (Mild, Uncoded 08/27/22 21:26) Unknown Home Medications: Gabapentin 300 mg PO TID #90 07/30/20 Gabapentin [Neurontin] 600 mg PO TID #90 tablet 07/30/20 Hydrocodone 10/APAP 325 [[place] 10/325] 1 tab PO Q6H PRN #30 tab 07/30/20 Levofloxacin [Levaquin] 500 mg PO DAILY #14 tablet 07/30/20 Metformin ER [Glucophage ER*] 500 mg PO BID #60 tab.sa 07/30/20 metroNIDAZOLE [Flagyl] 500 mg PO Q8H #42 tablet 07/30/20 Amox/Clavulanate [Augmentin 875-125 Tab] 1 each PO BID #14 tab 08/02/20 Review of Systems General: As per HPI <Leeanne Gates - Last Filed: 08/28/22 06:46> Physical Examination - Vital Signs Temperature: 98.0 F Blood Pressure: 147/95 Pulse: 70 Respirations: 16 - Physical Exam General: In no apparent distress, Oriented x3 HEENT: Atraumatic, Normocephalic, PERRLA Neck: Supple, JVD not distended Respiratory: Clear to auscultation bilaterally, Normal air movement Cardiovascular: Regular rate/rhythm, Normal S1 S2 Capillary refill: <2 Seconds (left hand over extensor 4 cm wound, 2 cm depth, right arm x2 lacerations,puncture wound) Gastrointestinal: Normal bowel sounds Musculoskeletal: No swelling, No tenderness Integumentary: No cyanosis Neurological: Normal gait - Studies Laboratory Data (last 24 hrs) 08/27/22 18:15: Sodium 135 L, Potassium 4.0, BUN 14, Creatinine 1.00, Glucose 152 H, Total Bilirubin 0.4, AST 13 L, ALT 20, Alkaline Phosphatase 63 08/27/22 18:15: WBC 17.30 H, Hgb 13.9, Hct 42.1, Plt Count 398 <Leeanne Gates - Last Filed: 08/28/22 06:46> - Studies Laboratory Data (last 24 hrs) 08/28/22 06:08: Sodium 136, Potassium 3.9, BUN 12, Creatinine 0.97, Glucose 156 H 08/28/22 06:08: WBC 16.20 H, Hgb 12.1 D, Hct 35.4 L, Plt Count 370 Microbiology Data (last 24 hrs): 08/27/22 20:14 Wound - Left Hand Gram Stain - Final 08/27/22 20:14 Wound - Left Hand Gram Stain - Final <Cristiana Gant - Last Filed: 08/29/22 02:25> Assessment and Plan - Plan Assessment/Plan Dog Bite DM type 2 HTN Assessment/Plan Dog Bite Hand surg consulted, wash out completed before transferred to room PRN analgesics IV ABX Tetanus given in ED DM DM diet HTN resume home medications Full Code Diet DM in am DVT SCD - Advance Directives Does patient have a Living Will: No Does patient have a Durable POA for Healthcare: No - Code Status/Comfort Care Code Status: Full Code Physician Review: Patient Assessed, Agree with Above Assessment and Plan Critical Care: No Time Spent Managing Pts Care (In Minutes): 50 <Leeanne Gates - Last Filed: 08/28/22 06:46>
[2022-08-27] MEDS: NA CHLORIDE 0.9% 1,000 ML IV SCH (21:30)
[2022-08-27 21:57] VITALS: BMI 44.6
--- NOTE | 2022-08-27 22:23 | OP ---
Surgeon: Zelalem Austin MD Bath Design Sales Consultant: None. Preoperative Diagnosis: Dog bite to the right elbow and left hand. Postoperative Diagnosis: Dog bite to the right elbow and left hand, with laceration of the sagittal band on the left ring finger and fracture of the metacarpal head of the fourth finger. Procedure Performed: Debridement of skin, subcu tissue of the right elbow, debridement of skin, subc u tissue of the palm and canal release and debridement of skin, subcu tissue of the left hand arthrot ramsey. Anesthesia: General. Procedure In Detail: After satisfactory induction of general anesthesia, right and left arms were pr epped with Betadine scrub and Betadine paint. Dry sterile drapes were applied in the usual manner. The right side was approached first. Elliptical incision was made around the open wounds and made in continuity . The wounds were explored laceration down to muscle but was not si gnificantly repair. The wound was jet lavage irrigated with 1 L of Betadine solution. E lectrocautery used for hemostasis. Wound packed with quarter-inch Nu Gauze soaked in Silvadene cream and Kerlix. Attention turned to the left hand. The palm was approached first. Multiple parallel l acerations, these were made in continuity and then extended proximally with swelling in the carpal tu nnel and Guyon's canal region. The Guyon's canal was released and the swelling relieved as well as c ompression. The wound was later jet lavaged. Attention turned to the dorsal hand. Laceration over the fourth metacarpal head region debrided of skin and subcu tissue. Sagittal bands on the ulnar shadia e had been lacerated. The joint had been violated. There was a compression fracture with small chip s of a few mm of the articular surface was missing and the underlying bone was fractured a few mm in size. These wounds were cultured and jet lavage irrigated with another liter of Betadine solution. Tourniquet released. Electrocautery used for hemostasis. Wound packed with quarter-inch Nu Gauze so aked in Silvadene cream, Kerlix applied both arms. The patient tolerated procedure well and returned to Recovery. JOSE/JOSE RAMON Voice ID: [id number] Report ID: [id number]
[2022-08-28] MEDS: AMPICILLIN/SULBACT 3 GM in NA CHLORIDE 0.9% 100 ML IVPB SCH ×4 (00:35→17:05)
[2022-08-28] MEDS ORDERED: AMPICILLIN/SULBACT 3 GM in NA CHLORIDE 0.9% 100 ML IVPB SCH (01:00)
[2022-08-28] MEDS: NA CHLORIDE 0.9% 1,000 ML IV SCH ×2 (04:06→15:40)
[2022-08-28] MEDS: HYDROCODONE/APAP 5/325 MG TAB PO PRN ×5 (04:07→20:26)
[2022-08-28 06:26] LABS: Absolute Lymphocytes (CBC) 1.9 K/uL (0.7-4.9); Hematocrit 35.4 % (36.0-45.0); Lymphocytes % 11.6 % (15.3-44.8); MCV 87.7 fL (80-100); MPV 7.8 fL (7.6-11.3); RBC Red Blood Cell Count 4.04 M/uL (3.86-4.86)
[2022-08-28 06:41] LABS: Potassium 3.9 mEq/L (3.5-5.1)
--- NOTE | 2022-08-28 11:17 | EKG ---
Test Date: 2022-08-27 Test Time: 18:03:19 Mold Preparer: GARRETT MEASUREMENT RESULTS: Intervals: Rate: 67 PA: 148 QRSD: 84 QT: 400 QTc: 422 [place]: P: 48 PA: 148 QRS: 102 T: 27 INTERPRETIVE STATEMENTS: Normal sinus rhythm Rightward axis Borderline ECG Compared to ECG 03/16/2016 18:47:53 Right-axis deviation now present Electronically Signed On 08-28-22 11:16:21 CDT by Junior Ly
--- NOTE | 2022-08-28 21:09 | RAD REPORT ---
EXAM DESCRIPTION: RAD - Hand Left 2 View - 08/28/2022 8:50 pm CLINICAL HISTORY: Left hand pain status post injury FINDINGS: No fracture or dislocation is seen.
[2022-08-29] MEDS: NA CHLORIDE 0.9% 1,000 ML IV SCH ×5 (00:18→22:00)
[2022-08-29] MEDS: AMPICILLIN/SULBACT 3 GM in NA CHLORIDE 0.9% 100 ML IVPB SCH ×4 (00:19→17:09)
[2022-08-29] MEDS: HYDROCODONE/APAP 5/325 MG TAB PO PRN ×5 (01:27→17:08)
--- NOTE | 2022-08-29 02:30 | P.PN ---
Date of Service: 08/28/22 Subjective Patient is doing well with no new complaints. Wounds remain open. Await for Dr. Mckeon did close and then anticipate discharge home over the next few days. Physical Examination - Vital Signs reviewed - Physical Exam General: In no apparent distress, Oriented x3 Respiratory: Clear to auscultation bilaterally, Normal air movement Cardiovascular: Regular rate/rhythm, Normal S1 S2 Gastrointestinal: Normal bowel sounds Musculoskeletal: No swelling, No tenderness Integumentary: (left hand over extensor 4 cm wound, 2 cm depth, right arm x2 lacerations,puncture wound) Neurological: Normal gait Assessment and Plan - Assessment Assessment 1. Dog Bite with open wound to both arms 2. DM type 2 3. HTN - Plan PLAN: 1. Appreciate hand surgery consultation 2. Pain control 3. s/p tetanus 4. IV abx 5. Strict BS control 6. resume antihypertensives
[2022-08-29] MEDS ORDERED: AMPICILLIN/SULBACTAM 3GM/VIAL ONE (06:32)
[2022-08-29] MEDS ORDERED: NA CHLORIDE 0.9% 100 ML ONE (06:33)
[2022-08-29 08:39] LABS: Absolute Lymphocytes (CBC) 2.6 K/uL (0.7-4.9); Hematocrit 33.2 % (36.0-45.0); Lymphocytes % 28.8 % (15.3-44.8); MCV 87.6 fL (80-100); MPV 7.5 fL (7.6-11.3); RBC Red Blood Cell Count 3.79 M/uL (3.86-4.86)
[2022-08-29] MEDS ORDERED: HYDROCODONE/APAP 10/325 TAB PO PRN (11:40)
--- NOTE | 2022-08-29 16:33 | P.PN ---
Subjective Date of Service: 08/29/22 Chief Complaint: Dog bite No acute events overnight. She reports that her pain is well-controlled. She states that, per Dr. Austin, the plan is for a wound closure either later today or tomorrow. She denies any chest pain, palpitations, or shortness of breath. Review of Systems 10-point ROS is otherwise unremarkable Musculoskeletal: Arm Pain (due to dog bite) Physical Examination - Vital Signs Temperature: 97.0 F Blood Pressure: 131/73 Pulse: 60 Respirations: 16 Pulse Ox (%): 98 - Physical Exam General: Alert, In no apparent distress, Oriented x3 HEENT: Atraumatic, Mucous membr. moist/pink, Sclerae nonicteric Neck: JVD not distended Respiratory: Clear to auscultation bilaterally, Normal air movement Cardiovascular: No edema, Regular rate/rhythm, Normal S1 S2, No gallops, No rubs, No murmurs Gastrointestinal: Normal bowel sounds, Soft and benign, Non-distended, No tenderness, No rebound, No guarding Musculoskeletal: No clubbing Integumentary: No rashes, Other (left hand and right forearm/elbow are covered in clean dressing) Neurological: Normal speech, Normal affect - Studies Microbiology Data (last 24 hrs): 08/27/22 20:14 Wound - Left Hand Gram Stain - Final 08/27/22 20:14 Wound - Left Hand Gram Stain - Final Assessment And Plan - Plan # Puncture Wound to Left Hand and Right Elbow secondary to Dog Bite - Does not meet sepsis criteria - Left hand x-ray = "no fracture or dislocation is seen." - Hand Surgery consulted and she was evaluated by Dr. Austin - recommendations appreciated - S/P debridement of skin, subcutaneous tissue of the right elbow, debridement of skin, subcutaneous tissue of the palm and canal release and debridement of skin, subcutaneous tissue of the left hand arthrotomy on 08/27/2022 - Plan for wound closure later today or tomorrow - Continue ampicillin-tazobactam, PRN pain control - S/P Td vaccine in ED # Type II Diabetes Mellitus # Hypertension - Resume home medications once verified Adrian Fernandes M.D.
[2022-08-30] MEDS: AMPICILLIN/SULBACT 3 GM in NA CHLORIDE 0.9% 100 ML IVPB SCH ×3 (00:56→11:04)
[2022-08-30] MEDS: HYDROCODONE/APAP 5/325 MG TAB PO PRN ×2 (03:26→11:05)
[2022-08-30 03:40] LABS: Absolute Lymphocytes (CBC) 2.8 K/uL (0.7-4.9); Hematocrit 32.4 % (36.0-45.0); Lymphocytes % 32.9 % (15.3-44.8); MCV 87.6 fL (80-100); MPV 7.8 fL (7.6-11.3)
[2022-08-30 04:12] LABS: Potassium 3.7 mEq/L (3.5-5.1)
[2022-08-30] MEDS: NA CHLORIDE 0.9% 1,000 ML IV SCH ×2 (08:00→11:04)
[2022-08-30] MEDS ORDERED: SUCCINYLCHOLINE 20 MG/ML (10 ML) IV ONE (08:31)
[2022-08-30] MEDS ORDERED: FENTANYL CITR 100 MCG/2 ML ONE ×2 (08:44→09:09)
[2022-08-30] MEDS ORDERED: MIDAZOLAM HCL 2 MG/2 ML INJ ONE (08:44)
[2022-08-30] MEDS ORDERED: propofoL 200 MG/20 ML VIAL IV ONE (08:44)
[2022-08-30] MEDS ORDERED: Mastisol Adhesive Liq ONE (09:22)
[2022-08-30] MEDS ORDERED: ONDANSETRON 4 MG/2 ML VIAL ONE (09:27)
[2022-08-30] MEDS ORDERED: dexAMETHasone 10 MG/ML VIAL ONE (09:27)
[2022-08-30] MEDS: FENTANYL CITR 100 MCG/2 ML ONE ×2 (10:15→10:38)
[2022-08-30] MEDS ORDERED: KETOROLAC 30 MG/ML INJ ONE (10:23)
[2022-08-30 10:38] VITALS: O2SAT 95
[2022-08-30 12:18] VITALS: BP 121/73; TEMP 97.1
--- NOTE | 2022-08-30 12:32 | P.DS ---
Admission Date: 08/28/22 Discharge Date: 08/30/22 Disposition: ROUTINE DISCHARGE Discharge Condition: GOOD Reason for Admission: Dog bite Consultations: 1. Hand Surgery Procedures: - 08/27/2022 - Debridement of Skin, Subcutaneous Tissue of the Right Elbow, Debridement of Skin, Subcutaneous Tissue of the Palm and Canal Release and Debridement of Skin, Subcutaneous Tissue of the Left Hand Arthrotomy - 08/30/2022 - Closure of Dog Bite of Right Elbow and Left Hand Hospital Course: DIAGNOSES: # Puncture Wound to Left Hand and Right Elbow secondary to Dog Bite s/p Debridement and Wound Closure # Type II Diabetes Mellitus # Hypertension HOSPITAL COURSE: Ms. Jenae Vazquez is a 42 year old female with a past medical history signi ficant for type II diabetes mellitus and hypertension who was admitted to the [facility] on 08/28/2022 for a dog bite. She was admitted to the Medicine service. Upon further evaluation, she did not meet sepsis criteria. Her left hand x-ray revealed, "no fracture or dislocation is seen." Hand Surgery was consulted and she was evaluated by Dr. Austin. She was started on IV ampicillin-sulbactam and PRN pain medications. On 08/27/2022, she underwent debridement of skin, subcutaneous tissue of the right elbow, debridement of skin, subcutaneous tissue of the palm and canal release and debridement of skin, subcutaneous tissue of the left hand arthrotomy. She tolerated the procedure well. On 08/30/2022, she underwent closure of the wounds to her left hand and right elbow. Dr. Austin has cleared her discharge on amoxicillin-clavulanate and PRN hydrocodone-acetaminophen. He has her scheduled to follow-up with him on 09/05/2022 at 09:00 AM. On 08/30/2022, she was seen on rounds and deemed medically stable for discharge. She was discharged with instructions to schedule follow-up appointments with PCP (CAROLA Traylor) and Hand Surgery (Dr. Austin). She was provided prescriptions for amoxicillin-clavulanate and hydrocodone-acetaminophen. She and her family members were given the opportunity to ask questions and reported no further questions. Furthermore, all questions were answered to the best of my ability. Prior to the controlled substance prescription, a PDMP review was conducted. Over the last 2 years, she has received 4 controlled prescription from 4 pr oviders to 1 pharmacy. Her opioid overdose risk score is 230. A copy of this discharge summary will be sent to the above providers to facilitate continuity of care. Today, I personally spent 25 minutes on her case, of which greater than 50% of the time was spent in patient education, counseling, and coordination of care as described above. - Physical Exam General: Alert, In no apparent distress, Oriented x3 HEENT: Atraumatic, Sclerae nonicteric Neck: JVD not distended Respiratory: Clear to auscultation bilaterally, Normal air movement Cardiovascular: No edema, Regular rate/rhythm, No murmurs Gastrointestinal: Soft, Non-distended, No tenderness Musculoskeletal: No clubbing Integumentary: No rashes, Other (left hand and right forearm/elbow are covered in clean dressing) Neurological: Normal speech, Normal affect Vital Signs/Physical Exam: Temp Pulse Resp BP Pulse Ox 97.1 F 70 16 121/73 95 08/30/22 12:00 08/30/22 12:00 08/30/22 12:00 08/30/22 12:00 08/30/22 12:00 Laboratory Data at Discharge: WBC 8.50 thou/uL (4.3-10.9) 08/30/22 02:33 Hgb 11.1 g/dL (12.0-15.0) L 08/30/22 02:33 Hct 32.4 % (36.0-45.0) L 08/30/22 02:33 Plt Count 354 thou/uL (152-406) 08/30/22 02:33 Sodium 143 mEq/L (136-145) 08/30/22 02:33 Potassium 3.7 mEq/L (3.5-5.1) 08/30/22 02:33 BUN 11 mg/dL (7-18) 08/30/22 02:33 Creatinine 0.69 mg/dL (0.55-1.02) 08/30/22 02:33 Glucose 115 mg/dL (74-106) H 08/30/22 02:33 Total Bilirubin 0.4 mg/dL (0.2-1.0) 08/27/22 18:15 AST 13 U/L (15-37) L 08/27/22 18:15 ALT 20 U/L (13-56) 08/27/22 18:15 Alkaline Phosphatase 63 U/L (45-117) 08/27/22 18:15 Home Medications: Amlodipine Besylate/Benazepril [Amlodipine-Benazepril 10-20 mg] 1 each PO DAILY 08/29/22 Atorvastatin Calcium [Lipitor] 80 mg PO BEDTIME 08/29/22 Metformin HCl 1,000 mg PO BID 08/29/22 Amox/Clavulanate [Augmentin 875-125 Tab] 875 mg PO BID 10 Days #20 tab 08/30/22 Hydrocodone 5/APAP 325 [[place] 5/325*] 1 tab PO Q6H PRN 3 Days #12 tab 08/30/22 New Medications: Amox/Clavulanate [Augmentin 875-125 Tab] 875 mg PO BID 10 Days #20 tab Hydrocodone 5/APAP 325 [[place] 5/325*] 1 tab PO Q6H PRN 3 Days #12 tab PRN Reason: Pain Scale 5-7 (Moderate) Physician Discharge Instructions: 1. Please call and schedule a follow-up appointment with your PCP (CAROLA Traylor) in 3-5 days 2. Please attend your scheduled appointment with Hand Surgery (Dr. Austin) on 09/05/2022 at 09:00 AM. - Please do not drive or operate heavy machinery while taking pain medication Diet: Regular Activity: Ad melisa Followup: Lisa Traylor NP [OUTSIDE PHYSICIAN] - Zelalem Austin MD [ACTIVE - CAN ADMIT] - Time spent managing pt's care (in minutes): 25
--- NOTE | 2022-08-30 12:34 | OP ---
Surgeon: Zelalem Austin MD Preoperative Diagnosis: Open wounds of the right elbow and left hand. Postoperative Diagnosis: Open wounds of the right elbow and left hand. Procedures Performed: Debridement of skin and subcutaneous tissue of the right elbow with layered cl osure, debridement of skin and subcutaneous tissue of the left palm with simple closure, debridement of skin and subcutaneous tissue with flap closure of the left dorsal hand. Anesthesia: General. Procedure In Detail: After satisfactory induction of general anesthesia, the right elbow, extremity, and left hand were prepped with Betadine scrub and Betadine paint. Dry sterile drapes were applied in the usual manner. The right elbow was approached first. Laceration of the volar surface was cure tted, then jet lavaged and irrigated, scrubbed with Betadine scrub brush. Skin and subcutaneous tiss ue debrided as needed and closed in layers with 3-0 Vicryl subcu, 4-0 PDS running subcuticular follow ed by tincture of benzoin, Steri-Strips, and Kerlix. Attention was turned to the left hand. The arm was elevated, exsanguinated with an Esmarch. Tourniquet was inflated to 250 mmHg. The incision was debrided, scrubbed with scrub brush and jet lavaged and irrigated with 1 L of the solution. The watson d was turned over the dorsal surface, which was having laceration into the joint of the MCP of the ri ng finger with the fracture of the distal portion of the metacarpal head was jet lavaged and irrigate d. After irrigation performed, the tourniquet was released. Electrocautery was used for hemostasis. The palm was closed first with 4-0 Prolene vertical mattress half buried mattress simple sutures. Dorsal hand linear over the MCP head. Flaps were closed and then closed with 4-0 Prolene simple sutures. Dressed with Xeroform, Kerlix on the hand. The patient tolerated the procedure well and returned to recovery room. JOSE/MODL Voice ID: [id number] Report ID: [id number]
== END 2022-08-30 13:47 | disposition home or self-care (01) | DRG 580 ==
LOC: ER 16:26 → ERHOLD 19:04 → 2ND 19:35 → OBSVTOIN 08-28 15:30
PROVIDERS: ADMIT Internal Medicine; ATTEND Internal Medicine
PROC: 0JDK0ZZ Extraction of Left Hand Subcutaneous Tissue and Fascia, Open Approach (ICD-10-PCS; 2022-08-27)
PROC: 01N40ZZ Release Ulnar Nerve, Open Approach (ICD-10-PCS; 2022-08-27)
PROC: 0JDG0ZZ Extraction of Right Lower Arm Subcutaneous Tissue and Fascia, Open Approach (ICD-10-PCS; principal; 2022-08-27 19:00)
PROC: 0JQG0ZZ Repair Right Lower Arm Subcutaneous Tissue and Fascia, Open Approach (ICD-10-PCS; 2022-08-30)
PROC: 0JQK0ZZ Repair Left Hand Subcutaneous Tissue and Fascia, Open Approach (ICD-10-PCS; 2022-08-30)
DX: S61.412A Laceration without foreign body of left hand, initial encounter (principal); L03.113 Cellulitis of right upper limb; L03.114 Cellulitis of left upper limb; S62.605A Fracture of unspecified phalanx of left ring finger, initial encounter for closed fracture; S41.131A Puncture wound without foreign body of right upper arm, initial encounter; S61.452A Open bite of left hand, initial encounter; S41.151A Open bite of right upper arm, initial encounter; E11.9 Type 2 diabetes mellitus without complications; I10 Essential (primary) hypertension; E78.00 Pure hypercholesterolemia, unspecified; B96.1 Klebsiella pneumoniae [K. pneumoniae] as the cause of diseases classified elsewhere; Z56.0 Unemployment, unspecified; Z79.84 Long term (current) use of oral hypoglycemic drugs; Z85.528 Personal history of other malignant neoplasm of kidney; Z79.899 Other long term (current) drug therapy
CPT/HCPCS: 36415; 80048; 80053; 82077; 82947; 85025; 87070; 87075; 87077; 87186; 87205; 88304; 90471; 90714; 93005; 96365; 96372; 96375; 99285; G0378; J0295; J1100; J1170; J2250; J2405; J2704; J3010; J7030